=== PATIENT | female | born 1985 | race Caucasian/White ===

== ENCOUNTER 2017-02-05 10:16 | Observation (INO) ==
--- NOTE | 2017-02-05 12:15 | Emergency Department Note ---
Disposition Clinical Impression: Left upper arm pain, Paralysis of left upper extremity Disposition: Still a Patient Condition: Good Time of Disposition: 16:39 General Adult HPI - General Chief complaint: ED Extremity Problem,Nontraumatic Stated complaint: left arm weakness and "not working", vomiting Time Seen by Provider: 02/05/17 10:30 Source: patient Limitations: no limitations Nursing Notes Reviewed: Yes Vital Signs Reviewed: Yes - History of Present Illness HPI Narrative: Patient presents emergency room with complaint of paralysis the left arm and paresthesias in the right upper extremity. She denies any trauma or injuries. Patient is concerned because she woke with the symptoms. She has never had any like this before. Otherwise patient has no other acute pathology or complaints. Denies fevers chills nausea vomiting diarrhea. Denies chest pain shortness of breath headache or vision change. Onset (ago): hour(s) (8) Location: upper extremity Radiation: back Pain Severity: mild Pain Scale: 0 Quality: constant Improves with: nothing Worsens with: nothing Associated symptoms: Reports: weakness Treatments Prior to Arrival: none - Related Data Home Medications Medication Instructions Recorded Confirmed Acetaminophen/Diphenhydramine 1 tab PO HS PRN 02/05/17 02/05/17 [Acetaminophen Pm Caplet] Citalopram [CeleXA] 20 mg PO DAILY 02/05/17 02/05/17 CloNIDine HCl [Clonidine HCl] 0.2 - 0.4 mg PO HS PRN 02/05/17 02/05/17 Ibuprofen [Motrin] 400 - 800 mg PO Q6HR PRN 02/05/17 02/05/17 [place] Carbonate 300 mg PO DAILY 02/05/17 02/05/17 Allergies Allergy/AdvReac Type Severity Reaction Status Date / Time No Known Allergies Allergy Verified 06/12/15 19:23 All systems ED: reviewed and negative except as stated. Constitutional: Denies: fever, chills Cardiovascular: Denies: chest pain, palpitations Respiratory: Denies: dyspnea, wheezes Gastrointestinal: Denies: nausea, vomiting, diarrhea Genitourinary: Denies: dysuria, frequency Musculoskeletal: Denies: back pain, neck pain Neurological: Denies: headache Past Medical History - Past Medical History Attestation: Yes The following information was validated with the patient. Source: patient Medical history: Reports: hepatitis Surgical history: Reports: non-contributory Psychiatric history: Reports: bipolar, depression, PTSD [employer] MARGARINE history: Reports: non-contributory - Social History Smoking Status: Current every day smoker Smokeless Tobacco Status: No Alcohol use: Reports: none Drug use: Reports: IVDU Physical Exam - General Limitations: no limitations General appearance: alert, in no apparent distress - Neck Neck exam: Present: normal inspection, full ROM, trachea midline. Absent: tenderness, meningismus, lymphadenopathy - Chest Chest inspection: Present: normal inspection, symmetric chest wall rise. Absent : tenderness - Respiratory Respiratory exam: Present: normal lung sounds bilaterally - Cardiovascular Cardiovascular exam: Present: normal rhythm, tachycardia, normal heart sounds - Extremities Exam Extremities exam: Present: normal inspection, normal capillary refill, other ( Is what appears to be paresthesias and paralysis the left upper extremity. She describes the symptoms from the shoulder down. She has mild paresthesias of the right upper extremity over the thumb and lateral aspect of the forearm otherwise no other acute pathology). Absent: full ROM, tenderness - Back Exam Back exam: Present: normal inspection, full ROM. Absent: tenderness - Neurological Exam Neurological exam: Present: alert, oriented X3, CN II-XII intact, normal gait - Psychiatric Psychiatric exam: Present: normal affect, normal mood - Skin Skin exam: Present: warm, dry, intact, normal color Course Course Narrative: 6 patient seen and examined the time of arrival. See history of present illness. 31-year-old female presents today with left upper extremity paralysis with paresthesias as well as right upper extremity paresthesias. Symptom onset was prior to waking this morning. Patient denies any trauma or injury yesterday. She has never had any symptoms like this. Patient denies fevers chills nausea vomiting diarrhea. Denies chest pain shortness breath headache or vision change. Patient's only complaint is the numbness and lack of use of her left upper extremity right upper extremity. Patient of note is and was a IV drug abuser. There is concern at this point for possible spinal cord related issues including epidural abscess, vascular related ischemia to the spinal cord or canal stenosis. Physical exam is relatively benign and head is atraumatic pupils equal round reactive to light. There is no midline cervical thoracic or lumbar tenderness. Patient is motion of the neck without any difficulty. Trachea is midline. Lungs are clear heart is regular. Physical exam of the upper extremities show symmetric appearing cavities with no pulse deficits at this time. The right upper extremity has motor function that appears to be a pulse 4 out of 5. This affects the shoulder elbow and wrist. She has normal sensation but describes some tingliness over her thumb and index finger and the lateral aspect of her forearm. Left upper trap the patient describes decreased sensation to the point of almost no sensation from the shoulder down to the fingertips. She also describes lack of use. She is unable to move this extremity. Spurling's test is negative bilaterally in the cervical spine. Patient is concerning for some type of spinal cord related injury or infection at this time. Labs ordered addressing any infectious etiology including cultures CBC liver enzymes lipase tenderness abdominal pathology secondary to drug abuse history. Troponin also be ordered as well as EKG and chest x-ray. MRI of the cervical thoracic and lumbar spine as well as a CT of the head are also ordered during this treatment course. Disposition pending workup and treatment evaluation. Reviewing patient's chart shows that she did have an abscess in the left upper extremity several weeks ago. Evaluation the arm does not show any redness swelling or other signs of injury at this point. Both extremities appear to be stable. - Reevaluation(s) Reevaluation #1: Patient found to have a grossly positive drug screen here in the emergency room. Patient will not be provided with any pain medication or anxiolytics while here secondary to our diameter system. Patient having imaging performed at this time. Otherwise her labs are normal white count is normal no acute signs of infection or etiology at this point disposition patient treatment course. Symptoms appear to be more consistent with a neuropraxia consistent with a Monday night palsy. Patient seems to fall asleep or done something is created the pressure symptoms and radicular paresthesias. Unknown etiology at this time but symptoms do not appear to be secondary to trauma spinal stenosis at this point. Disposition pending MRI imaging. Time: 13:59 Reevaluation #2: Patient and I reviewed her medications. She says that she is on Klonopin at home. Attempted review and [place] [facility] prescription reporting system at this time I am unable to access is secondary to change in her sister minimally credentialing. Patient and I discussed that she will be given a one-time dose and that is all she will have here in the emergency room. 1 mg of Ativan with this time to have the patient tolerated her MRI study. Symptoms again appear to be secondary to neuropraxia but underlying etiology are concerning this point. Time: 15:12 Reevaluation #3: Patient was reviewed with the hospitalist Dr. Lala. We reviewed the presentation symptoms and inability to get definitive imaging studies at this time. Neurologic evaluation has not changed throughout the course of care. He medical intervention as well as discussions that I had multiple times the bedside with the patient and the family were reviewed. Hospital said no other recommendations at this time. Patient will be admitted for definitive evaluation of paralysis to left upper extremity paresthesias in the right upper extremity. Patient stable on a good medical condition and ambulatory to the emergency room without any acute deficits noted we will continue monitoring in emergency room until the admission process is completed Time: 16:38 Vital Signs Temperature 98.5 F 02/05/17 10:21 Pulse Rate 120 02/05/17 10:21 Respiratory Rate 18 02/05/17 10:21 Blood Pressure 110/76 02/05/17 10:21 O2 Sat by Pulse Oximetry 97 02/05/17 10:21 Temperature 98.5 F 02/05/17 10:21 Pulse Rate 110 02/05/17 13:28 Respiratory Rate 18 02/05/17 13:28 Blood Pressure 138/80 02/05/17 13:28 O2 Sat by Pulse Oximetry 98 02/05/17 13:28 Oxygen Delivery Oxygen Delivery Room Air Medical Decision Making - MDM Narrative Medical decision making narrative: Upper extremity paralysis paresthesias, left upper extremity - Medical Records Medical records reviewed: Yes I reviewed the patient's medical records. - Lab Data Lab results reviewed: Yes I reviewed the patient's lab results. Result diagrams: 02/05/17 12:34 02/05/17 12:34 Lab Results 02/05/17 02/05/17 02/05/17 Range/Units 10:40 10:40 10:40 WBC (4.3-11.1) K/mcL RBC (3.82-4.97) M/mcL Hgb (11.5-15.4) g/dL Hct (35.3-44.9) % MCV (83.0-100.0) fL MCH (28.0-33.3) pg MCHC (31.6-35.5) g/dL RDW (11.5-14.5) % Plt Count (140-400) K/mcL MPV (9.4-12.4) fL Immature Gran % (0-4) % Seg Neutrophils % % Lymphocytes % % Monocytes % % Eosinophils % % Basophils % % Neutrophils # (1.6-8.9) K/mcL Lymphocytes # (0.6-4.6) K/mcL Monocytes # (0.0-1.3) K/mcL Eosinophils # (0.0-0.6) K/mcL Basophils # (0.0-0.2) K/mcL ESR (0-15) mm/hr Sodium (136-145) mEq/L Potassium (3.5-4.5) mEq/L Chloride (98-109) mEq/L Carbon Dioxide (19-29) mEq/L BUN (7-20) mg/dL Creatinine (0.57-1.11) mg/dL Est GFR ( Amer) (> 60) Est GFR (Non-Af Amer) (> 60) BUN/Creatinine Ratio (6-26) Glucose (70-99) mg/dL Calculated Osmolality (280-300) Calcium (8.6-10.8) mg/dL Total Bilirubin (0.2-1.2) mg/dL Direct Bilirubin (0.0-0.5) mg/dL Indirect Bilirubin (0.0-1.2) mg/dL AST (5-34) Units/L ALT (0-55) Units/L Alkaline Phosphatase (38-126) Units/L Troponin I (0-0.03) ng/mL Serum Total Protein (6.0-8.3) g/dL Albumin (3.5-5.0) g/dL Globulin (2.4-3.5) g/dL Albumin/Globulin Ratio (1.1-2.2) Urine Color Yellow (Yellow) Urine Clarity Turbid A (Clear) Urine pH 5.5 (5.0-8.0) pH Units Ur Specific [place] 1.024 (1.010-1.025) Urine Protein 30 H (Neg-Trace) mg/dL Urine Glucose (UA) Normal (Normal) mg/dL Urine Ketones Negative (Negative) mg/dL Urine Blood Moderate H (Negative) Urine Nitrite Negative (Negative) Urine Bilirubin Negative (Negative) Urine Urobilinogen Normal (Normal) mg/dL Ur Leukocyte Esterase Negative (Negative) Urine Microscopic RBC 0-3 (0-3) per hpf Urine Microscopic WBC 5-15 H (0-3) per hpf Ur Squamous Epith Cells Many H (None-Few) per lpf Urine Bacteria Many H (None-Few) per hpf Hyaline Casts Moderate H (None-Few) per lpf Urine Test Negative (Negative) Salicylates (15-30) mg/dL Urine Opiates Screen Positive H (Fqqpoy=678) ng/mL Acetaminophen (10-30) mcg/mL Ur Barbiturates Screen Negative (Jrxqmh=561) ng/mL Ur Phencyclidine Scrn Negative (Cutoff=25) ng/mL Ur Amphetamines Screen Positive H (Jzwsqd=0939) ng/mL U Benzodiazepines Scrn Positive H (Buqrty=814) ng/mL Urine Cocaine Screen Positive H (Cutoff= 300) ng/mL U Marijuana (THC) Screen Negative (Cutoff = 50) ng/mL Ethyl Alcohol (0-10) mg/dL 02/05/17 02/05/17 02/05/17 Range/Units 12:34 12:34 12:34 WBC 9.4 (4.3-11.1) K/mcL RBC 4.59 (3.82-4.97) M/mcL Hgb 13.5 (11.5-15.4) g/dL Hct 40.2 (35.3-44.9) % MCV 87.6 (83.0-100.0) fL MCH 29.4 (28.0-33.3) pg MCHC 33.6 (31.6-35.5) g/dL RDW 14.2 (11.5-14.5) % Plt Count 190 (140-400) K/mcL MPV 10.0 (9.4-12.4) fL Immature Gran % 0.3 (0-4) % Seg Neutrophils % 74.5 % Lymphocytes % 19.9 % Monocytes % 4.9 % Eosinophils % 0.2 % Basophils % 0.2 % Neutrophils # 7.0 (1.6-8.9) K/mcL Lymphocytes # 1.9 (0.6-4.6) K/mcL Monocytes # 0.5 (0.0-1.3) K/mcL Eosinophils # 0.0 (0.0-0.6) K/mcL Basophils # 0.0 (0.0-0.2) K/mcL ESR 24 H (0-15) mm/hr Sodium 138 (136-145) mEq/L Potassium 3.9 (3.5-4.5) mEq/L Chloride 100 (98-109) mEq/L Carbon Dioxide 29 (19-29) mEq/L BUN 14 (7-20) mg/dL Creatinine 0.75 (0.57-1.11) mg/dL Est GFR ( Amer) > 60 (> 60) Est GFR (Non-Af Amer) > 60 (> 60) BUN/Creatinine Ratio 19 (6-26) Glucose 114 H (70-99) mg/dL Calculated Osmolality 287 (280-300) Calcium 10.0 (8.6-10.8) mg/dL Total Bilirubin 0.8 (0.2-1.2) mg/dL Direct Bilirubin 0.3 (0.0-0.5) mg/dL Indirect Bilirubin 0.5 (0.0-1.2) mg/dL AST 67 H (5-34) Units/L ALT 110 H (0-55) Units/L Alkaline Phosphatase 72 (38-126) Units/L Troponin I (0-0.03) ng/mL Serum Total Protein 8.2 (6.0-8.3) g/dL Albumin 4.2 (3.5-5.0) g/dL Globulin 4.0 H (2.4-3.5) g/dL Albumin/Globulin Ratio 1.1 (1.1-2.2) Urine Color (Yellow) Urine Clarity (Clear) Urine pH (5.0-8.0) pH Units Ur Specific [place] (1.010-1.025) Urine Protein (Neg-Trace) mg/dL Urine Glucose (UA) (Normal) mg/dL Urine Ketones (Negative) mg/dL Urine Blood (Negative) Urine Nitrite (Negative) Urine Bilirubin (Negative) Urine Urobilinogen (Normal) mg/dL Ur Leukocyte Esterase (Negative) Urine Microscopic RBC (0-3) per hpf Urine Microscopic WBC (0-3) per hpf Ur Squamous Epith Cells (None-Few) per lpf Urine Bacteria (None-Few) per hpf Hyaline Casts (None-Few) per lpf Urine Test (Negative) Salicylates < 5.0 L (15-30) mg/dL Urine Opiates Screen (Hqokqj=080) ng/mL Acetaminophen < 1.0 L (10-30) mcg/mL Ur Barbiturates Screen (Eiholv=784) ng/mL Ur Phencyclidine Scrn (Cutoff=25) ng/mL Ur Amphetamines Screen (Eseimn=7876) ng/mL U Benzodiazepines Scrn (Sigrlu=890) ng/mL Urine Cocaine Screen (Cutoff= 300) ng/mL U Marijuana (THC) Screen (Cutoff = 50) ng/mL Ethyl Alcohol < 10 (0-10) mg/dL 02/05/17 Range/Units 12:34 WBC (4.3-11.1) K/mcL RBC (3.82-4.97) M/mcL Hgb (11.5-15.4) g/dL Hct (35.3-44.9) % MCV (83.0-100.0) fL MCH (28.0-33.3) pg MCHC (31.6-35.5) g/dL RDW (11.5-14.5) % Plt Count (140-400) K/mcL MPV (9.4-12.4) fL Immature Gran % (0-4) % Seg Neutrophils % % Lymphocytes % % Monocytes % % Eosinophils % % Basophils % % Neutrophils # (1.6-8.9) K/mcL Lymphocytes # (0.6-4.6) K/mcL Monocytes # (0.0-1.3) K/mcL Eosinophils # (0.0-0.6) K/mcL Basophils # (0.0-0.2) K/mcL ESR (0-15) mm/hr Sodium (136-145) mEq/L Potassium (3.5-4.5) mEq/L Chloride (98-109) mEq/L Carbon Dioxide (19-29) mEq/L BUN (7-20) mg/dL Creatinine (0.57-1.11) mg/dL Est GFR ( Amer) (> 60) Est GFR (Non-Af Amer) (> 60) BUN/Creatinine Ratio (6-26) Glucose (70-99) mg/dL Calculated Osmolality (280-300) Calcium (8.6-10.8) mg/dL Total Bilirubin (0.2-1.2) mg/dL Direct Bilirubin (0.0-0.5) mg/dL Indirect Bilirubin (0.0-1.2) mg/dL AST (5-34) Units/L ALT (0-55) Units/L Alkaline Phosphatase (38-126) Units/L Troponin I 0.03 (0-0.03) ng/mL Serum Total Protein (6.0-8.3) g/dL Albumin (3.5-5.0) g/dL Globulin (2.4-3.5) g/dL Albumin/Globulin Ratio (1.1-2.2) Urine Color (Yellow) Urine Clarity (Clear) Urine pH (5.0-8.0) pH Units Ur Specific [place] (1.010-1.025) Urine Protein (Neg-Trace) mg/dL Urine Glucose (UA) (Normal) mg/dL Urine Ketones (Negative) mg/dL Urine Blood (Negative) Urine Nitrite (Negative) Urine Bilirubin (Negative) Urine Urobilinogen (Normal) mg/dL Ur Leukocyte Esterase (Negative) Urine Microscopic RBC (0-3) per hpf Urine Microscopic WBC (0-3) per hpf Ur Squamous Epith Cells (None-Few) per lpf Urine Bacteria (None-Few) per hpf Hyaline Casts (None-Few) per lpf Urine Test (Negative) Salicylates (15-30) mg/dL Urine Opiates Screen (Xrvqfo=741) ng/mL Acetaminophen (10-30) mcg/mL Ur Barbiturates Screen (Pjpxoy=109) ng/mL Ur Phencyclidine Scrn (Cutoff=25) ng/mL Ur Amphetamines Screen (Zvekgu=6690) ng/mL U Benzodiazepines Scrn (Tyxczm=573) ng/mL Urine Cocaine Screen (Cutoff= 300) ng/mL U Marijuana (THC) Screen (Cutoff = 50) ng/mL Ethyl Alcohol (0-10) mg/dL Attestation Statement - Attestation Attestation: Patient was seen with resident physician. I reviewed the history, physical, assessment and plan, and agree with the findings. I also personally evaluated this patient and had [id number] time with this patient. 31-year-old female with chief complaint of cannot move left arm. Patient states that she woke from sleep unable to move her left arm. She has some numbness and tingling and she can move her hand a little bit better arm is unable to be lifted on her own power. Is not necessarily painful it is more numb and immobile. No other focal neurologic deficits initially she said she has not used drugs for the last 30 days then she said she had not used IV drugs in the last week and later in her visit she admitted that she was using drugs up to yesterday. She denies other complaints. Physical exam initial vital signs were stable. ENT is unremarkable. Skin patient has multiple track martinez throughout her body. Neck and back were nontender. Heart and lungs were both normal. Abdomen is soft and nontender. Extremities patient has small amount of movement with weakness in the left hand but is unable to move the left arm. No focal neurologic deficits otherwise. Distal pulses are intact in both upper extremities. CT scan of the head did not reveal any acute abnormalities would also count was not elevated. We attempted to get MRI but patient said she needed sedatives, however her drug screen was positive for almost everything that is tested for, we were uncomfortable giving her increased medications, especially considering the fact we do not know how frequently she has been using and when. Instead we opted to admit the patient to the hospital for neuro checks and further evaluation and treatment as indicated. We attempted to MRI the patient twice and we did give her a small amount of benzodiazepines which apparently was unsuccessful in achieving adequate sedation. Patient requested to go to the parking lot multiple times but she had an IV in place and we were not going to allow her to do that. Eventually patient agreed to stay in the hospital for further evaluation and treatment.
[2017-02-05 12:22] LABS: Bilirubin,Urine Negative (Negative); Blood,Urine Moderate (Negative); Clarity,Urine Turbid (Clear); Color,Urine Yellow (Yellow); Glucose,Urine (UA) Normal (Normal); Ketones,Urine Negative (Negative); Leukocyte Esterase,Urine Negative (Negative); Nitrite,Urine Negative (Negative); PH,Urine 5.5 pH Units (5.0-8.0); Protein,Urine 30 mg/dL (Neg-Trace); Specific Gravity,Urine 1.024 (1.010-1.025); Urobilinogen,Urine Normal (Normal)
[2017-02-05] MEDS ORDERED: Aspirin 81 MG TAB.CHEW PO STA (12:22)
[2017-02-05 12:24] LABS: Bacteria,Urine Many per hpf (None-Few); Hyaline Casts,Urine Moderate per lpf (None-Few); RBC,Urine 0-3 per hpf (0-3); Squamous Epithelial Cell,Urine Many per lpf (None-Few)
[2017-02-05 12:27] LABS: Amphetamine Screen,Urine Positive ng/mL (Cutoff=1000); Barbiturate Screen,Urine Negative ng/mL (Cutoff=200); Benzodiazepines Screen,Urine Positive ng/mL (Cutoff=200); Cannabinoid Screen,Urine Negative ng/mL (Cutoff = 50); Cocaine Screen,Urine Positive ng/mL (Cutoff= 300); Opiate Screen,Urine Positive ng/mL (Cutoff=300); Phencyclidine Screen,Urine Negative ng/mL (Cutoff=25)
[2017-02-05 12:41] LABS: Basophils % 0.2 %; Eosinophils % 0.2 %; Hematocrit 40.2 % (35.3-44.9); Hemoglobin 13.5 g/dL (11.5-15.4); Immature Granulocytes % 0.3 % (0-4); Lymphocytes # 1.9 K/mcL (0.6-4.6); Lymphocytes % 19.9 %; Mean Corpuscular HGB Conc 33.6 g/dL (31.6-35.5); Mean Corpuscular Hemoglobin 29.4 pg (28.0-33.3); Mean Corpuscular Volume 87.6 fL (83.0-100.0); Monocytes # 0.5 K/mcL (0.0-1.3); Monocytes % 4.9 %; Platelet Count 190 K/mcL (140-400); Red Blood Count 4.59 M/mcL (3.82-4.97); Red Cell Distribution Width 14.2 % (11.5-14.5); Segmented Neutrophils % 74.5 %
[2017-02-05 12:55] LABS: Alanine Aminotransferase 110 Units/L (0-55); Albumin 4.2 g/dL (3.5-5.0); Albumin/Globulin Ratio 1.1 (1.1-2.2); Alkaline Phosphatase 72 Units/L (38-126); Aspartate Amino Transferase 67 Units/L (5-34); BUN/Creatinine Ratio 19 (6-26); Bilirubin,Direct 0.3 mg/dL (0.0-0.5); Bilirubin,Indirect 0.5 mg/dL (0.0-1.2); Bilirubin,Total 0.8 mg/dL (0.2-1.2); Blood Urea Nitrogen 14 mg/dL (7-20); Carbon Dioxide 29 mEq/L (19-29); Chloride 100 mEq/L (98-109); Glucose 114 mg/dL (70-99); Osmolality,Calculated 287 (280-300); Potassium 3.9 mEq/L (3.5-4.5); Sodium 138 mEq/L (136-145); Total Protein 8.2 g/dL (6.0-8.3); eGFR For African Americans > 60 (> 60); eGFR For Non-African Americans > 60 (> 60)
[2017-02-05 12:56] LABS: Acetaminophen < 1.0 mcg/mL (10-30)
[2017-02-05 12:57] LABS: Ethanol < 10 mg/dL (0-10); Salicylate < 5.0 mg/dL (15-30)
[2017-02-05] MEDS ORDERED: *HR* LORazepam 2 MG/ML VIAL IVP ONE (14:39)
[2017-02-05] MEDS ORDERED: Nicotine 21 MG PATCH.TD24 TD SCH (17:00)
[2017-02-05 17:28] VITALS: BP 115/82
--- NOTE | 2017-02-05 18:49 | Internal Med History&Physical ---
Date of Encounter: 02/05/17 Time of Encounter: 17:30 Internal Medicine - H&P: HPI Chief complaint: l arm numbness flaccid Admitted From: Emergency Dept Plans for Post Hospital Care: Home History of present illness: Ms. Pollard is a 31 year old female past medical history of IV drug abuse hep C bipolar PTSD. Past Med Surg Social Fam HX - Past Medical History Medical history: hepatitis Psychiatric history: bipolar, depression, PTSD - Past Surgical History Surgical History: non-contributory - Social History Smoking Status: Current every day smoker Packs per day: 1/3 Smokeless Tobacco Status: No Alcohol use: none Drug use: cocaine, IVDU, prescription drug abuse - Family History Father Living Status: Hx Family Cardiac Disorders: Yes Internal Medicine - H&P: Meds Acetaminophen/Diphenhydramine [Acetaminophen Pm Caplet] 1 tab PO HS PRN [History] Citalopram [CeleXA] 20 mg PO DAILY 02/05/17 [History] CloNIDine HCl [Clonidine HCl] 0.2 - 0.4 mg PO HS PRN 02/05/17 [History] Ibuprofen [Motrin] 400 - 800 mg PO Q6HR PRN 02/05/17 [History] [place] Carbonate 300 mg PO DAILY 02/05/17 [History] Allergies No Known Allergies Allergy (Verified 06/12/15 19:23) All Systems PM: A 10-system review of systems was performed and is negative for pertinent findings except as documented above in the HPI. - Constitutional Vitals: Temp Pulse Resp BP Pulse Ox 97.9 F 104 16 115/82 98 02/05/17 17:27 02/05/17 17:27 02/05/17 17:27 02/05/17 17:27 02/05/17 17:27 Internal Med - H&P Results - Labs CBC & Chem 7: 02/05/17 12:34 02/05/17 12:34
--- NOTE | 2017-02-05 19:27 | Event Note ---
Date of Encounter: 02/05/17 Time of Encounter: 18:55 This 31-year-old female with past history of hep C IV drug use PTSD and bipolar disorder. She presented to the ER today with complaints of left upper extremity paralysis with paresthesia as well as right upper extremity paresthesia. According to patient she has been sober for approximately 30 days and relapsed last night and took several IV drugs. The last time she was able to move all extremities without any difficulty was 1 AM. She awoke this morning and she was not able to to move her left arm,which was flaccid. She had normal sensation in her right arm however she had tingling and numbness. She denies any fevers chills nausea vomiting or diarrhea. She does admit that she fell on her right side onto a crate last evening however denies any head or neck injuries. There is no midline cervical thoracic or lumbar tenderness. Patient has full range of motion of head neck and right upper arm lower extremities. Trachea is midline lungs are clear heart is regular with S1-S2 no rubs clicks gallops or murmurs noted physical exam of upper extremities shows some scrapes to her right upper arm. Noted fresh track martinez to her right arm.There is full motor function of right arm radial pulses present bilaterally brisk capillary refill extremity is pink and warm she has normal sensation in her right arm. Left hand with sensation to pain to all fingers and sensation up to her elbow. She is unable to raise or flex her left arm. She is alert and follows simple commands however her speech is slurred, pupils are dilated and reactive to light, horizontal nystagmus was noted to eyes bilaterally. She is hemodynamically stable Abdomen soft nontender CT of head was negative for any intracranial abnormalities on lab work was unremarkable. Tox screen was positive for benzos and amphetamines cocaine and opiates patient was given 1 mg of Ativan prior to MRI study however patient was unable to complete study due to anxiety. Patient has requested anti-anxiety medications several times and has threatened to leave AMA. Explained to patient during assessment that because of her past drug abuse we would only prescribed to her, her home dose of Klonopin and 1 mg Ativan as needed every 6 hours for anxiety. Patient was agreeable to this. Also explained to the patient that neurology would see patient in the a.m and that since she is high risk for falls that she would have to stay in bed will be placed on fall precautions she verbalized understanding. Patient requesting to go to the cafeteria again reinforced that she is on fall precautions and would need to stay in her room and would require assistance from nursing staff to ambulate. After leaving the room nursing staff notified me that they had entered the room and found the patient's mother snorting something. I spoke with the patient and explained to her that I did not think it was safe for the patient to have her door shut with visitors, since she is high risk for drug abuse, possible overdose. Informed her she would have to leave the door open and she cannot have any visitors at this time. Patient became very belligerent and was crying saying that she could not stay in the room by herself offered the patient a sitter, she declined. Patient threatening to leave AMA. Again advised patient against leaving AMA informed her she is high risk for possible stroke permanently losing the use of her left arm and possible . Encouraged her to stay and complete her workup. Patient states she is too anxious and is unable to stay by herself again offered sitter as well as Ativan for anxiety. Patient declined and states that she would like to think about it. Informed by nursing staff patient has left AMA. Updated .
--- NOTE | 2017-02-06 17:11 | Electrocardiograph Report ---
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
== END 2017-02-05 18:45 | disposition left against medical advice (07) ==
LOC: 3BNU 10:16 → EMEROO 10:16 → 3BNU 17:01
PROVIDERS: ADMIT Internal Medicine Endocrinology, Diabetes & Metabolism; ATTEND Nurse Practitioner Family

== ENCOUNTER 2017-02-07 19:23 | Observation (INO) ==
[2017-02-07] MEDS ORDERED: Haloperidol Lactate 5 MG/ML VIAL IVP ONE ×2 (20:07→22:26)
[2017-02-07] MEDS ORDERED: *HR* LORazepam 2 MG/ML VIAL IVP ONE (20:21)
[2017-02-07 20:51] LABS: Basophils # 0.1 K/mcL (0.0-0.2); Basophils % 0.8 %; Eosinophils # 0.2 K/mcL (0.0-0.6); Eosinophils % 2.6 %; Hematocrit 40.8 % (35.3-44.9); Hemoglobin 14.2 g/dL (11.5-15.4); Immature Granulocytes % 0.2 % (0-4); Lymphocytes # 3.9 K/mcL (0.6-4.6); Lymphocytes % 46.1 %; Mean Corpuscular HGB Conc 34.8 g/dL (31.6-35.5); Mean Corpuscular Hemoglobin 29.4 pg (28.0-33.3); Mean Corpuscular Volume 84.5 fL (83.0-100.0); Mean Platelet Volume 10.1 fL (9.4-12.4); Monocytes # 0.7 K/mcL (0.0-1.3); Monocytes % 8.2 %; Neutrophils # 3.6 K/mcL (1.6-8.9); Platelet Count 230 K/mcL (140-400); Red Blood Count 4.83 M/mcL (3.82-4.97); Red Cell Distribution Width 13.5 % (11.5-14.5); Segmented Neutrophils % 42.1 %
[2017-02-07 21:01] LABS: BUN/Creatinine Ratio 31 (6-26); Blood Urea Nitrogen 25 mg/dL (7-20); Calcium 9.7 mg/dL (8.6-10.8); Carbon Dioxide 27 mEq/L (19-29); Chloride 105 mEq/L (98-109); Glucose 103 mg/dL (70-99); Osmolality,Calculated 297 (280-300); Potassium 3.5 mEq/L (3.5-4.5); Sodium 141 mEq/L (136-145); eGFR For African Americans > 60 (> 60); eGFR For Non-African Americans > 60 (> 60)
[2017-02-07 21:04] LABS: Acetaminophen < 1.0 mcg/mL (10-30); Ethanol < 10 mg/dL (0-10); Salicylate < 5.0 mg/dL (15-30)
[2017-02-07 21:17] LABS: INR 1.1; Prothrombin Time 11.4 Seconds (9.4-12.1)
--- NOTE | 2017-02-07 21:20 | Emergency Department Note ---
Disposition Clinical Impression: Paralysis, Arm paresthesia, left Disposition: Still a Patient Referrals: Alonso Jones, PAC [Primary Care Provider] - Forms: ED Satisfaction Letter Neuro HPI - General Chief Complaint: ED Neuro Symptoms/Deficit Stated Complaint: both arms numb// fainting spells Time Seen by Provider: 02/07/17 19:48 Source: patient Limitations: no limitations Nursing Notes Reviewed: Yes Vital Signs Reviewed: Yes - History of Present Illness HPI Narrative: Patient here for evaluation of abnormal neurologic function. Patient was seen 2 days ago at this emergency department and admitted but signed out AMA. Patient was seen at an outside ER yesterday but also was unable to get MRI or follow-up. Patient was seen with Dr. Saenz who evaluated this patient at her initial ER visit. Patient's initial left arm paralysis and paresthesias have worsened to involve the right hand as well as an obvious ataxia. Patient has a hard time sitting in bed. Patient does have a history of hepatitis C as well as PTSD, anxiety, depression. Patient becomes very agitated at the mention of MRI for further workup. Patient states that she needs benzos to be sedated. It is explained to the patient that we will do our best to sedate her but we need her cooperation in helping to figure out the root cause. During our conversation the patient does have some inattention and inability to concentrate as well. Patient states she has had some intermittent vision issues but is not able to further elaborate on these as they are not currently present at this time. - Related Data Home Medications: Home Medications Medication Instructions Recorded Confirmed Acetaminophen/Diphenhydramine 1 tab PO HS PRN 02/05/17 02/07/17 [Acetaminophen Pm Caplet] Citalopram [CeleXA] 20 mg PO DAILY 02/05/17 02/07/17 CloNIDine HCl [Clonidine HCl] 0.2 - 0.4 mg PO HS PRN 02/05/17 02/07/17 Ibuprofen [Motrin] 400 - 800 mg PO Q6HR PRN 02/05/17 02/07/17 [place] Carbonate 300 mg PO DAILY 02/05/17 02/07/17 Allergies/Adverse Reactions: Allergies Allergy/AdvReac Type Severity Reaction Status Date / Time No Known Allergies Allergy Verified 02/07/17 19:31 All systems ED: reviewed and negative except as stated. Constitutional: Denies: fever, chills, weakness Cardiovascular: Denies: chest pain, palpitations Respiratory: Denies: cough, dyspnea Gastrointestinal: Denies: abdominal pain, nausea, vomiting Genitourinary: Denies: urgency, dysuria Musculoskeletal: Reports: back pain, neck pain Integumentary: Denies: rash, abrasion Neurological: Reports: weakness, numbness, paresthesias, confusion, abnormal gait. 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 - Social History Smoking Status: Current every day smoker Smokeless Tobacco Status: No Alcohol use: Reports: none Drug use: Reports: cocaine, IVDU, prescription drug abuse Physical Exam - General Limitations: no limitations General appearance: alert, in no apparent distress - Head Head exam: atraumatic, normocephalic - Eye Eye exam: Present: normal appearance - ENT ENT exam: normal exam, normal oropharynx - Neck Neck exam: Present: normal inspection, full ROM - Chest Chest inspection: Present: normal inspection, symmetric chest wall rise - Respiratory Respiratory exam: Present: normal lung sounds bilaterally. Absent: respiratory distress, wheezes - Cardiovascular Cardiovascular exam: Present: regular rate, normal rhythm - Abdominal Exam Abdominal exam: Present: soft, Non-Tender - Extremities Exam Extremities exam: Present: normal inspection. Absent: pedal edema - Back Exam Back exam: Present: normal inspection - Neurological Exam Neurological exam: Present: alert, oriented X3, CN II-XII intact, motor sensory deficit. Absent: normal gait - Expanded Neurological Exam Patient oriented to: Present: person, place, time Speech: Present: fluid speech Cranial nerves: EOM function (II, III, IV, ): Normal, facial sensation (V): Normal, facial palsy (VII): Normal, gag reflex (IX): Normal, spinal accessory function (XI): Normal, tongue deviation (XII): Normal Cerebellar function: finger to nose: Abnormal Left, Abnormal Right, heel to tiwari : Abnormal Left, Abnormal Right Cerebellar function: truncal ataxia Motor strength - LUE: 0/5 Motor strength - RUE: 3/5 Motor strength - LLE: 5/5 Motor strength - RLE: 5/5 Sensory exam upper extremity: light touch: Abnormal Left Sensory exam lower extremity: light touch: Normal Coma Scale Eye Opening: Spontaneous Coma Scale Motor Response: Obeys Commands Coma Scale Verbal Response: Oriented Coma Scale Total: 15 - Psychiatric Psychiatric exam: Present: agitated, anxious - Skin Skin exam: Present: warm, dry, intact Course Course Narrative: Patient is very agitated and PTSD takes and when telling her she needs an MRI. At this point patient's neurologic findings are very concerning and she needs an MRI of the head CT and L-spine. Patient will be medicated with Haldol and Ativan to get pictures. Vital Signs Temperature 97.8 F 02/07/17 19:25 Pulse Rate 114 02/07/17 19:25 Respiratory Rate 16 02/07/17 19:25 Blood Pressure 113/63 02/07/17 19:25 O2 Sat by Pulse Oximetry 97 02/07/17 19:25 Temperature 97.8 F 02/07/17 19:25 Pulse Rate 114 02/07/17 19:25 Respiratory Rate 16 02/07/17 19:25 Blood Pressure 113/63 02/07/17 19:25 O2 Sat by Pulse Oximetry 97 02/07/17 19:25 Oxygen Delivery Oxygen Delivery Room Air Neuro Symptoms/Deficit - Lab Data Result diagrams: 02/07/17 20:39 02/07/17 20:39 Lab Results 02/07/17 02/07/17 02/07/17 Range/Units 20:39 20:39 20:39 WBC 8.5 (4.3-11.1) K/mcL RBC 4.83 (3.82-4.97) M/mcL Hgb 14.2 (11.5-15.4) g/dL Hct 40.8 (35.3-44.9) % MCV 84.5 (83.0-100.0) fL MCH 29.4 (28.0-33.3) pg MCHC 34.8 (31.6-35.5) g/dL RDW 13.5 (11.5-14.5) % Plt Count 230 (140-400) K/mcL MPV 10.1 (9.4-12.4) fL Immature Gran % 0.2 (0-4) % Seg Neutrophils % 42.1 % Lymphocytes % 46.1 % Monocytes % 8.2 % Eosinophils % 2.6 % Basophils % 0.8 % Neutrophils # 3.6 (1.6-8.9) K/mcL Lymphocytes # 3.9 (0.6-4.6) K/mcL Monocytes # 0.7 (0.0-1.3) K/mcL Eosinophils # 0.2 (0.0-0.6) K/mcL Basophils # 0.1 (0.0-0.2) K/mcL ESR (0-15) mm/hr PT 11.4 (9.4-12.1) Seconds INR 1.1 Sodium 141 (136-145) mEq/L Potassium 3.5 (3.5-4.5) mEq/L Chloride 105 (98-109) mEq/L Carbon Dioxide 27 (19-29) mEq/L BUN 25 H D (7-20) mg/dL Creatinine 0.80 (0.57-1.11) mg/dL Est GFR ( Amer) > 60 (> 60) Est GFR (Non-Af Amer) > 60 (> 60) BUN/Creatinine Ratio 31 H (6-26) Glucose 103 H (70-99) mg/dL Calculated Osmolality 297 (280-300) Calcium 9.7 (8.6-10.8) mg/dL Troponin I (0-0.03) ng/mL Salicylates (15-30) mg/dL Acetaminophen (10-30) mcg/mL Ethyl Alcohol (0-10) mg/dL 02/07/17 02/07/17 02/07/17 Range/Units 20:39 20:39 20:39 WBC (4.3-11.1) K/mcL RBC (3.82-4.97) M/mcL Hgb (11.5-15.4) g/dL Hct (35.3-44.9) % MCV (83.0-100.0) fL MCH (28.0-33.3) pg MCHC (31.6-35.5) g/dL RDW (11.5-14.5) % Plt Count (140-400) K/mcL MPV (9.4-12.4) fL Immature Gran % (0-4) % Seg Neutrophils % % Lymphocytes % % Monocytes % % Eosinophils % % Basophils % % Neutrophils # (1.6-8.9) K/mcL Lymphocytes # (0.6-4.6) K/mcL Monocytes # (0.0-1.3) K/mcL Eosinophils # (0.0-0.6) K/mcL Basophils # (0.0-0.2) K/mcL ESR 32 H (0-15) mm/hr PT (9.4-12.1) Seconds INR Sodium (136-145) mEq/L Potassium (3.5-4.5) mEq/L Chloride (98-109) mEq/L Carbon Dioxide (19-29) mEq/L BUN (7-20) mg/dL Creatinine (0.57-1.11) mg/dL Est GFR ( Amer) (> 60) Est GFR (Non-Af Amer) (> 60) BUN/Creatinine Ratio (6-26) Glucose (70-99) mg/dL Calculated Osmolality (280-300) Calcium (8.6-10.8) mg/dL Troponin I 0.00 (0-0.03) ng/mL Salicylates < 5.0 L (15-30) mg/dL Acetaminophen < 1.0 L (10-30) mcg/mL Ethyl Alcohol < 10 (0-10) mg/dL S.B.A.R. - S.B.A.R. Transition of Care: Patient signed out to the night team. Patient presents for the third straight day for evaluation of abnormal neurologic function. Patient has inability to move the left arm as well as abnormal function on that side. Patient's blaze obvious truncal ataxia as well as numbness and weakness to the right upper extremity. Patient's lower extremities strength is 5 out of 5 however she does have hyperreflexia as well as obvious ataxia likely secondary to truncal weakness. Patient denies any previous neurologic abnormalities. Patient does have hepatitis C has been treated for PTSD as well as anxiety and depression. MRIs have been ordered of her head, cervical, thoracic, lumbar spine. Laboratory results pending. MRI is pending. Patient will likely need neurologic consultation and admission to the hospital. S.B.A.R. Report Given to: Dr. Pereira. Attestation Statement - Attestation Attestation: Patient was seen with resident physician. I reviewed the history, physical, assessment and plan, and agree with the findings. I also personally evaluated this patient and had [id number] time with this patient. 31-year-old female presents to the emergency department for the second or third time in as many days with chief complaint of left arm weakness, right arm numbness, and no difficulty ambulating. Patient was seen by myself and resident physician on Monday with similar complaints attempted to obtain an MRI of the neck and back as well as the head but was unable to do so because the patient has anxiety related to getting an MRI. Patient's tox screen was positive for so many different substances we were cautious about giving her any additional benzodiazepines or other sedatives. Instead we opted to admit the patient for neuro checks and neuro evaluation and potential MRI while in the hospital. Unfortunately the patient signed out AGAINST MEDICAL ADVICE and left before these tests could be completed. She presents now today with worsening symptoms or continued weakness in the left arm with a little bit of motion in the left hand but no numbness in the right arm and also difficulty ambulating what appears to be almost of ataxia type presentation. Patient is again very very anxious about getting an MRI in about being admitted to the hospital, but she is very scared and she is concerned about her health stating that she wants to see if we can figure out what is going on. Physical exam vital signs stable ENT unremarkable. Skin multiple track martinez. Heart and lungs normal. Abdomen soft nontender. Extremities unremarkable for traumatic injury she does have multiple bruises. Neurologically patient is alert and oriented very anxious, she has very little movement of her left arm which hangs almost paralytic leg. Her right arm has good strength and she now is ataxic having a difficult time ambulating seemingly favoring her right leg. It is difficult to tell. At this point we need to get the MRI. Patient was given a dose of Haldol and Ativan in attempt to appropriately sedate her. She was taken to the MRI much more comfortable when she came in. Patient will be signed out to the nighttime team for final evaluation and disposition. It is unclear at this point with her definitive diagnosis is, but I suspect the patient has genuine pathology causing her weakness. Again final disposition will be by Dr. Ortiz and the cage shift manager team.
[2017-02-08] MEDS ORDERED: 0.9 % Sodium Chloride 1,000 ML ONE ×2 (00:07→04:13)
[2017-02-08] MEDS ORDERED: 0.9 % Sodium Chloride 1,000 ML IVC ONE ×2 (00:14→01:32)
--- NOTE | 2017-02-08 01:03 | Emergency Department Note ---
Disposition Clinical Impression: Paralysis, Arm paresthesia, left, Substance use disorder, History of bipolar disorder Disposition: Admitted As Inpatient Condition: Fair General Adult HPI - General Chief complaint: ED Neuro Symptoms/Deficit Stated complaint: both arms numb// fainting spells Time Seen by Provider: 02/07/17 19:48 Source: patient Limitations: no limitations - History of Present Illness HPI Narrative: Patient seen and examined. Please see prior providers documentation for full history and physical. This patient was signed out to [facility] Pain Scale: 0 - Related Data Home Medications Medication Instructions Recorded Confirmed Acetaminophen/Diphenhydramine 1 tab PO HS PRN 02/05/17 02/07/17 [Acetaminophen Pm Caplet] Citalopram [CeleXA] 20 mg PO DAILY 02/05/17 02/07/17 CloNIDine HCl [Clonidine HCl] 0.2 - 0.4 mg PO HS PRN 02/05/17 02/07/17 Ibuprofen [Motrin] 400 - 800 mg PO Q6HR PRN 02/05/17 02/07/17 [place] Carbonate 300 mg PO DAILY 02/05/17 02/07/17 Allergies Allergy/AdvReac Type Severity Reaction Status Date / Time No Known Allergies Allergy Verified 02/07/17 19:31 Constitutional: Denies: fever, chills, weakness Cardiovascular: Denies: chest pain, palpitations Respiratory: Denies: cough, dyspnea Gastrointestinal: Denies: abdominal pain, nausea, vomiting Genitourinary: Denies: urgency, dysuria Musculoskeletal: Reports: back pain, neck pain Integumentary: Denies: rash, abrasion Neurological: Reports: weakness, numbness, paresthesias, confusion, abnormal gait. 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 Patient's in no acute distress. Patient will be admitted to the hospital service for further evaluation. Patient's records are reviewed. - Reevaluation(s) Reevaluation #1: Patient seen and examined. Not able to reproduce the patient's neurologic exam as the patient is sedated after the Haldol and the Ativan. Discussed the history of physical with the patient's family at bedside Time: 01:34 Vital Signs Temperature 97.8 F 02/07/17 19:25 Pulse Rate 114 02/07/17 19:25 Respiratory Rate 16 02/07/17 19:25 Blood Pressure 113/63 02/07/17 19:25 O2 Sat by Pulse Oximetry 97 02/07/17 19:25 Temperature 97.8 F 02/07/17 19:25 Pulse Rate 68 02/08/17 02:50 Respiratory Rate 12 02/08/17 02:50 Blood Pressure 87/53 02/08/17 03:10 O2 Sat by Pulse Oximetry 99 02/08/17 02:50 Oxygen Delivery Oxygen Delivery Room Air Medical Decision Making - MDM Narrative Medical decision making narrative: 31-year-old female presents for evaluation for neuro symptoms. Patient was evaluated 2 days prior and sign out AMA and did not wish to have it MRI. Patient's symptoms progressed and worsened. The patient was signed out to me by the prior provider. Please see their documentation for complete history and physical. Could not reproduce the patient's physical exam as the patient is heavily sedated for the MRI. Patient was having some transient hypotension likely related to sedation which responded to IV fluids. Patient's MR shows no acute abnormalities. Patient's lab work reviewed today as well as in the past. Patient does have a history of polysubstance abuse. There is no objective findings that can explain the patient's symptoms at this point. The patient was given aspirin for possible TIA symptoms. Patient will need to be observed and a telemetry setting. Patient family at bedside provided the history. Confirm that the patient has not been having any recent illnesses. No fevers. No GI upset. No nausea vomiting diarrhea. No recent travel. States that the patient has not been taking her psychiatric medications. - Lab Data Lab results reviewed: Yes I reviewed the patient's lab results. Result diagrams: 02/07/17 20:39 02/07/17 20:39 Lab Results 02/07/17 02/07/17 02/07/17 Range/Units 20:39 20:39 20:39 WBC 8.5 (4.3-11.1) K/mcL RBC 4.83 (3.82-4.97) M/mcL Hgb 14.2 (11.5-15.4) g/dL Hct 40.8 (35.3-44.9) % MCV 84.5 (83.0-100.0) fL MCH 29.4 (28.0-33.3) pg MCHC 34.8 (31.6-35.5) g/dL RDW 13.5 (11.5-14.5) % Plt Count 230 (140-400) K/mcL MPV 10.1 (9.4-12.4) fL Immature Gran % 0.2 (0-4) % Seg Neutrophils % 42.1 % Lymphocytes % 46.1 % Monocytes % 8.2 % Eosinophils % 2.6 % Basophils % 0.8 % Neutrophils # 3.6 (1.6-8.9) K/mcL Lymphocytes # 3.9 (0.6-4.6) K/mcL Monocytes # 0.7 (0.0-1.3) K/mcL Eosinophils # 0.2 (0.0-0.6) K/mcL Basophils # 0.1 (0.0-0.2) K/mcL ESR (0-15) mm/hr PT 11.4 (9.4-12.1) Seconds INR 1.1 Sodium 141 (136-145) mEq/L Potassium 3.5 (3.5-4.5) mEq/L Chloride 105 (98-109) mEq/L Carbon Dioxide 27 (19-29) mEq/L BUN 25 H D (7-20) mg/dL Creatinine 0.80 (0.57-1.11) mg/dL Est GFR ( Amer) > 60 (> 60) Est GFR (Non-Af Amer) > 60 (> 60) BUN/Creatinine Ratio 31 H (6-26) Glucose 103 H (70-99) mg/dL Calculated Osmolality 297 (280-300) Calcium 9.7 (8.6-10.8) mg/dL Troponin I (0-0.03) ng/mL Urine Color (Yellow) Urine Clarity (Clear) Urine pH (5.0-8.0) pH Units Ur Specific Nenzel (1.010-1.025) Urine Protein (Neg-Trace) mg/dL Urine Glucose (UA) (Normal) mg/dL Urine Ketones (Negative) mg/dL Urine Blood (Negative) Urine Nitrite (Negative) Urine Bilirubin (Negative) Urine Urobilinogen (Normal) mg/dL Ur Leukocyte Esterase (Negative) Urine Microscopic RBC (0-3) per hpf Urine Microscopic WBC (0-3) per hpf Ur Squamous Epith Cells (None-Few) per lpf Urine Bacteria (None-Few) per hpf Hyaline Casts Urine Yeast Salicylates (15-30) mg/dL Urine Opiates Screen (Xvjvch=740) ng/mL Acetaminophen (10-30) mcg/mL Ur Barbiturates Screen (Sjnxab=431) ng/mL Ur Phencyclidine Scrn (Cutoff=25) ng/mL Ur Amphetamines Screen (Mqlbft=2632) ng/mL U Benzodiazepines Scrn (Nopdyy=911) ng/mL Urine Cocaine Screen (Cutoff= 300) ng/mL U Marijuana (THC) Screen (Cutoff = 50) ng/mL Ethyl Alcohol (0-10) mg/dL 02/07/17 02/07/17 02/07/17 Range/Units 20:39 20:39 20:39 WBC (4.3-11.1) K/mcL RBC (3.82-4.97) M/mcL Hgb (11.5-15.4) g/dL Hct (35.3-44.9) % MCV (83.0-100.0) fL MCH (28.0-33.3) pg MCHC (31.6-35.5) g/dL RDW (11.5-14.5) % Plt Count (140-400) K/mcL MPV (9.4-12.4) fL Immature Gran % (0-4) % Seg Neutrophils % % Lymphocytes % % Monocytes % % Eosinophils % % Basophils % % Neutrophils # (1.6-8.9) K/mcL Lymphocytes # (0.6-4.6) K/mcL Monocytes # (0.0-1.3) K/mcL Eosinophils # (0.0-0.6) K/mcL Basophils # (0.0-0.2) K/mcL ESR 32 H (0-15) mm/hr PT (9.4-12.1) Seconds INR Sodium (136-145) mEq/L Potassium (3.5-4.5) mEq/L Chloride (98-109) mEq/L Carbon Dioxide (19-29) mEq/L BUN (7-20) mg/dL Creatinine (0.57-1.11) mg/dL Est GFR ( Amer) (> 60) Est GFR (Non-Af Amer) (> 60) BUN/Creatinine Ratio (6-26) Glucose (70-99) mg/dL Calculated Osmolality (280-300) Calcium (8.6-10.8) mg/dL Troponin I 0.00 (0-0.03) ng/mL Urine Color (Yellow) Urine Clarity (Clear) Urine pH (5.0-8.0) pH Units Ur Specific Nenzel (1.010-1.025) Urine Protein (Neg-Trace) mg/dL Urine Glucose (UA) (Normal) mg/dL Urine Ketones (Negative) mg/dL Urine Blood (Negative) Urine Nitrite (Negative) Urine Bilirubin (Negative) Urine Urobilinogen (Normal) mg/dL Ur Leukocyte Esterase (Negative) Urine Microscopic RBC (0-3) per hpf Urine Microscopic WBC (0-3) per hpf Ur Squamous Epith Cells (None-Few) per lpf Urine Bacteria (None-Few) per hpf Hyaline Casts Urine Yeast Salicylates < 5.0 L (15-30) mg/dL Urine Opiates Screen (Sodbpy=969) ng/mL Acetaminophen < 1.0 L (10-30) mcg/mL Ur Barbiturates Screen (Baxdyq=870) ng/mL Ur Phencyclidine Scrn (Cutoff=25) ng/mL Ur Amphetamines Screen (Uruocv=2569) ng/mL U Benzodiazepines Scrn (Pgqrgd=442) ng/mL Urine Cocaine Screen (Cutoff= 300) ng/mL U Marijuana (THC) Screen (Cutoff = 50) ng/mL Ethyl Alcohol < 10 (0-10) mg/dL 02/08/17 02/08/17 Range/Units 01:17 01:17 WBC (4.3-11.1) K/mcL RBC (3.82-4.97) M/mcL Hgb (11.5-15.4) g/dL Hct (35.3-44.9) % MCV (83.0-100.0) fL MCH (28.0-33.3) pg MCHC (31.6-35.5) g/dL RDW (11.5-14.5) % Plt Count (140-400) K/mcL MPV (9.4-12.4) fL Immature Gran % (0-4) % Seg Neutrophils % % Lymphocytes % % Monocytes % % Eosinophils % % Basophils % % Neutrophils # (1.6-8.9) K/mcL Lymphocytes # (0.6-4.6) K/mcL Monocytes # (0.0-1.3) K/mcL Eosinophils # (0.0-0.6) K/mcL Basophils # (0.0-0.2) K/mcL ESR (0-15) mm/hr PT (9.4-12.1) Seconds INR Sodium (136-145) mEq/L Potassium (3.5-4.5) mEq/L Chloride (98-109) mEq/L Carbon Dioxide (19-29) mEq/L BUN (7-20) mg/dL Creatinine (0.57-1.11) mg/dL Est GFR ( Amer) (> 60) Est GFR (Non-Af Amer) (> 60) BUN/Creatinine Ratio (6-26) Glucose (70-99) mg/dL Calculated Osmolality (280-300) Calcium (8.6-10.8) mg/dL Troponin I (0-0.03) ng/mL Urine Color Dark Yellow (Yellow) Urine Clarity Cloudy A (Clear) Urine pH 5.5 (5.0-8.0) pH Units Ur Specific Nenzel > 1.030 H (1.010-1.025) Urine Protein Trace (Neg-Trace) mg/dL Urine Glucose (UA) Normal (Normal) mg/dL Urine Ketones Negative (Negative) mg/dL Urine Blood Small H (Negative) Urine Nitrite Negative (Negative) Urine Bilirubin Small H (Negative) Urine Urobilinogen Normal (Normal) mg/dL Ur Leukocyte Esterase Negative (Negative) Urine Microscopic RBC 0-3 (0-3) per hpf Urine Microscopic WBC 3-5 H (0-3) per hpf Ur Squamous Epith Cells Many H (None-Few) per lpf Urine Bacteria None Seen (None-Few) per hpf Hyaline Casts Test Not Performed Urine Yeast Test Not Performed Salicylates (15-30) mg/dL Urine Opiates Screen Positive H (Ftddlx=018) ng/mL Acetaminophen (10-30) mcg/mL Ur Barbiturates Screen Negative (Gudayb=049) ng/mL Ur Phencyclidine Scrn Negative (Cutoff=25) ng/mL Ur Amphetamines Screen Positive H (Spavlt=7318) ng/mL U Benzodiazepines Scrn Positive H (Sfbpax=198) ng/mL Urine Cocaine Screen Positive H (Cutoff= 300) ng/mL U Marijuana (THC) Screen Negative (Cutoff = 50) ng/mL Ethyl Alcohol (0-10) mg/dL - Radiology Data Radiology results reviewed: Yes I reviewed the patient's radiology results. Brain MRI 02/07/17 20:06 IMPRESSION: Normal MRI of the brain with and without contrast. D/ / Charles Mejia MD / hCarles Mejia MD Interpreting Provider: Charles Mejia MD Cervical Spine MRI 02/07/17 20:06 IMPRESSION: Normal MRI of the cervical spine with and without contrast. D/ / Charles Mejia MD / Charles Mejia MD Interpreting Provider: Charles Mejia MD Thoracic Spine MRI 02/07/17 20:06 IMPRESSION: Normal MRI of the thoracic spine with and without contrast. D/ / Charles Mejia MD / Charles Mejia MD Interpreting Provider: Charles Mejia MD Lumbar Spine MRI 02/07/17 20:21 IMPRESSION: 1. No acute abnormality of the lumbar spine. 2. Mild left L5 neural foraminal narrowing. 3. Mild L5-S1 degenerative disc disease with broad-based posterior disc protrusion. No associated spinal canal stenosis or lateral recess narrowing. D/ / Charles Mejia MD / Charles Mejia MD Interpreting Provider: Charles Mejia MD Shon - Shon Situation: Demographics, MOA Background: Presenting Complaint Assessment: Vital Signs, Course and respsone to treatment, Patient/Family Expectation Recommendation: Barrier(s) to disposition, Recommendation based on pending studies, treatments, or consults Shon Report Given to: Dr. Marc Menendez Repor Time: 01:38 Attestation Statement - Attestation Attestation: I, Gabe Ortiz, examined this patient and my medical decision-making was reviewed with the SCALE TESTER/PA/Advanced Practice Nurse/Resident Physician. I agree with the documented findings, disposition and treatment plan as described except to the extent set forth below. 31-year-old female received in sign out from Dr. Montero pending MRI results, reevaluation and disposition. Patient was heavily sedated to be able to obtain the MRI scans. Patient became hypotensive secondary to these medications which improved with IV fluids. MRI scans were read as normal. Patient is afebrile. She will require admission to the hospital for further evaluation of her weakness as well as likely evaluation by psychiatry. I spoke with the family in great detail who deny recent GI or respiratory infection.
[2017-02-08 01:22] LABS: Bilirubin,Urine Small (Negative); Blood,Urine Small (Negative); Clarity,Urine Cloudy (Clear); Color,Urine Dark Yellow (Yellow); Glucose,Urine (UA) Normal (Normal); Ketones,Urine Negative (Negative); Leukocyte Esterase,Urine Negative (Negative); Nitrite,Urine Negative (Negative); PH,Urine 5.5 pH Units (5.0-8.0); Protein,Urine Trace mg/dL (Neg-Trace); Specific Gravity,Urine > 1.030 (1.010-1.025); Urobilinogen,Urine Normal (Normal)
[2017-02-08 01:23] LABS: Bacteria,Urine None Seen per hpf (None-Few); RBC,Urine 0-3 per hpf (0-3); Squamous Epithelial Cell,Urine Many per lpf (None-Few)
[2017-02-08] MEDS ORDERED: Aspirin 81 MG TAB.CHEW PO ONE (01:31)
[2017-02-08 01:53] LABS: Amphetamine Screen,Urine Positive ng/mL (Cutoff=1000); Barbiturate Screen,Urine Negative ng/mL (Cutoff=200); Benzodiazepines Screen,Urine Positive ng/mL (Cutoff=200); Cannabinoid Screen,Urine Negative ng/mL (Cutoff = 50); Cocaine Screen,Urine Positive ng/mL (Cutoff= 300); Opiate Screen,Urine Positive ng/mL (Cutoff=300); Phencyclidine Screen,Urine Negative ng/mL (Cutoff=25)
[2017-02-08] MEDS ORDERED: 0.9 % Sodium Chloride 1,000 ML IV STA ×2 (03:00→04:27)
[2017-02-08] MEDS ORDERED: Naloxone 0.4 MG/ML INJ IVP PRN (04:28)
[2017-02-08] MEDS ORDERED: 0.9 % Sodium Chloride 1,000 ML IVC PRN (04:31)
--- NOTE | 2017-02-08 08:52 | Internal Med History&Physical ---
Date of Encounter: 02/08/17 Time of Encounter: 07:30 Assessment and Plan (1) Weakness of left upper extremity Current visit: Yes Status: Acute MRI of the brain and spine have been reviewed. There are no significant abnormalities besides mild degenerative changes and foraminal narrowing in L5- S1 region. Observation in the hospital for now. We will consult neurology for further evaluation and recommendations. (2) Substance use disorder Current visit: Yes Status: Acute Currently patient is very somnolent. We will consult vp digital marketing social media and crm. Monitor for withdrawal symptoms. (3) History of bipolar disorder Current visit: Yes Status: Acute Continue home medications for this condition. Consider psychiatric evaluation once medical issues have been addressed. (4) Hypotension Current visit: Yes Status: Acute Patient's blood pressure has been on the lower side likely due to dehydration and medications. Will hydrate intravenously and monitor blood pressure closely. Qualifiers: Hypotension type: other hypotension type Qualified Code(s): I95.89 - Other hypotension Internal Medicine - H&P: HPI Chief complaint: Left arm weakness Admitted From: Emergency Dept Plans for Post Hospital Care: Home History of present illness: Ms. Pollard is a 31 year old female patient with history of drug abuse who presented to the ER with complaints of left arm weakness. She has been dealing with this problem for several days now. She was just in hospital 2 days back and had left AGAINST MEDICAL ADVICE when she was observed for the same condition. She is unable to provide much history at this time as she is heavily sedated from medication she received in the ER. She does report feeling weak in the left arm for at least 4 days now. She does report some paresthesias. She states she is starting to feel some weakness on the right side also. No incontinence. No chest pain. No fever. No shortness of breath. No syncopal episodes or loss of consciousness. Past Med Surg Social Fam HX - Past Medical History Source: old records reviewed Medical history: hepatitis Psychiatric history: anxiety, bipolar, depression, PTSD - Past Surgical History Surgical History: non-contributory - Social History Smoking Status: Current every day smoker Smokeless Tobacco Status: No Alcohol use: none Drug use: cocaine, IVDU, prescription drug abuse - Family History Father Living Status: Hx Family Cardiac Disorders: Yes Internal Medicine - H&P: Meds Acetaminophen/Diphenhydramine [Acetaminophen Pm Caplet] 1 tab PO HS PRN [History] Citalopram [CeleXA] 20 mg PO DAILY 02/05/17 [History] CloNIDine HCl [Clonidine HCl] 0.2 - 0.4 mg PO HS PRN 02/05/17 [History] Ibuprofen [Motrin] 400 - 800 mg PO Q6HR PRN 02/05/17 [History] [place] Carbonate 300 mg PO DAILY 02/05/17 [History] Allergies No Known Allergies Allergy (Verified 02/07/17 19:31) All Systems PM: A 10-system review of systems was performed and is negative for pertinent findings except as documented above in the HPI. - Constitutional Constitutional: no chills, no fever(s), no night sweats - EENT Eyes: no change in vision, no discharge, no pain, no photophobia Ears: no ear discharge, no ear pain, no tinnitus Nose, mouth and throat: no dysphagia, no nasal discharge, no neck pain, no sore throat - Cardiovascular Cardiovascular ROS IM: no chest pain, no diaphoresis, no dyspnea, no lightheadedness, no palpitations, no syncope - Respiratory Respiratory: no cough, no dyspnea, no wheezing, no excessive phlegm production - Gastrointestinal Gastrointestinal: no abdominal pain, no diarrhea, no hematemesis, no hematochezia, no melena, no nausea, no vomiting - Genitourinary Genitourinary: no change in urinary stream, no dysuria, no flank pain, no hematuria - Musculoskeletal Musculoskeletal ROS IM: no numbness, no tingling - Integumentary Integumentary IM: no rash, no unusual bruising - Neurological Neurological ROS: focal weakness - Hematologic/Lymphatic Hematologic/Lymphatic: no easy bruising - Constitutional Vitals: Temp Pulse Resp BP Pulse Ox 97.4 F L 58 15 92/60 99 02/08/17 06:56 02/08/17 06:56 02/08/17 06:56 02/08/17 06:56 02/08/17 06:56 General appearance: Present: answers questions appropriately Exam: Patient is somnolent but awakes and answers some questions appropriately. - Eye Eye exam: Present: PERRL, conjuntiva pink, sclera anicteric - Neck Neck exam general surgery: Present: supple, trachea midline. Absent: lymphadenopathy - Respiratory Respiratory exam: Present: CTAB. Absent: accessory muscle use, rales, rhonchi, wheezes - Cardiovascular Cardiovascular exam: Present: RRR, +S1, +S2. Absent: diastolic murmur, gallop, rubs, systolic murmur - GI/Abdominal GI/Abdominal exam: Present: normal bowel sounds, soft, no peritoneal signs. Absent: distended, tenderness - Extremities Exam Extremities exam: Present: warm, radial pulses palpable and symetrical. Absent : calf tenderness, cyanotic, pedal edema - Neurological Exam Neurological exam: Present: CN II-XII intact, oriented X3. Absent: facial droop , speech deficit Additional comments: Weakness on the left side in both upper and lower extremity. Patient does not appear to be making any effort to cooperate with examination of left upper extremity. Right upper extremity and lower extremity have full range of motion without any weakness. - Psychiatric Psychiatric exam: Present: flat affect - Skin Skin exam: Present: dry, intact Internal Med - H&P Results - Labs CBC & Chem 7: 02/07/17 20:39 02/07/17 20:39 - Impressions Impressions Brain MRI 02/07/17 20:06 IMPRESSION: Normal MRI of the brain with and without contrast. D/ / Charles Mejia MD / Charles Mejia MD Interpreting Provider: Charles Mejia MD Cervical Spine MRI 02/07/17 20:06 IMPRESSION: Normal MRI of the cervical spine with and without contrast. D/ / Charles Mejia MD / Charles Mejia MD Interpreting Provider: Charles Mejia MD Thoracic Spine MRI 02/07/17 20:06 IMPRESSION: Normal MRI of the thoracic spine with and without contrast. D/ / Charles Mejia MD / Charles Mejia MD Interpreting Provider: Charles Mejia MD Lumbar Spine MRI 02/07/17 20:21 IMPRESSION: 1. No acute abnormality of the lumbar spine. 2. Mild left L5 neural foraminal narrowing. 3. Mild L5-S1 degenerative disc disease with broad-based posterior disc protrusion. No associated spinal canal stenosis or lateral recess narrowing. D/ / Charles Mejia MD / Charles Mejia MD Interpreting Provider: Charles Mejia MD - Attending Attestation This document has been at least partially created by [employer] recognition technology by Dr. Flores. Errors in grammar, wording or other phrases may exist. If errors are found after the documentation is signed, they will be addressed individually in the addendum section of this document when appropriate.
[2017-02-08] MEDS: 0.9 % Sodium Chloride w KCl 20 MEQ/1,000 ML MLS IVC SCH ×3 (09:25→22:19)
--- NOTE | 2017-02-08 16:16 | ECHO - Doppler Report ---
Echocardiogram Name: Larissa Pollard Date of Study: 02/08/2017 Date: 1985 Ht: 64.0 in Medical Record#: [id number] Age: 31 Wt: 122.0 lb Gender: Female BSA: 1.59 Order #: [id number] Location: [facility] Room #: [id number] Reading Physician: Ronal Lyon DO, FACKENDALL [employer] Core Transformer Assembler: Adrian Nielsen RDCS Ordering Physician: Howie Moss MD Primary Physician: Alonso Jones, ADRIAN Indications: Evaluate LV function Impressions: LVEF 60-65%. Normal LV chamber size, wall thickness and function. Normal left ventricular diastolic function. Normal right ventricular structure and function. No evidence of pulmonary hypertension. No significant valvular dysfunction. Left Ventricular Wall Motion: Rest Echo Findings All wall segments showed normal motion. Findings: Study Quality * Technically adequate exam. ECG Findings * Normal sinus rhythm. Left Ventricle * LVEF 60-65%. * Normal LV chamber size, wall thickness and function. * Normal left ventricular diastolic function. Right Ventricle * Normal right ventricular structure and function. Left Atrium * Normal left atrial size. Right Atrium * Normal right atrial size. Interatrial Septum * No evidence of PFO by color Doppler. Aortic Valve * Trileaflet aortic valve with normal function. * No aortic regurgitation. * No aortic stenosis. Mitral Valve * Normal mitral valve structure and function. * No mitral regurgitation. * No mitral stenosis. Tricuspid Valve * Normal tricuspid valve structure and function. * Trace tricuspid regurgitation. * No evidence of pulmonary hypertension. Pulmonic Valve * Normal pulmonic valve structure and function. * No pulmonic regurgitation. Aorta * Normally sized aortic root. Pericardium * The pericardium appears normal. IVC * Normal IVC dimensions and inspiratory collapse. Pulmonary Artery * Normal visualized portions of the main pulmonary artery. History Measurements: BP: 97/ 69 2D Normal Values IVSd: .60 cm 0.6 - 1.0 cm LVIDd: 5.00 cm 3.7 - 5.6 cm LVPWd: .70 cm 0.6 - 1.1 cm LVIDs: 3.60 cm 1.5 - 3.6 cm AO: 1.80 cm < 4.0 cm LA: 3.40 cm 2.0 - 4.0cm %FS: 28.00 cm >25 % LA volume: 27 Mitral Valve Peak E:.85 m/sec Peak A:.72 m/sec E/A Ratio:1.2 Peak E' Lat Cal:18.1 cm/s Peak E' Med Cal:12.1 cm/s E/E' Lat Ratio:4.7 E/E' Med Ratio:7 Tricuspid Valve TV Regurg Peak Grad: 14.00mmHg TV Regurg Peak Cal: 1.85m/sec Updated by Ronal Lyon DO, LILIANA, QUINTON ARGUETA on 02/08/2017 4:10:05 PM electronically signed on 02/08/2017 4:10:55 PM with status of Final Wall Motion Mcgarry: 1=Normal, 2=Hypokinesis, 3=Akinesis, 4=Dyskinesis, 5=Aneurysmal, 6=Hyperkinetic, X=Not Visualized (Blank)=Missing
--- NOTE | 2017-02-08 17:09 | Neurology - Consult Note ---
Date of Encounter: 02/08/17 Time of Encounter: 17:02 Assessment and Plan (1) Paralysis of left upper extremity Current Visit: No Status: Acute Based on the neurophysiologic nature of this complaint, one would have to suspect a left brachial plexus lesion. Because she has weakness, as well as sensory symptoms in multiple myotomes. However the compounding factors that she does have reflexes present in the left upper extremity. She does have somewhat preserved movement of the C7 and C8 myotomes. C5-C6 myotomes seem to be more affected. She will however, allow her left arm to drop onto her face. And she does have decreased tone of the left upper extremity. I would therefore like to obtain an MRI of the left brachial plexus. This does not present as Guillain-[place], or as any other type of cord syndrome. History of Present Illness HPI: Ms. Pollard is a 31 year old female who is being seen for neurologic consultation secondary to chief complaint of left upper extremity weakness. Larissa is a known drug abuser and presents to the hospital for the second time with complaints of pain and inability to move and use the left upper extremity. Apparently this has been going on for 4 days now. She is initially admitted to days ago and left AGAINST MEDICAL ADVICE because of the nursing staff felt it appropriate to limit outside visitations in order to prevent her from having access to elicit substances. At least this is what she tells me. As well as a result of this she went AMA. However she is back today for the same problem. She states that she is essentially unable to move the arm. She does have paresthesias in the left upper extremity. She has minimal pain however. She denies numbness or paresthesias of the face the right upper extremity or either lower extremities. She is able to move the right upper extremity freely and both lower extremities freely. Her urine tox screen was positive for opiates, amphetamines, benzodiazepines, and cocaine. Negative for marijuana and alcohol. MRI studies of the cervical, thoracic, and lumbar spine were essentially unrevealing. MRI scan of the brain was normal as well. Past Med Surg Social Fam HX - Past Medical History Medical history: hepatitis Psychiatric history: anxiety, bipolar, depression, PTSD - Past Surgical History Surgical History: non-contributory - Social History Smoking Status: Current every day smoker Smokeless Tobacco Status: No Alcohol use: none Drug use: cocaine, IVDU, prescription drug abuse - Family History Father Living Status: Hx Family Cardiac Disorders: Yes Medications and Allergies Acetaminophen/Diphenhydramine [Acetaminophen Pm Caplet] 1 tab PO HS PRN [History] Citalopram [CeleXA] 20 mg PO DAILY 02/05/17 [History] Ibuprofen [Motrin] 400 - 800 mg PO Q6HR PRN 02/05/17 [History] [place] Carbonate 300 mg PO DAILY 02/05/17 [History] cloNIDine HCl [Clonidine HCl] 0.2 - 0.4 mg PO HS PRN 02/05/17 [History] Allergies No Known Allergies Allergy (Verified 02/07/17 19:31) All Systems: A 10-system review of systems was performed and is negative for pertinent findings except as documented above in the HPI. Review of Systems: Consistent history of present illness otherwise negative. Physical Examination - Vital Signs Vital Signs: Initial Vital Signs Temp Pulse Resp BP Pulse Ox 97.8 F 114 16 113/63 97 02/07/17 19:25 02/07/17 19:25 02/07/17 19:25 02/07/17 19:25 02/07/17 19:25 - Constitutional General appearance: comfortable (Patient's level of concern seems to be disproportionate to the severity of her chief complaint. I.e. "Radha infererence") - Neurologic Detailed motor examination: other (Patient has normal strength bulk and tone of the right upper extremity and both lower extremities. She has flaccid tone of the left upper extremity. She has trace ability to extend the muscles involving the hand, and she is barely able to flex the muscles in the hand.) Detailed sensory examination: other (She is able to perceive intense noxious stim in the left upper extremity as well as paresthesias. She has normal sensation of the left side of the face the anterior chest as well as the entire right face right arm and right leg.) Reflex and gait examination: other (Patient does have a left brachioradialis reflexes 2+/4, left biceps reflexes 1/4 left triceps reflexes were 1/4. Right upper extremity reflexes are 2/4. Patellar reflexes are diminished as are Achilles reflexes. No long track signs are identified.) Mental Status Examination: awake (Patient is awake however does appear to be somewhat intoxicated. Also her level of concern seems to be very flippant when considering the severity of her complaint which is the inability to move her left arm.), follows commands appropriately, drowsy, makes eye contact, follows simple commands Cranial nerve examination: PERRL, EOMI, visual mejia intact, corneal reflexes brisk symmetrically, sensory to face intact, mastication intact, no facial asymmetry is present, no dysarthria, hearing is intact symmetrically, soft palate elevates bilaterally upon phonation, gag reflex intact, flexes SCM and trapezius muscles symmetrically with full power, tongue protrudes midline, no atrophy or facial fasiculations present Results - Laboratory Findings CBC and BMP: 02/07/17 20:39 02/07/17 20:39 Abnormal lab findings: Abnormal lab results ESR 32 mm/hr (0-15) H 02/07/17 20:39 BUN 25 mg/dL (7-20) H D 02/07/17 20:39 BUN/Creatinine Ratio 31 (6-26) H 02/07/17 20:39 Glucose 103 mg/dL (70-99) H 02/07/17 20:39 Urine Clarity Cloudy (Clear) A 02/08/17 01:17 Ur Specific [place] > 1.030 (1.010-1.025) H 02/08/17 01:17 Urine Blood Small (Negative) H 02/08/17 01:17 Urine Bilirubin Small (Negative) H 02/08/17 01:17 Urine Microscopic WBC 3-5 per hpf (0-3) H 02/08/17 01:17 Ur Squamous Epith Cells Many per lpf (None-Few) H 02/08/17 01:17 Salicylates < 5.0 mg/dL (15-30) L 02/07/17 20:39 Urine Opiates Screen Positive ng/mL (Nycfgt=682) H 02/08/17 01:17 Acetaminophen < 1.0 mcg/mL (10-30) L 02/07/17 20:39 Ur Amphetamines Screen Positive ng/mL (Tcxhta=1553) H 02/08/17 01: U Benzodiazepines Scrn Positive ng/mL (Gvznff=107) H 02/08/17 01:17 [place] < 0.1 mEq/L (0.6-1.2) L 02/08/17 10:42 Urine Cocaine Screen Positive ng/mL (Cutoff= 300) H 02/08/17 01:17 Consult Discharge Plan - Plan Referrals: Alonso Jones, PAC [Primary Care Provider] -
[2017-02-08] MEDS ORDERED: Haloperidol Lactate 5 MG/ML VIAL IVP PRN (18:29)
[2017-02-08] MEDS: Acetaminophen 325 MG TABLET PO PRN (20:05)
[2017-02-09] MEDS: 0.9 % Sodium Chloride w KCl 20 MEQ/1,000 ML MLS IVC SCH ×3 (00:33→08:14)
--- NOTE | 2017-02-09 08:03 | Neurology Progress Note ---
<Wai Orellana - Last Filed: 02/09/17 08:15> Date of Encounter: 02/09/17 Time of Encounter: 07:50 Assessment and Plan (1) Paralysis of left upper extremity Current Visit: No Status: Acute No changes since yesterday. The patient continue to show little concern for the severity of her symptoms. She also continues to appear lethargic and somewhat intoxicated. Continued suspicion of a brachial plexus lesion. (symptoms of decreased tone, weakness, and sensory deficits in several myotomes) Awaiting MRI ordered yesterday. Will follow with results. Subjective Principal diagnosis: left upper extremity paralysis Interval history: The patient needed to be awakened upon entering the room. She did not move her left arm upon initial awakening. There has been no interval change since yesterday. The patient remains with only very minimal motor function of the C7 and C8 myotomes in her left upper extremity. She is somewhat somnolent this morning, but again asks for medications before her MRI. She continues to have minimal concern about the severity of her symptoms. No new complaints. Objective - Constitutional Vitals: Temp Pulse Resp BP Pulse Ox 97.6 F 81 16 100/63 98 02/09/17 07:31 02/09/17 07:31 02/09/17 07:31 02/09/17 07:31 02/09/17 07:31 General appearance: Present: A&O X 3, answers questions appropriately Exam: Rebecca bee - Neurological Exam Motor examination - right side: 4/5: casing running machine tender, 5/5: deltoids, biceps, triceps, wrist flexion, wrist extension, hip flexors, tibialis Anterior, quadriceps, toe extension (EHL), plantarflexion Motor examination - left side: 1/5: deltoids, biceps, triceps, casing running machine tender, 2/5: wrist flexion, wrist extension, 5/5: hip flexors, quadriceps, tibialis Anterior, toe extension (EHL), plantarflexion Sensation intact: Present: other (Continued perception of noxious stimuli of the left upper extremity with occasional shooting pains. Sensation intact on the left side fo the face and anterior chest wall) Reflexes: Biceps: 1+ (left. Right is +2/4), Triceps: 1+ (left. Right is +2/4), Brachioradialis: 2+ (bilaterally) Mental Status Examination: Present: awake (Continues to appear somewhat intoxicated. Shows little concern about not being able to move her left arm says "it's just the strangest thing."), follows commands appropriately, drowsy, makes eye contact, follows simple commands Cranial nerve examination: Present: PERRL, EOMI, visual mejia intact, corneal reflexes brisk symmetrically, sensory to face intact, mastication intact, no facial asymmetry is present, no dysarthria, hearing is intact symmetrically, soft palate elevates bilaterally upon phonation, flexes SCM and trapezius muscles symmetrically with full power, tongue protrudes midline, no atrophy or facial fasiculations present Results - Laboratory Findings CBC and BMP: 02/07/17 20:39 02/07/17 20:39 Abnormal lab findings: Abnormal lab results ESR 32 mm/hr (0-15) H 02/07/17 20:39 BUN 25 mg/dL (7-20) H D 02/07/17 20:39 BUN/Creatinine Ratio 31 (6-26) H 02/07/17 20:39 Glucose 103 mg/dL (70-99) H 02/07/17 20:39 Urine Clarity Cloudy (Clear) A 02/08/17 01:17 Ur Specific [place] > 1.030 (1.010-1.025) H 02/08/17 01:17 Urine Blood Small (Negative) H 02/08/17 01:17 Urine Bilirubin Small (Negative) H 02/08/17 01:17 Urine Microscopic WBC 3-5 per hpf (0-3) H 02/08/17 01:17 Ur Squamous Epith Cells Many per lpf (None-Few) H 02/08/17 01:17 Salicylates < 5.0 mg/dL (15-30) L 02/07/17 20:39 Urine Opiates Screen Positive ng/mL (Xuipxo=505) H 02/08/17 01:17 Acetaminophen < 1.0 mcg/mL (10-30) L 02/07/17 20:39 Ur Amphetamines Screen Positive ng/mL (Ctjxhb=1785) H 02/08/17 01:17 U Benzodiazepines Scrn Positive ng/mL (Hpgevl=691) H 02/08/17 01:17 [place] < 0.1 mEq/L (0.6-1.2) L 02/08/17 10:42 Urine Cocaine Screen Positive ng/mL (Cutoff= 300) H 02/08/17 01:17 Consult Discharge Plan - Plan Referrals: Alonso Jones, PAC [Primary Care Provider] - <Chago Dooley - Last Filed: 02/09/17 17:29> Date of Encounter: 02/09/17 Time of Encounter: 17:22 Assessment and Plan (1) Paralysis of left upper extremity Current Visit: No Status: Acute The MRI scan of the left brachial plexus today was unrevealing. However I continue to suspect that there is some pathologic process involving the left brachial plexus. She has a notable decrease in tone of the left upper extremity , and today she has complaints of pain in the left upper extremity. I must presume that we are dealing with a brachial plexitis based on an inflammatory or autoimmune component. There are reports in the literature of individuals experiencing brachial plexus inflammation associated with parenteral injection or IV use of illicit drugs. We will obtain a vascular study to assess for a cerebral aneurysm of the left subclavian artery. If this test is negative I feel it is okay for her to be discharged home to follow up with me in my office as an outpatient to complete an EMG study of the left upper extremity. Subjective Interval history: I agree with Dr. Hanna assessment as stated above. She does however mention that she has pain in the left upper extremity now. Otherwise she has no new complaints. We did ask about whether or not she ever injected illicit drugs into her supraclavicular area and she states "once about 5 years ago". This arouses suspicion for the possibility of a pseudoaneurysm compressing the brachial plexus. Objective - Constitutional Vitals: Temp Pulse Resp BP Pulse Ox 97.8 F 66 16 107/79 98 02/09/17 15:55 02/09/17 15:55 02/09/17 15:55 02/09/17 15:55 02/09/17 15:55 Results - Laboratory Findings CBC and BMP: 02/07/17 20:39 02/07/17 20:39 Abnormal lab findings: Abnormal lab results ESR 32 mm/hr (0-15) H 02/07/17 20:39 BUN 25 mg/dL (7-20) H D 02/07/17 20:39 BUN/Creatinine Ratio 31 (6-26) H 02/07/17 20:39 Glucose 103 mg/dL (70-99) H 02/07/17 20:39 Urine Clarity Cloudy (Clear) A 02/08/17 01:17 Ur Specific [place] > 1.030 (1.010-1.025) H 02/08/17 01:17 Urine Blood Small (Negative) H 02/08/17 01:17 Urine Bilirubin Small (Negative) H 02/08/17 01:17 Urine Microscopic WBC 3-5 per hpf (0-3) H 02/08/17 01:17 Ur Squamous Epith Cells Many per lpf (None-Few) H 02/08/17 01:17 Salicylates < 5.0 mg/dL (15-30) L 02/07/17 20:39 Urine Opiates Screen Positive ng/mL (Nqhqiv=580) H 02/08/17 01:17 Acetaminophen < 1.0 mcg/mL (10-30) L 02/07/17 20:39 Ur Amphetamines Screen Positive ng/mL (Hgjjcv=9377) H 02/08/17 01:17 U Benzodiazepines Scrn Positive ng/mL (Apswyv=408) H 02/08/17 01:17 [place] < 0.1 mEq/L (0.6-1.2) L 02/08/17 10:42 Urine Cocaine Screen Positive ng/mL (Cutoff= 300) H 02/08/17 01:17
[2017-02-09] MEDS: Acetaminophen 325 MG TABLET PO PRN (08:24)
--- NOTE | 2017-02-09 15:17 | Internal Med Progress Note ---
Date of Encounter: 02/09/17 Time of Encounter: 08:35 - Assessment and plan (1) Paralysis of left upper extremity Current Visit: No Status: Acute Assessment and plan: Pt does not use L arm during exam. She has no passive ROM. 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 She can move fingers very slightly. She did have to lift her L arm with her right. She denies known injury and states that she just awakened that way on Monday a.m. She denies pain. +1 L radial pulse, capillary refilll brisk to josh hands. Pt is being followed by neurology, appreciate their assistance and input. Pt had MRI of chest today, specifically investigating L solar plexus. Negative findings. Will wait for neurology to assess results today. (2) Substance use disorder Current Visit: Yes Status: Chronic Assessment and plan: Pt remains rather sedated this a.m. during evaluation. Pt did get Haldol prior to MRI, however, I examined her prior to medication administration. Pt was alert and awake, answered questions appropriately, however, she was slow to respond and her speech was clear,but slow. Pt has recent puncture wounds to veins in dorsal R hand. Urine drug screen was positive for everything except for marijuana and barbiturates. Continue to monitor pt. (3) Hypotension Current Visit: Yes Status: Resolved Assessment and plan: Pt was hypotensive during the night while she was sleeping, normotensive today while awake. Continue to monitor. Qualifiers: Hypotension type: other hypotension type Qualified Code(s): I95.89 - Other hypotension - Time Spent With Patient less than 15 minutes - Subjective Interval history: Patient is sitting up in her bed, breakfast tray in front of her on table. She is drowsy with slow but clear speech. Her movements are slow. She denies any pain and denies needs. She does not really seem concerned with plan of care or discharge plans. - Constitutional Vitals: Temp Pulse Resp BP Pulse Ox 97.5 F L 63 16 107/71 99 02/09/17 11:45 02/09/17 11:45 02/09/17 11:45 02/09/17 11:45 02/09/17 11:45 General appearance: Present: A&O X 3, pleasant, answers questions appropriately - Head Head exam: Present: normal inspection - Eye Eye exam: Present: normal appearance, conjuntiva pink. Absent: nystagmus - ENT ENT exam: Present: mucous membranes moist, normal exam - Neck Neck exam general surgery: Present: normal inspection. Absent: lymphadenopathy , tenderness - Respiratory Respiratory exam: Present: CTAB. Absent: chest wall tenderness, rales, respiratory distress, stridor, wheezes - Cardiovascular Cardiovascular exam: Present: RRR, +S1, +S2. Absent: bradycardia, diastolic murmur, systolic murmur, tachycardia - GI/Abdominal GI/Abdominal exam: Present: normal bowel sounds, soft. Absent: distended, hepatomegaly, tenderness - Extremities Exam Extremities exam: Present: normal capillary refill, warm, radial pulses palpable and symetrical. Absent: pedal edema, tenderness - Neurological Exam Neurological exam: Present: alert, altered, oriented X3, no focal deficits, strengths equal and symetr throughout. Absent: facial droop, speech deficit - Psychiatric Psychiatric exam: Present: flat affect Internal Medicine: Result - Labs CBC & Chem 7: 02/07/17 20:39 02/07/17 20:39 - ABG Interpretation ABG results: PT/INR, D-dimer PT 11.4 Seconds (9.4-12.1) 02/07/17 20:39 - Impressions Impressions Chest MRI 02/09/17 10:07 IMPRESSION: Normal MRI of the brachial plexus D/ / Fuad Mitchell MD / Fuad Mitchell MD Interpreting Provider: Fuad Mitchell MD Consult Discharge Plan - Plan Referrals: Alonso Jones, PAC [Primary Care Provider] -
[2017-02-09] MEDS ORDERED: MethylPREDNISolone 40 MG/ML VIAL IVP ONE (18:22)
[2017-02-09] MEDS ORDERED: Famotidine 20 MG/2 ML VIAL IVP ONE (18:23)
[2017-02-09 18:29] VITALS: BP 107/72
--- NOTE | 2017-02-12 17:47 | Event Note ---
Date of Encounter: 02/12/17 Time of Encounter: 18:30 This is a late entry from 02/09/2017. Time is approximate, as well. I received a call from charge nurse who states that patient said her tongue was swelling. I had left, was in my car, when I came back upstairs the nurse said that patient had been locked in the bathroom for approximately 20 minutes and would not come out. When I entered the patient's room there is no appreciable tongue swelling or angioedema. Her speech was clear her lung sounds were clear and she was speaking easily, her tongue was not protruding from her mouth. I asked her what was going on and she said that her tongue had been swelling but it was okay now. I left the room and I ordered medications for the patient. I left again. Nursing staff had called security to come check the patient's belongings to see if there is drug paraphernalia or drugs. Patient's boyfriend was in the room and was drowsy and snoring in the chair. Multiple security staff arrived on the floor and began to question patient. They said the patient was not allowed to have visitors, despite the fact that I said I would not sign in order that would bar visitors from the floor. I then heard from nurse the patient was upset that her things were being searched and that her boyfriend was not allowed to be a visitor, and she decided to sign out AMA.
== END 2017-02-09 18:32 | disposition left against medical advice (07) ==
LOC: EMEROO 19:23 → 3BNU 19:23
PROVIDERS: ADMIT Pediatrics; ATTEND Registered Nurse

== ENCOUNTER 2017-04-10 23:39 | Inpatient (IN) ==
[2017-04-10] MEDS ORDERED: 0.9 % Sodium Chloride 1,000 ML IVC ONE (23:55)
[2017-04-11] MEDS ORDERED: 0.9 % Sodium Chloride 1,000 ML IVC ONE (00:17)
[2017-04-11] MEDS ORDERED: Ondansetron 4 MG/2 ML VIAL IVP ONE (00:27)
[2017-04-11] MEDS ORDERED: Ketorolac 30 MG/ML VIAL IVP ONE (00:27)
[2017-04-11 00:39] LABS: Hematocrit 33.8 % (35.3-44.9); Hemoglobin 11.4 g/dL (11.5-15.4); Immature Platelets 4.4 % (1.1-6.1); Mean Corpuscular HGB Conc 33.7 g/dL (31.6-35.5); Mean Corpuscular Hemoglobin 28.9 pg (28.0-33.3); Mean Corpuscular Volume 85.8 fL (83.0-100.0); Mean Platelet Volume 10.7 fL (9.4-12.4); Platelet Count 230 K/mcL (140-400); Red Blood Count 3.94 M/mcL (3.82-4.97); Red Cell Distribution Width 12.5 % (11.5-14.5)
[2017-04-11 00:47] LABS: INR 1.4; Prothrombin Time 15.5 Seconds (9.4-12.1)
[2017-04-11 00:58] LABS: Eosinophils # 0.2 K/mcL (0.0-0.6); Lymphocytes # 1.5 K/mcL (0.6-4.6); Neutrophils # 9.5 K/mcL (1.6-8.9); Platelet Estimate Normal (Normal); Reactive Lymphocytes Present (Not Present)
[2017-04-11 01:16] LABS: BUN/Creatinine Ratio 14 (6-26); Blood Urea Nitrogen 9 mg/dL (7-20); Carbon Dioxide 23 mEq/L (19-29); Chloride 100 mEq/L (98-109); Potassium 3.4 mEq/L (3.5-4.5); Sodium 133 mEq/L (136-145); eGFR For African Americans > 60 (> 60)
[2017-04-11 01:17] LABS: Alanine Aminotransferase 8 Units/L (0-55); Albumin 2.3 g/dL (3.5-5.0); Albumin/Globulin Ratio 0.5 (1.1-2.2); Alkaline Phosphatase 94 Units/L (38-126); Aspartate Amino Transferase 19 Units/L (5-34); Bilirubin,Direct 0.1 mg/dL (0.0-0.5); Bilirubin,Indirect 0.2 mg/dL (0.0-1.2); Bilirubin,Total 0.3 mg/dL (0.2-1.2); Globulin 4.6 g/dL (2.4-3.5); Glucose 139 mg/dL (70-99); Magnesium 1.5 mg/dL (1.6-2.6); Osmolality,Calculated 277 (280-300); Phosphorous 1.6 mg/dL (2.3-4.7); Total Protein 6.9 g/dL (6.0-8.3); eGFR For Non-African Americans > 60 (> 60)
[2017-04-11 01:21] LABS: Bilirubin,Urine Small (Negative); Blood,Urine Large (Negative); Clarity,Urine Cloudy (Clear); Color,Urine Yellow (Yellow); Glucose,Urine (UA) Normal (Normal); Ketones,Urine Negative (Negative); Leukocyte Esterase,Urine Small (Negative); Nitrite,Urine Positive (Negative); Protein,Urine 100 mg/dL (Neg-Trace); Specific Gravity,Urine 1.023 (1.010-1.025)
[2017-04-11 01:23] LABS: Bacteria,Urine Moderate per hpf (None-Few); Squamous Epithelial Cell,Urine Many per lpf (None-Few); WBC,Urine 30-50 per hpf (0-3)
[2017-04-11 01:35] LABS: Yeast,Urine Few per hpf (None Seen)
[2017-04-11] MEDS ORDERED: Vancomycin 750 MG in D5% in Water 250 ML IVPB ONE ×2 (01:36→03:30)
--- NOTE | 2017-04-11 01:58 | Emergency Department Note ---
Disposition Clinical Impression: Lactic acid acidosis, Septic embolism, IV drug abuse, Pyelonephritis Sepsis Qualifiers: Sepsis type: sepsis due to unspecified organism Qualified Code(s): A41.9 - Sepsis, unspecified organism Disposition: Admitted As Inpatient Condition: Critical General Adult HPI - General Chief complaint: ED Shortness of Breath/Dyspnea Stated complaint: "infection" Time Seen by Provider: 04/11/17 00:13 Source: patient Mode of arrival: ambulatory Limitations: no limitations Nursing Notes Reviewed: Yes Vital Signs Reviewed: Yes - History of Present Illness HPI Narrative: Pt is a 31 yo wf, hx IVDA, who presents to the ED by PV, c/o "not feeling well" , with anxiety and hyperventilation on arrival. Called to see pt in triage secondary to abnormal VS and no bed availability in ED. Pt awake and alert, tearful and anxious. Pt reports attempting to "drain the abscess on my arm", located R volar FA, and following drug administration, "fell asleep" and "out for a long time". Pt denies any hx falls or trauma. Pt reports upon waking she was "feeling terrible". 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 Pt denies any CP/press, but c/o "chest is tight" with attempts at deep breathing. Pt arrives febrile, tachy, hypotensive. Sepsis orders initiated while pt in triage. IVF boluses given, and pt on cont monitoring/pulse ox. No resp distres. Onset (ago): day(s) (1) Pain Scale: 0 - Related Data Home Medications Medication Instructions Recorded Confirmed Citalopram [CeleXA] 20 mg PO DAILY 02/05/17 04/11/17 [place] Carbonate 300 mg PO DAILY 02/05/17 04/11/17 cloNIDine HCl [Clonidine HCl] 0.2 - 0.4 mg PO HS PRN 02/05/17 04/11/17 Allergies Allergy/AdvReac Type Severity Reaction Status Date / Time No Known Allergies Allergy Verified 02/21/17 12:59 All systems ED: reviewed and negative except as stated. Constitutional: Reports: chills, weakness. Denies: fever Eyes: Denies: vision change ENT ED: Reports: congestion. Denies: ear pain, throat pain, dysphagia Cardiovascular: Denies: chest pain, palpitations, dyspnea on exertion, orthopnea , edema, syncope, paroxysmal nocturnal dyspnea Respiratory: Reports: cough, dyspnea. Denies: wheezes, hemoptysis, sputum production Gastrointestinal: Reports: nausea, vomiting. Denies: abdominal pain, diarrhea, hematemesis, hematochezia Genitourinary: Denies: urgency, dysuria, frequency Musculoskeletal: Reports: myalgia. 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 Absent: scleral icterus, conjunctival injection - ENT ENT exam: normal oropharynx, mucous membranes dry, TM's normal bilaterally - Neck Neck exam: Present: normal inspection. Absent: lymphadenopathy, thyromegaly - Chest Chest inspection: Present: normal inspection, symmetric chest wall rise. Absent : tenderness - Respiratory Respiratory exam: Present: normal lung sounds bilaterally. Absent: respiratory distress, wheezes, stridor, accessory muscle use - Cardiovascular Cardiovascular exam: Present: normal rhythm, tachycardia, normal heart sounds - Abdominal Exam Abdominal exam: Present: soft, Non-Tender, normal bowel sounds. Absent: distention, guarding, rebound, rigidity - Extremities Exam Extremities exam: Present: normal inspection, full ROM. Absent: tenderness, calf tenderness - Expanded Upper Extremity Exam Forearm/Wrist exam: Present: other (Right volar forearm with areas of cutaneous abscess without overlying erythema.) Neurosensory exam: Normal: radial nerve, ulnar nerve, median nerve, axillary nerve Vascular exam: Normal: capillary refill, radial pulse - Back Exam Back exam: Present: normal inspection, full ROM. Absent: CVA tenderness (R), CVA tenderness (L) - Neurological Exam Neurological exam: Present: alert, oriented X3, CN II-XII intact, normal gait, reflexes normal. Absent: motor sensory deficit - Psychiatric Psychiatric exam: Present: anxious - Skin Skin exam: Present: warm, dry, intact, normal color. Absent: rash, diaphoresis Course Course Narrative: Pt with IV est in triage, and started on IVF boluses, labs drawn, EKG obtained while in triage. Pt moved to ED bed when one available, and on reassessment, pt feeling "much better", with improved VS. Pt started on empiric antibx IV for sepsis. Labs show UTI, and abnormal CXR. Pt sent for CT chest with contrast. No PE, no pneumonia, but presence of septic emboli reported. Repeat lactate significantly improved after IVF. Pt on maintenance IVF. Pt with grad improvement clinically while in ED. Admitted for sepsis. Vital Signs Temperature 102.7 F H 04/10/17 23:44 Pulse Rate 130 04/10/17 23:44 Respiratory Rate 24 04/10/17 23:44 Blood Pressure 91/61 04/10/17 23:44 O2 Sat by Pulse Oximetry 98 04/10/17 23:44 Temperature 101.5 F H 04/11/17 16:42 Pulse Rate 110 04/11/17 16:42 Respiratory Rate 18 04/11/17 16:42 Blood Pressure 106/52 04/11/17 16:42 O2 Sat by Pulse Oximetry 98 04/11/17 16:42 Oxygen Delivery Oxygen Delivery Room Air Medical Decision Making - Medical Records Medical records reviewed: Yes I reviewed the patient's medical records. - Lab Data Lab results reviewed: Yes I reviewed the patient's lab results. Result diagrams: 04/11/17 05:27 04/11/17 05:27 Lab Results 04/11/17 04/11/17 04/11/17 Range/Units 00:31 00:31 00:31 WBC 12.2 H (4.3-11.1) K/mcL RBC 3.94 (3.82-4.97) M/mcL Hgb 11.4 L (11.5-15.4) g/dL Hct 33.8 L (35.3-44.9) % MCV 85.8 (83.0-100.0) fL MCH 28.9 (28.0-33.3) pg MCHC 33.7 (31.6-35.5) g/dL RDW 12.5 (11.5-14.5) % Plt Count 230 (140-400) K/mcL MPV 10.7 (9.4-12.4) fL Seg Neutrophils % 68.0 % Band Neutrophils % 10.0 H (0-4) % Lymphocytes % 12.0 % Monocytes % 8.0 % Eosinophils % 2.0 % Neutrophils # 9.5 H (1.6-8.9) K/mcL Lymphocytes # 1.5 (0.6-4.6) K/mcL Monocytes # 1.0 (0.0-1.3) K/mcL Eosinophils # 0.2 (0.0-0.6) K/mcL Reactive Lymphocytes Present A (Not Present) Platelet Estimate Normal (Normal) Immature Plt Fraction 4.4 (1.1-6.1) % PT 15.5 H (9.4-12.1) Seconds INR 1.4 APTT 38.0 H (26.0-36.0) Seconds Sodium 133 L (136-145) mEq/L Potassium 3.4 L (3.5-4.5) mEq/L Chloride 100 (98-109) mEq/L Carbon Dioxide 23 (19-29) mEq/L BUN 9 (7-20) mg/dL Creatinine 0.64 (0.57-1.11) mg/dL Est GFR ( Amer) > 60 (> 60) Est GFR (Non-Af Amer) > 60 (> 60) BUN/Creatinine Ratio 14 (6-26) Glucose 139 H (70-99) mg/dL Calculated Osmolality 277 L (280-300) Lactic Acid (0.5-2.2) mmol/L Calcium 9.0 (8.6-10.8) mg/dL Phosphorus 1.6 L (2.3-4.7) mg/dL Magnesium 1.5 L (1.6-2.6) mg/dL Total Bilirubin 0.3 (0.2-1.2) mg/dL Direct Bilirubin 0.1 (0.0-0.5) mg/dL Indirect Bilirubin 0.2 (0.0-1.2) mg/dL AST 19 (5-34) Units/L ALT 8 (0-55) Units/L Alkaline Phosphatase 94 (38-126) Units/L Troponin I (0-0.03) ng/mL Serum Total Protein 6.9 (6.0-8.3) g/dL Albumin 2.3 L (3.5-5.0) g/dL Globulin 4.6 H (2.4-3.5) g/dL Albumin/Globulin Ratio 0.5 L (1.1-2.2) Urine Color (Yellow) Urine Clarity (Clear) Urine pH (5.0-8.0) pH Units Ur Specific Bern (1.010-1.025) Urine Protein (Neg-Trace) mg/dL Urine Glucose (UA) (Normal) mg/dL Urine Ketones (Negative) mg/dL Urine Blood (Negative) Urine Nitrite (Negative) Urine Bilirubin (Negative) Urine Urobilinogen (Normal) mg/dL Ur Leukocyte Esterase (Negative) Urine Microscopic RBC (0-3) per hpf Urine Microscopic WBC (0-3) per hpf Ur Squamous Epith Cells (None-Few) per lpf Urine Bacteria (None-Few) per hpf Hyaline Casts Urine Yeast (None Seen) per hpf Ur Culture Indicated? (NO) Urine Test (Negative) A. baumannii (PCR) (Not Detect) Clemencia albicans (PCR) (Not Detect) C. glabrata (PCR) (Not Detect) C. krusei (PCR) (Not Detect) C. parapsilosis (PCR) (Not Detect) C. tropicalis (PCR) (Not Detect) Enterobacteriac sp PCR (Not Detect) E. cloacae complex PCR (Not Detect) Enterococcus sp PCR (Not Detect) E. coli (PCR) (Not Detect) H. influenzae (PCR) (Not Detect) Klebsiella oxytoca PCR (Not Detect) Klebsiella pneumoniae (Not Detect) List. monocytogenes PCR (Not Detect) N. meningitidis (PCR) (Not Detect) Proteus species (PCR) (Not Detect) Serratia marcescens PCR (Not Detect) Staphylococcus sp PCR (Not Detect) Staph aureus (PCR) (Not Detect) mecA-Methicil Res Gene (Not Detect) Streptococcus sp PCR (Not Detect) Group A Strep DNA (Not Detect) Group B Strep (PCR) (Not Detect) Strep pneumoniae (PCR) (Not Detect) P. aeruginosa (PCR) (Not Detect) Hollis/B-Vanco Res Genes (Not Detect) KPC (blaKPC) Detect PCR (Not Detect) 04/11/17 04/11/17 04/11/17 Range/Units 00:31 00:31 00:31 WBC (4.3-11.1) K/mcL RBC (3.82-4.97) M/mcL Hgb (11.5-15.4) g/dL Hct (35.3-44.9) % MCV (83.0-100.0) fL MCH (28.0-33.3) pg MCHC (31.6-35.5) g/dL RDW (11.5-14.5) % Plt Count (140-400) K/mcL MPV (9.4-12.4) fL Seg Neutrophils % % Band Neutrophils % (0-4) % Lymphocytes % % Monocytes % % Eosinophils % % Neutrophils # (1.6-8.9) K/mcL Lymphocytes # (0.6-4.6) K/mcL Monocytes # (0.0-1.3) K/mcL Eosinophils # (0.0-0.6) K/mcL Reactive Lymphocytes (Not Present) Platelet Estimate (Normal) Immature Plt Fraction (1.1-6.1) % PT (9.4-12.1) Seconds INR APTT (26.0-36.0) Seconds Sodium (136-145) mEq/L Potassium (3.5-4.5) mEq/L Chloride (98-109) mEq/L Carbon Dioxide (19-29) mEq/L BUN (7-20) mg/dL Creatinine (0.57-1.11) mg/dL Est GFR ( Amer) (> 60) Est GFR (Non-Af Amer) (> 60) BUN/Creatinine Ratio (6-26) Glucose (70-99) mg/dL Calculated Osmolality (280-300) Lactic Acid 3.1 H (0.5-2.2) mmol/L Calcium (8.6-10.8) mg/dL Phosphorus (2.3-4.7) mg/dL Magnesium (1.6-2.6) mg/dL Total Bilirubin (0.2-1.2) mg/dL Direct Bilirubin (0.0-0.5) mg/dL Indirect Bilirubin (0.0-1.2) mg/dL AST (5-34) Units/L ALT (0-55) Units/L Alkaline Phosphatase (38-126) Units/L Troponin I 0.01 (0-0.03) ng/mL Serum Total Protein (6.0-8.3) g/dL Albumin (3.5-5.0) g/dL Globulin (2.4-3.5) g/dL Albumin/Globulin Ratio (1.1-2.2) Urine Color (Yellow) Urine Clarity (Clear) Urine pH (5.0-8.0) pH Units Ur Specific Bern (1.010-1.025) Urine Protein (Neg-Trace) mg/dL Urine Glucose (UA) (Normal) mg/dL Urine Ketones (Negative) mg/dL Urine Blood (Negative) Urine Nitrite (Negative) Urine Bilirubin (Negative) Urine Urobilinogen (Normal) mg/dL Ur Leukocyte Esterase (Negative) Urine Microscopic RBC (0-3) per hpf Urine Microscopic WBC (0-3) per hpf Ur Squamous Epith Cells (None-Few) per lpf Urine Bacteria (None-Few) per hpf Hyaline Casts Urine Yeast (None Seen) per hpf Ur Culture Indicated? (NO) Urine Test (Negative) A. baumannii (PCR) Not Detected (Not Detect) Clemencia albicans (PCR) Not Detected (Not Detect) C. glabrata (PCR) Not Detected (Not Detect) C. krusei (PCR) Not Detected (Not Detect) C. parapsilosis (PCR) Not Detected (Not Detect) C. tropicalis (PCR) Not Detected (Not Detect) Enterobacteriac sp PCR Not Detected (Not Detect) E. cloacae complex PCR Not Detected (Not Detect) Enterococcus sp PCR Not Detected (Not Detect) E. coli (PCR) Not Detected (Not Detect) H. influenzae (PCR) Not Detected (Not Detect) Klebsiella oxytoca PCR Not Detected (Not Detect) Klebsiella pneumoniae Not Detected (Not Detect) List. monocytogenes PCR Not Detected (Not Detect) N. meningitidis (PCR) Not Detected (Not Detect) Proteus species (PCR) Not Detected (Not Detect) Serratia marcescens PCR Not Detected (Not Detect) Staphylococcus sp PCR DETECTED A (Not Detect) Staph aureus (PCR) DETECTED A (Not Detect) mecA-Methicil Res Gene DETECTED A (Not Detect) Streptococcus sp PCR Not Detected (Not Detect) Group A Strep DNA Not Detected (Not Detect) Group B Strep (PCR) Not Detected (Not Detect) Strep pneumoniae (PCR) Not Detected (Not Detect) P. aeruginosa (PCR) Not Detected (Not Detect) Hollis/B-Vanco Res Genes N/A (Not Detect) KPC (blaKPC) Detect PCR N/A (Not Detect) 04/11/17 04/11/17 04/11/17 Range/Units 01:00 01:00 02:12 WBC (4.3-11.1) K/mcL RBC (3.82-4.97) M/mcL Hgb (11.5-15.4) g/dL Hct (35.3-44.9) % MCV (83.0-100.0) fL MCH (28.0-33.3) pg MCHC (31.6-35.5) g/dL RDW (11.5-14.5) % Plt Count (140-400) K/mcL MPV (9.4-12.4) fL Seg Neutrophils % % Band Neutrophils % (0-4) % Lymphocytes % % Monocytes % % Eosinophils % % Neutrophils # (1.6-8.9) K/mcL Lymphocytes # (0.6-4.6) K/mcL Monocytes # (0.0-1.3) K/mcL Eosinophils # (0.0-0.6) K/mcL Reactive Lymphocytes (Not Present) Platelet Estimate (Normal) Immature Plt Fraction (1.1-6.1) % PT (9.4-12.1) Seconds INR APTT (26.0-36.0) Seconds Sodium (136-145) mEq/L Potassium (3.5-4.5) mEq/L Chloride (98-109) mEq/L Carbon Dioxide (19-29) mEq/L BUN (7-20) mg/dL Creatinine (0.57-1.11) mg/dL Est GFR ( Amer) (> 60) Est GFR (Non-Af Amer) (> 60) BUN/Creatinine Ratio (6-26) Glucose (70-99) mg/dL Calculated Osmolality (280-300) Lactic Acid 1.4 (0.5-2.2) mmol/L Calcium (8.6-10.8) mg/dL Phosphorus (2.3-4.7) mg/dL Magnesium (1.6-2.6) mg/dL Total Bilirubin (0.2-1.2) mg/dL Direct Bilirubin (0.0-0.5) mg/dL Indirect Bilirubin (0.0-1.2) mg/dL AST (5-34) Units/L ALT (0-55) Units/L Alkaline Phosphatase (38-126) Units/L Troponin I (0-0.03) ng/mL Serum Total Protein (6.0-8.3) g/dL Albumin (3.5-5.0) g/dL Globulin (2.4-3.5) g/dL Albumin/Globulin Ratio (1.1-2.2) Urine Color Yellow (Yellow) Urine Clarity Cloudy A (Clear) Urine pH 6.0 (5.0-8.0) pH Units Ur Specific Bern 1.023 (1.010-1.025) Urine Protein 100 H (Neg-Trace) mg/dL Urine Glucose (UA) Normal (Normal) mg/dL Urine Ketones Negative (Negative) mg/dL Urine Blood Large H (Negative) Urine Nitrite Positive A (Negative) Urine Bilirubin Small H (Negative) Urine Urobilinogen 2.0 H (Normal) mg/dL Ur Leukocyte Esterase Small H (Negative) Urine Microscopic RBC 3-5 H (0-3) per hpf Urine Microscopic WBC 30-50 H (0-3) per hpf Ur Squamous Epith Cells Many H (None-Few) per lpf Urine Bacteria Moderate H (None-Few) per hpf Hyaline Casts Test Not Performed Urine Yeast Few H (None Seen) per hpf Ur Culture Indicated? YES A (NO) Urine Test Negative (Negative) A. baumannii (PCR) (Not Detect) Clemencia albicans (PCR) (Not Detect) C. glabrata (PCR) (Not Detect) C. krusei (PCR) (Not Detect) C. parapsilosis (PCR) (Not Detect) C. tropicalis (PCR) (Not Detect) Enterobacteriac sp PCR (Not Detect) E. cloacae complex PCR (Not Detect) Enterococcus sp PCR (Not Detect) E. coli (PCR) (Not Detect) H. influenzae (PCR) (Not Detect) Klebsiella oxytoca PCR (Not Detect) Klebsiella pneumoniae (Not Detect) List. monocytogenes PCR (Not Detect) N. meningitidis (PCR) (Not Detect) Proteus species (PCR) (Not Detect) Serratia marcescens PCR (Not Detect) Staphylococcus sp PCR (Not Detect) Staph aureus (PCR) (Not Detect) mecA-Methicil Res Gene (Not Detect) Streptococcus sp PCR (Not Detect) Group A Strep DNA (Not Detect) Group B Strep (PCR) (Not Detect) Strep pneumoniae (PCR) (Not Detect) P. aeruginosa (PCR) (Not Detect) Hollis/B-Vanco Res Genes (Not Detect) KPC (blaKPC) Detect PCR (Not Detect) - Radiology Data Radiology results reviewed: Yes I reviewed the patient's radiology results. Chest CTA 04/11/17 01:37 IMPRESSION: Numerous cavitary pulmonary nodules would be consistent with septic emboli. No visible pulmonary embolus is noted. D/ / Allan Coronel MD / Allan Coronel MD Interpreting Provider: Allan Coronel MD Chest X-Ray 04/11/17 23:57 IMPRESSION: Nodular appearing opacity seen within the left lung, which could represent pneumonia, possible septic emboli, or metastatic disease in the appropriate clinical setting. This could be further evaluated with a CT scan of the chest. D/ / Matt Kimble MD / Matt Kimble MD Interpreting Provider: Matt Kimble MD - EKG Data EKG #1 EKG results narrative: Patient's EKG shows a sinus tachycardia at 116 bpm with diffuse T-wave flattening. This was compared to an old EKG from the 2016 with no significant change. Critical Care Time Critical Care Time: Yes Total Critical Care Time: 60 Attestation: The high probability of a clinically significant, sudden or life threatening deterioration of the [resp/heme] system(s) required my full and direct attention , intervention and personal management. The aggregate critical care time was [60 ] minutes. This time is in addition to time spent performing reported procedures but includes the following: [X] Data Review and interpretation [X] Patient assessment and monitoring of vital signs [X] Documentation [X] Medication orders and management
[2017-04-11] MEDS ORDERED: Cefepime HCl 2,000 MG in D5% in Water (Mini-Bag+) 100 ML IVPB SCH (02:00)
[2017-04-11] MEDS ORDERED: Naloxone 0.4 MG/ML INJ IVP PRN (03:37)
[2017-04-11] MEDS ORDERED: Ondansetron 4 MG/2 ML VIAL IVP PRN (03:37)
[2017-04-11] MEDS ORDERED: hydrOXYzine pamoate 25 MG CAPSULE PO ONE (03:41)
--- NOTE | 2017-04-11 03:45 | Internal Med History&Physical ---
<Chago Lemus - Last Filed: 04/11/17 03:43> Date of Encounter: 04/11/17 Time of Encounter: 03:43 Assessment and Plan (1) Severe sepsis Current visit: Yes Status: Acute Patient presents with fever, tachycardia with endocarditis as a presumed source. Lactate on presentation was 3.1. Patient received 2 L of fluid bolus which is greater than 30 mL/kg. Repeat lactate was 1.4. Blood cultures drawn, antibiotics have been initiated. (2) Endocarditis Current visit: Yes Status: Acute Possible endocarditis per [place] criteria with 3 minor criteria met including predisposing factor with IV drug use, major septic emboli, fever. Patient has been initiated on IV antibiotics with vancomycin, cefepime, Levaquin. TTE has been ordered, patient will likely require IRENA for evaluation of the bowels particularly tricuspid valve in the setting of IV drug use and pulmonary septic emboli. Patient will likely require long-term IV antibiotics, services has been consulted. Qualifiers: Endocarditis type: infective Infective endocarditis organism: unspecified organism Chronicity: acute Qualified Code(s): I33.0 - Acute and subacute infective endocarditis (3) IV drug abuse Current visit: Yes Status: Acute Patient reports last use was on April 01. I am little concerned that she is actively going through withdrawals given as the patient is very anxious and fidgety. We will treat with hydroxyzine. (4) DVT prophylaxis Current visit: Yes Status: Acute EPCDs Internal Medicine - H&P: HPI Chief complaint: Abcess Admitted From: Home Plans for Post Hospital Care: Transfer [facility] Facility History of present illness: Ms. Pollard is a 31 year old female with history of IV drug abuse presents with arm abscess. Patient states that approximately 2 weeks ago she developed an abscess at the site of recent her one injection. She states that she [place] and could not get to medical attention so these areas continued to worsen to the point where approximately 3 days ago the patient attempted to drain them herself. She states that after she did that she slept for 2 days and woke up approximately day ago feeling like the infection was all over. She complains of ear pain, headache, shortness of breath, cough, pain in the chest when taking a deep breath, abdominal pain, nausea, vomiting, dysuria, hematuria. She reports her last IV drug use was on April 01 which she used heroin. She states she used methamphetamines approximately a month ago. Past Med Surg Social Fam HX - Past Medical History Medical history: hepatitis Psychiatric history: anxiety, bipolar, depression, PTSD - Past Surgical History Surgical History: non-contributory - Social History Smoking Status: Current every day smoker Smokeless Tobacco Status: No Alcohol use: none Drug use: cocaine, IV Drug Use, prescription drug abuse - Family History Father Living Status: Hx Family Cardiac Disorders: Yes Internal Medicine - H&P: Meds Acetaminophen/Diphenhydramine [Acetaminophen Pm Cap[place]] 1 tab PO HS PRN [History] Citalopram [CeleXA] 20 mg PO DAILY 02/05/17 [History] Ibuprofen [Motrin] 400 - 800 mg PO Q6HR PRN 02/05/17 [History] [place] Carbonate 300 mg PO DAILY 02/05/17 [History] cloNIDine HCl [Clonidine HCl] 0.2 - 0.4 mg PO HS PRN 02/05/17 [History] Naproxen [Naprosyn] 500 mg PO BID #30 tablet 02/21/17 [Rx] predniSONE [PredniSONE] 40 mg PO DAILY #10 tablet 02/21/17 [Rx] Allergies No Known Allergies Allergy (Verified 02/21/17 12:59) All Systems PM: A 10-system review of systems was performed and is negative for pertinent findings except as documented above in the HPI. - Constitutional Constitutional: chills, fever(s) - EENT Eyes: no blurry vision, no change in vision Ears: ear pain Nose, mouth and throat: sinus pain, sinus pressure, sore throat - Cardiovascular Cardiovascular ROS IM: chest pain, dyspnea, dyspnea on exertion, no edema, no syncope - Respiratory Respiratory: cough, dyspnea, dyspnea on exertion, chest congestion, no excessive phlegm production, no change in phlegm color - Gastrointestinal Gastrointestinal: abdominal pain, nausea, vomiting, no diarrhea - Genitourinary Genitourinary: dysuria, hematuria, urinary frequency - Musculoskeletal Musculoskeletal ROS IM: arthralgias, myalgias, no numbness, no tingling - Integumentary Integumentary IM: new lesions, non-healing lesions, skin ulcer, sores - Neurological Neurological ROS: no dizziness, no numbness, no tingling - Psychiatric Psychiatric: no anxiety, no depression - Hematologic/Lymphatic Hematologic/Lymphatic: no easy bleeding, no easy bruising - Constitutional Vitals: Temp Pulse Resp BP Pulse Ox 102.7 F H 118 18 102/72 96 04/10/17 23:44 04/11/17 02:39 04/11/17 02:39 04/11/17 02:39 04/11/17 02:39 General appearance: Present: disheveled, A&O X 3 - Head Head exam: Present: atraumatic, normal inspection, normocephalic - Eye Eye exam: Present: EOMI, PERRL - ENT ENT exam: Present: mucous membranes dry - Neck Neck exam general surgery: Present: full ROM - Respiratory Respiratory exam: Present: CTAB. Absent: rales, rhonchi, wheezes - Cardiovascular Cardiovascular exam: Present: tachycardia (Regular). Absent: diastolic murmur, gallop, rubs, systolic murmur - GI/Abdominal GI/Abdominal exam: Present: normal bowel sounds, soft, tenderness (diffuse). Absent: distended - Extremities Exam Extremities exam: Absent: pedal edema Additional comments: There is erythema and swelling to an approximately 10 cm by centimeter area on the posterior aspect of the patient's right forearm. There is mild overlying erythema with areas of ulceration. - Neurological Exam Neurological exam: Present: alert, CN II-XII intact, oriented X3, no focal deficits - Psychiatric Psychiatric exam: Present: anxious - Skin Additional comments: Track martinez present. Internal Med - H&P Results - Labs CBC & Chem 7: 04/11/17 00:31 04/11/17 00:31 - Impressions ITS Impressions Chest X-Ray 04/11/17 23:57 IMPRESSION: Nodular appearing opacity seen within the left lung, which could represent pneumonia, possible septic emboli, or metastatic disease in the appropriate clinical setting. This could be further evaluated with a CT scan of the chest. D/ / Matt Kimble MD / Matt Kimble MD Interpreting Provider: Matt Kimble MD <Mika Hartman - Last Filed: 04/11/17 04:30> Date of Encounter: 04/11/17 Internal Medicine - H&P: HPI History of present illness: Ms. Pollard is a 31 year old female All Systems PM: A 10-system review of systems was performed and is negative for pertinent findings except as documented above in the HPI. - Constitutional Vitals: Temp Pulse Resp BP Pulse Ox 102.7 F H 118 18 106/74 96 04/10/17 23:44 04/11/17 02:39 04/11/17 04:06 04/11/17 04:06 04/11/17 02:39 Internal Med - H&P Results - Labs CBC & Chem 7: 04/11/17 00:31 04/11/17 00:31 - Impressions ITS Impressions Chest X-Ray 04/11/17 23:57 IMPRESSION: Nodular appearing opacity seen within the left lung, which could represent pneumonia, possible septic emboli, or metastatic disease in the appropriate clinical setting. This could be further evaluated with a CT scan of the chest. D/ / Matt Kimble MD / Matt Kimble MD Interpreting Provider: Matt Kimble MD - Attending Attestation I examined this patient and my medical decision-making was reviewed with the Resident Physician. I agree with the documented findings, disposition and treatment plan as described
[2017-04-11] MEDS ORDERED: Vancomycin 750 MG in D5% in Water 250 ML IVPB SCH (04:00)
[2017-04-11] MEDS: 0.9 % Sodium Chloride 1,000 ML IVC SCH ×2 (04:49→17:03)
[2017-04-11 07:32] LABS: Mean Corpuscular HGB Conc 32.7 g/dL (31.6-35.5); Mean Corpuscular Hemoglobin 28.8 pg (28.0-33.3); Mean Corpuscular Volume 88.2 fL (83.0-100.0); Mean Platelet Volume 11.5 fL (9.4-12.4); Platelet Count 185 K/mcL (140-400); Red Cell Distribution Width 12.8 % (11.5-14.5)
[2017-04-11 07:50] LABS: BUN/Creatinine Ratio 15 (6-26); Blood Urea Nitrogen 8 mg/dL (7-20); Carbon Dioxide 25 mEq/L (19-29); Chloride 103 mEq/L (98-109); Glucose 112 mg/dL (70-99); Magnesium 1.3 mg/dL (1.6-2.6); Osmolality,Calculated 279 (280-300); Potassium 3.5 mEq/L (3.5-4.5); Sodium 135 mEq/L (136-145); eGFR For African Americans > 60 (> 60); eGFR For Non-African Americans > 60 (> 60)
[2017-04-11 08:10] LABS: Hemoglobin 9.8 g/dL (11.5-15.4)
[2017-04-11 08:24] LABS: Lymphocytes # 1.6 K/mcL (0.6-4.6); Monocytes # 0.7 K/mcL (0.0-1.3); Platelet Estimate Normal (Normal)
[2017-04-11] MEDS ORDERED: Levofloxacin 750 MG/150 ML 750 MG/150 ML BAG IVPB SCH (09:00)
[2017-04-11] MEDS: Ketorolac 30 MG/ML VIAL IVP PRN ×3 (09:05→23:04)
--- NOTE | 2017-04-11 09:47 | Event Note ---
Date of Encounter: 04/11/17 Time of Encounter: 09:41 Patient admitted early this morning due to new onset shortness of breath. She has a history of intravenous drug abuse and a recent onset of right arm abscess. Patient reports that she usually uses less than half gram of heroin a day and has been doing so over the past 6 months. Before that, she was not using any heroin for 5 years. She states that she recently lost custody of her children which are stated her current heroin use. She reports using her own needles and states that she tries to obtain clean needles but is not usually able to access them and hence reuses her needles. She also reports using methamphetamine intravenously 2-3 times a week. She reports fever and chills. She reports blood in the urine, burning urination and pain during urination. She also reports abdominal cramps and diarrhea. She states that she has chest pain with deep breathing and reports cough productive of sputum. She denies any blood in his sputum. She reports shortness of breath but denies any wheezing. She reports lightheadedness with prolonged standing. On exam, patient is in [id number] distress. Clear breath sounds bilaterally. Tachycardia present. No appreciable murmurs auscultated. Labs reviewed. Assessment/plan: 1. Severe Sepsis on presentation due to pneumonia caused by septic emboli and suspected infective endocarditis-patient will be continued on vancomycin for coverage of Staphylococcus aureus including MRSA. Discontinue cefepime and add Levaquin. Monitor her progress. Follow-up echocardiogram. If the transthoracic echocardiogram does not reveal any vegetations, we will request cardiac consult for possible transesophageal echocardiogram. Severe sepsis has resolved with normalization of lactic acid level. Patient continues to have tachycardia and elevated white count. Patient is high risk due to sepsis due to suspected infective endocarditis and need for intravenous antibody therapy. If patient has infective endocarditis, but required PICC line placement and intravenous antibody therapy for at least 6 weeks. 2. Diffuse bilateral pneumonia due to septic emboli-continue vancomycin. Breathing treatments. 3. Chronic hepatitis C 4. Opioid addiction-current COWS score is 5 indicating mild withdrawal. Patient states that her last use was on 04/01/2017. We will continue to monitor COWS score. If patient does moderate to severe withdrawal, will consider single dose of methadone. Patient counseled regarding need for cessation. She is willing to quit. Clonidine when necessary withdrawal symptoms. 5. Tobacco abuse-counseled regarding cessation. ELVIA CamposBS
[2017-04-11 12:26] LABS: Acinetobacter baumannii by PCR Not Detected (Not Detect); Candida albicans by PCR Not Detected (Not Detect); Candida glabrata by PCR Not Detected (Not Detect); Candida krusei by PCR Not Detected (Not Detect); Candida parapsilosis by PCR Not Detected (Not Detect); Candida tropicalis by PCR Not Detected (Not Detect); Enterococcus by PCR Not Detected (Not Detect); Escherichia coli by PCR Not Detected (Not Detect); Klebsiella oxytoca by PCR Not Detected (Not Detect); Klebsiella pneumoniae by PCR Not Detected (Not Detect); Pseudomonas aeruginosa by PCR Not Detected (Not Detect); Serratia marcescens by PCR Not Detected (Not Detect); Streptococcus agalactiae(B)PCR Not Detected (Not Detect); Streptococcus by PCR Not Detected (Not Detect); Streptococcus pneumoniae PCR Not Detected (Not Detect); Streptococcus pyogenes (A) PCR Not Detected (Not Detect); mecA Methicillin-Resist Gene ***DETECTED*** (Not Detect)
[2017-04-11 12:27] LABS: Staphylococcus aureus by PCR ***DETECTED*** (Not Detect)
--- NOTE | 2017-04-11 16:37 | Electrocardiograph Report ---
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 : 1985 Requested By: Madyson Luis Order Number: [id number] Reading MD: Gabe Brandon Measurements Intervals [place] Rate: 116 P: 35 GA: 127 QRS: 43 QRSD: 82 T: 43 QT: 293 QTc: 362 Interpretive Statements SINUS TACHYCARDIA NONSPECIFIC T-WAVE ABNORMALITY ABNORMAL RHYTHM ECG Electronically Signed On 04-11-2017 16:36:11 EDT by Gabe Brandon
[2017-04-11] MEDS: Vancomycin 1,000 MG in D5% in Water 250 ML IVPB SCH (17:00)
[2017-04-11] MEDS: Acetaminophen 325 MG TABLET PO PRN (17:13)
[2017-04-11] MEDS: Nicotine 21 MG PATCH.TD24 TD SCH (23:04)
[2017-04-12] MEDS: Acetaminophen 325 MG TABLET PO PRN (06:40)
[2017-04-12 08:24] LABS: Basophils % 0.3 %; Eosinophils # 0.1 K/mcL (0.0-0.6); Eosinophils % 1.8 %; Immature Granulocytes % 0.6 % (0-4); Lymphocytes # 1.4 K/mcL (0.6-4.6); Lymphocytes % 18.8 %; Mean Corpuscular HGB Conc 34.5 g/dL (31.6-35.5); Mean Corpuscular Hemoglobin 29.5 pg (28.0-33.3); Mean Corpuscular Volume 85.5 fL (83.0-100.0); Mean Platelet Volume 10.4 fL (9.4-12.4); Monocytes # 0.5 K/mcL (0.0-1.3); Monocytes % 6.9 %; Neutrophils # 5.2 K/mcL (1.6-8.9); Platelet Count 220 K/mcL (140-400); Red Blood Count 3.39 M/mcL (3.82-4.97); Red Cell Distribution Width 13.3 % (11.5-14.5); Segmented Neutrophils % 71.6 %
[2017-04-12 08:42] LABS: Blood Urea Nitrogen 8 mg/dL (7-20); Carbon Dioxide 26 mEq/L (19-29); Chloride 104 mEq/L (98-109); Potassium 3.3 mEq/L (3.5-4.5); Sodium 136 mEq/L (136-145)
[2017-04-12 08:43] LABS: BUN/Creatinine Ratio 16 (6-26); Calcium 8.3 mg/dL (8.6-10.8); Glucose 98 mg/dL (70-99); Osmolality,Calculated 280 (280-300); eGFR For African Americans > 60 (> 60); eGFR For Non-African Americans > 60 (> 60)
[2017-04-12] MEDS: Vancomycin 1,000 MG in D5% in Water 250 ML IVPB SCH ×3 (09:39→23:23)
[2017-04-12] MEDS: Ketorolac 30 MG/ML VIAL IVP PRN ×3 (09:40→22:34)
[2017-04-12] MEDS: Nicotine 21 MG PATCH.TD24 TD SCH (09:40)
[2017-04-12] MEDS ORDERED: cloNIDine HCl 0.1 MG TABLET PO PRN (09:43)
[2017-04-12] MEDS ORDERED: Lidocaine 1% 20 ML MDV INFILT STA (10:22)
--- NOTE | 2017-04-12 10:38 | Infectious Disease Consult ---
Date of Encounter: 04/12/17 Time of Encounter: 10:32 Assessment and Plan (1) Severe sepsis Status: Acute Assessment and plan: Patient met sepsis criteria with fever, tachycardia,tachypnia, Additionally patient had leukocytosis with 8% bands on admission. Source is likely secondary to IVDA/right forearm abscess. Now with complicated MRSA bacteremia and septic emboli to the lungs. 2/2 blood cultures from 04/11/17 repeat blood cultres drawn on 04/12/17 are pending. She currently meets 3 Calhoun criteria for IE ( Fever, IVDA, Emboli) No evidence of immunologic or embolic phenomena on exam. I did not appreciate any borden spots on fundoscopy however was a technically challenging exam. Likely MRSA pneumonia from septic emboli. Abscess of the right forearm. TTE was negative for vegetations. Denies LUTS and UA appeared contaminated so doubt that this is the cause. Recommendations: Good quality study TTE per cardiology. Would recommend IRENA if patient has persistent bacteremia. Agree with Vancomycin. Goal trough 15-20. Agree with surgical consultation for drainage of right forearm abscess for source control. With patients complaints of headache, decreased hearing, visual "spots" may consider further imaging if persistent. We will follow up with repeat blood cultures from 04/12/17. Would recommend repeat cultures on 04/14/17 if they are positive. would recommend repeat imaging of the chest in 6 weeks to ensure resolution of septic emboli. Duration of antibiotics will determines by clinical course. Continue to monitor for drug toxicity and renal function. Thank you for the consultation and involving us in this patients care. (2) MRSA bacteremia Status: Acute Assessment and plan: Complicated bacteremia as she has septic emboli to the lungs. She will need 6 weeks of IV antibiotics. Recommendations: Continue vancomycin. goal trough of 15-20 continue to monitor for drug toxicities. recommend repeating blood cultures on 04/14/17 if blood cultures from 04/11/17 are positive. Will need new IV access after cultures are negative. (3) MRSA pneumonia Status: Acute Assessment and plan: appears to have septic emboli. Likely from IVDA. currently on room air. Management as stated above. would recommend repeat imaging in 6 weeks to ensure resolution. Qualifiers: Laterality: bilateral Lung location: unspecified part of lung Qualified Code(s): J15.212 - Pneumonia due to Methicillin resistant Staphylococcus aureus (4) Abscess of right forearm Status: Acute Assessment and plan: surgery has been consulted for I &D (5) IV drug abuse Status: Acute Assessment and plan: Recommend screening for HIV and Hepatitis panel given her IVDA. (6) Hepatitis C Status: Chronic Assessment and plan: per patients report she was diagnosed with Hepatitis C in the past but has not had treatment. should have outpatient follow up and vaccination for Hepatitis B Qualifiers: Viral hepatitis chronicity: chronic Hepatic coma status: without hepatic coma Qualified Code(s): B18.2 - Chronic viral hepatitis C (7) Polyarthralgia Status: Acute Assessment and plan: Likely from opioid withdraw. No clinical signs of septic arthritis on exam. (8) History of noncompliance with medical treatment Status: Acute Assessment and plan: patient left AMA last hospitalization. (9) Leukocytosis Status: Acute Assessment and plan: trending down. Qualifiers: Leukocytosis type: bandemia Qualified Code(s): D72.825 - Bandemia (10) Bandemia Status: Acute (11) Rib pain on left side Status: Acute Assessment and plan: Likely form septic emboli Patient on Toradol (12) Rib pain on right side Status: Acute Assessment and plan: as stated above. (13) Fever Status: Acute Assessment and plan: on acetomenophin. TMAX 103.0 continue to monitor. Qualifiers: Fever type: unspecified Qualified Code(s): R50.9 - Fever, unspecified (14) Otalgia of right ear Status: Acute Assessment and plan: I think this is likely secondary to TMJ. Normal otoscopic exam. I do not think this is related to an infections process and there are ramses signs of infection on my exam. (15) Headache Status: Acute Assessment and plan: possible a result of fever/, acute illness, or withdrawal. 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 Qualifiers: Headache type: unspecified Headache chronicity pattern: unspecified pattern Intractability: not intractable Qualified Code(s): R51 - Headache Infectious Disease HPI - Data of Consult Patient: new to practice Consult date: 04/12/17 Requesting Physician: Zach Ferguson MD Primary Care Provider: Alonso Jones - Consult Narrative Reason for consult: MRSA bacteremia. Possible IE. Septic emboli of the lungs. History of present illness: Ms. Pollard is a 31 year old female who was admitted to [facility] on 04/11/17 for severe sepsis, Pneumonia and suspected septic emboli of the lungs. Ms. Pollard is a 31-year-old female with a past medical history significant for polysubstance abuse, IV drug use, hepatitis C that has not been treated, and bipolar disease. Of note she has had a recent hospitalization in January 2017 for left arm paralysis. She would undergo workup with MRI of the brain,chest, cervical, thoracic, and lumbar spine. All of these results were normal other than some mild foraminal narrowing at L5 than some mild degenerative changes at L5-S1. She was seen in consultation by neurology and it was thought that her weakness at that time was secondary to a brachial nerve injury. Patient would leave A from that hospitalization. Since admission the patient has met sepsis criteria. She has been febrile with MAXIMUM TEMPERATURE of 103. She is also had tachycardia and tachypnea. She had leukocytosis with bandemia. She had an initial lactic acid of 3.1 which is trended down to 1.4. 2 out of 2 blood cultures drawn on 04/11/2017 have grown gram-positive cocci. PCR is positive for staph aureus species with methicillin resistance gene. UA was positive for protein, blood, white blood cells, nitrites, leukoesterase, but likely was contaminate given her numerous squamous cells. Urine cultures from 04/11/2017 of gram-negative rods. She has some mild hypotension on arrival however this corrected with IV fluids. She will have a CTA of the chest which would reveal numerous cavitary lesions that appear to be septic emboli. She did also have an ultrasound of the right upper extremity which revealed a possible abscess.Iv vancomycin was started on . Today Ms. Pollard states that she has been feeling ill for approximately 2 weeks. She did use IV drugs on 04/01/2017. She states that she injected heroin and methamphetamine. She denies using any crushed prescription pills. She later noticed swelling and redness in right arm. She would try to drain the abscess 2 days ago by herself. She states that she used a razor blade on 1 and squeeze the other. She states she did have some drainage at that time. She does admit to fever, chills, malaise, rigors over the past week. She denies any rashes or lesions of the skin. She does admit to swelling and what she thinks is an abscess in the right forearm. She states that the forearm has become more swollen and pronounced since admission to hospital. She denies any recent surgical procedures. She does complain of seeing spots in her vision. She admits to a constant headache. She does admit to pain in her right shoulder and her right knee. She also complains of pain in her left foot that also has some swelling. She states that she fell and sprained her ankle. She has had some nausea and vomiting. She denies diarrhea and has not had any bowel movement since admission. She denies any dysuria. Does admit to some hematuria that began approximately 3 or 4 days ago. Admits to increased frequency but no change in color. She admits to a nonproductive cough and dyspnea. Denies wheeze or hemoptysis. She also complains of right otalgia and decreased hearing in that ear. She has no further complaints or concerns at this time. CC: Zach Ferguson MD Past Med Surg Social Fam HX - Past Medical History Medical history: hepatitis Psychiatric history: anxiety, bipolar, depression, PTSD - Past Surgical History Surgical History: other (Tonsillectomy.) - Social History Smoking Status: Current every day smoker Packs per day: 0.5 Smokeless Tobacco Status: No Alcohol use: none Drug use: cocaine, methamphetamine, IV Drug Use, prescription drug abuse, other (heroine) Occupational status: unemployed Current living situation: With Family Activity Level: Independent ambulation Recent Out of Country Travel Within the Last 8 Weeks: No Exposure or Possible Exposure to Illness During Travel: No - Family History Father Living Status: Age at : 57 Cause of : c-diff Hx Family Cardiac Disorders: Yes Infectious Disease-CN:Meds Citalopram [CeleXA] 20 mg PO DAILY 02/05/17 [History] [place] Carbonate 300 mg PO DAILY 02/05/17 [History] cloNIDine HCl [Clonidine HCl] 0.2 - 0.4 mg PO HS PRN 02/05/17 [History] Allergies No Known Allergies Allergy (Verified 02/21/17 12:59) Review of systems: Constitutional: As per history of present illness. Additionally she denies any weight change. HEENT: As per history of present illness. Additionally she complains of right ear pain and decreased hearing. Denies sore throat. Denies dental pain. Denies recent dental procedures. Heart: Denies any chest pain, discomfort, palpitations, sick become presyncope. Lungs: She denies hemoptysis admits to cough that is nonproductive and dyspnea. Denies wheeze. GI: She denies any diarrhea. Admits to some nausea and vomiting that was nonbloody 2 days ago. : As per history of present illness. Musculoskeletal: As per history of present illness. Integument: As per history of present illness. Heme: Denies any easy bleeding or bruising. Endocrine: Denies any polyuria polydipsia. Psych: Admits to history of bipolar disorder. Travel: Denies any recent travel. Animal contacts: Denies any pets at home or recent contacts with animals. Sexual history: She states that she has been with her significant other for the past 9 months. She states that they are monogamous. She does not always use protection. Exam - Constitutional Vitals: Temp Pulse Resp BP Pulse Ox 100 F H 114 18 102/71 96 04/12/17 07:47 04/12/17 06:40 04/12/17 06:40 04/12/17 06:40 04/12/17 06:40 Exam: Gen.: This is a well-developed well-nourished 31-year-old female who is currently alert and orientated to person place time and situation. She is lying in bed appears to be comfortable and in no acute distress at this time. HEENT: Head is normocephalic and atraumatic. Her pupils are equally round and reactive light and accommodation. Extraocular motions are intact without pain during this exam. Her dentition is intact but she does have some poor dentition. There is no petechiae on the palate. Her he tongue and trachea are both midline. The neck is supple without mass or thyromegaly. There is no cervical submandibular or supraclavicular lymphadenopathy palpable on exam. Normal external appearence of the ear. No tenderness with palpation of the external ear or mastoid process. THe right EAC was normal. Normal land martinez of the right TM. Fundoscopic exam: Red reflex positive bilaterally. Margins of optic disc sharp. Did not appreciate any borden spots. Exam limited by patients movements. Heart: Mildly tachycardic with a regular rhythm. There is no appreciable murmurs on auscultation. No heave or thrill with palpation of the precordium. Normal S1 and S2. No JVD. Normal capillary refill. Radial pulses are 2 out of 4 and synchronous. Chest: She has a normal rise and express the chest wall bilaterally. She does have some pain with palpation of the right acromioclavicular joint. However there is no erythema redness or edema of this joint. Lungs: Some mild coarse breath sounds in the left lower lung field. Very mild expiratory wheezes bilaterally. She has a normal effort of breathing and is able to converse fully in sentences. Abdomen: The abdomen is soft, nontender, bowel sounds are positive, no bruits, no organomegaly. Musculoskeletal: Grossly normal for age no gross deformity noted. She does have some tenderness with palpation of the right shoulder there is no obvious deformity of the shoulder. Appears symmetrical with the left shoulder. She does have pain with flexion and abduction of the shoulder. Additionally she has some pain with palpation of the right knee. I could not appreciate any effusions, erythema, or warmth this joint. Also has some pain in the left foot. The forefoot has some mild erythema and mild ecchymosis with some mild edema in this foot. Otherwise no gross deformities were noted. Sh has tenderness of the ribs bilaterally. Extremities: There is no clubbing, cyanosis. Mild pedal edema on the left foot. Integument: There is no rashes or lesions. I could not appreciate any embolic or immunologic phenomena in the upper or lower extremities. No splinter hemorrhages under the fingernails even with transillumination. No splinter hemorrhages of the palate. Neuro: The neuro exam was somewhat limited as the patient stated she was having pain all over and did not want to move very much. Additionally she refused to ambulate. She has cranial nerves II through XII that are intact. Normal sensation. Does have decreased security checker strength on the right with apparent decrease movement of the right index finger. Patient states that this has been ongoing for 3 months and that she has been progressively getting better and that these are not acute findings. Spine: she has mild point tenderness over T1. No nuchal rigitity. Negative Kernigs and brudzinski. Mild tenderness with flexion of the neck. Some increased headache with jolt accenuation. Psych: Normal affect, cooperates fully with both the history and physical. Infectious Disease CN: Results - Labs CBC & Chem 7: 04/12/17 08:15 04/12/17 08:15 Consult Discharge Plan - Plan Referrals: Alonso Jones, PAC [Primary Care Provider] - (left a message they will call back with appointment) - Attending Attestation I examined this patient and my medical decision-making was reviewed with the MANAGER MEDICARE MARKETING/PA/Advanced Practice Nurse/Resident Physician. I agree with the documented findings, disposition and treatment plan as described except to the extent set forth below. Patient is a 31-year-old woman with history of IV drug use and hepatitis C that was diagnosed 5 years ago who came in with sepsis like picture. Patient was found to have MRSA bacteremia with multifocal pneumonia from septic emboli. Workup so far was positive for MRSA pneumonia. Patient had a TTE done which did not reveal any endocarditis. A IRENA apparently was ordered but cardiology mentioned that they had good windows on the valves and no IRENA is necessary. Patient also had an abscess in the right forearm. Patient was started on vancomycin. We were asked to evaluate the patient and make further recommendation. On physical exam patient has a lot of chronic issues but none seem to be acute and new other than the abscess in the forearm. She has chronic pain issues and chronic back pain. Physical exam was negative for endocarditis stigmata. I did not appreciate any conjunctival hemorrhage no Janeway lesions or Osler nodes no murmur on the heart and there are some tenderness on the thoracic spine which appears to be chronic and is not you and it's persistent pain not reproducible on palpation. There is no joint effusion noted. At this point patient has complicated MRSA bacteremia due to IV drug use likely source is skin abscess with septic emboli. Patient requires vancomycin with goal Vanco trough 15-20, duration of treatment at least 4 weeks maybe 6 weeks total. We'll need to monitor labs and for drug toxicity. Monitor kidney function closely. Patient is also IV drug use or so no she is hepatitis C positive, we'll check HIV status and we'll check hepatitis B profile to see if she is immune, previous infection or if she needs immunization.
--- NOTE | 2017-04-12 10:54 | General Surgery Consult Note ---
Date of Encounter: 04/12/17 Time of Encounter: 10:00 Assessment and Plan (1) Abscess of right arm Current Visit: Yes Status: Acute Right forearm with aprox 6 cm diameter raised, fluctuant, area. No errythema noted. -Hx of IV drug use. Pt states, "this is from where I shoot up." -ABX regimen per primary medicine -I&D completed at bedside-see procedure note -Gram stain and cultures obtained Wound care: - May change/reinforce out dressing as needed. Leave packing intact with dressing changes. - Will repack tomorrow. (2) IV drug abuse Current Visit: Yes Status: Acute Management per medicine Will continue to monitor Past Med Surg Social Fam HX - Past Medical History Source: patient, old records reviewed Medical history: hepatitis, other (IV drug use) Psychiatric history: anxiety, bipolar, depression, PTSD - Past Surgical History Surgical History: non-contributory - Social History Smoking Status: Current every day smoker Packs per day: 0.5 Smokeless Tobacco Status: No Alcohol use: none Drug use: cocaine, IV Drug Use, prescription drug abuse Occupational status: unemployed Current living situation: Home - Independent Activity Level: Independent ambulation - Family History Father Living Status: Age at : 57 Cause of : c-diff Hx Family Cardiac Disorders: Yes Medications and Allergies Citalopram [CeleXA] 20 mg PO DAILY 02/05/17 [History] [place] Carbonate 300 mg PO DAILY 02/05/17 [History] cloNIDine HCl [Clonidine HCl] 0.2 - 0.4 mg PO HS PRN 02/05/17 [History] Allergies No Known Allergies Allergy (Verified 02/21/17 12:59) Review of Systems All systems PM: A 10-system review of systems was performed and is negative for pertinent findings except as documented above in the HPI. - Constitutional as per HPI - Cardiovascular dyspnea on exertion - Respiratory dyspnea on exertion - Gastrointestinal as per HPI - Musculoskeletal as per HPI left: ankle pain (reports falling), ankle swelling, right: hand swelling ( FOREARM; states "this is where I shoot up") - Integumentary as per HPI - Neurological as per HPI - Psychiatric as per HPI General Surgery Exam Initial Vital Signs Temp Pulse Resp BP Pulse Ox 102.7 F H 130 24 91/61 98 04/10/17 23:44 04/10/17 23:44 04/10/17 23:44 04/10/17 23:44 04/10/17 23:44 - General physical appearance no distress - Neck trachea midline - Respiratory other (Expiratory wheezes) - Cardiovascular Cardiovascular exam: Present: RRR - Expanded Cardiovascular Exam Peripheral pulses: 2+: Radial (L), Radial (R), Dorsalis Pedis (L) PM, Dorsalis Pedis (R) PM - Abdomen Abdomen general surgery: Present: bowel sounds present, soft, non tender - Integumentary Integumentary general surgery: Present: other (Right forearm with aprox 2-3 cm raised, fluctuant, intact area. noteably without errythema; LLE dorsal foot/ ankle errythemic, warm, and free from ecchymosis) - Neurologic Present: CN 2-12 grossly intact - Musculoskeletal Present: normal gait, normal posture - Psychiatric Psychiatric general surgery: Present: A&Ox3, appropriate Exam Initial Vital Signs Temp Pulse Resp BP Pulse Ox 102.7 F H 130 24 91/61 98 04/10/17 23:44 04/10/17 23:44 04/10/17 23:44 04/10/17 23:44 04/10/17 23:44 Results - Labs 04/12/17 08:15 04/12/17 08:15 Abnormal lab results RBC 3.39 M/mcL (3.82-4.97) L 04/12/17 08:15 Hgb 10.0 g/dL (11.5-15.4) L 04/12/17 08:15 Hct 29.0 % (35.3-44.9) L 04/12/17 08:15 Band Neutrophils % 8.0 % (0-4) H 04/11/17 05:27 Reactive Lymphocytes Present (Not Present) A 04/11/17 00:31 PT 15.5 Seconds (9.4-12.1) H 04/11/17 00:31 APTT 38.0 Seconds (26.0-36.0) H 04/11/17 00:31 Potassium 3.3 mEq/L (3.5-4.5) L 04/12/17 08:15 Creatinine 0.49 mg/dL (0.57-1.11) L 04/12/17 08:15 Calcium 8.3 mg/dL (8.6-10.8) L 04/12/17 08:15 Phosphorus 1.6 mg/dL (2.3-4.7) L 04/11/17 00:31 Magnesium 1.3 mg/dL (1.6-2.6) L 04/11/17 05:27 Albumin 2.3 g/dL (3.5-5.0) L 04/11/17 00:31 Globulin 4.6 g/dL (2.4-3.5) H 04/11/17 00:31 Albumin/Globulin Ratio 0.5 (1.1-2.2) L 04/11/17 00:31 Urine Clarity Cloudy (Clear) A 04/11/17 01:00 Urine Protein 100 mg/dL (Neg-Trace) H 04/11/17 01:00 Urine Blood Large (Negative) H 04/11/17 01:00 Urine Nitrite Positive (Negative) A 04/11/17 01:00 Urine Bilirubin Small (Negative) H 04/11/17 01:00 Urine Urobilinogen 2.0 mg/dL (Normal) H 04/11/17 01:00 Ur Leukocyte Esterase Small (Negative) H 04/11/17 01:00 Urine Microscopic RBC 3-5 per hpf (0-3) H 04/11/17 01:00 Urine Microscopic WBC 30-50 per hpf (0-3) H 04/11/17 01:00 Ur Squamous Epith Cells Many per lpf (None-Few) H 04/11/17 01:00 Urine Bacteria Moderate per hpf (None-Few) H 04/11/17 01:00 Urine Yeast Few per hpf (None Seen) H 04/11/17 01:00 Ur Culture Indicated? YES (NO) A 04/11/17 01:00 Staphylococcus sp PCR DETECTED (Not Detect) A 04/11/17 00:31 Staph aureus (PCR) DETECTED (Not Detect) A 04/11/17 00:31 mecA-Methicil Res Gene DETECTED (Not Detect) A 04/11/17 00:31 Diabetes panel 04/12/17 Range/Units 08:15 Sodium 136 (136-145) mEq/L Potassium 3.3 L (3.5-4.5) mEq/L Chloride 104 (98-109) mEq/L Carbon Dioxide 26 (19-29) mEq/L BUN 8 (7-20) mg/dL Creatinine 0.49 L (0.57-1.11) mg/dL Glucose 98 (70-99) mg/dL Calcium 8.3 L (8.6-10.8) mg/dL Calcium panel 04/12/17 Range/Units 08:15 Calcium 8.3 L (8.6-10.8) mg/dL Pituitary panel 04/12/17 Range/Units 08:15 Sodium 136 (136-145) mEq/L Potassium 3.3 L (3.5-4.5) mEq/L Chloride 104 (98-109) mEq/L Carbon Dioxide 26 (19-29) mEq/L BUN 8 (7-20) mg/dL Creatinine 0.49 L (0.57-1.11) mg/dL Glucose 98 (70-99) mg/dL Calcium 8.3 L (8.6-10.8) mg/dL Adrenal panel 04/12/17 Range/Units 08:15 Sodium 136 (136-145) mEq/L Potassium 3.3 L (3.5-4.5) mEq/L Chloride 104 (98-109) mEq/L Carbon Dioxide 26 (19-29) mEq/L BUN 8 (7-20) mg/dL Creatinine 0.49 L (0.57-1.11) mg/dL Glucose 98 (70-99) mg/dL Calcium 8.3 L (8.6-10.8) mg/dL All other labs normal. - Imaging Additional studies: Chest CTA 04/11/17 01:37 IMPRESSION: Numerous cavitary pulmonary nodules would be consistent with septic emboli. No visible pulmonary embolus is noted. D/ / Allan Coronel MD / Allan Coronel MD Interpreting Provider: Allan Coronel MD Extremity Ultrasound 04/11/17 13:30 IMPRESSION: Subcutaneous edema with overlying skin thickening in keeping with the history of cellulitis. There is a more focal 1.3 x 0.5 cm ill-defined area which may represent a focal abscess/phlegmon. D/ / 04/11/2017 14:15:19 Le Brown MD / niki Interpreting Provider: Le Brown MD Chest X-Ray 04/11/17 23:57 IMPRESSION: Nodular appearing opacity seen within the left lung, which could represent pneumonia, possible septic emboli, or metastatic disease in the appropriate clinical setting. This could be further evaluated with a CT scan of the chest. D/ / Matt Kimble MD / Matt Kimble MD Interpreting Provider: Matt Kimble MD Procedures: General Surgery - Abscess I/D Consent obtained: written consent Site: forearm Side (if applicable): right Anesthetic used: lidocaine 1% (10 ml) Technique: incised with #11 blade Irrigation: Yes (20 ml saline) Packing used: .25 inch iodoform Packing size: 1/4" Complications: none Additional comments: After informed consent was obtained and timeout completed, the patient's right forearm was prepped and draped. The area was localized with 10 ML's of 1% lidocaine. After achieving appropriate localization, a cruciate incision was made over the most fluctuant area using a size 11 blade. There was immediate return of purulent drainage. The cavity was further opened and decompressed using hemostats. Gram stain, aerobic, and anaerobic cultures were obtained. The cavity was flushed using 20 MLs of saline and then packed with 1/4 inch iodoform gauze and covered with a dry dressing. Consult Discharge Plan - Plan Referrals: Alonso Jones, PAC [Primary Care Provider] - (left a message they will call back with appointment)
[2017-04-12] MEDS: Magnesium Oxide 400 MG TABLET PO SCH ×3 (12:49→19:50)
--- NOTE | 2017-04-12 14:21 | Internal Med Progress Note ---
Date of Encounter: 04/12/17 Time of Encounter: 14:00 - Assessment and plan (1) Endocarditis Current Visit: Yes Status: Acute Assessment and plan: Severe sepsis on presentation caused by MRSA septicemia. Patient continues to have tachycardia and fever of 103 degrees Fahrenheit. Continue intravenous fluids. Case discussed with Dr. Lyon from cardiology over the phone. He has reviewed the chart and states that the patient has met Magoffin criteria for infective endocarditis with 1 major criteria and 3 minor criteria. Hence, the patient would not require transesophageal echocardiogram as it would not change her management. He also states that transthoracic echocardiogram has very good windows providing good visualization and does not reveal any vegetations. Endocarditis is due to MRSA. Patient is currently on vancomycin. Infectious disease on board. Will await further cultures and studies. Patient has a powerglide in place. She will need 4 weeks of IV antibiotics. Repeat blood cultures performed today. We will follow-up blood cultures for clearance of bacteremia. Patient is high risk due to need for intravenous antibiotic therapy and risk of worsening sepsis and septic shock Qualifiers: Endocarditis type: infective Infective endocarditis organism: bacterial Chronicity: acute Qualified Code(s): I33.0 - Acute and subacute infective endocarditis (2) Pneumonia Current Visit: Yes Status: Acute Assessment and plan: MRSA septic emboli from right-sided infective endocarditis related to intravenous drug abuse causing right forearm abscess. Patient is currently on vancomycin. Follow blood cultures and a adjust antibiotics according to her. Breathing treatments. Qualifiers: Pneumonia type: due to methicillin-resistant Staphylococcus aureus (MRSA) Laterality: bilateral Lung location: unspecified part of lung Qualified Code (s): J15.212 - Pneumonia due to Methicillin resistant Staphylococcus aureus (3) Abscess of right forearm Current Visit: Yes Status: Acute Assessment and plan: Case discussed with surgery. Patient underwent incision and drainage by surgery today. Appreciate input and recommendations from surgery. Due to MRSA. On vancomycin. (4) Opioid dependence Current Visit: Yes Status: Chronic Assessment and plan: No withdrawal symptoms anymore. Patient is currently in remission. Last use was about 2 weeks ago. Patient counseled regarding the need for cessation. She is willing to quit. Clonidine when necessary withdrawal symptoms. Qualifiers: Substance use status: in remission Qualified Code(s): F11.21 - Opioid dependence, in remission (5) Hepatitis C Current Visit: No Status: Chronic Assessment and plan: Outpatient follow-up for treatment of the same after discharge. Qualifiers: Viral hepatitis chronicity: chronic Hepatic coma status: without hepatic coma Qualified Code(s): B18.2 - Chronic viral hepatitis C - Subjective Interval history: Overnight, patient lost IV access. She also had fevers overnight about 103 degrees Fahrenheit. She had repeat blood cultures performed today morning at 4 AM. She has been evaluated by surgery and underwent incision and drainage of her right arm abscess. Patient denies any pain. She denies any diarrhea, abdominal cramps, wheezing, runny nose or tearing in her eyes. She continues to report shortness of breath. She reports feeling lightheaded with activity. Denies any nausea, vomiting. Denies any abdominal pain or diarrhea. Requesting for some breakthrough pain medication. - Constitutional Vitals: Temp Pulse Resp BP Pulse Ox 99 F 102 16 107/65 96 04/12/17 11:57 04/12/17 11:57 04/12/17 11:57 04/12/17 11:57 04/12/17 11:57 General appearance: Present: disheveled, A&O X 3 Exam: Gen.: Lying in bed. No acute distress. Chest: Clear to auscultation bilaterally. No adventitious sounds present. CVS: First and second heart sounds present. No murmurs, rubs or gallops. Tachycardia present. Abdomen: Soft, nontender, nondistended. Bowel sounds present. No hepatosplenomegaly. Skin: No decubitus ulcers appreciated. Dressing over the right forearm. Internal Medicine: Result - Labs CBC & Chem 7: 04/12/17 08:15 04/12/17 08:15 Labs: Short CBC 04/12/17 Range/Units 08:15 WBC 7.3 (4.3-11.1) K/mcL Hgb 10.0 L (11.5-15.4) g/dL Hct 29.0 L (35.3-44.9) % Plt Count 220 (140-400) K/mcL Neutrophils # 5.2 (1.6-8.9) K/mcL BMP 04/12/17 08:15 Sodium 136 Potassium 3.3 L Chloride 104 Carbon Dioxide 26 BUN 8 Creatinine 0.49 L Glucose 98 Calcium 8.3 L - ABG Interpretation ABG results: PT/INR, D-dimer PT 15.5 Seconds (9.4-12.1) H 04/11/17 00:31 - Impressions Impressions Extremity Ultrasound 04/11/17 13:30 IMPRESSION: Subcutaneous edema with overlying skin thickening in keeping with the history of cellulitis. There is a more focal 1.3 x 0.5 cm ill-defined area which may represent a focal abscess/phlegmon. D/ / 04/11/2017 14:15:19 Le Brown MD / niki Interpreting Provider: Le Brown MD Consult Discharge Plan - Plan Referrals: Alonso Jones, PAC [Primary Care Provider] - (left a message they will call back with appointment)
[2017-04-12] MEDS: 0.9 % Sodium Chloride 1,000 ML IVC SCH (19:50)
[2017-04-13 01:19] LABS: mecA Methicillin-Resist Gene ***DETECTED*** (Not Detect)
[2017-04-13 01:20] LABS: Acinetobacter baumannii by PCR Not Detected (Not Detect); Candida albicans by PCR Not Detected (Not Detect); Candida glabrata by PCR Not Detected (Not Detect); Candida krusei by PCR Not Detected (Not Detect); Candida parapsilosis by PCR Not Detected (Not Detect); Candida tropicalis by PCR Not Detected (Not Detect); Enterococcus by PCR Not Detected (Not Detect); Escherichia coli by PCR Not Detected (Not Detect); Klebsiella oxytoca by PCR Not Detected (Not Detect); Klebsiella pneumoniae by PCR Not Detected (Not Detect); Pseudomonas aeruginosa by PCR Not Detected (Not Detect); Serratia marcescens by PCR Not Detected (Not Detect); Staphylococcus aureus by PCR ***DETECTED*** (Not Detect); Streptococcus agalactiae(B)PCR Not Detected (Not Detect); Streptococcus by PCR Not Detected (Not Detect); Streptococcus pneumoniae PCR Not Detected (Not Detect); Streptococcus pyogenes (A) PCR Not Detected (Not Detect)
[2017-04-13] MEDS ORDERED: Piperacillin/Tazobactam 3.375 GM in D5% in Water (Mini-Bag+) 100 ML IVPB SCH (06:00)
[2017-04-13] MEDS: Acetaminophen 325 MG TABLET PO PRN ×2 (07:04→21:35)
[2017-04-13] MEDS: Ketorolac 30 MG/ML VIAL IVP PRN ×3 (07:04→20:11)
[2017-04-13] MEDS: Vancomycin 1,000 MG in D5% in Water 250 ML IVPB SCH ×2 (07:07→15:59)
--- NOTE | 2017-04-13 08:00 | Infectious Disease Progress No ---
Date of Encounter: 04/13/17 Time of Encounter: 06:15 - Assessment and Plan (1) Severe sepsis Current Visit: Yes Status: Acute Patient continues to meet SIRS criteria. she has Tachycardia and tachypnea. WBC are trendng up but no leukocytosis. Tmax since yesterday is 103.3 Source is likely secondary to IVDA/abscess of right forearm. Additionally she has what appears to be septic emboli to the lungs. Blood cultures from 04/11/17 are 2/2 positive for GPC with PCR suggestive of MRSA. Blood cultures from 04/12/17 have grown GPC in clusters. PCR suggestive of MRSA. She would have I&D of the forearm on 04/12/17. Gram stain from I&D reveals many WBCs and moderate GPCs. UA from 04/11/17 has grown wadsworth sensitive ecoli. However many squamous cells in sample and she has had no LUTS. TTE from 04/11/17 shows normal range EF of 65 %, mild TR and no evidence of vegitations. Good visualization of valves per cardiology. She dose meet one major criteria ( persistent bacteremia with typical organism) and 2 minor MANRIQUEZ criteria ( fever and emboli). She was given one dose of Zosyn overnight by the hospitalist team. This was discontinued this AM. Vancomycin trough was 3.4 however she had had an interruption in her antibiotics due to poor IV access. Pharmacy has adjusted Vancomycin dosing to 1000mg IV TID from BID frequency. Recommendations: Continue vancomycin with goal trough should be 15-20 Recommend repeat blood cultures for 04/14/17. She dose have complicated bacteremia and will need a minimum of 4-6 weeks of IV antibiotics. She will need peripherally inserted IV access placed after negative blood cultures. please continue to monitor for drug toxicities. (2) MRSA bacteremia Current Visit: Yes Status: Acute Complicated due to septic emboli. Recommend repeating blood cultures on 04/14/17 continue vancomycin. goal trough 15-20 IRENA if blood cultures are persistently positive. (3) MRSA pneumonia Current Visit: Yes Status: Acute as stated above. Qualifiers: Laterality: bilateral Lung location: unspecified part of lung Qualified Code(s): J15.212 - Pneumonia due to Methicillin resistant Staphylococcus aureus (4) Abscess of right forearm Current Visit: Yes Status: Acute s/p I &D 04/12/17 gram stain reveals moderate GPCs. follow up with cultures. (5) Polyarthralgia Current Visit: Yes Status: Acute likely secondary to opioid withdrawal. no clinical evidence of septic arthritis at this time (6) Headache Current Visit: Yes Status: Acute may be secondary to fever and withdrawal. Consider imaging of the brain if continued or worsening. Qualifiers: Headache type: unspecified Headache chronicity pattern: unspecified pattern Intractability: not intractable Qualified Code(s): R51 - Headache (7) IV drug abuse Current Visit: Yes Status: Acute recommend screening for HIV and hepatitis panel. (8) History of noncompliance with medical treatment Current Visit: Yes Status: Acute (9) Leukocytosis Current Visit: Yes Status: Resolved resolvced rending up slightly. However still within normal range. continue to monitor. Qualifiers: Leukocytosis type: bandemia Qualified Code(s): D72.825 - Bandemia (10) Bandemia Current Visit: Yes Status: Resolved (11) Rib pain on left side Current Visit: Yes Status: Acute likley from septic emboli. on toradol. (12) Rib pain on right side Current Visit: Yes Status: Acute as stated above. (13) Hepatitis C Current Visit: No Status: Chronic chronic. repeat hepatitis panel to rule out concomitant Hep B infection. She should have outpatient Hep B vaccination if not infected and if she dose not have immunity. Qualifiers: Viral hepatitis chronicity: chronic Hepatic coma status: without hepatic coma Qualified Code(s): B18.2 - Chronic viral hepatitis C (14) Fever Current Visit: Yes Status: Acute Tmax 103.3 on APAP Qualifiers: Fever type: unspecified Qualified Code(s): R50.9 - Fever, unspecified (15) Otalgia of right ear Current Visit: Yes Status: Acute No signs of infection on exam. Likely referred pain from TMJ. - Subjective Interval history: No major events overnight. This am patient complaints of fever, malaise, rigors , chills, and sweating. she also complains of continued headache. she states it is moderate, all over and the same as yesterday. She denies any visual disturbances. She complain of pleuritic pain when she tries to take a deep breath. She denies any diarrhea and states she has not had a bowel movement since admission. She has no further complaints or concerns at this time. Infect Dis PN-Objective Data - Labs CBC & Chem 7: 04/13/17 08:05 04/13/17 08:04 Labs: Laboratory Results - last 24 hr 04/12/17 04/12/17 04/12/17 04:38 08:15 08:15 WBC 7.3 RBC 3.39 L Hgb 10.0 L Hct 29.0 L MCV 85.5 MCH 29.5 MCHC 34.5 RDW 13.3 Plt Count 220 MPV 10.4 Immature Gran % 0.6 Seg Neutrophils % 71.6 Lymphocytes % 18.8 Monocytes % 6.9 Eosinophils % 1.8 Basophils % 0.3 Neutrophils # 5.2 Lymphocytes # 1.4 Monocytes # 0.5 Eosinophils # 0.1 Basophils # 0.0 Sodium 136 Potassium 3.3 L Chloride 104 Carbon Dioxide 26 BUN 8 Creatinine 0.49 L Est GFR ( Amer) > 60 Est GFR (Non-Af Amer) > 60 BUN/Creatinine Ratio 16 Glucose 98 Calculated Osmolality 280 Calcium 8.3 L Vancomycin Trough Rheumatoid Factor A. baumannii (PCR) Not Detected Clemencia albicans (PCR) Not Detected C. glabrata (PCR) Not Detected C. krusei (PCR) Not Detected C. parapsilosis (PCR) Not Detected C. tropicalis (PCR) Not Detected Enterobacteriac sp PCR Not Detected E. cloacae complex PCR Not Detected Enterococcus sp PCR Not Detected E. coli (PCR) Not Detected H. influenzae (PCR) Not Detected Klebsiella oxytoca PCR Not Detected Klebsiella pneumoniae Not Detected List. monocytogenes PCR Not Detected N. meningitidis (PCR) Not Detected Proteus species (PCR) Not Detected Serratia marcescens PCR Not Detected Staphylococcus sp PCR DETECTED A Staph aureus (PCR) DETECTED A mecA-Methicil Res Gene DETECTED A Streptococcus sp PCR Not Detected Group A Strep DNA Not Detected Group B Strep (PCR) Not Detected Strep pneumoniae (PCR) Not Detected P. aeruginosa (PCR) Not Detected Hollis/B-Vanco Res Genes N/A KPC (blaKPC) Detect PCR N/A Specimen Rejected 04/12/17 04/12/17 04/12/17 11:30 21:42 22:50 WBC RBC Hgb Hct MCV MCH MCHC RDW Plt Count MPV Immature Gran % Seg Neutrophils % Lymphocytes % Monocytes % Eosinophils % Basophils % Neutrophils # Lymphocytes # Monocytes # Eosinophils # Basophils # Sodium Potassium Chloride Carbon Dioxide BUN Creatinine Est GFR ( Amer) Est GFR (Non-Af Amer) BUN/Creatinine Ratio Glucose Calculated Osmolality Calcium Vancomycin Trough 3.4 L Rheumatoid Factor < 15 A. baumannii (PCR) Clemencia albicans (PCR) C. glabrata (PCR) C. krusei (PCR) C. parapsilosis (PCR) C. tropicalis (PCR) Enterobacteriac sp PCR E. cloacae complex PCR Enterococcus sp PCR E. coli (PCR) H. influenzae (PCR) Klebsiella oxytoca PCR Klebsiella pneumoniae List. monocytogenes PCR N. meningitidis (PCR) Proteus species (PCR) Serratia marcescens PCR Staphylococcus sp PCR Staph aureus (PCR) mecA-Methicil Res Gene Streptococcus sp PCR Group A Strep DNA Group B Strep (PCR) Strep pneumoniae (PCR) P. aeruginosa (PCR) Hollis/B-Vanco Res Genes KPC (blaKPC) Detect PCR Specimen Rejected Hemolyzed 04/13/17 06:43 WBC RBC Hgb Hct MCV MCH MCHC RDW Plt Count MPV Immature Gran % Seg Neutrophils % Lymphocytes % Monocytes % Eosinophils % Basophils % Neutrophils # Lymphocytes # Monocytes # Eosinophils # Basophils # Sodium Potassium Chloride Carbon Dioxide BUN Creatinine Est GFR ( Amer) Est GFR (Non-Af Amer) BUN/Creatinine Ratio Glucose Calculated Osmolality Calcium Vancomycin Trough Rheumatoid Factor A. baumannii (PCR) Clemencia albicans (PCR) C. glabrata (PCR) C. krusei (PCR) C. parapsilosis (PCR) C. tropicalis (PCR) Enterobacteriac sp PCR E. cloacae complex PCR Enterococcus sp PCR E. coli (PCR) H. influenzae (PCR) Klebsiella oxytoca PCR Klebsiella pneumoniae List. monocytogenes PCR N. meningitidis (PCR) Proteus species (PCR) Serratia marcescens PCR Staphylococcus sp PCR Staph aureus (PCR) mecA-Methicil Res Gene Streptococcus sp PCR Group A Strep DNA Group B Strep (PCR) Strep pneumoniae (PCR) P. aeruginosa (PCR) Hollis/B-Vanco Res Genes KPC (blaKPC) Detect PCR Specimen Rejected Hemolyzed Cultures: Cultures 04/12/17 04:38 Blood Culture - Preliminary Peripheral Venipuncture Gram Positive Cocci - Clusters 04/12/17 14:12 Gram Stain - Final Right Arm Serology 04/12/17 Range/Units 04:38 A. baumannii (PCR) Not Detected (Not Detect) Clemencia albicans (PCR) Not Detected (Not Detect) C. glabrata (PCR) Not Detected (Not Detect) C. krusei (PCR) Not Detected (Not Detect) C. parapsilosis (PCR) Not Detected (Not Detect) C. tropicalis (PCR) Not Detected (Not Detect) Enterobacteriac sp PCR Not Detected (Not Detect) E. cloacae complex PCR Not Detected (Not Detect) Enterococcus sp PCR Not Detected (Not Detect) E. coli (PCR) Not Detected (Not Detect) H. influenzae (PCR) Not Detected (Not Detect) Klebsiella oxytoca PCR Not Detected (Not Detect) Klebsiella pneumoniae Not Detected (Not Detect) List. monocytogenes PCR Not Detected (Not Detect) N. meningitidis (PCR) Not Detected (Not Detect) Proteus species (PCR) Not Detected (Not Detect) Serratia marcescens PCR Not Detected (Not Detect) Staphylococcus sp PCR DETECTED A (Not Detect) Staph aureus (PCR) DETECTED A (Not Detect) mecA-Methicil Res Gene DETECTED A (Not Detect) Streptococcus sp PCR Not Detected (Not Detect) Group A Strep DNA Not Detected (Not Detect) Group B Strep (PCR) Not Detected (Not Detect) Strep pneumoniae (PCR) Not Detected (Not Detect) P. aeruginosa (PCR) Not Detected (Not Detect) Hollis/B-Vanco Res Genes N/A (Not Detect) KPC (blaKPC) Detect PCR N/A (Not Detect) - Impressions Impressions Extremity Ultrasound 04/11/17 13:30 IMPRESSION: Subcutaneous edema with overlying skin thickening in keeping with the history of cellulitis. There is a more focal 1.3 x 0.5 cm ill-defined area which may represent a focal abscess/phlegmon. D/ / 04/11/2017 14:15:19 Le Brown MD / niki Interpreting Provider: Le Brown MD Exam - Constitutional Vitals: Temp Pulse Resp BP Pulse Ox 103.3 F H 127 18 126/82 93 04/13/17 07:05 04/13/17 07:05 04/13/17 07:05 04/13/17 07:05 04/13/17 07:05 Exam: Gen.: This is a well-developed well-nourished 31-year-old female. She is currently lying in bed is diaphoretic tachycardic on monitor appears to be uncomfortable in pain. Mild distress at this time. HEENT: Head is normocephalic and atraumatic. Pupils equally round reactive to light and accommodation. Moist mucous membranes. Poor dentition. Neck is supple without mass or thyromegaly. Heart: Tachycardic with regular rhythm. No murmurs rubs or gallops. No JVD. Normal capillary refill. Lungs: Currently she is to Neck and having shallow breaths. Appears to have pain on inspiration. Does have some mild rhonchi and coarse breath sounds in the right mid and lower lung fills there was some mild expiratory wheezes in the left upper lung field. Abdomen: Abdomen is soft, nondistended, nontender to palpation. Extremities: There is no clubbing or cyanosis. Mild edema in mild ecchymosis of the left ankle. Integument: No rashes or lesions were noted. Consult Discharge Plan - Plan Referrals: Alonso Jones, PAC [Primary Care Provider] - (left a message they will call back with appointment) - Attending Attestation I examined this patient and my medical decision-making was reviewed with the IRON WORKER/PA/Advanced Practice Nurse/Resident Physician. I agree with the documented findings, disposition and treatment plan as described except to the extent set forth below.
[2017-04-13 08:44] LABS: Basophils % 0.2 %; Eosinophils # 0.2 K/mcL (0.0-0.6); Eosinophils % 1.8 %; Hematocrit 28.5 % (35.3-44.9); Hemoglobin 9.3 g/dL (11.5-15.4); Immature Granulocytes % 1.1 % (0-4); Immature Platelets 2.5 % (1.1-6.1); Lymphocytes # 1.6 K/mcL (0.6-4.6); Lymphocytes % 16.7 %; Mean Corpuscular HGB Conc 32.6 g/dL (31.6-35.5); Mean Corpuscular Hemoglobin 28.7 pg (28.0-33.3); Monocytes # 0.4 K/mcL (0.0-1.3); Monocytes % 4.7 %; Neutrophils # 7.1 K/mcL (1.6-8.9); Platelet Count 337 K/mcL (140-400); Red Blood Count 3.24 M/mcL (3.82-4.97); Red Cell Distribution Width 13.5 % (11.5-14.5); Segmented Neutrophils % 75.5 %
[2017-04-13 09:19] LABS: Alanine Aminotransferase 6 Units/L (0-55); Albumin/Globulin Ratio 0.4 (1.1-2.2); Alkaline Phosphatase 83 Units/L (38-126); Aspartate Amino Transferase 10 Units/L (5-34); BUN/Creatinine Ratio 10 (6-26); Bilirubin,Total 0.4 mg/dL (0.2-1.2); Blood Urea Nitrogen 6 mg/dL (7-20); Calcium 8.5 mg/dL (8.6-10.8); Carbon Dioxide 25 mEq/L (19-29); Chloride 100 mEq/L (98-109); Globulin 4.4 g/dL (2.4-3.5); Glucose 155 mg/dL (70-99); Magnesium 1.4 mg/dL (1.6-2.6); Osmolality,Calculated 279 (280-300); Phosphorous 2.4 mg/dL (2.3-4.7); Potassium 4.1 mEq/L (3.5-4.5); Sodium 134 mEq/L (136-145); Total Protein 6.1 g/dL (6.0-8.3); eGFR For African Americans > 60 (> 60); eGFR For Non-African Americans > 60 (> 60)
[2017-04-13 09:20] LABS: Albumin 1.7 g/dL (3.5-5.0)
[2017-04-13] MEDS: Magnesium Oxide 400 MG TABLET PO SCH ×3 (09:52→20:14)
[2017-04-13] MEDS: Nicotine 21 MG PATCH.TD24 TD SCH (09:52)
--- NOTE | 2017-04-13 14:12 | General Surgery Progress Note ---
Date of Encounter: 04/13/17 Time of Encounter: 13:45 - Assessment and Plan (1) Abscess of right arm Current Visit: Yes Status: Acute Removed packing. Wound bed with small amount of prulunt drainage noted. Induration improved. Continue wound care as below. Wound care: - Removed dressing and packing. Wash with soap and water daily and then pack loosely with 0.25 inch plain gauze. Cover with dry dressing. Refinforce or change outer dressing PRN. Follow up in office with Sravani Chan, 04/07/2017 at 0915 Surgery will sign off at this time. Please call if need arise. (2) IV drug abuse Current Visit: Yes Status: Chronic Management per medicine Encouraged pt to refrain from IV drug use Subjective Patient reports: no new complaints, still having pain, pain is less, tolerating liquids well, voiding w/o difficulty, fever Objective Vital Signs - Last 8 Hours Temp Pulse Resp BP Pulse Ox 04/13/17 11:24 98.2 F 104 16 107/64 97 04/13/17 07:05 103.3 F H 127 18 126/82 93 Intake and Output 04/12/17 04/13/17 04/13/17 23:59 07:59 15:59 Intake Total 360 / 360 Balance 360 / 360 Intake: Oral 360 / 360 Other: Meal Lunch Percent of Meal Consumed 75% - General physical appearance no distress, other (Drowsy. Difficulty remaining awake during conversation) - Eyes normal ocular movement - Neck Neck exam: trachea midline - Respiratory normal respiratory effort, other (Decreased bibasilar) - Cardiovascular Cardiovascular exam: Present: tachycardia - Integumentary other (bleeding controlled. Small amount of purulent material. Repacked with 1/ 4 iodoform guaze and dry dressing applied) - Neurologic other (Drowsy; difficulty remaining awake during conversation) - Psychiatric other (See neuro and general) - Labs 04/13/17 08:05 04/13/17 08:04 Diabetes panel 04/13/17 Range/Units 08:04 Sodium 134 L (136-145) mEq/L Potassium 4.1 (3.5-4.5) mEq/L Chloride 100 (98-109) mEq/L Carbon Dioxide 25 (19-29) mEq/L BUN 6 L (7-20) mg/dL Creatinine 0.62 (0.57-1.11) mg/dL Glucose 155 H (70-99) mg/dL Calcium 8.5 L (8.6-10.8) mg/dL AST 10 (5-34) Units/L ALT 6 (0-55) Units/L Alkaline Phosphatase 83 (38-126) Units/L Albumin 1.7 L D (3.5-5.0) g/dL Calcium panel 04/13/17 Range/Units 08:04 Calcium 8.5 L (8.6-10.8) mg/dL Phosphorus 2.4 (2.3-4.7) mg/dL Albumin 1.7 L D (3.5-5.0) g/dL Pituitary panel 04/13/17 Range/Units 08:04 Sodium 134 L (136-145) mEq/L Potassium 4.1 (3.5-4.5) mEq/L Chloride 100 (98-109) mEq/L Carbon Dioxide 25 (19-29) mEq/L BUN 6 L (7-20) mg/dL Creatinine 0.62 (0.57-1.11) mg/dL Glucose 155 H (70-99) mg/dL Calcium 8.5 L (8.6-10.8) mg/dL Adrenal panel 04/13/17 Range/Units 08:04 Sodium 134 L (136-145) mEq/L Potassium 4.1 (3.5-4.5) mEq/L Chloride 100 (98-109) mEq/L Carbon Dioxide 25 (19-29) mEq/L BUN 6 L (7-20) mg/dL Creatinine 0.62 (0.57-1.11) mg/dL Glucose 155 H (70-99) mg/dL Calcium 8.5 L (8.6-10.8) mg/dL Total Bilirubin 0.4 (0.2-1.2) mg/dL AST 10 (5-34) Units/L ALT 6 (0-55) Units/L Alkaline Phosphatase 83 (38-126) Units/L Albumin 1.7 L D (3.5-5.0) g/dL Consult Discharge Plan - Plan Additional Instructions: Wound care: - Removed dressing and packing. Wash with soap and water daily and then pack loosely with 0.25 inch plain gauze. Cover with dry dressing. Refinforce or change outer dressing PRN. Follow up in office with Sravani Chan, 04/07/2017 at 0915 Referrals: Alonso Jones, PAC [Primary Care Provider] - (left a message they will call back with appointment) Sravani Chan, [employer] [Advanced Practice Nurse] - (04/17/2017 at 9:45 am)
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
[2017-04-13] MEDS ORDERED: Vancomycin 1,000 MG VIAL ONE (22:57)
[2017-04-13] MEDS: traMADol 50 MG TABLET PO PRN (23:10)
[2017-04-14 01:27] LABS: BUN/Creatinine Ratio 12 (6-26); Blood Urea Nitrogen 7 mg/dL (7-20); Calcium 8.9 mg/dL (8.6-10.8); Carbon Dioxide 23 mEq/L (19-29); Chloride 103 mEq/L (98-109); Glucose 94 mg/dL (70-99); Osmolality,Calculated 282 (280-300); Sodium 137 mEq/L (136-145); eGFR For African Americans > 60 (> 60); eGFR For Non-African Americans > 60 (> 60)
[2017-04-14 01:30] LABS: Potassium 4.5 mEq/L (3.5-4.5)
[2017-04-14] MEDS: Vancomycin 1,000 MG in D5% in Water 250 ML IVPB SCH (01:32)
[2017-04-14] MEDS: Ketorolac 30 MG/ML VIAL IVP PRN (02:04)
[2017-04-14 03:53] LABS: Basophils % 0.3 %; Eosinophils # 0.3 K/mcL (0.0-0.6); Eosinophils % 2.7 %; Hematocrit 27.4 % (35.3-44.9); Hemoglobin 9.1 g/dL (11.5-15.4); Immature Granulocytes % 2.2 % (0-4); Immature Platelets 1.6 % (1.1-6.1); Lymphocytes # 2.2 K/mcL (0.6-4.6); Lymphocytes % 20.1 %; Mean Corpuscular HGB Conc 33.2 g/dL (31.6-35.5); Mean Corpuscular Hemoglobin 29.2 pg (28.0-33.3); Mean Corpuscular Volume 87.8 fL (83.0-100.0); Mean Platelet Volume 9.3 fL (9.4-12.4); Monocytes # 0.8 K/mcL (0.0-1.3); Monocytes % 7.6 %; Neutrophils # 7.4 K/mcL (1.6-8.9); Platelet Count 406 K/mcL (140-400); Red Blood Count 3.12 M/mcL (3.82-4.97); Red Cell Distribution Width 13.6 % (11.5-14.5); Segmented Neutrophils % 67.1 %
[2017-04-14 04:33] LABS: Acinetobacter baumannii by PCR Not Detected (Not Detect); Candida albicans by PCR Not Detected (Not Detect); Enterococcus by PCR Not Detected (Not Detect); Escherichia coli by PCR Not Detected (Not Detect); Klebsiella oxytoca by PCR Not Detected (Not Detect); Klebsiella pneumoniae by PCR Not Detected (Not Detect); Pseudomonas aeruginosa by PCR Not Detected (Not Detect); Serratia marcescens by PCR Not Detected (Not Detect); Staphylococcus aureus by PCR ***DETECTED*** (Not Detect); Streptococcus agalactiae(B)PCR Not Detected (Not Detect); Streptococcus by PCR Not Detected (Not Detect); Streptococcus pneumoniae PCR Not Detected (Not Detect); Streptococcus pyogenes (A) PCR Not Detected (Not Detect); blaKPC Carbapenem-Resist Gene Not Detected (Not Detect); mecA Methicillin-Resist Gene ***DETECTED*** (Not Detect); vanA/B Vancomycin-Resist Genes Not Detected (Not Detect)
[2017-04-14 04:34] LABS: Candida glabrata by PCR Not Detected (Not Detect); Candida krusei by PCR Not Detected (Not Detect); Candida parapsilosis by PCR Not Detected (Not Detect); Candida tropicalis by PCR Not Detected (Not Detect)
[2017-04-14] MEDS: traMADol 50 MG TABLET PO PRN ×3 (06:43→21:29)
[2017-04-14] MEDS: Nicotine 21 MG PATCH.TD24 TD SCH (08:19)
[2017-04-14] MEDS: Vancomycin 1,250 MG in D5% in Water 250 ML IVPB SCH ×2 (08:20→17:34)
[2017-04-14] MEDS ORDERED: GuaiFENesin Liq 200 MG/10 ML UDC PO PRN (08:39)
[2017-04-14] MEDS: Ibuprofen 400 MG TABLET PO PRN ×2 (11:20→18:52)
[2017-04-14] MEDS: Acetaminophen 325 MG TABLET PO PRN (11:58)
[2017-04-14 14:05] LABS: HIV-1&2 Antibody & p24 Ag Nonreactive (Nonreactive); Hepatitis A Antibody IgM Nonreactive (Nonreactive); Hepatitis B Core IgM Nonreactive (Nonreactive); Hepatitis B Surface Antigen Nonreactive (Nonreactive)
[2017-04-14 14:14] LABS: Hepatitis C Virus Antibody Reactive (Nonreactive)
--- NOTE | 2017-04-14 15:39 | Internal Med Progress Note ---
Date of Encounter: 04/14/17 Time of Encounter: 13:15 - Assessment and plan (1) Endocarditis Current Visit: Yes Status: Acute Assessment and plan: Severe sepsis on presentation caused by MRSA septicemia and right-sided infective endocarditis. Case discussed with infectious disease. Patient to require at least 4 weeks of intravenous vancomycin with likely duration being 6 weeks depending on her clinical course. Patient continues to spike fevers despite being on vancomycin. She also has positive blood cultures from blood drawn yesterday. If she continues to spike fevers and a positive blood cultures, she will likely be switched to daptomycin per infectious disease. Patient is high risk due for continued fevers and positive blood cultures and you to need for intravenous antibiotic therapy and risk of worsening sepsis and septic shock Qualifiers: Endocarditis type: infective Infective endocarditis organism: bacterial Chronicity: acute Qualified Code(s): I33.0 - Acute and subacute infective endocarditis (2) Pneumonia Current Visit: Yes Status: Acute Assessment and plan: MRSA septic emboli from right-sided infective endocarditis related to intravenous drug abuse causing right forearm abscess. Continue intravenous vancomycin. As mentioned earlier, if patient continues to spike fevers and's cultures, will likely be changed to daptomycin. Breathing treatments when necessary Robitussin [id number] to help bring up secretions. Qualifiers: Pneumonia type: due to methicillin-resistant Staphylococcus aureus (MRSA) Laterality: bilateral Lung location: unspecified part of lung Qualified Code (s): J15.212 - Pneumonia due to Methicillin resistant Staphylococcus aureus (3) Abscess of right forearm Current Visit: Yes Status: Acute Assessment and plan: Surgery has signed off. Dressing changes daily. Outpatient follow-up with surgery. (4) Opioid dependence Current Visit: Yes Status: Chronic Assessment and plan: No clinical evidence of withdrawal. Clonidine as needed for withdrawal. Qualifiers: Substance use status: in remission Qualified Code(s): F11.21 - Opioid dependence, in remission (5) Hepatitis C Current Visit: No Status: Chronic Assessment and plan: Outpatient follow-up for treatment of the same after discharge. Qualifiers: Viral hepatitis chronicity: chronic Hepatic coma status: without hepatic coma Qualified Code(s): B18.2 - Chronic viral hepatitis C - Subjective Interval history: Patient states that she has chest and back pain when she coughs or takes deep breaths. She states that her breathing is better. However, she continues to report cough productive of sputum production. She is requesting some medication to help her bring up more sputum. She denies any nausea or vomiting. - Constitutional Vitals: Temp Pulse Resp BP Pulse Ox 99.3 F 90 16 118/85 94 04/14/17 07:07 04/14/17 07:07 04/14/17 07:07 04/14/17 07:07 04/14/17 07:07 General appearance: Present: disheveled, A&O X 3 Exam: Gen.: Lying in bed. Mild distress. Chest: Clear to auscultation bilaterally. No adventitious sounds present. CVS: First and second heart sounds present. No murmurs, rubs or gallops. Mild tachycardia present. Abdomen: Soft, nontender, nondistended. Bowel sounds present. No hepatosplenomegaly. Internal Medicine: Result - Labs CBC & Chem 7: 04/14/17 03:40 04/14/17 00:16 Labs: Short CBC 04/14/17 Range/Units 03:40 WBC 11.0 (4.3-11.1) K/mcL Hgb 9.1 L (11.5-15.4) g/dL Hct 27.4 L (35.3-44.9) % Plt Count 406 H (140-400) K/mcL Neutrophils # 7.4 (1.6-8.9) K/mcL BMP 04/14/17 00:16 Sodium 137 Potassium 4.5 Chloride 103 Carbon Dioxide 23 BUN 7 Creatinine 0.57 Glucose 94 Calcium 8.9 - ABG Interpretation ABG results: PT/INR, D-dimer PT 15.5 Seconds (9.4-12.1) H 04/11/17 00:31 - VTE Documentation of Mechanical Device: Intermittent pneumatic compression device Consult Discharge Plan - Plan Additional Instructions: Wound care: - Removed dressing and packing. Wash with soap and water daily and then pack loosely with 0.25 inch plain gauze. Cover with dry dressing. Refinforce or change outer dressing PRN. Follow up in office with Sravani Chan, 04/07/2017 at 0915 Referrals: Sravani Chan, SAP BPC DEVELOPER [Advanced Practice Nurse] - (04/17/2017 at 9:45 am) Alonso Jones, PAC [Primary Care Provider] - (left a message they will call back with appointment)
--- NOTE | 2017-04-14 16:02 | Infectious Disease Progress No ---
Date of Encounter: 04/14/17 Time of Encounter: 15:59 - Assessment and Plan (1) Severe sepsis Current Visit: Yes Status: Acute The patient had four SIRS criteria plus lactic acidosis on admission. She continues to have fevers and tachycardia. Her leukocytosis and lactic acidosis have resolved. Likely secondary to MRSA bacteremia, RUE abscess, and septic emboli. Blood culture drawn 04/11/17 x 2 sets, 04/12/17 x 1 set, and 04/13/17 x 2 sets are all positive. Repeat blood cultures drawn this morning x 2 sets are pending. (2) MRSA bacteremia Current Visit: Yes Status: Acute Causative organism: MRSA. Complicated due to septic emboli. Source possibly IVDU or RUE abscess. Blood culture drawn 04/11/17 x 2 sets, 04/12/17 x 1 set, and 04/13/17 x 2 sets are all positive. Repeat blood cultures drawn this morning x 2 sets are pending. TTE negative for valvular vegetations. She will need a IRENA prior to discharge. The patient has two minor and one major Modified [place]'s Criteria. Await repeat blood culture results. Continue Vancomycin IV. Pharmacy to dose. Goal trough approximately 15. VT low at 11.8 yesterday. Likely contributing to the patient's persistent bacteremia. Additionally, the Vanc DESHAUN is 2, which could also be contributing to the persistent bacteremia. Continue Vancomycin for now, but if bacteremia persists after Vanc level is therapeutic, may consider switching antibiotics. Duration of treatment depends on the clinical picture, but she will require at least 4 weeks of IV antibiotics due to the complicated nature of her bacteremia. Monitor renal function and for drug toxicity and dose-adjust antibiotics. web services architect consulted and following to assist with discharge planning. Avoid placing central venous access until blood cultures are negative x 48 hours. (3) Septic embolism Current Visit: Yes Status: Acute CT of the chest shows numerous cavitary pulmonary nodules consistent with septic emboli. Continue antibiotics as above. (4) Abscess of right arm Current Visit: Yes Status: Acute Causative organism MRSA. Status post bedside I & D by the surgery team. Wound culture positive for MRSA. Likely secondary to IVDU vs. seeding from bacteremia. Wound care and activity restrictions per the surgery team. (5) Polyarthralgia Current Visit: Yes Status: Acute Likely secondary to opioid withdrawal. No clinical evidence of septic arthritis at this time. (6) IV drug abuse Current Visit: Yes Status: Acute Hep C positive. HIV non-reactive. - Subjective Interval history: Patient seen and examined. No acute events overnight. Patient complains of diffuse chest pain that radiates to her back. She states that her pain medication regimen has been changed and now she is having worse pain. She reports fevers and chills and shivers overnight. She denies any shortness of breath, but does report a moist cough. She denies any nausea, vomiting, diarrhea , or abdominal pain. She states her appetite is okay, but she can eat right now because she's having so much pain. She does report constipation and states she hasn't had a bowel movement since admission. She denies pain at the site of her abscess in her right upper extremity. She denies any oral thrush or new skin lesions. Infect Dis PN-Objective Data - Labs CBC & Chem 7: 04/14/17 03:40 04/14/17 00:16 Labs: Laboratory Results - last 24 hr 04/13/17 04/13/17 04/14/17 08:04 11:25 00:16 WBC RBC Hgb Hct MCV MCH MCHC RDW Plt Count MPV Immature Gran % Seg Neutrophils % Lymphocytes % Monocytes % Eosinophils % Basophils % Neutrophils # Lymphocytes # Monocytes # Eosinophils # Basophils # Immature Plt Fraction Sodium Potassium Chloride Carbon Dioxide BUN Creatinine Est GFR ( Amer) Est GFR (Non-Af Amer) BUN/Creatinine Ratio Glucose Calculated Osmolality Calcium Vancomycin Trough 11.6 A. baumannii (PCR) Not Detected Clemencia albicans (PCR) Not Detected C. glabrata (PCR) Not Detected C. krusei (PCR) Not Detected C. parapsilosis (PCR) Not Detected C. tropicalis (PCR) Not Detected Enterobacteriac sp PCR Not Detected E. cloacae complex PCR Not Detected Enterococcus sp PCR Not Detected E. coli (PCR) Not Detected H. influenzae (PCR) Not Detected Hepatitis A IgM Ab Nonreactive Hep Bs Antigen Nonreactive Hep B Core IgM Ab Nonreactive Hepatitis C Ab Screen Reactive H HIV Ag/Ab Combo Qual Nonreactive Klebsiella oxytoca PCR Not Detected Klebsiella pneumoniae Not Detected List. monocytogenes PCR Not Detected N. meningitidis (PCR) Not Detected Proteus species (PCR) Not Detected Serratia marcescens PCR Not Detected Staphylococcus sp PCR DETECTED A Staph aureus (PCR) DETECTED A mecA-Methicil Res Gene DETECTED A Streptococcus sp PCR Not Detected Group A Strep DNA Not Detected Group B Strep (PCR) Not Detected Strep pneumoniae (PCR) Not Detected P. aeruginosa (PCR) Not Detected Hollis/B-Vanco Res Genes Not Detected KPC (blaKPC) Detect PCR Not Detected Specimen Rejected 04/14/17 04/14/17 04/14/17 00:16 00:16 03:40 WBC 11.0 RBC 3.12 L Hgb 9.1 L Hct 27.4 L MCV 87.8 MCH 29.2 MCHC 33.2 RDW 13.6 Plt Count 406 H MPV 9.3 L Immature Gran % 2.2 Seg Neutrophils % 67.1 Lymphocytes % 20.1 Monocytes % 7.6 Eosinophils % 2.7 Basophils % 0.3 Neutrophils # 7.4 Lymphocytes # 2.2 Monocytes # 0.8 Eosinophils # 0.3 Basophils # 0.0 Immature Plt Fraction 1.6 Sodium 137 Potassium 4.5 Chloride 103 Carbon Dioxide 23 BUN 7 Creatinine 0.57 Est GFR ( Amer) > 60 Est GFR (Non-Af Amer) > 60 BUN/Creatinine Ratio 12 Glucose 94 Calculated Osmolality 282 Calcium 8.9 Vancomycin Trough A. baumannii (PCR) Clemencia albicans (PCR) C. glabrata (PCR) C. krusei (PCR) C. parapsilosis (PCR) C. tropicalis (PCR) Enterobacteriac sp PCR E. cloacae complex PCR Enterococcus sp PCR E. coli (PCR) H. influenzae (PCR) Hepatitis A IgM Ab Hep Bs Antigen Hep B Core IgM Ab Hepatitis C Ab Screen HIV Ag/Ab Combo Qual Klebsiella oxytoca PCR Klebsiella pneumoniae List. monocytogenes PCR N. meningitidis (PCR) Proteus species (PCR) Serratia marcescens PCR Staphylococcus sp PCR Staph aureus (PCR) mecA-Methicil Res Gene Streptococcus sp PCR Group A Strep DNA Group B Strep (PCR) Strep pneumoniae (PCR) P. aeruginosa (PCR) Hollis/B-Vanco Res Genes KPC (blaKPC) Detect PCR Specimen Rejected Clotted Cultures: Cultures 04/13/17 08:04 Blood Culture - Preliminary Peripheral Venipuncture Gram Positive Cocci - Clusters 04/12/17 14:12 Wound Culture - Final Right Arm Methicillin Resistant S.aureus 04/12/17 04:38 Blood Culture - Final Peripheral Venipuncture Methicillin Resistant S.aureus 04/13/17 08:04 Blood Culture - Preliminary Peripheral Venipuncture Gram Positive Cocci 04/12/17 14:12 Gram Stain - Final Right Arm Serology 04/13/17 04/13/17 04/12/17 Range/Units 11:25 08:04 04:38 A. baumannii (PCR) Not Detected Not Detected (Not Detect) Clemencia albicans (PCR) Not Detected Not Detected (Not Detect) C. glabrata (PCR) Not Detected Not Detected (Not Detect) C. krusei (PCR) Not Detected Not Detected (Not Detect) C. parapsilosis (PCR) Not Detected Not Detected (Not Detect) C. tropicalis (PCR) Not Detected Not Detected (Not Detect) Enterobacteriac sp PCR Not Detected Not Detected (Not Detect) E. cloacae complex PCR Not Detected Not Detected (Not Detect) Enterococcus sp PCR Not Detected Not Detected (Not Detect) E. coli (PCR) Not Detected Not Detected (Not Detect) H. influenzae (PCR) Not Detected Not Detected (Not Detect) Hepatitis A IgM Ab Nonreactive (Nonreactive) Hep Bs Antigen Nonreactive (Nonreactive) Hep B Core IgM Ab Nonreactive (Nonreactive) Hepatitis C Ab Screen Reactive H (Nonreactive) HIV Ag/Ab Combo Qual Nonreactive (Nonreactive) Klebsiella oxytoca PCR Not Detected Not Detected (Not Detect) Klebsiella pneumoniae Not Detected Not Detected (Not Detect) List. monocytogenes PCR Not Detected Not Detected (Not Detect) N. meningitidis (PCR) Not Detected Not Detected (Not Detect) Proteus species (PCR) Not Detected Not Detected (Not Detect) Serratia marcescens PCR Not Detected Not Detected (Not Detect) Staphylococcus sp PCR DETECTED A DETECTED A (Not Detect) Staph aureus (PCR) DETECTED A DETECTED A (Not Detect) mecA-Methicil Res Gene DETECTED A DETECTED A (Not Detect) Streptococcus sp PCR Not Detected Not Detected (Not Detect) Group A Strep DNA Not Detected Not Detected (Not Detect) Group B Strep (PCR) Not Detected Not Detected (Not Detect) Strep pneumoniae (PCR) Not Detected Not Detected (Not Detect) P. aeruginosa (PCR) Not Detected Not Detected (Not Detect) Hollis/B-Vanco Res Genes Not Detected N/A (Not Detect) KPC (blaKPC) Detect PCR Not Detected N/A (Not Detect) Exam - Constitutional Vitals: Temp Pulse Resp BP Pulse Ox 98.1 F 96 16 99/67 97 04/14/17 15:46 04/14/17 15:46 04/14/17 15:46 04/14/17 15:46 04/14/17 15:46 General appearance: average body habitus, cooperative, no acute distress - Head Head exam: Present: atraumatic, normal inspection, normocephalic - Eye Eye exam: Present: EOMI, normal appearance, PERRL Pupils: Present: normal accommodation Additional comments: No subconjunctival hemorrhage noted. - ENT ENT exam: Present: mucous membranes moist - Neck Neck exam: Present: normal inspection - Respiratory Respiratory exam: Present: CTAB. Absent: rales, respiratory distress, rhonchi, wheezes - Cardiovascular Cardiovascular exam: Present: RRR, +S1, +S2 - GI/Abdominal GI/Abdominal exam: Present: normal bowel sounds, soft. Absent: distended, tenderness - Extremities Exam Extremities exam: Absent: joint swelling, pedal edema, tenderness Additional comments: Right upper extremity abscess dressing with small amount of shadow drainage noted. No surrounding erythema or warmth noted. - Back Exam Back exam: Present: normal inspection. Absent: paraspinal tenderness, vertebral tenderness - Neurological Exam Neurological exam: Present: alert, oriented X3, no focal deficits - Psychiatric Psychiatric exam: Present: normal affect, normal mood - Skin Skin exam: Present: dry, intact, normal color, warm - VTE Documentation of Mechanical Device: Intermittent pneumatic compression device Consult Discharge Plan - Plan Additional Instructions: Wound care: - Removed dressing and packing. Wash with soap and water daily and then pack loosely with 0.25 inch plain gauze. Cover with dry dressing. Refinforce or change outer dressing PRN. Follow up in office with Sravani Chan, 04/07/2017 at 0915 Referrals: Sravani Chan, HOME DESIGNER [Advanced Practice Nurse] - (04/17/2017 at 9:45 am) Alonso Jones, PAC [Primary Care Provider] - (left a message they will call back with appointment)
[2017-04-14] MEDS: GuaiFENesin Liq 200 MG/10 ML UDC PO SCH (17:34)
[2017-04-15] MEDS: Vancomycin 1,250 MG in D5% in Water 250 ML IVPB SCH ×2 (00:28→09:58)
[2017-04-15] MEDS: GuaiFENesin Liq 200 MG/10 ML UDC PO SCH ×5 (00:28→23:28)
[2017-04-15] MEDS: traMADol 50 MG TABLET PO PRN ×3 (03:40→19:27)
[2017-04-15] MEDS: Acetaminophen 325 MG TABLET PO PRN ×2 (03:58→22:36)
[2017-04-15] MEDS: Nicotine 21 MG PATCH.TD24 TD SCH (07:42)
[2017-04-15] MEDS: Ibuprofen 400 MG TABLET PO PRN ×3 (07:43→23:28)
[2017-04-15 11:10] LABS: Basophils % 0.4 %; Eosinophils # 0.3 K/mcL (0.0-0.6); Eosinophils % 2.4 %; Hematocrit 31.6 % (35.3-44.9); Hemoglobin 10.3 g/dL (11.5-15.4); Immature Granulocytes % 3.1 % (0-4); Lymphocytes # 1.9 K/mcL (0.6-4.6); Lymphocytes % 17.8 %; Mean Corpuscular HGB Conc 32.6 g/dL (31.6-35.5); Mean Corpuscular Hemoglobin 28.6 pg (28.0-33.3); Mean Corpuscular Volume 87.8 fL (83.0-100.0); Mean Platelet Volume 9.4 fL (9.4-12.4); Monocytes # 0.5 K/mcL (0.0-1.3); Monocytes % 4.7 %; Neutrophils # 7.7 K/mcL (1.6-8.9); Platelet Count 472 K/mcL (140-400); Red Cell Distribution Width 13.2 % (11.5-14.5); Segmented Neutrophils % 71.6 %
--- NOTE | 2017-04-15 12:03 | Internal Med Progress Note ---
Date of Encounter: 04/15/17 Time of Encounter: 11:00 - Assessment and plan (1) Endocarditis Current Visit: Yes Status: Acute Assessment and plan: Severe sepsis on presentation caused by MRSA septicemia and right-sided infective endocarditis. Patient continues to spike fevers despite being on vancomycin. She also has positive blood cultures from blood drawn 2 days ago. Blood cultures from 04/14/2017 are still pending. As the patient continues to spike fevers and has positive blood cultures despite being on vancomycin, will change her to daptomycin according to infectious disease recommendations. Repeat blood cultures today. Patient is high risk due for continued fevers and positive blood cultures and the need for intravenous antibiotic therapy and risk of worsening sepsis and septic shock Qualifiers: Endocarditis type: infective Infective endocarditis organism: bacterial Chronicity: acute Qualified Code(s): I33.0 - Acute and subacute infective endocarditis (2) Pneumonia Current Visit: Yes Status: Acute Assessment and plan: MRSA septic emboli from right-sided infective endocarditis related to intravenous drug abuse causing right forearm abscess. Changed to daptomycin intravenously. As mentioned earlier, if patient continues to spike fevers and's cultures, will likely be changed to daptomycin. Breathing treatments when necessary Robitussin [id number] to help bring up secretions. Qualifiers: Pneumonia type: due to methicillin-resistant Staphylococcus aureus (MRSA) Laterality: bilateral Lung location: unspecified part of lung Qualified Code (s): J15.212 - Pneumonia due to Methicillin resistant Staphylococcus aureus (3) Abscess of right forearm Current Visit: Yes Status: Acute Assessment and plan: Status post drainage by surgery. Dressing changes daily. Outpatient follow-up with surgery. (4) Opioid dependence Current Visit: Yes Status: Chronic Assessment and plan: No clinical evidence of withdrawal. Clonidine as needed for withdrawal. Qualifiers: Substance use status: in remission Qualified Code(s): F11.21 - Opioid dependence, in remission (5) Hepatitis C Current Visit: No Status: Chronic Assessment and plan: Outpatient follow-up for treatment of the same after discharge. Qualifiers: Viral hepatitis chronicity: chronic Hepatic coma status: without hepatic coma Qualified Code(s): B18.2 - Chronic viral hepatitis C - Subjective Interval history: Patient reports continuing to have fevers over the night. She complains of 4/ 10 pain in the right shoulder without any radiation. He does worsen with movement and relieved with rest. She denies any swelling or redness over her right shoulder. - Constitutional Vitals: Temp Pulse Resp BP Pulse Ox 99.7 F H 104 16 99/69 97 04/15/17 07:00 04/15/17 07:00 04/15/17 07:00 04/15/17 07:00 04/15/17 08:00 General appearance: Present: disheveled, A&O X 3 Exam: Gen.: Lying in bed. No acute distress. Chest: Clear to auscultation bilaterally. No adventitious sounds present. CVS: First and second heart sounds present. No murmurs, rubs or gallops. Tachycardia present. Abdomen: Soft, nontender, nondistended. Bowel sounds present. No hepatosplenomegaly. Skin: No decubitus ulcers appreciated. Musculoskeletal: Tenderness to palpation over the right shoulder over the joint line. Reproducible tenderness with flexion, extension, abduction and adduction of the shoulder. No swelling or erythema noted over the right shoulder. Internal Medicine: Result - Labs CBC & Chem 7: 04/15/17 09:46 04/14/17 00:16 Labs: Short CBC 04/15/17 Range/Units 09:46 WBC 10.8 (4.3-11.1) K/mcL Hgb 10.3 L (11.5-15.4) g/dL Hct 31.6 L (35.3-44.9) % Plt Count 472 H (140-400) K/mcL Neutrophils # 7.7 (1.6-8.9) K/mcL - ABG Interpretation ABG results: PT/INR, D-dimer PT 15.5 Seconds (9.4-12.1) H 04/11/17 00:31 - VTE Documentation of Mechanical Device: Intermittent pneumatic compression device Consult Discharge Plan - Plan Additional Instructions: Wound care: - Removed dressing and packing. Wash with soap and water daily and then pack loosely with 0.25 inch plain gauze. Cover with dry dressing. Refinforce or change outer dressing PRN. Follow up in office with Sravani Chan, 04/07/2017 at 0915 Referrals: Sravani Chan, REIMBURSEMENT REP [Advanced Practice Nurse] - (04/17/2017 at 9:45 am) Alonso Jones, PAC [Primary Care Provider] - (left a message they will call back with appointment)
[2017-04-15] MEDS: DAPTOmycin 350 MG in 0.9 % Sodium Chloride 100 ML IVPB SCH (14:24)
[2017-04-15 23:54] LABS: Acinetobacter baumannii by PCR Not Detected (Not Detect); Candida albicans by PCR Not Detected (Not Detect); Candida glabrata by PCR Not Detected (Not Detect); Candida krusei by PCR Not Detected (Not Detect); Candida parapsilosis by PCR Not Detected (Not Detect); Candida tropicalis by PCR Not Detected (Not Detect); Enterococcus by PCR Not Detected (Not Detect); Escherichia coli by PCR Not Detected (Not Detect); Klebsiella oxytoca by PCR Not Detected (Not Detect); Klebsiella pneumoniae by PCR Not Detected (Not Detect); Pseudomonas aeruginosa by PCR Not Detected (Not Detect); Serratia marcescens by PCR Not Detected (Not Detect); Staphylococcus aureus by PCR ***DETECTED*** (Not Detect); Streptococcus agalactiae(B)PCR Not Detected (Not Detect); Streptococcus by PCR Not Detected (Not Detect); Streptococcus pneumoniae PCR Not Detected (Not Detect); Streptococcus pyogenes (A) PCR Not Detected (Not Detect); mecA Methicillin-Resist Gene ***DETECTED*** (Not Detect)
[2017-04-16] MEDS: traMADol 50 MG TABLET PO PRN ×4 (01:55→23:05)
[2017-04-16] MEDS: Ibuprofen 400 MG TABLET PO PRN ×3 (06:12→23:05)
[2017-04-16] MEDS: GuaiFENesin Liq 200 MG/10 ML UDC PO SCH ×4 (06:12→23:05)
[2017-04-16 06:29] LABS: Basophils # 0.1 K/mcL (0.0-0.2); Basophils % 0.5 %; Eosinophils # 0.4 K/mcL (0.0-0.6); Eosinophils % 3.7 %; Hematocrit 32.1 % (35.3-44.9); Hemoglobin 10.7 g/dL (11.5-15.4); Immature Granulocytes % 4.8 % (0-4); Lymphocytes # 2.4 K/mcL (0.6-4.6); Lymphocytes % 23.6 %; Mean Corpuscular HGB Conc 33.3 g/dL (31.6-35.5); Mean Corpuscular Hemoglobin 29.6 pg (28.0-33.3); Mean Corpuscular Volume 88.7 fL (83.0-100.0); Mean Platelet Volume 9.1 fL (9.4-12.4); Monocytes # 0.6 K/mcL (0.0-1.3); Monocytes % 5.6 %; Neutrophils # 6.2 K/mcL (1.6-8.9); Platelet Count 516 K/mcL (140-400); Red Blood Count 3.62 M/mcL (3.82-4.97); Red Cell Distribution Width 13.3 % (11.5-14.5); Segmented Neutrophils % 61.8 %
[2017-04-16 06:41] LABS: BUN/Creatinine Ratio 19 (6-26); Blood Urea Nitrogen 11 mg/dL (7-20); Calcium 9.3 mg/dL (8.6-10.8); Carbon Dioxide 29 mEq/L (19-29); Chloride 102 mEq/L (98-109); Glucose 87 mg/dL (70-99); Osmolality,Calculated 283 (280-300); Potassium 4.3 mEq/L (3.5-4.5); Sodium 137 mEq/L (136-145); eGFR For African Americans > 60 (> 60); eGFR For Non-African Americans > 60 (> 60)
[2017-04-16] MEDS: Nicotine 21 MG PATCH.TD24 TD SCH (08:12)
--- NOTE | 2017-04-16 10:14 | Internal Med Progress Note ---
Date of Encounter: 04/16/17 Time of Encounter: 08:00 - Assessment and plan (1) Endocarditis Current Visit: Yes Status: Acute Assessment and plan: Severe sepsis on presentation caused by MRSA septicemia and right-sided infective endocarditis. Patient did not have any fevers overnight after her antibiotics were switched to daptomycin yesterday. We will continue daptomycin. Blood cultures have been obtained today morning. Anticipate blood cultures from today to be negative as the patient has been started on daptomycin and did not have any fevers overnight. Continue to monitor blood cultures for clearance of bacteremia. Patient is high risk due to need for monitoring for clearance of bacteremia and for discharge to nursing facility on intravenous antiemetics for her endocarditis. Qualifiers: Endocarditis type: infective Infective endocarditis organism: bacterial Chronicity: acute Qualified Code(s): I33.0 - Acute and subacute infective endocarditis (2) Pneumonia Current Visit: Yes Status: Acute Assessment and plan: As mentioned earlier, antibiotics have been changed to daptomycin. Continue daptomycin. Breathing treatments and guaifenesin. Qualifiers: Pneumonia type: due to methicillin-resistant Staphylococcus aureus (MRSA) Laterality: bilateral Lung location: unspecified part of lung Qualified Code (s): J15.212 - Pneumonia due to Methicillin resistant Staphylococcus aureus (3) Abscess of right forearm Current Visit: Yes Status: Acute Assessment and plan: Status post drainage by surgery. Dressing changes daily. Outpatient follow-up with surgery. (4) Opioid dependence Current Visit: Yes Status: Chronic Assessment and plan: No clinical evidence of withdrawal. Qualifiers: Substance use status: in remission Qualified Code(s): F11.21 - Opioid dependence, in remission (5) Hepatitis C Current Visit: No Status: Chronic Assessment and plan: Outpatient follow-up for treatment of the same after discharge. Qualifiers: Viral hepatitis chronicity: chronic Hepatic coma status: without hepatic coma Qualified Code(s): B18.2 - Chronic viral hepatitis C - Subjective Interval history: Patient seen and evaluated today. She reports that she has not had any fever overnight and is feeling much better. She denies any nausea or vomiting. She states that her right shoulder pain is better with the Lidoderm patch. She reports that her cough is better. Denies any shortness of breath or wheezing. - Constitutional Vitals: Temp Pulse Resp BP Pulse Ox 97.6 F 98 16 101/68 96 04/16/17 07:00 04/16/17 07:00 04/16/17 07:00 04/16/17 07:00 04/16/17 08:20 General appearance: Present: disheveled, A&O X 3 Exam: Gen.: Lying in bed. No acute distress. Chest: Clear to auscultation bilaterally. No adventitious sounds present. CVS: First and second heart sounds present. No murmurs, rubs or gallops. Abdomen: Soft, nontender, nondistended. Bowel sounds present. Skin: No decubitus ulcers appreciated. Internal Medicine: Result - Labs CBC & Chem 7: 04/16/17 05:33 04/16/17 05:33 Labs: Short CBC 04/15/17 04/16/17 Range/Units 09:46 05:33 WBC 10.8 10.0 (4.3-11.1) K/mcL Hgb 10.3 L 10.7 L (11.5-15.4) g/dL Hct 31.6 L 32.1 L (35.3-44.9) % Plt Count 472 H 516 H (140-400) K/mcL Neutrophils # 7.7 6.2 (1.6-8.9) K/mcL BMP 04/16/17 05:33 Sodium 137 Potassium 4.3 Chloride 102 Carbon Dioxide 29 BUN 11 Creatinine 0.59 Glucose 87 Calcium 9.3 - ABG Interpretation ABG results: PT/INR, D-dimer PT 15.5 Seconds (9.4-12.1) H 04/11/17 00:31 - VTE Documentation of Mechanical Device: Intermittent pneumatic compression device Consult Discharge Plan - Plan Additional Instructions: Wound care: - Removed dressing and packing. Wash with soap and water daily and then pack loosely with 0.25 inch plain gauze. Cover with dry dressing. Refinforce or change outer dressing PRN. Follow up in office with Sravani Chan, 04/07/2017 at 0915 Referrals: Sravani Chan, INSTRUCTIONAL INTERVENTIONIST [Advanced Practice Nurse] - (04/17/2017 at 9:45 am) Alonso Jones, PAC [Primary Care Provider] - (left a message they will call back with appointment)
[2017-04-16] MEDS: DAPTOmycin 350 MG in 0.9 % Sodium Chloride 100 ML IVPB SCH (15:36)
[2017-04-16] MEDS: Acetaminophen 325 MG TABLET PO PRN (21:25)
[2017-04-17] MEDS: GuaiFENesin Liq 200 MG/10 ML UDC PO SCH ×3 (06:06→19:46)
[2017-04-17] MEDS: Ibuprofen 400 MG TABLET PO PRN (06:06)
[2017-04-17 08:25] LABS: Acinetobacter baumannii by PCR Not Detected (Not Detect); Candida albicans by PCR Not Detected (Not Detect); Candida glabrata by PCR Not Detected (Not Detect); Candida krusei by PCR Not Detected (Not Detect); Candida parapsilosis by PCR Not Detected (Not Detect); Candida tropicalis by PCR Not Detected (Not Detect); Enterococcus by PCR Not Detected (Not Detect); Escherichia coli by PCR Not Detected (Not Detect); Klebsiella oxytoca by PCR Not Detected (Not Detect); Klebsiella pneumoniae by PCR Not Detected (Not Detect); Pseudomonas aeruginosa by PCR Not Detected (Not Detect); Serratia marcescens by PCR Not Detected (Not Detect); Staphylococcus aureus by PCR ***DETECTED*** (Not Detect); Streptococcus agalactiae(B)PCR Not Detected (Not Detect); Streptococcus by PCR Not Detected (Not Detect); Streptococcus pneumoniae PCR Not Detected (Not Detect); Streptococcus pyogenes (A) PCR Not Detected (Not Detect); mecA Methicillin-Resist Gene ***DETECTED*** (Not Detect)
[2017-04-17] MEDS ORDERED: Aminoglycoside Consult 1 EACH MC ONE (08:35)
[2017-04-17] MEDS: traMADol 50 MG TABLET PO PRN ×3 (08:47→23:27)
[2017-04-17] MEDS: Nicotine 21 MG PATCH.TD24 TD SCH (08:56)
--- NOTE | 2017-04-17 13:12 | Internal Med Progress Note ---
Date of Encounter: 04/17/17 Time of Encounter: 13:10 - Assessment and plan (1) Endocarditis Current Visit: Yes Status: Acute Assessment and plan: Severe sepsis on presentation caused by MRSA septicemia and right-sided infective endocarditis. Patient continues to remain afebrile. Currently on daptomycin intravenously at 6 mg/kg. However, patient's cultures from yesterday were positive for gram-positive cocci. Case discussed with infectious disease. Awaiting further recommendations as to antibiotic choice and possible transesophageal echocardiogram as patient continues to have positive blood cultures. Continue to monitor blood cultures for clearance of bacteremia. Patient is high risk due to need for monitoring for clearance of bacteremia and for discharge to nursing facility on intravenous antiemetics for her endocarditis. Qualifiers: Endocarditis type: infective Infective endocarditis organism: bacterial Chronicity: acute Qualified Code(s): I33.0 - Acute and subacute infective endocarditis (2) Pneumonia Current Visit: Yes Status: Acute Assessment and plan: As mentioned earlier, antibiotics have been changed to daptomycin. Continue daptomycin. Breathing treatments and guaifenesin. Qualifiers: Pneumonia type: due to methicillin-resistant Staphylococcus aureus (MRSA) Laterality: bilateral Lung location: unspecified part of lung Qualified Code (s): J15.212 - Pneumonia due to Methicillin resistant Staphylococcus aureus (3) Abscess of right forearm Current Visit: Yes Status: Acute Assessment and plan: Status post drainage by surgery. Dressing changes daily. Outpatient follow-up with surgery. (4) Opioid dependence Current Visit: Yes Status: Chronic Assessment and plan: No clinical evidence of withdrawal. In remission Qualifiers: Substance use status: in remission Qualified Code(s): F11.21 - Opioid dependence, in remission (5) Hepatitis C Current Visit: No Status: Chronic Assessment and plan: Outpatient follow-up for treatment of the same after discharge. Qualifiers: Viral hepatitis chronicity: chronic Hepatic coma status: without hepatic coma Qualified Code(s): B18.2 - Chronic viral hepatitis C - Subjective Interval history: Patient reports that she feels much better. She just complains of generalized chest pain. She denies any nausea or vomiting. She denies any chills or fevers overnight. No lightheadedness, palpitations or shortness of breath. - Constitutional Vitals: Temp Pulse Resp BP Pulse Ox 97.7 F 85 15 110/68 98 04/17/17 07:00 04/17/17 07:00 04/17/17 07:00 04/17/17 07:00 04/17/17 07:00 General appearance: Present: disheveled, A&O X 3 Exam: Gen.: Lying in bed. No acute distress. Chest: Clear to auscultation bilaterally. No adventitious sounds present. CVS: First and second heart sounds present. No murmurs, rubs or gallops. Mild tachycardia present. Abdomen: Soft, nontender, nondistended. Bowel sounds present. Internal Medicine: Result - Labs CBC & Chem 7: 04/16/17 05:33 04/16/17 05:33 - ABG Interpretation ABG results: PT/INR, D-dimer PT 15.5 Seconds (9.4-12.1) H 04/11/17 00:31 - VTE Documentation of Mechanical Device: Intermittent pneumatic compression device Consult Discharge Plan - Plan Additional Instructions: Wound care: - Removed dressing and packing. Wash with soap and water daily and then pack loosely with 0.25 inch plain gauze. Cover with dry dressing. Refinforce or change outer dressing PRN. Follow up in office with Sravani Chan, 04/07/2017 at 0915 Referrals: Sravani Chan, REALTIME COURT REPORTER [Advanced Practice Nurse] - (04/17/2017 at 9:45 am) Alonso oJnes, PAC [Primary Care Provider] - (left a message they will call back with appointment)
--- NOTE | 2017-04-17 14:01 | Infectious Disease Progress No ---
Date of Encounter: 04/17/17 Time of Encounter: 09:40 - Assessment and Plan (1) Severe sepsis Current Visit: Yes Status: Acute Patient no longer meets SIRS criteria. Leukocytosis has resolved. Source is likely secondary to IVDA/abscess of right forearm. Additionally she has what appears to be septic emboli to the lungs. Blood cultures from the th,12th,13th, 14 have grown MRSA. Blood cultures from 04/15/17 show ngtd. Blood cultures from 04/16/17 have grown GPC. She would have I&D of the forearm on 04/12/17. Culture from I&D reveals MRSA UA from 04/11/17 has grown wadsworth sensitive ecoli. However many squamous cells in sample and she has had no LUTS. TTE from 04/11/17 shows normal range EF of 65 %, mild TR and no evidence of vegitations. Good visualization of valves per cardiology. Vancomycin was discontinued and daptomycin was started by primary team on . Recommendations: start Vancomycin 1500 mg IV Q8H. Goal trough 15-20. Discontinue daptomycin when Vacnomcyin is at goal. Recommend repeat blood cultures for 04/19/17. Recommend monitoring CK while on daptomycin. She dose have complicated bacteremia (pulmonary emboli) and will need a minimum of 4-6 weeks of IV antibiotics. Start date will be from first negative cultures. She will need peripherally inserted IV access placed after negative blood cultures X 48hours please continue to monitor for drug toxicities. Please monitor renal function closely. (2) MRSA bacteremia Current Visit: Yes Status: Acute Causative organism: MRSA. Complicated due to septic emboli. Source possibly IVDU or RUE abscess. TTE negative for valvular vegetations. She will need a IRENA prior to discharge. The patient has two minor and one major Modified [place]'s Criteria. repeat blood cultures on 04/19/17. DC daptomycin when Vancomycin has reached goal trough. Duration of treatment depends on the clinical picture, but she will require at least 4 weeks of IV antibiotics due to the complicated nature of her bacteremia. Monitor renal function and for drug toxicity and dose-adjust antibiotics. cloud services architect consulted and following to assist with discharge planning. Avoid placing central venous access until blood cultures are negative x 48 hours. (3) MRSA pneumonia Current Visit: Yes Status: Acute as stated above. Qualifiers: Laterality: bilateral Lung location: unspecified part of lung Qualified Code(s): J15.212 - Pneumonia due to Methicillin resistant Staphylococcus aureus (4) Abscess of right forearm Current Visit: Yes Status: Acute s/p I &D 04/12/17 Cultures have grown MRSA. (5) Polyarthralgia Current Visit: Yes Status: Acute Likely secondary to opioid withdrawal. improving clinically. No clinical evidence of septic arthritis at this time. (6) Headache Current Visit: Yes Status: Resolved resolved. Qualifiers: Headache type: unspecified Headache chronicity pattern: unspecified pattern Intractability: not intractable Qualified Code(s): R51 - Headache (7) IV drug abuse Current Visit: Yes Status: Acute Hep C positive. HIV non-reactive. (8) Leukocytosis Current Visit: Yes Status: Resolved resolved Qualifiers: Leukocytosis type: bandemia Qualified Code(s): D72.825 - Bandemia (9) Rib pain on left side Current Visit: Yes Status: Acute resolved (10) Rib pain on right side Current Visit: Yes Status: Resolved resolved (11) Hepatitis C Current Visit: No Status: Chronic chronic. She should have outpatient Hep B vaccination Qualifiers: Viral hepatitis chronicity: chronic Hepatic coma status: without hepatic coma Qualified Code(s): B18.2 - Chronic viral hepatitis C - Subjective Interval history: No major events overnight. Today the patient states that she is feeling much better. she states that her fever has resolved, her rib pain is well controlled and also her headache has resolved as well. she denies any rashes, muscle aches , diarrhea or abdominal pain. She has no further complaints or concerns at this time. Infect Dis PN-Objective Data - Labs CBC & Chem 7: 04/18/17 07:41 04/18/17 07:41 Labs: Laboratory Results - last 24 hr 04/16/17 05:33 A. baumannii (PCR) Not Detected Clemencia albicans (PCR) Not Detected C. glabrata (PCR) Not Detected C. krusei (PCR) Not Detected C. parapsilosis (PCR) Not Detected C. tropicalis (PCR) Not Detected Enterobacteriac sp PCR Not Detected E. cloacae complex PCR Not Detected Enterococcus sp PCR Not Detected E. coli (PCR) Not Detected H. influenzae (PCR) Not Detected Klebsiella oxytoca PCR Not Detected Klebsiella pneumoniae Not Detected List. monocytogenes PCR Not Detected N. meningitidis (PCR) Not Detected Proteus species (PCR) Not Detected Serratia marcescens PCR Not Detected Staphylococcus sp PCR DETECTED A Staph aureus (PCR) DETECTED A mecA-Methicil Res Gene DETECTED A Streptococcus sp PCR Not Detected Group A Strep DNA Not Detected Group B Strep (PCR) Not Detected Strep pneumoniae (PCR) Not Detected P. aeruginosa (PCR) Not Detected Hollis/B-Vanco Res Genes N/A KPC (blaKPC) Detect PCR N/A Cultures: Cultures 04/16/17 05:33 Blood Culture - Preliminary Peripheral Venipuncture Gram Positive Cocci 04/15/17 09:46 Blood Culture - Preliminary Peripheral Venipuncture No growth. 04/15/17 09:46 Blood Culture - Preliminary Peripheral Venipuncture No growth. 04/12/17 14:12 Anaerobic Culture - Final Right Arm No anaerobes were recovered. 04/14/17 08:28 Blood Culture - Final Peripheral Venipuncture Methicillin Resistant S.aureus 04/14/17 08:11 Blood Culture - Final Peripheral Venipuncture Methicillin Resistant S.aureus 04/13/17 08:04 Blood Culture - Final Peripheral Venipuncture Methicillin Resistant S.aureus 04/13/17 08:04 Blood Culture - Final Peripheral Venipuncture Methicillin Resistant S.aureus 04/12/17 14:12 Wound Culture - Final Right Arm Methicillin Resistant S.aureus 04/12/17 04:38 Blood Culture - Final Peripheral Venipuncture Methicillin Resistant S.aureus 04/12/17 14:12 Gram Stain - Final Right Arm Serology 04/16/17 04/14/17 04/13/17 Range/Units 05:33 08:28 11:25 A. baumannii (PCR) Not Detected Not Detected (Not Detect) Clemencia albicans (PCR) Not Detected Not Detected (Not Detect) C. glabrata (PCR) Not Detected Not Detected (Not Detect) C. krusei (PCR) Not Detected Not Detected (Not Detect) C. parapsilosis (PCR) Not Detected Not Detected (Not Detect) C. tropicalis (PCR) Not Detected Not Detected (Not Detect) Enterobacteriac sp PCR Not Detected Not Detected (Not Detect) E. cloacae complex PCR Not Detected Not Detected (Not Detect) Enterococcus sp PCR Not Detected Not Detected (Not Detect) E. coli (PCR) Not Detected Not Detected (Not Detect) H. influenzae (PCR) Not Detected Not Detected (Not Detect) Hepatitis A IgM Ab Nonreactive (Nonreactive) Hep Bs Antigen Nonreactive (Nonreactive) Hep B Core IgM Ab Nonreactive (Nonreactive) Hepatitis C Ab Screen Reactive H (Nonreactive) HIV Ag/Ab Combo Qual Nonreactive (Nonreactive) Klebsiella oxytoca PCR Not Detected Not Detected (Not Detect) Klebsiella pneumoniae Not Detected Not Detected (Not Detect) List. monocytogenes PCR Not Detected Not Detected (Not Detect) N. meningitidis (PCR) Not Detected Not Detected (Not Detect) Proteus species (PCR) Not Detected Not Detected (Not Detect) Serratia marcescens PCR Not Detected Not Detected (Not Detect) Staphylococcus sp PCR DETECTED A DETECTED A (Not Detect) Staph aureus (PCR) DETECTED A DETECTED A (Not Detect) mecA-Methicil Res Gene DETECTED A DETECTED A (Not Detect) Streptococcus sp PCR Not Detected Not Detected (Not Detect) Group A Strep DNA Not Detected Not Detected (Not Detect) Group B Strep (PCR) Not Detected Not Detected (Not Detect) Strep pneumoniae (PCR) Not Detected Not Detected (Not Detect) P. aeruginosa (PCR) Not Detected Not Detected (Not Detect) Hollis/B-Vanco Res Genes N/A N/A (Not Detect) KPC (blaKPC) Detect PCR N/A N/A (Not Detect) 04/13/17 04/12/17 Range/Units 08:04 04:38 A. baumannii (PCR) Not Detected Not Detected (Not Detect) Clemencia albicans (PCR) Not Detected Not Detected (Not Detect) C. glabrata (PCR) Not Detected Not Detected (Not Detect) C. krusei (PCR) Not Detected Not Detected (Not Detect) C. parapsilosis (PCR) Not Detected Not Detected (Not Detect) C. tropicalis (PCR) Not Detected Not Detected (Not Detect) Enterobacteriac sp PCR Not Detected Not Detected (Not Detect) E. cloacae complex PCR Not Detected Not Detected (Not Detect) Enterococcus sp PCR Not Detected Not Detected (Not Detect) E. coli (PCR) Not Detected Not Detected (Not Detect) H. influenzae (PCR) Not Detected Not Detected (Not Detect) Hepatitis A IgM Ab (Nonreactive) Hep Bs Antigen (Nonreactive) Hep B Core IgM Ab (Nonreactive) Hepatitis C Ab Screen (Nonreactive) HIV Ag/Ab Combo Qual (Nonreactive) Klebsiella oxytoca PCR Not Detected Not Detected (Not Detect) Klebsiella pneumoniae Not Detected Not Detected (Not Detect) List. monocytogenes PCR Not Detected Not Detected (Not Detect) N. meningitidis (PCR) Not Detected Not Detected (Not Detect) Proteus species (PCR) Not Detected Not Detected (Not Detect) Serratia marcescens PCR Not Detected Not Detected (Not Detect) Staphylococcus sp PCR DETECTED A DETECTED A (Not Detect) Staph aureus (PCR) DETECTED A DETECTED A (Not Detect) mecA-Methicil Res Gene DETECTED A DETECTED A (Not Detect) Streptococcus sp PCR Not Detected Not Detected (Not Detect) Group A Strep DNA Not Detected Not Detected (Not Detect) Group B Strep (PCR) Not Detected Not Detected (Not Detect) Strep pneumoniae (PCR) Not Detected Not Detected (Not Detect) P. aeruginosa (PCR) Not Detected Not Detected (Not Detect) Hollis/B-Vanco Res Genes Not Detected N/A (Not Detect) KPC (blaKPC) Detect PCR Not Detected N/A (Not Detect) Exam - Constitutional Vitals: Temp Pulse Resp BP Pulse Ox 97.7 F 85 15 110/68 98 04/17/17 07:00 04/17/17 07:00 04/17/17 07:00 04/17/17 07:00 04/17/17 07:00 General appearance: no acute distress Exam: alert and orientated to person, place, time and situation. - Head Head exam: Present: atraumatic, normal inspection - Eye Eye exam: Present: conjuntiva pink, sclera anicteric - ENT ENT exam: Present: mucous membranes moist Additional comments: poor dentition. - Neck Neck exam: Present: normal inspection. Absent: lymphadenopathy, thyromegaly - Respiratory Respiratory exam: Present: CTAB Additional comments: normal effort of breathing. Able to take deep breaths. - Cardiovascular Cardiovascular exam: Present: RRR, +S1, +S2. Absent: diastolic murmur, rubs, systolic murmur - GI/Abdominal GI/Abdominal exam: Present: normal bowel sounds, soft. Absent: tenderness - Extremities Exam Extremities exam: Present: normal capillary refill, normal inspection. Absent: calf tenderness, tenderness - Skin Skin exam: Present: normal color, warm. Absent: rash Additional comments: no evidence of septic emboli or immunologic phenomena on the skin. - VTE Documentation of Mechanical Device: Intermittent pneumatic compression device Consult Discharge Plan - Plan Additional Instructions: Wound care: - Removed dressing and packing. Wash with soap and water daily and then pack loosely with 0.25 inch plain gauze. Cover with dry dressing. Refinforce or change outer dressing PRN. Follow up in office with Sravani Chan, 04/07/2017 at 0915 Referrals: Sravani Chan, GUIDANCE SERVICES COORDINATOR [Advanced Practice Nurse] - (04/17/2017 at 9:45 am) Alonso Jones, PAC [Primary Care Provider] - (left a message they will call back with appointment) - Attending Attestation I examined this patient and my medical decision-making was reviewed with the Resident Physician. I agree with the documented findings, disposition and treatment plan as described except to the extent set forth below.
[2017-04-17] MEDS: DAPTOmycin 350 MG in 0.9 % Sodium Chloride 100 ML IVPB SCH (15:24)
[2017-04-17] MEDS: Vancomycin 1,500 MG in D5% in Water 250 ML IVPB SCH (16:18)
[2017-04-17] MEDS: Acetaminophen 325 MG TABLET PO PRN (19:46)
[2017-04-18] MEDS: GuaiFENesin Liq 200 MG/10 ML UDC PO SCH ×4 (00:05→17:38)
[2017-04-18] MEDS: Vancomycin 1,500 MG in D5% in Water 250 ML IVPB SCH (01:10)
[2017-04-18] MEDS: Ibuprofen 400 MG TABLET PO PRN (04:29)
[2017-04-18] MEDS: traMADol 50 MG TABLET PO PRN ×2 (05:59→14:53)
[2017-04-18 06:13] LABS: Basophils # 0.1 K/mcL (0.0-0.2); Basophils % 0.6 %; Eosinophils # 0.2 K/mcL (0.0-0.6); Eosinophils % 1.4 %; Hematocrit 34.2 % (35.3-44.9); Hemoglobin 10.8 g/dL (11.5-15.4); Immature Granulocytes % 2.4 % (0-4); Lymphocytes # 2.8 K/mcL (0.6-4.6); Lymphocytes % 17.7 %; Mean Corpuscular HGB Conc 31.6 g/dL (31.6-35.5); Mean Corpuscular Hemoglobin 28.2 pg (28.0-33.3); Mean Corpuscular Volume 89.3 fL (83.0-100.0); Mean Platelet Volume 8.5 fL (9.4-12.4); Monocytes # 0.6 K/mcL (0.0-1.3); Monocytes % 3.5 %; Neutrophils # 11.6 K/mcL (1.6-8.9); Platelet Count 641 K/mcL (140-400); Red Blood Count 3.83 M/mcL (3.82-4.97); Red Cell Distribution Width 13.3 % (11.5-14.5); Segmented Neutrophils % 74.4 %
[2017-04-18 08:23] LABS: Basophils # 0.1 K/mcL (0.0-0.2); Basophils % 0.5 %; Eosinophils # 0.3 K/mcL (0.0-0.6); Eosinophils % 1.6 %; Hematocrit 34.8 % (35.3-44.9); Hemoglobin 11.1 g/dL (11.5-15.4); Lymphocytes # 2.5 K/mcL (0.6-4.6); Lymphocytes % 16.4 %; Mean Corpuscular HGB Conc 31.9 g/dL (31.6-35.5); Mean Corpuscular Hemoglobin 28.5 pg (28.0-33.3); Mean Corpuscular Volume 89.2 fL (83.0-100.0); Mean Platelet Volume 9.1 fL (9.4-12.4); Monocytes # 0.5 K/mcL (0.0-1.3); Monocytes % 3.4 %; Neutrophils # 11.6 K/mcL (1.6-8.9); Platelet Count 588 K/mcL (140-400); Red Cell Distribution Width 13.2 % (11.5-14.5); Segmented Neutrophils % 75.1 %
[2017-04-18 08:31] LABS: BUN/Creatinine Ratio 13 (6-26); Blood Urea Nitrogen 8 mg/dL (7-20); Calcium 9.4 mg/dL (8.6-10.8); Carbon Dioxide 28 mEq/L (19-29); Chloride 102 mEq/L (98-109); Glucose 103 mg/dL (70-99); Osmolality,Calculated 283 (280-300); Potassium 4.4 mEq/L (3.5-4.5); Sodium 137 mEq/L (136-145); eGFR For African Americans > 60 (> 60); eGFR For Non-African Americans > 60 (> 60)
[2017-04-18 08:47] LABS: Creatine Kinase 9 Units/L (29-168); Magnesium 2.2 mg/dL (1.6-2.6); Phosphorous 3.4 mg/dL (2.3-4.7)
[2017-04-18] MEDS ORDERED: Vancomycin 1,250 MG in D5% in Water 250 ML IVPB SCH ×2 (09:00→20:00)
--- NOTE | 2017-04-18 09:51 | Infectious Disease Progress No ---
Date of Encounter: 04/18/17 Time of Encounter: 09:49 - Assessment and Plan (1) Severe sepsis Current Visit: Yes Status: Acute Patient Now has 2 SIRS criteria of Tachycardia and Leukocytosis of 15.5 with Neutrophils of 11.2 Source is likely secondary to IVDA/abscess of right forearm. Additionally she has what appears to be septic emboli to the lungs. Blood cultures from the th,,13th, 14 have grown MRSA. Blood cultures from 04/15/17 show ngtd. Blood cultures from 04/16/17 have grown GPC. Blood cultures from 04/17/17 are pending. She would have I&D of the forearm on 04/12/17. Culture from I&D reveals MRSA UA from 04/11/17 has grown [place] sensitive ecoli. However many squamous cells in sample and she has had no LUTS. TTE from 04/11/17 shows normal range EF of 65 %, mild TR and no evidence of vegitations. Good visualization of valves per cardiology. Vancomycin was discontinued and daptomycin was started by primary team on . Random Vancomycin level this AM was 24.6. I discussed with pharmacy and there will be a tough drawn this afternoon. Ck was 9 Recommendations: Continue Vancomycin 1500 mg IV Q8H. Goal trough 15-20. Discontinue daptomycin in AM if Vancomcyin is at goal. Recommend repeat blood cultures for 04/19/17. Recommend monitoring CK while on daptomycin. She dose have complicated bacteremia (pulmonary emboli) and will need a minimum of 4-6 weeks of IV antibiotics. Start date will be from first negative cultures. She will need peripherally inserted IV access placed after negative blood cultures X 48hours please continue to monitor for drug toxicities. Please monitor renal function closely. Please continue to monitor CK while on daptomycin. (2) MRSA bacteremia Current Visit: Yes Status: Acute Causative organism: MRSA. Complicated due to septic emboli. Source possibly IVDU or RUE abscess. TTE negative for valvular vegetations. She will need a IRENA prior to discharge. repeat blood cultures on 04/19/17. DC daptomycin when Vancomycin has reached goal trough. Duration of treatment depends on the clinical picture, but she will require at least 4 weeks of IV antibiotics due to the complicated nature of her bacteremia. Monitor renal function and for drug toxicity and dose-adjust antibiotics. mountain services manager consulted and following to assist with discharge planning. Avoid placing central venous access until blood cultures are negative x 48 hours. (3) MRSA pneumonia Current Visit: Yes Status: Acute MRSA Pneumonia/ emboli treatment as stated above. Qualifiers: Laterality: bilateral Lung location: unspecified part of lung Qualified Code(s): J15.212 - Pneumonia due to Methicillin resistant Staphylococcus aureus (4) Right shoulder pain Current Visit: Yes Status: Acute Etiology unclear at this time. Patient denies injury. Concern for possible septic arthritis given her persistent bacteremia. Additionally she had an abscess of the right forearm as well. May need joint aspiration. I have consulted Orthopedic surgery. I discussed the case with Jeanna NAM. I have also ordered a CT of the shoulder with contrast as was recommended. I also discussed this with Hospitalist Dr. Rausch. Patient will have CT today and possible aspiration. Qualifiers: Chronicity: acute Qualified Code(s): M25.511 - Pain in right shoulder (5) Abscess of right forearm Current Visit: Yes Status: Acute s/p I &D 04/12/17 Cultures have grown MRSA. (6) Headache Current Visit: Yes Status: Resolved resolved. Qualifiers: Headache type: unspecified Headache chronicity pattern: unspecified pattern Intractability: not intractable Qualified Code(s): R51 - Headache (7) Rib pain on left side Current Visit: Yes Status: Acute well controlled at this time. (8) Rib pain on right side Current Visit: Yes Status: Resolved Well controlled at this time. (9) IV drug abuse Current Visit: Yes Status: Acute Hep C positive. HIV non-reactive. (10) Leukocytosis Current Visit: Yes Status: Resolved trending up. possibly from antibiotic change manager the weekend? Continue to monitor Qualifiers: Leukocytosis type: bandemia Qualified Code(s): D72.825 - Bandemia (11) Hepatitis C Current Visit: No Status: Chronic chronic. She should have outpatient Hep B vaccination Qualifiers: Viral hepatitis chronicity: chronic Hepatic coma status: without hepatic coma Qualified Code(s): B18.2 - Chronic viral hepatitis C - Subjective Interval history: No major events overnight. Patient states that she " had a bad night" She states she had a panic attack and was breathing heavy and now her ribs are hurting again. She also complains of ongoing shoulder pain. She states that it is too painful to raise above her head. She denies fever, chills malaise. She denies any adverse reactions to her antibiotics. Specifically she denies rash and diarrhea. She has no further complaints or concerns at this time. Infect Dis PN-Objective Data - Labs CBC & Chem 7: 04/18/17 07:41 04/18/17 07:41 Labs: Laboratory Results - last 24 hr 04/18/17 04/18/17 04/18/17 05:27 07:41 07:41 WBC 15.6 H D RBC 3.83 Hgb 10.8 L Hct 34.2 L MCV 89.3 MCH 28.2 MCHC 31.6 RDW 13.3 Plt Count 641 H MPV 8.5 L Immature Gran % 2.4 Seg Neutrophils % 74.4 Lymphocytes % 17.7 Monocytes % 3.5 Eosinophils % 1.4 Basophils % 0.6 Neutrophils # 11.6 H Lymphocytes # 2.8 Monocytes # 0.6 Eosinophils # 0.2 Basophils # 0.1 Sodium 137 Potassium 4.4 Chloride 102 Carbon Dioxide 28 BUN 8 Creatinine 0.64 Est GFR ( Amer) > 60 Est GFR (Non-Af Amer) > 60 BUN/Creatinine Ratio 13 Glucose 103 H Calculated Osmolality 283 Calcium 9.4 Phosphorus 3.4 Magnesium 2.2 Creatine Kinase 9 L Vancomycin Trough 24.6 H* 04/18/17 07:41 WBC 15.5 H RBC 3.90 Hgb 11.1 L Hct 34.8 L MCV 89.2 MCH 28.5 MCHC 31.9 RDW 13.2 Plt Count 588 H MPV 9.1 L Immature Gran % 3.0 Seg Neutrophils % 75.1 Lymphocytes % 16.4 Monocytes % 3.4 Eosinophils % 1.6 Basophils % 0.5 Neutrophils # 11.6 H Lymphocytes # 2.5 Monocytes # 0.5 Eosinophils # 0.3 Basophils # 0.1 Sodium Potassium Chloride Carbon Dioxide BUN Creatinine Est GFR ( Amer) Est GFR (Non-Af Amer) BUN/Creatinine Ratio Glucose Calculated Osmolality Calcium Phosphorus Magnesium Creatine Kinase Vancomycin Trough Cultures: Cultures 04/16/17 05:33 Blood Culture - Preliminary Peripheral Venipuncture Gram Positive Cocci 04/15/17 09:46 Blood Culture - Preliminary Peripheral Venipuncture No growth. 04/15/17 09:46 Blood Culture - Preliminary Peripheral Venipuncture No growth. 04/12/17 14:12 Anaerobic Culture - Final Right Arm No anaerobes were recovered. 04/14/17 08:28 Blood Culture - Final Peripheral Venipuncture Methicillin Resistant S.aureus 04/14/17 08:11 Blood Culture - Final Peripheral Venipuncture Methicillin Resistant S.aureus 04/13/17 08:04 Blood Culture - Final Peripheral Venipuncture Methicillin Resistant S.aureus 04/13/17 08:04 Blood Culture - Final Peripheral Venipuncture Methicillin Resistant S.aureus 04/12/17 14:12 Wound Culture - Final Right Arm Methicillin Resistant S.aureus 04/12/17 04:38 Blood Culture - Final Peripheral Venipuncture Methicillin Resistant S.aureus 04/12/17 14:12 Gram Stain - Final Right Arm Serology 04/16/17 04/14/17 04/13/17 Range/Units 05:33 08:28 11:25 A. baumannii (PCR) Not Detected Not Detected (Not Detect) Clemencia albicans (PCR) Not Detected Not Detected (Not Detect) C. glabrata (PCR) Not Detected Not Detected (Not Detect) C. krusei (PCR) Not Detected Not Detected (Not Detect) C. parapsilosis (PCR) Not Detected Not Detected (Not Detect) C. tropicalis (PCR) Not Detected Not Detected (Not Detect) Enterobacteriac sp PCR Not Detected Not Detected (Not Detect) E. cloacae complex PCR Not Detected Not Detected (Not Detect) Enterococcus sp PCR Not Detected Not Detected (Not Detect) E. coli (PCR) Not Detected Not Detected (Not Detect) H. influenzae (PCR) Not Detected Not Detected (Not Detect) Hepatitis A IgM Ab Nonreactive (Nonreactive) Hep Bs Antigen Nonreactive (Nonreactive) Hep B Core IgM Ab Nonreactive (Nonreactive) Hepatitis C Ab Screen Reactive H (Nonreactive) HIV Ag/Ab Combo Qual Nonreactive (Nonreactive) Klebsiella oxytoca PCR Not Detected Not Detected (Not Detect) Klebsiella pneumoniae Not Detected Not Detected (Not Detect) List. monocytogenes PCR Not Detected Not Detected (Not Detect) N. meningitidis (PCR) Not Detected Not Detected (Not Detect) Proteus species (PCR) Not Detected Not Detected (Not Detect) Serratia marcescens PCR Not Detected Not Detected (Not Detect) Staphylococcus sp PCR DETECTED A DETECTED A (Not Detect) Staph aureus (PCR) DETECTED A DETECTED A (Not Detect) mecA-Methicil Res Gene DETECTED A DETECTED A (Not Detect) Streptococcus sp PCR Not Detected Not Detected (Not Detect) Group A Strep DNA Not Detected Not Detected (Not Detect) Group B Strep (PCR) Not Detected Not Detected (Not Detect) Strep pneumoniae (PCR) Not Detected Not Detected (Not Detect) P. aeruginosa (PCR) Not Detected Not Detected (Not Detect) Hollis/B-Vanco Res Genes N/A N/A (Not Detect) KPC (blaKPC) Detect PCR N/A N/A (Not Detect) 04/13/17 04/12/17 Range/Units 08:04 04:38 A. baumannii (PCR) Not Detected Not Detected (Not Detect) Clemencia albicans (PCR) Not Detected Not Detected (Not Detect) C. glabrata (PCR) Not Detected Not Detected (Not Detect) C. krusei (PCR) Not Detected Not Detected (Not Detect) C. parapsilosis (PCR) Not Detected Not Detected (Not Detect) C. tropicalis (PCR) Not Detected Not Detected (Not Detect) Enterobacteriac sp PCR Not Detected Not Detected (Not Detect) E. cloacae complex PCR Not Detected Not Detected (Not Detect) Enterococcus sp PCR Not Detected Not Detected (Not Detect) E. coli (PCR) Not Detected Not Detected (Not Detect) H. influenzae (PCR) Not Detected Not Detected (Not Detect) Hepatitis A IgM Ab (Nonreactive) Hep Bs Antigen (Nonreactive) Hep B Core IgM Ab (Nonreactive) Hepatitis C Ab Screen (Nonreactive) HIV Ag/Ab Combo Qual (Nonreactive) Klebsiella oxytoca PCR Not Detected Not Detected (Not Detect) Klebsiella pneumoniae Not Detected Not Detected (Not Detect) List. monocytogenes PCR Not Detected Not Detected (Not Detect) N. meningitidis (PCR) Not Detected Not Detected (Not Detect) Proteus species (PCR) Not Detected Not Detected (Not Detect) Serratia marcescens PCR Not Detected Not Detected (Not Detect) Staphylococcus sp PCR DETECTED A DETECTED A (Not Detect) Staph aureus (PCR) DETECTED A DETECTED A (Not Detect) mecA-Methicil Res Gene DETECTED A DETECTED A (Not Detect) Streptococcus sp PCR Not Detected Not Detected (Not Detect) Group A Strep DNA Not Detected Not Detected (Not Detect) Group B Strep (PCR) Not Detected Not Detected (Not Detect) Strep pneumoniae (PCR) Not Detected Not Detected (Not Detect) P. aeruginosa (PCR) Not Detected Not Detected (Not Detect) Hollis/B-Vanco Res Genes Not Detected N/A (Not Detect) KPC (blaKPC) Detect PCR Not Detected N/A (Not Detect) Exam - Constitutional Vitals: Temp Pulse Resp BP Pulse Ox 98.3 F 102 15 106/65 98 04/18/17 06:57 04/18/17 06:57 04/18/17 06:57 04/18/17 06:57 04/18/17 06:57 General appearance: no acute distress, thin - Head Head exam: Present: atraumatic, normal inspection, normocephalic - ENT ENT exam: Present: mucous membranes moist - Neck Neck exam: Present: normal inspection. Absent: tenderness, thyromegaly - Respiratory Respiratory exam: Present: CTAB Additional comments: normal effort of breathing. - Cardiovascular Cardiovascular exam: Present: +S1, +S2, tachycardia (mild 90-100 while in the room). Absent: diastolic murmur, gallop, rubs, systolic murmur - GI/Abdominal GI/Abdominal exam: Present: normal bowel sounds, soft. Absent: tenderness - Extremities Exam Additional comments: mild pedal edema of the right foot. Improving from previous exam. No clubbing or cyanosis. - Expanded Upper Extremity Exam Shoulder exam: Present: tenderness (near AC joint. ), tenderness over AC joint. Absent: abrasion, crepitus, deformity, dislocation, ecchymosis, erythema, full ROM (She has difficulty with abduction and extension of the shoulder), swelling - Skin Skin exam: Absent: rash Additional comments: No abnormalities of the skin noted. Specifically there is no splinter hemmorrhage, osler nodes or janeway lesions at this time. - VTE Documentation of Mechanical Device: Intermittent pneumatic compression device Consult Discharge Plan - Plan Additional Instructions: Wound care: - Removed dressing and packing. Wash with soap and water daily and then pack loosely with 0.25 inch plain gauze. Cover with dry dressing. Refinforce or change outer dressing PRN. Follow up in office with Sravani Chan, 04/07/2017 at 0915 Referrals: Sravani Chan, POLE FRAMER [Advanced Practice Nurse] - (04/17/2017 at 9:45 am) Alonso Jones, PAC [Primary Care Provider] - (left a message they will call back with appointment) - Attending Attestation I examined this patient and my medical decision-making was reviewed with the Resident Physician. I agree with the documented findings, disposition and treatment plan as described except to the extent set forth below.
[2017-04-18] MEDS: Nicotine 21 MG PATCH.TD24 TD SCH (10:32)
--- NOTE | 2017-04-18 12:07 | Internal Med Progress Note ---
Date of Encounter: 04/18/17 Time of Encounter: 12:05 - Assessment and plan (1) Endocarditis Current Visit: Yes Status: Acute Assessment and plan: Severe sepsis on presentation caused by MRSA septicemia and right-sided infective endocarditis. Patient continues to remain afebrile. Currently on daptomycin intravenously at 6 mg/kg. However, patient's repeat cultures are positive for gram-positive cocci. Will continue Vancomycin and Daptomycin at this time D/C daptomycin when vancomycin trough within therapeutic range, currently level was a random vancomycin level Continue to monitor blood cultures for clearance of bacteremia. Infectious disease consultation appreciated Patient is high risk due to need for monitoring for clearance of bacteremia and for discharge to nursing facility on intravenous antiemetics for her endocarditis. Qualifiers: Endocarditis type: infective Infective endocarditis organism: bacterial Chronicity: acute Qualified Code(s): I33.0 - Acute and subacute infective endocarditis (2) Abscess of right forearm Current Visit: Yes Status: Acute Assessment and plan: Status post drainage by surgery. Dressing changes daily. Outpatient follow-up with surgery. (3) Hepatitis C Current Visit: No Status: Chronic Assessment and plan: Outpatient follow-up for treatment of the same after discharge. Qualifiers: Viral hepatitis chronicity: chronic Hepatic coma status: without hepatic coma Qualified Code(s): B18.2 - Chronic viral hepatitis C (4) Opioid dependence Current Visit: Yes Status: Chronic Assessment and plan: No clinical evidence of withdrawal. In remission Qualifiers: Substance use status: in remission Qualified Code(s): F11.21 - Opioid dependence, in remission (5) Pneumonia Current Visit: Yes Status: Acute Assessment and plan: As mentioned earlier, antibiotics have been changed to daptomycin and vancomycin Continue daptomycin and vancomycin Breathing treatments and guaifenesin. Qualifiers: Pneumonia type: due to methicillin-resistant Staphylococcus aureus (MRSA) Laterality: bilateral Lung location: unspecified part of lung Qualified Code (s): J15.212 - Pneumonia due to Methicillin resistant Staphylococcus aureus (6) DVT prophylaxis Current Visit: Yes Status: Acute Assessment and plan: heparin SQ - Subjective Interval history: Pt seen and examined at bedside. Reports of diffuse body pain. No other discomfort at this time.Pt continues to exhibit drug seeking behavior - Constitutional Vitals: Temp Pulse Resp BP Pulse Ox 98.3 F 102 15 106/65 98 04/18/17 06:57 04/18/17 06:57 04/18/17 06:57 04/18/17 06:57 04/18/17 06:57 General appearance: Present: disheveled, A&O X 3, no acute distress - Head Head exam: Present: atraumatic, normocephalic - Eye Eye exam: Present: normal appearance, conjuntiva pink, sclera anicteric - Respiratory Respiratory exam: Present: CTAB. Absent: accessory muscle use, rales, rhonchi, wheezes - Cardiovascular Cardiovascular exam: Present: RRR, +S1, +S2. Absent: diastolic murmur, gallop, rubs, systolic murmur - GI/Abdominal GI/Abdominal exam: Present: normal bowel sounds, soft, no peritoneal signs. Absent: distended, tenderness - Extremities Exam Extremities exam: Present: warm, radial pulses palpable and symetrical. Absent : calf tenderness, cyanotic, pedal edema - Neurological Exam Neurological exam: Present: alert, oriented X3 - Psychiatric Psychiatric exam: Present: normal affect, normal mood Internal Medicine: Result - Labs CBC & Chem 7: 04/18/17 07:41 04/18/17 07:41 Labs: Short CBC 04/18/17 04/18/17 Range/Units 05:27 07:41 WBC 15.6 H D 15.5 H (4.3-11.1) K/mcL Hgb 10.8 L 11.1 L (11.5-15.4) g/dL Hct 34.2 L 34.8 L (35.3-44.9) % Plt Count 641 H 588 H (140-400) K/mcL Neutrophils # 11.6 H 11.6 H (1.6-8.9) K/mcL BMP 04/18/17 07:41 Sodium 137 Potassium 4.4 Chloride 102 Carbon Dioxide 28 BUN 8 Creatinine 0.64 Glucose 103 H Calcium 9.4 - ABG Interpretation ABG results: PT/INR, D-dimer PT 15.5 Seconds (9.4-12.1) H 04/11/17 00:31 - VTE Documentation of Mechanical Device: Intermittent pneumatic compression device Consult Discharge Plan - Plan Additional Instructions: Wound care: - Removed dressing and packing. Wash with soap and water daily and then pack loosely with 0.25 inch plain gauze. Cover with dry dressing. Refinforce or change outer dressing PRN. Follow up in office with Sravani Chan, 04/07/2017 at 0915 Referrals: Sravani Chan, MOLD STAMPER [Advanced Practice Nurse] - (04/17/2017 at 9:45 am) Alonso Jones, PAC [Primary Care Provider] - (left a message they will call back with appointment)
[2017-04-18] MEDS ORDERED: *HR* Heparin 5,000 UNIT/ML VIAL SQ SCH (14:00)
[2017-04-18] MEDS: DAPTOmycin 350 MG in 0.9 % Sodium Chloride 100 ML IVPB SCH (17:13)
--- NOTE | 2017-04-18 17:48 | Orthopedic Consult Note ---
Date of Encounter: 04/18/17 Time of Encounter: 17:46 Assessment and Plan (1) Right shoulder pain Current Visit: Yes Status: Acute Patient has new onset Right Shoulder pain x 5 days. No known injury or trauma. No previous injury to Right shoulder. She has MRSA Bacteremia, secondary to Right forearm abscess, where I&D performed 04/12/17. She has been treated with IV antibiotics since hospital admission, with continued leukocytosis. Orthopedics consulted to rule out Right Septic Shoulder arthritis. CT Scan reviewed and discussed with : CT/CT shoulder RT w con IMPRESSION: 1. No well-defined drainable fluid collection. 2. No acute osseous abnormality. No definite joint effusion. 3. Small volume of fluid in the subacromial/subdeltoid bursa. 4. Redemonstration of multiple cavitary nodules in the right lung again compatible with septic emboli. At this time I discussed aspiration with the patient versus MRI for further soft issue assessment. Because of the lack of erythema, joint effusion or painful PROM, we will proceed with Right Shoulder MRI, followed by possible shoulder aspiration tomorrow if needed. Discussed case with as well, he is in agreement. Qualifiers: Chronicity: acute Qualified Code(s): M25.511 - Pain in right shoulder (2) Abscess of right arm Current Visit: Yes Status: Acute (3) IV drug abuse Current Visit: Yes Status: Chronic (4) Endocarditis Current Visit: Yes Status: Acute Qualifiers: Endocarditis type: infective Infective endocarditis organism: bacterial Chronicity: acute Qualified Code(s): I33.0 - Acute and subacute infective endocarditis (5) Severe sepsis Current Visit: Yes Status: Acute (6) MRSA bacteremia Current Visit: Yes Status: Acute (7) MRSA pneumonia Current Visit: Yes Status: Acute Qualifiers: Laterality: bilateral Lung location: unspecified part of lung Qualified Code(s): J15.212 - Pneumonia due to Methicillin resistant Staphylococcus aureus (8) Hepatitis C Current Visit: No Status: Chronic Qualifiers: Viral hepatitis chronicity: chronic Hepatic coma status: without hepatic coma Qualified Code(s): B18.2 - Chronic viral hepatitis C (9) History of bipolar disorder Current Visit: No Status: Acute History of Present Illness Chief complaint: Sepsis, Right Shoulder Pain HPI: Ms. Pollard is a 31 year old female, admitted to [facility] for sepsis and Right forearm abscess, +MRSA due to IVDA. Past Med Surg Social Fam HX - Past Medical History Medical history: hepatitis Psychiatric history: anxiety, bipolar, depression, PTSD - Past Surgical History Surgical History: other (Tonsillectomy.) - Social History Smoking Status: Current every day smoker Packs per day: 0.5 Smokeless Tobacco Status: No Alcohol use: none Drug use: cocaine, methamphetamine, IV Drug Use, prescription drug abuse, other (heroine) - Family History Father Living Status: Age at : 57 Cause of : c-diff Hx Family Cardiac Disorders: Yes Medications and Allergies Citalopram [CeleXA] 20 mg PO DAILY 02/05/17 [History] [place] Carbonate 300 mg PO DAILY 02/05/17 [History] cloNIDine HCl [Clonidine HCl] 0.2 - 0.4 mg PO HS PRN 02/05/17 [History] Allergies No Known Allergies Allergy (Verified 02/21/17 12:59) All Systems Reviewed: A 10-system review of systems was performed and is negative for pertinent findings except as documented above in the HPI. Physical Exam - Constitutional Vitals: Temp Pulse Resp BP Pulse Ox 98.0 F 88 15 111/75 98 04/18/17 16:40 04/18/17 16:40 04/18/17 16:40 04/18/17 16:40 04/18/17 16:40 Results - Labs Result Diagrams: 04/18/17 07:41 04/18/17 07:41 Labs: Abnormal lab results WBC 15.5 K/mcL (4.3-11.1) H 04/18/17 07:41 Hgb 11.1 g/dL (11.5-15.4) L 04/18/17 07:41 Hct 34.8 % (35.3-44.9) L 04/18/17 07:41 Plt Count 588 K/mcL (140-400) H 04/18/17 07:41 MPV 9.1 fL (9.4-12.4) L 04/18/17 07:41 Band Neutrophils % 8.0 % (0-4) H 04/11/17 05:27 Neutrophils # 11.6 K/mcL (1.6-8.9) H 04/18/17 07:41 Reactive Lymphocytes Present (Not Present) A 04/11/17 00:31 PT 15.5 Seconds (9.4-12.1) H 04/11/17 00:31 APTT 38.0 Seconds (26.0-36.0) H 04/11/17 00:31 Glucose 103 mg/dL (70-99) H 04/18/17 07:41 Creatine Kinase 9 Units/L (29-168) L 04/18/17 07:41 Albumin 1.7 g/dL (3.5-5.0) L D 04/13/17 08:04 Globulin 4.4 g/dL (2.4-3.5) H 04/13/17 08:04 Albumin/Globulin Ratio 0.4 (1.1-2.2) L 04/13/17 08:04 Urine Clarity Cloudy (Clear) A 04/11/17 01:00 Urine Protein 100 mg/dL (Neg-Trace) H 04/11/17 01:00 Urine Blood Large (Negative) H 04/11/17 01:00 Urine Nitrite Positive (Negative) A 04/11/17 01:00 Urine Bilirubin Small (Negative) H 04/11/17 01:00 Urine Urobilinogen 2.0 mg/dL (Normal) H 04/11/17 01:00 Ur Leukocyte Esterase Small (Negative) H 04/11/17 01:00 Urine Microscopic RBC 3-5 per hpf (0-3) H 04/11/17 01:00 Urine Microscopic WBC 30-50 per hpf (0-3) H 04/11/17 01:00 Ur Squamous Epith Cells Many per lpf (None-Few) H 04/11/17 01:00 Urine Bacteria Moderate per hpf (None-Few) H 04/11/17 01:00 Urine Yeast Few per hpf (None Seen) H 04/11/17 01:00 Ur Culture Indicated? YES (NO) A 04/11/17 01:00 Vancomycin Trough 24.6 mcg/mL (10-20) H* 04/18/17 07:41 Hepatitis C Ab Screen Reactive (Nonreactive) H 04/13/17 11:25 Staphylococcus sp PCR DETECTED (Not Detect) A 04/16/17 05:33 Staph aureus (PCR) DETECTED (Not Detect) A 04/16/17 05:33 mecA-Methicil Res Gene DETECTED (Not Detect) A 04/16/17 05:33 H & H 04/18/17 04/18/17 Range/Units 05:27 07:41 Hgb 10.8 L 11.1 L (11.5-15.4) g/dL Hct 34.2 L 34.8 L (35.3-44.9) % All other labs normal. Consult Discharge Plan - Plan Additional Instructions: Wound care: - Removed dressing and packing. Wash with soap and water daily and then pack loosely with 0.25 inch plain gauze. Cover with dry dressing. Refinforce or change outer dressing PRN. Follow up in office with Sravani Chan, 04/07/2017 at 0915 Referrals: Sravani Chan, OFFLINE EDITOR [Advanced Practice Nurse] - (04/17/2017 at 9:45 am) Alonso Jones, PAC [Primary Care Provider] - (left a message they will call back with appointment)
[2017-04-18] MEDS ORDERED: diazePAM 10 MG/2 ML SYRINGE IVP ONE (18:22)
[2017-04-18 19:42] VITALS: BP 109/75
--- NOTE | 2017-05-01 14:50 | Discharge Summary ---
Date of Encounter: 04/18/17 Time of Encounter: 12:05 - Discharge Diagnosis (1) Endocarditis Priority: Primary Status: Acute Qualifiers: Endocarditis type: infective Infective endocarditis organism: bacterial Chronicity: acute Qualified Code(s): I33.0 - Acute and subacute infective endocarditis (2) Abscess of right forearm Priority: Primary Status: Acute (3) Hepatitis C Priority: Secondary Status: Chronic Qualifiers: Viral hepatitis chronicity: chronic Hepatic coma status: without hepatic coma Qualified Code(s): B18.2 - Chronic viral hepatitis C (4) Opioid dependence Priority: Secondary Status: Chronic Qualifiers: Substance use status: in remission Qualified Code(s): F11.21 - Opioid dependence, in remission (5) Pneumonia Priority: Secondary Status: Acute Qualifiers: Pneumonia type: due to methicillin-resistant Staphylococcus aureus (MRSA) Laterality: bilateral Lung location: unspecified part of lung Qualified Code (s): J15.212 - Pneumonia due to Methicillin resistant Staphylococcus aureus (6) DVT prophylaxis Priority: Secondary Status: Acute - Discharge Medications Home Medications: Citalopram [CeleXA] 20 mg PO DAILY 02/05/17 [History] Moyers Carbonate 300 mg PO DAILY 02/05/17 [History] cloNIDine HCl [Clonidine HCl] 0.2 - 0.4 mg PO HS PRN 02/05/17 [History] Allergies/Adverse Reactions: Allergies No Known Allergies Allergy (Verified 02/21/17 12:59) Date of admission: 04/11/17 04:46 Primary care physician: Alonso Jones Consults: 04/11/17 15:52 Consult to Infectious Diseases [CONS] Routine Consulting Provider: Infectious Disease [place] Reason for Consult: Possible IE; Septic pulmonary emboli; TTE negative Call Completed: Yes Consult to Surgery [CONS] Routine Consulting Provider: Jen Armenta Reason for Consult: Abscess right forearm Call Completed: Yes 04/18/17 14:13 Consult to Orthopedic Surgery [CONS] Routine Consulting Provider: Jeremiah Blum Reason for Consult: possible septic joint. PAtient with persistent MRSA bacteremia and shoulder pain with decreased ROM. Discussed with Jeanna Hernandez. Call Completed: Yes - Patient Status Disposition: Left Against Medical Advice Condition: Critical - Discharge Instructions Follow Up With: Sravani Chan EDGER MACHINE OPERATOR [Advanced Practice Nurse] - (04/17/2017 at 9:45 am) [place], PAC [Primary Care Provider] - (left a message they will call back with appointment) Additional Instructions: Wound care: - Removed dressing and packing. Wash with soap and water daily and then pack loosely with 0.25 inch plain gauze. Cover with dry dressing. Refinforce or change outer dressing PRN. Follow up in office with Sravani Chan, 04/07/2017 at 0915 Hospital course: Ms. Pollard is a 32 year old female - Time Spent with Patient Total time spent providing and/or coordinating discharge services: - Constitutional Vitals: Temp Pulse Resp BP Pulse Ox 98.5 F 98 16 109/75 98 04/18/17 19:38 04/18/17 19:38 04/18/17 19:38 04/18/17 19:38 04/18/17 19:38 General appearance: Present: disheveled, A&O X 3, no acute distress - VTE Documentation of Mechanical Device: Intermittent pneumatic compression device
== END 2017-04-18 22:20 | disposition left against medical advice (07) | DRG 720 ==
LOC: 2NENU 23:39 → EMEROO 23:39 → 2NENU 04-11 04:08 → SUATTDRO 04-11 04:46
PROVIDERS: ADMIT Hospitalist; ATTEND Internal Medicine Sleep Medicine

== ENCOUNTER 2018-03-31 23:38 | Inpatient (IN) ==
[2018-03-31] MEDS ORDERED: 0.9 % Sodium Chloride 1,000 ML IVC ONE (23:40)
[2018-03-31] MEDS ORDERED: 0.9 % Sodium Chloride 1,000 ML IVC SCH (23:45)
[2018-03-31] MEDS ORDERED: *HR* Rocuronium Bromide 50 MG/5 ML VIAL IVP ONE (23:49)
[2018-03-31] MEDS ORDERED: *HR* Etomidate 20 MG/10 ML AMPUL IVP ONE (23:50)
[2018-03-31] MEDS ORDERED: *HR* LORazepam 2 MG/ML VIAL IVP ONE (23:59)
[2018-04-01] MEDS ORDERED: *HR* Rocuronium Bromide 50 MG/5 ML VIAL IVP ONE (00:32)
--- NOTE | 2018-04-01 00:43 | Emergency Department Note ---
Disposition Clinical Impression: Intoxication Altered mental status Qualifiers: Altered mental status type: unspecified Qualified Code(s): R41.82 - Altered mental status, unspecified Disposition: Admitted As Inpatient Condition: Serious Time of Disposition: 06:36 General Adult HPI - General Chief complaint: ED Overdose Stated complaint: unresponsive Time Seen by Provider: 03/31/18 23:40 Source: EMS Mode of arrival: EMS Limitations: altered mental status Nursing Notes Reviewed: Yes Vital Signs Reviewed: Yes - History of Present Illness HPI Narrative: Patient is a 32-year-old female coming in by EMS she was found unresponsive and did not as pizza medication. IV was established per EMS. She is given 1 L. Upon arrival by EMS the patient does appear altered with possible ingestion. She is combative. Pain Scale: 0 - Related Data Allergies Allergy/AdvReac Type Severity Reaction Status Date / Time No Known Allergies Allergy Verified 04/01/18 00:21 Limitations: ROS unobtainable due to patients medical condition Past Medical History - Past Medical History Attestation: Yes The following information was validated with the patient. Medical history: Reports: no medical history Psychiatric history: Reports: other - Social History Smoking Status: Unknown if ever smoked Smokeless Tobacco Status: No Alcohol use: Reports: unknown Drug use: Reports: IV Drug Use, other Physical Exam - General General appearance: lethargic Course Course Narrative: Patient is currently undergoing workup for altered mental status consistent with a head CT, EKG, chest x-ray as well as lab work to evaluate for any etiology. I suspect that this most likely in part due to intoxication drugs which may include bath salts versus amphetamines. - Reevaluation(s) Reevaluation #1: Patient was intubated due to her being combative and agitated causing disruption to her care and herself. Time: 00:41 Vital Signs Temperature 97.5 F L 03/31/18 23:41 Pulse Rate 104 03/31/18 23:41 Respiratory Rate 30 03/31/18 23:41 Blood Pressure 114/86 03/31/18 23:41 O2 Sat by Pulse Oximetry 100 03/31/18 23:41 Temperature 97.3 F L 04/01/18 04:00 Pulse Rate 81 04/01/18 06:00 Respiratory Rate 12 04/01/18 06:00 Blood Pressure 112/77 04/01/18 06:00 O2 Sat by Pulse Oximetry 100 04/01/18 06:00 Oxygen Delivery Oxygen Delivery Ventilator Procedures - Intubation Time out performed: Yes sedative: Etomidate Mg Given: 20 paralytic: Rocuronium Mg Given: 100 Laryngoscope: Nimisha ET Tube Size: 7.5 ET Tube Uncuffed: Yes Tube Secured Depth (cm): 23 Tube Secured Location: lips Tube Placement Confirmation: visualized tube passing through cords, equal breath sounds bilaterally, no breath sounds over epigastrium Patient Tolerated Procedure: well Intubation Complications: none Medical Decision Making - Medical Records Medical records reviewed: Yes I reviewed the patient's medical records. - Lab Data Lab results reviewed: Yes I reviewed the patient's lab results. Result diagrams: 04/01/18 04:00 04/01/18 03:06 Lab Results 04/01/18 04/01/18 04/01/18 Range/Units 00:40 00:40 00:51 WBC 8.2 (4.3-11.1) K/mcL RBC 4.35 (3.82-4.97) M/mcL Hgb 13.2 (11.5-15.4) g/dL Hct 38.1 (35.3-44.9) % MCV 87.6 (83.0-100.0) fL MCH 30.3 (28.0-33.3) pg MCHC 34.6 (31.6-35.5) g/dL RDW 12.6 (11.5-14.5) % Plt Count 261 (140-400) K/mcL MPV 10.3 (9.4-12.4) fL Immature Gran % 0.2 (0-4) % Seg Neutrophils % 49.7 % Lymphocytes % 40.0 % Monocytes % 6.4 % Eosinophils % 3.0 % Basophils % 0.7 % Neutrophils # 4.1 (1.6-8.9) K/mcL Lymphocytes # 3.3 (0.6-4.6) K/mcL Monocytes # 0.5 (0.0-1.3) K/mcL Eosinophils # 0.3 (0.0-0.6) K/mcL Basophils # 0.1 (0.0-0.2) K/mcL Sodium 140 (136-145) mEq/L Potassium 3.5 (3.5-5.1) mEq/L Chloride 108 H (98-107) mEq/L Carbon Dioxide 24 (23-29) mEq/L BUN 16 (6-20) mg/dL Creatinine 0.68 (0.60-1.20) mg/dL Est GFR ( Amer) > 60 (> 60) Est GFR (Non-Af Amer) > 60 (> 60) BUN/Creatinine Ratio 24 (6-26) Glucose 109 H (70-105) mg/dL Calculated Osmolality 292 (280-300) Calcium 9.1 (8.6-10.3) mg/dL Total Bilirubin 0.7 (0.3-1.0) mg/dL Direct Bilirubin 0.2 (0.0-0.2) mg/dL Indirect Bilirubin 0.5 (0.0-1.2) mg/dL AST 37 (13-39) Units/L ALT 19 (7-52) Units/L Alkaline Phosphatase 65 (34-104) Units/L Creatine Kinase 972 H (30-223) Units/L Serum Total Protein 6.6 (6.4-8.9) g/dL Albumin 3.9 (3.5-5.7) g/dL Globulin 2.7 (2.4-3.5) g/dL Albumin/Globulin Ratio 1.4 (1.1-2.2) Urine Color (Yellow) Urine Clarity (Clear) Urine pH (5.0-8.0) pH Units Ur Specific [place] (1.010-1.025) Urine Protein (Neg-Trace) mg/dL Urine Glucose (UA) (Normal) mg/dL Urine Ketones (Negative) mg/dL Urine Blood (Negative) Urine Nitrite (Negative) Urine Bilirubin (Negative) Urine Urobilinogen (Normal) mg/dL Ur Leukocyte Esterase (Negative) Urine Microscopic RBC (0-3) per hpf Urine Microscopic WBC (0-3) per hpf Ur Squamous Epith Cells (None-Few) per lpf Urine Bacteria (None-Few) per hpf Hyaline Casts (None-Few) per lpf Urine Yeast (None Seen) per hpf Urine Test Negative (Negative) Salicylates < 2.5 L (15.0-30.0) mg/dL Urine Opiates Screen (Izosor=836) ng/mL Acetaminophen < 10 L (10-20) mcg/mL Ur Barbiturates Screen (Xkuzjh=373) ng/mL Ur Phencyclidine Scrn (Cutoff=25) ng/mL Ur Amphetamines Screen (Jqwdwp=5887) ng/mL U Benzodiazepines Scrn (Ubpzpf=042) ng/mL Urine Cocaine Screen (Cutoff= 300) ng/mL U Marijuana (THC) Screen (Cutoff = 50) ng/mL Ur Drug Screen Interp Ethyl Alcohol < 10 (Less than 10) mg/dL 04/01/18 04/01/18 Range/Units 00:51 00:51 WBC (4.3-11.1) K/mcL RBC (3.82-4.97) M/mcL Hgb (11.5-15.4) g/dL Hct (35.3-44.9) % MCV (83.0-100.0) fL MCH (28.0-33.3) pg MCHC (31.6-35.5) g/dL RDW (11.5-14.5) % Plt Count (140-400) K/mcL MPV (9.4-12.4) fL Immature Gran % (0-4) % Seg Neutrophils % % Lymphocytes % % Monocytes % % Eosinophils % % Basophils % % Neutrophils # (1.6-8.9) K/mcL Lymphocytes # (0.6-4.6) K/mcL Monocytes # (0.0-1.3) K/mcL Eosinophils # (0.0-0.6) K/mcL Basophils # (0.0-0.2) K/mcL Sodium (136-145) mEq/L Potassium (3.5-5.1) mEq/L Chloride (98-107) mEq/L Carbon Dioxide (23-29) mEq/L BUN (6-20) mg/dL Creatinine (0.60-1.20) mg/dL Est GFR ( Amer) (> 60) Est GFR (Non-Af Amer) (> 60) BUN/Creatinine Ratio (6-26) Glucose (70-105) mg/dL Calculated Osmolality (280-300) Calcium (8.6-10.3) mg/dL Total Bilirubin (0.3-1.0) mg/dL Direct Bilirubin (0.0-0.2) mg/dL Indirect Bilirubin (0.0-1.2) mg/dL AST (13-39) Units/L ALT (7-52) Units/L Alkaline Phosphatase (34-104) Units/L Creatine Kinase (30-223) Units/L Serum Total Protein (6.4-8.9) g/dL Albumin (3.5-5.7) g/dL Globulin (2.4-3.5) g/dL Albumin/Globulin Ratio (1.1-2.2) Urine Color Yellow (Yellow) Urine Clarity Cloudy A (Clear) Urine pH 6.5 (5.0-8.0) pH Units Ur Specific [place] 1.023 (1.010-1.025) Urine Protein 30 H (Neg-Trace) mg/dL Urine Glucose (UA) Normal (Normal) mg/dL Urine Ketones Negative (Negative) mg/dL Urine Blood Large H (Negative) Urine Nitrite Positive A (Negative) Urine Bilirubin Negative (Negative) Urine Urobilinogen 2.0 H (Normal) mg/dL Ur Leukocyte Esterase Moderate H (Negative) Urine Microscopic RBC 0-3 (0-3) per hpf Urine Microscopic WBC 15-30 H (0-3) per hpf Ur Squamous Epith Cells Many H (None-Few) per lpf Urine Bacteria Many H (None-Few) per hpf Hyaline Casts Moderate H (None-Few) per lpf Urine Yeast Few H (None Seen) per hpf Urine Test (Negative) Salicylates (15.0-30.0) mg/dL Urine Opiates Screen Positive H (Jogzfp=567) ng/mL Acetaminophen (10-20) mcg/mL Ur Barbiturates Screen Negative (Irurgp=306) ng/mL Ur Phencyclidine Scrn Negative (Cutoff=25) ng/mL Ur Amphetamines Screen Positive H (Hebxai=6525) ng/mL U Benzodiazepines Scrn Positive H (Jejjap=204) ng/mL Urine Cocaine Screen Positive H (Cutoff= 300) ng/mL U Marijuana (THC) Screen Negative (Cutoff = 50) ng/mL Ur Drug Screen Interp See Below Ethyl Alcohol (Less than 10) mg/dL - Radiology Data Radiology results reviewed: Yes I reviewed the patient's radiology results. Head CT 03/31/18 23:42 IMPRESSION: No acute intracranial abnormality. D/ / Tera Gottlieb / Tera Gottlieb Interpreting Provider: Tera Gottlieb - EKG Data EKG #1 EKG attestation: Yes I reviewed and interpreted this EKG. EKG results narrative: EKG done at 23:45 shows sinus rhythm at a rate of 99 bpm. Normal axis. Normal EKG. QRS was 192, QT was 350 and QTc was 406 and these are within normal limits. Attestation Statement - Attestation Attestation: I examined this patient and my medical decision-making was reviewed with the Resident Physician. I agree with the documented findings, disposition and treatment plan as described except to the extent set forth below. Findings consistent with polysubstance abuse. Patient presented agitated with excited delirium. Patient was emergently intubated for safety and airway protection. The patient had CT scan of the head at showed no acute findings. Ultimately the patient is positive for multiple illegal substances on urine toxicological screen. Creatinine kinase was mildly elevated, IV fluids will be initiated, ceftriaxone for nitrite-positive urine, admission to ICU for ventilatory management. I spent greater than 35 minutes of critical care time resuscitating this acutely ill patient suffering from respiratory failure from polysubstance abuse. This was excluding billable procedures.
[2018-04-01] MEDS ORDERED: Propofol 500 MG/50 ML INFUS..BTL ONE (00:47)
[2018-04-01] MEDS: Propofol 500 MG/50 ML INFUS..BTL IVC SCH ×4 (00:52→08:31)
[2018-04-01 00:54] LABS: Basophils # 0.1 K/mcL (0.0-0.2); Basophils % 0.7 %; Eosinophils # 0.3 K/mcL (0.0-0.6); Hematocrit 38.1 % (35.3-44.9); Hemoglobin 13.2 g/dL (11.5-15.4); Immature Granulocytes % 0.2 % (0-4); Lymphocytes # 3.3 K/mcL (0.6-4.6); Mean Corpuscular HGB Conc 34.6 g/dL (31.6-35.5); Mean Corpuscular Hemoglobin 30.3 pg (28.0-33.3); Mean Corpuscular Volume 87.6 fL (83.0-100.0); Mean Platelet Volume 10.3 fL (9.4-12.4); Monocytes # 0.5 K/mcL (0.0-1.3); Monocytes % 6.4 %; Neutrophils # 4.1 K/mcL (1.6-8.9); Platelet Count 261 K/mcL (140-400); Red Blood Count 4.35 M/mcL (3.82-4.97); Red Cell Distribution Width 12.6 % (11.5-14.5); Segmented Neutrophils % 49.7 %
[2018-04-01 01:02] LABS: Bilirubin,Urine Negative (Negative); Blood,Urine Large (Negative); Clarity,Urine Cloudy (Clear); Color,Urine Yellow (Yellow); Glucose,Urine (UA) Normal (Normal); Ketones,Urine Negative (Negative); Leukocyte Esterase,Urine Moderate (Negative); Nitrite,Urine Positive (Negative); PH,Urine 6.5 pH Units (5.0-8.0); Protein,Urine 30 mg/dL (Neg-Trace); Specific Gravity,Urine 1.023 (1.010-1.025)
[2018-04-01 01:05] LABS: Bacteria,Urine Many per hpf (None-Few); Hyaline Casts,Urine Moderate per lpf (None-Few); RBC,Urine 0-3 per hpf (0-3); Squamous Epithelial Cell,Urine Many per lpf (None-Few); WBC,Urine 15-30 per hpf (0-3)
[2018-04-01 01:10] LABS: Acetaminophen < 10 mcg/mL (10-20); Alanine Aminotransferase 19 Units/L (7-52); Albumin 3.9 g/dL (3.5-5.7); Albumin/Globulin Ratio 1.4 (1.1-2.2); Alkaline Phosphatase 65 Units/L (34-104); Aspartate Amino Transferase 37 Units/L (13-39); BUN/Creatinine Ratio 24 (6-26); Bilirubin,Direct 0.2 mg/dL (0.0-0.2); Bilirubin,Indirect 0.5 mg/dL (0.0-1.2); Bilirubin,Total 0.7 mg/dL (0.3-1.0); Blood Urea Nitrogen 16 mg/dL (6-20); Calcium 9.1 mg/dL (8.6-10.3); Carbon Dioxide 24 mEq/L (23-29); Chloride 108 mEq/L (98-107); Ethanol < 10 mg/dL (Less than 10); Globulin 2.7 g/dL (2.4-3.5); Glucose 109 mg/dL (70-105); Osmolality,Calculated 292 (280-300); Potassium 3.5 mEq/L (3.5-5.1); Salicylate < 2.5 mg/dL (15.0-30.0); Sodium 140 mEq/L (136-145); Total Protein 6.6 g/dL (6.4-8.9); eGFR For African Americans > 60 (> 60); eGFR For Non-African Americans > 60 (> 60)
[2018-04-01 01:18] LABS: Yeast,Urine Few per hpf (None Seen)
[2018-04-01 01:22] LABS: Amphetamine Screen,Urine Positive ng/mL (Cutoff=1000); Barbiturate Screen,Urine Negative ng/mL (Cutoff=200); Benzodiazepines Screen,Urine Positive ng/mL (Cutoff=200); Cannabinoid Screen,Urine Negative ng/mL (Cutoff = 50); Cocaine Screen,Urine Positive ng/mL (Cutoff= 300); Opiate Screen,Urine Positive ng/mL (Cutoff=300); Phencyclidine Screen,Urine Negative ng/mL (Cutoff=25)
[2018-04-01 01:25] LABS: Creatine Kinase 972 Units/L (30-223)
--- NOTE | 2018-04-01 02:35 | Internal Med History&Physical ---
Date of Encounter: 04/01/18 Time of Encounter: 02:33 Internal Medicine - H&P: HPI Chief complaint: unresponsive History of present illness: Ms. Pollard is a 32 year-old female with no reported PMH who presented to the emergency department via EMS after being found unresponsive outside of [facility] late last night. The ED documentation is currently incomplete, but she was reported to be extremely agitated with both EMS and police. Her agitation continued in the ED and, at some point, required intubation. ED work up included CXR that showed her endotrachial tube in the correct position and no acute cardiopulmonary process. CT head was negative for acute intracranial abnormalities. Initial CBC showed no leukocytosis or anemia; initial metabolic panel was overall negative. Creatinine kinase was elevated at 972; her urinalysis was notable nitrites, leukocyte esterase, urine WBC's, and urine bacteria. Urine drug screen was positive for cocaine, amphetamines, benzodiazepines, and opiates. Poison control was contacted and recommended supportive care. Patient was admitted for further evaluation and care. Past Med Surg Social Fam HX - Past Medical History Medical history: no medical history Additional medical history: unknown Psychiatric history: other - Past Surgical History Additional surgical history: unknown - Social History Smoking Status: Unknown if ever smoked Smokeless Tobacco Status: No Alcohol use: unknown Drug use: IV Drug Use, other Internal Medicine - H&P: Meds 3 Allergy/AdvReac Type Severity Reaction Status Date / Time No Known Allergies Allergy Verified 04/01/18 00:21 ROS unobtainable: due to endotracheal tube All Systems PM: A 10-system review of systems was performed and is negative for pertinent findings except as documented above in the HPI. - Constitutional Vitals: Temp Pulse Resp BP Pulse Ox 97.5 F L 109 11 155/109 100 03/31/18 23:41 04/01/18 02:01 04/01/18 02:01 04/01/18 02:01 04/01/18 02:01 General appearance: Present: A&O X 0 (sedated) - Head Head exam: Present: atraumatic, normal inspection, normocephalic - Eye Eye exam: Present: normal appearance, PERRL Pupils: Present: PERRL - ENT ENT exam: Present: mucous membranes moist Additional comments: Dried blood on outside of right naris; OG tube - Neck Neck exam general surgery: Present: supple, trachea midline - Respiratory Respiratory exam: Present: CTAB. Absent: wheezes Additional comments: Mechanical ventilation - Cardiovascular Cardiovascular exam: Present: RRR, +S1, +S2 - GI/Abdominal GI/Abdominal exam: Present: normal bowel sounds, soft. Absent: distended, rigid , tenderness - Extremities Exam Extremities exam: Present: normal inspection, warm. Absent: cyanotic, mottling , pedal edema - Neurological Exam Additional comments: Unable to assess, pt is on sedation - Skin Skin exam: Present: intact, normal color, warm. Absent: cyanosis Internal Med - H&P Results - Labs CBC & Chem 7: 04/01/18 04:00 04/01/18 00:40 Labs: Short CBC 04/01/18 Range/Units 00:40 WBC 8.2 (4.3-11.1) K/mcL Hgb 13.2 (11.5-15.4) g/dL Hct 38.1 (35.3-44.9) % Plt Count 261 (140-400) K/mcL Neutrophils # 4.1 (1.6-8.9) K/mcL BMP 04/01/18 00:40 Sodium 140 Potassium 3.5 Chloride 108 H Carbon Dioxide 24 BUN 16 Creatinine 0.68 Glucose 109 H Calcium 9.1 Liver Function 04/01/18 Range/Units 00:40 Total Bilirubin 0.7 (0.3-1.0) mg/dL Direct Bilirubin 0.2 (0.0-0.2) mg/dL AST 37 (13-39) Units/L ALT 19 (7-52) Units/L Alkaline Phosphatase 65 (34-104) Units/L Albumin 3.9 (3.5-5.7) g/dL Urine 04/01/18 Range/Units 00:51 Urine Color Yellow (Yellow) Urine Clarity Cloudy A (Clear) Urine pH 6.5 (5.0-8.0) pH Units Ur Specific [place] 1.023 (1.010-1.025) Urine Protein 30 H (Neg-Trace) mg/dL Urine Glucose (UA) Normal (Normal) mg/dL - Impressions ITS Impressions Head CT 03/31/18 23:42 IMPRESSION: No acute intracranial abnormality. D/ / Tera Gottlieb / Tera Gottlieb Interpreting Provider: Tera Gottlieb Chest X-Ray 04/01/18 00:30 IMPRESSION: Appropriate endotracheal tube positioning. No pneumothorax or any other acute cardiopulmonary abnormality. D/ / Tera Gottlieb / Tera Gottlieb Interpreting Provider: Tera Gottlieb - Assessment and plan (1) Unresponsive episode Current Visit: Yes Status: Acute Assessment and plan: Most likely d/t recent polysubstance abuse Urine drug screened positive for amphetamines, benzodiazepines, cocaine, and opiates Poison control contacted and recommend supportive care Required intubation in the ED after receiving medications Plan Consult to pulmonology/critical care for ventilator management Supportive care with isotonic IV fluids (2) UTI (urinary tract infection) Current Visit: Yes Status: Acute Assessment and plan: Afebrile since admission Urine positive for nitrites, leukocyte esterase, urine WBC's, and bacteria Plan Urine culture ordered Start empiric ceftriaxone, de-escalate once culture and sensitivities known Monitor for signs of systemic infection Qualifiers: Urinary tract infection type: site unspecified Qualified Code(s): N39.0 - Urinary tract infection, site not specified (3) Elevated creatine kinase level Current Visit: Yes Status: Acute Assessment and plan: CK 972 --> 958 Not currently high enough to lead to TRICIA Plan Trend CK Monitor renal function closely Avoid nephrotoxins and use renal dose when available (4) DVT prophylaxis Current Visit: Yes Status: Acute Assessment and plan: Heparin 5,000 units subcutaneously Q12H - Time Spent With Patient Total time spent is greater than 50% in coordination of care (as documented) at patient's floor/unit and/or counseling patient:
[2018-04-01] MEDS ORDERED: Lacri-Lube 3.5 GM TUBE BOTH EYES PRN (02:55)
[2018-04-01] MEDS ORDERED: Dextrose Gel 15 GM/37.5 ML TUBE PO PRN ×2 (03:01)
[2018-04-01] MEDS ORDERED: *HR* Dextrose 50 % in Water (Syg) 50 ML SYRINGE IVP PRN (03:01)
[2018-04-01 03:46] LABS: Basophils % 0.5 %; Eosinophils # 0.1 K/mcL (0.0-0.6); Eosinophils % 1.6 %; Hematocrit 39.3 % (35.3-44.9); Hemoglobin 13.5 g/dL (11.5-15.4); Immature Granulocytes % 0.1 % (0-4); Immature Platelets 3.5 % (1.1-6.1); Lymphocytes % 26.9 %; Mean Corpuscular HGB Conc 34.4 g/dL (31.6-35.5); Mean Corpuscular Hemoglobin 30.1 pg (28.0-33.3); Mean Corpuscular Volume 87.7 fL (83.0-100.0); Mean Platelet Volume 10.5 fL (9.4-12.4); Monocytes # 0.3 K/mcL (0.0-1.3); Neutrophils # 4.9 K/mcL (1.6-8.9); Platelet Count 253 K/mcL (140-400); Red Blood Count 4.48 M/mcL (3.82-4.97); Red Cell Distribution Width 12.6 % (11.5-14.5); Segmented Neutrophils % 66.9 %
[2018-04-01 04:24] LABS: BUN/Creatinine Ratio 24 (6-26); Blood Urea Nitrogen 15 mg/dL (6-20); Calcium 9.2 mg/dL (8.6-10.3); Carbon Dioxide 24 mEq/L (23-29); Chloride 107 mEq/L (98-107); Creatine Kinase 958 Units/L (30-223); Glucose 149 mg/dL (70-105); Osmolality,Calculated 292 (280-300); Potassium 2.8 mEq/L (3.5-5.1); Sodium 139 mEq/L (136-145); eGFR For African Americans > 60 (> 60); eGFR For Non-African Americans > 60 (> 60)
[2018-04-01] MEDS: Lacri-Lube 3.5 GM TUBE BOTH EYES SCH ×5 (04:27→20:32)
[2018-04-01] MEDS: Dexmedetomidine HCl 400 MCG/100 ML MLS IVC SCH (04:28)
[2018-04-01] MEDS ORDERED: Potassium Phosphate 44 MEQ in 0.9 % Sodium Chloride 250 ML IVPB PRN (04:39)
[2018-04-01 05:25] LABS: ABG Base Excess 2 mEq/L (-2 to 3); ABG HCO3 28 mEq/L (21-27); ABG Oxygen Saturation 99 % (95-98); ABG PCO2 47 mmHg (35-45); ABG PH 7.38 pH Units (7.32-7.45); ABG PO2 155 mmHg (85-104); ABG TCO2 29 mEq/L (20-26); Blood Gas Modality PRVC; Blood Gas PEEP 5 cm H2O; Blood Gas Respiration Rate 12; Blood Gas VT 450 cc
[2018-04-01 05:35] LABS: Magnesium 2.1 mg/dL (1.6-2.6); Phosphorous 2.8 mg/dL (2.7-4.5)
[2018-04-01] MEDS: *HR* Heparin 5,000 UNIT/ML VIAL SQ SCH ×2 (06:05→17:58)
[2018-04-01] MEDS: Insulin LISPRO 300 UNITS/3 ML VIAL SQ SCH ×3 (06:19→18:13)
[2018-04-01 06:23] LABS: VBG Ionized Calcium 1.13 mmol/L (1.15-1.35)
[2018-04-01] MEDS ORDERED: *HR* Rocuronium Bromide 100 MG/10 ML VIAL IVC ONE (07:43)
[2018-04-01] MEDS ORDERED: *HR* Etomidate 40 MG/20 ML VIAL IVP ONE (07:43)
[2018-04-01] MEDS: Chlorhexidine Rinse 15 ML MOUTHWASH MM SCH ×2 (08:32→20:33)
[2018-04-01] MEDS ORDERED: cefTRIAXone 1,000 MG in Water for inj. (sterile) 20 ML 10 ML IVP SCH (09:00)
--- NOTE | 2018-04-01 09:32 | Pulmonology Consult Note ---
Date of Encounter: 04/01/18 Time of Encounter: 09:00 Assessment and Plan (1) Encephalopathy acute Current Visit: Yes Status: Acute Secondary to Polysubstance abuse will liberate from sedation and reassess after that (2) Acute respiratory failure Current Visit: Yes Status: Acute Patient hypoxic respiratory initially due to hypoventilation now resolved she is on minimal O2 requirements , CXR is clear she can be extubated once she is awake . No signs of pulmonary or blood stream infection . Qualifiers: Respiratory failure complication: hypoxia Qualified Code(s): J96.01 - Acute respiratory failure with hypoxia (3) Polysubstance abuse Current Visit: Yes Status: Acute Patient has chronic polysubstance she needs to be enrolled in drug rehab. (4) UTI (urinary tract infection) Current Visit: Yes Status: Acute Looks like uncomplicated UTI . To continue Ceftriaxone , urine culture in process . Qualifiers: Urinary tract infection type: site unspecified Hematuria presence: without hematuria Qualified Code(s): N39.0 - Urinary tract infection, site not specified (5) Elevated creatine kinase level Current Visit: Yes Status: Acute Most likely due to poly substance abuse and being found down will give LR infusion to prevent pigment induced tubular injury . (6) DVT prophylaxis Current Visit: Yes Status: Acute To continue Heparin . History of Present Illness Consult date: 04/01/18 Requesting physician: Halie Jiménez Reason for consult: other (Encepahlopathy with altered mental status ) Chief complaint: Altered Mental status History of present illness: 32 year old with past medical history significant polysubstance abuse found down near a food place was brought by the ER was so confused and agitated had to be intubated for altered mental status , Work up the urine tox showed BZD, Amphetamines , UA shows UTI no other review system reviewed because of the mental status . Past Med Surg Social Fam HX - Past Medical History Medical history: no medical history Additional medical history: unknown Psychiatric history: other - Past Surgical History Additional surgical history: unknown - Social History Smoking Status: Unknown if ever smoked Smokeless Tobacco Status: No Alcohol use: unknown Drug use: IV Drug Use, other Medications and Allergies Unable To Obtain [Unable to Obtain] 04/01/18 [History] 3 Allergy/AdvReac Type Severity Reaction Status Date / Time No Known Allergies Allergy Verified 04/01/18 00:21 ROS unobtainable: due to mental status All Systems: ROS unobtainable due to mental status . Physical Examination Vital Signs: Vital Signs, Last 4 Hours Temp Pulse Resp BP Pulse Ox 04/01/18 09:11 12 101/72 100 04/01/18 08:00 72 12 101/69 100 04/01/18 07:51 12 101/67 100 04/01/18 07:39 97.3 F L 04/01/18 07:00 75 12 108/77 100 04/01/18 06:00 81 12 112/77 100 Auscultation: bilateral: clear unable to assess due to mental status Ventilator Settings Ventilator Settings: Ventilator Settings, Last 8 Hours Ventilator Tidal Volume 450 Setting Ventilator Tidal Volume 450 Setting Ventilator Tidal Volume 450 Setting Ventilator Tidal Volume 450 Setting Ventilator Tidal Volume 450 Setting Ventilator Tidal Volume 450 Setting Ventilator Tidal Volume 450 Setting Ventilator Tidal Volume 450 Setting Ventilator Tidal Volume 450 Setting Ventilator Tidal Volume 450 Setting Ventilator Tidal Volume 450 Setting Ventilator Respiratory Rate 12 Setting Ventilator Respiratory Rate 12 Setting Ventilator Respiratory Rate 12 Setting Ventilator Respiratory Rate 12 Setting Ventilator Respiratory Rate 12 Setting Ventilator Respiratory Rate 12 Setting Ventilator Respiratory Rate 12 Setting Ventilator Respiratory Rate 12 Setting Ventilator Respiratory Rate 12 Setting Ventilator Respiratory Rate 12 Setting Ventilator Respiratory Rate 12 Setting Actual Respiratory Rate 12 Actual Respiratory Rate 12 Actual Respiratory Rate 12 Actual Respiratory Rate 12 Actual Respiratory Rate 14 Actual Respiratory Rate 12 Actual Respiratory Rate 12 Actual Respiratory Rate 12 Actual Respiratory Rate 12 Actual Respiratory Rate 12 Positive End Expiratory 5 Pressure Positive End Expiratory 5 Pressure Positive End Expiratory 5 Pressure Positive End Expiratory 5 Pressure Positive End Expiratory 5 Pressure Positive End Expiratory 5 Pressure Positive End Expiratory 5 Pressure Positive End Expiratory 5 Pressure Positive End Expiratory 5 Pressure Positive End Expiratory 5 Pressure Positive End Expiratory 5 Pressure Peak Inspiratory Airway 14 Pressure Peak Inspiratory Airway 14 Pressure Peak Inspiratory Airway 14 Pressure Peak Inspiratory Airway 14 Pressure Peak Inspiratory Airway 14 Pressure Peak Inspiratory Airway 14 Pressure Peak Inspiratory Airway 15 Pressure Peak Inspiratory Airway 15 Pressure Peak Inspiratory Airway 15 Pressure Results - Laboratory Findings CBC and BMP: 04/01/18 04:00 04/01/18 03:06 ABG ABG pH 7.38 pH Units (7.32-7.45) 04/01/18 05:22 ABG pCO2 47 mmHg (35-45) H 04/01/18 05:22 ABG pO2 155 mmHg (85-104) H 04/01/18 05:22 ABG O2 Saturation 99 % (95-98) H 04/01/18 05:22 Abnormal lab findings: Abnormal lab results ABG pCO2 47 mmHg (35-45) H 04/01/18 05:22 ABG pO2 155 mmHg (85-104) H 04/01/18 05:22 ABG HCO3 28 mEq/L (21-27) H 04/01/18 05:22 ABG Total CO2 29 mEq/L (20-26) H 04/01/18 05:22 ABG O2 Saturation 99 % (95-98) H 04/01/18 05:22 Potassium 2.8 mEq/L (3.5-5.1) L 04/01/18 03:06 Glucose 149 mg/dL (70-105) H 04/01/18 03:06 Venous Ioniz Calcium 1.13 mmol/L (1.15-1.35) L 04/01/18 06:21 Creatine Kinase 958 Units/L (30-223) H 04/01/18 03:06 Urine Clarity Cloudy (Clear) A 04/01/18 00:51 Urine Protein 30 mg/dL (Neg-Trace) H 04/01/18 00:51 Urine Blood Large (Negative) H 04/01/18 00:51 Urine Nitrite Positive (Negative) A 04/01/18 00:51 Urine Urobilinogen 2.0 mg/dL (Normal) H 04/01/18 00:51 Ur Leukocyte Esterase Moderate (Negative) H 04/01/18 00:51 Urine Microscopic WBC 15-30 per hpf (0-3) H 04/01/18 00:51 Ur Squamous Epith Cells Many per lpf (None-Few) H 04/01/18 00:51 Urine Bacteria Many per hpf (None-Few) H 04/01/18 00:51 Hyaline Casts Moderate per lpf (None-Few) H 04/01/18 00:51 Urine Yeast Few per hpf (None Seen) H 04/01/18 00:51 Salicylates < 2.5 mg/dL (15.0-30.0) L 04/01/18 00:40 Urine Opiates Screen Positive ng/mL (Moazio=455) H 04/01/18 00:51 Acetaminophen < 10 mcg/mL (10-20) L 04/01/18 00:40 Ur Amphetamines Screen Positive ng/mL (Ofcfkt=3321) H 04/01/18 00:51 U Benzodiazepines Scrn Positive ng/mL (Eiqeji=191) H 04/01/18 00:51 Urine Cocaine Screen Positive ng/mL (Cutoff= 300) H 04/01/18 00:51 - Microbiology Findings Microbiology Findings: Microbiology, Last 48 Hours 04/01/18 03:06 Blood Culture - Preliminary Peripheral Venipuncture Culture is incubating and being continuously monitored for growth. Final report to follow. 04/01/18 03:31 Blood Culture - Preliminary Peripheral Venipuncture Culture is incubating and being continuously monitored for growth. Final report to follow. - Clinical Findings Intake & Output: Intake & Output 03/31/18 04/01/18 04/01/18 23:59 07:59 15:59 Intake Total 213.7 / 1213.7 150 / 150 Output Total 225 / 225 Balance -11.3 / 988.7 150 / 150 Consult Discharge Plan - Plan Referrals: NONE,PCP [Primary Care Provider] -
[2018-04-01] MEDS: Ringers Solution, Lactated 1,000 ML IVC SCH ×3 (09:54→17:59)
[2018-04-01] MEDS: D5% in Water 1,000 ML IVC PRN (18:12)
[2018-04-01 20:30] LABS: Phosphorous 3.2 mg/dL (2.7-4.5); Potassium 3.9 mEq/L (3.5-5.1)
[2018-04-02] MEDS: Insulin LISPRO 300 UNITS/3 ML VIAL SQ SCH ×2 (00:01→05:33)
[2018-04-02] MEDS: Lacri-Lube 3.5 GM TUBE BOTH EYES SCH ×3 (00:02→08:12)
[2018-04-02] MEDS: Dexmedetomidine HCl 400 MCG/100 ML MLS IVC SCH (00:02)
[2018-04-02] MEDS: D5% in Water 1,000 ML IVC PRN (04:14)
[2018-04-02] MEDS ORDERED: *HR* LORazepam 2 MG/ML VIAL IVP ONE ×2 (05:24→20:06)
[2018-04-02] MEDS: Ringers Solution, Lactated 1,000 ML IVC SCH ×3 (05:32→05:38)
[2018-04-02] MEDS: *HR* Heparin 5,000 UNIT/ML VIAL SQ SCH (05:32)
[2018-04-02 05:38] LABS: Basophils % 0.4 %; Eosinophils # 0.2 K/mcL (0.0-0.6); Eosinophils % 2.3 %; Hematocrit 34.6 % (35.3-44.9); Hemoglobin 12.1 g/dL (11.5-15.4); Immature Granulocytes % 0.1 % (0-4); Lymphocytes # 2.6 K/mcL (0.6-4.6); Lymphocytes % 36.7 %; Mean Corpuscular Hemoglobin 30.6 pg (28.0-33.3); Mean Corpuscular Volume 87.4 fL (83.0-100.0); Mean Platelet Volume 10.7 fL (9.4-12.4); Monocytes # 0.4 K/mcL (0.0-1.3); Monocytes % 5.9 %; Neutrophils # 3.8 K/mcL (1.6-8.9); Platelet Count 250 K/mcL (140-400); Red Blood Count 3.96 M/mcL (3.82-4.97); Red Cell Distribution Width 12.6 % (11.5-14.5); Segmented Neutrophils % 54.6 %
[2018-04-02 05:59] LABS: BUN/Creatinine Ratio 9 (6-26); Blood Urea Nitrogen 4 mg/dL (6-20); Calcium 8.5 mg/dL (8.6-10.3); Carbon Dioxide 24 mEq/L (23-29); Chloride 108 mEq/L (98-107); Glucose 97 mg/dL (70-105); Osmolality,Calculated 283 (280-300); Potassium 3.5 mEq/L (3.5-5.1); Sodium 138 mEq/L (136-145); eGFR For African Americans > 60 (> 60); eGFR For Non-African Americans > 60 (> 60)
--- NOTE | 2018-04-02 07:45 | Pulmonology Progress Note ---
Date of Encounter: 04/02/18 Time of Encounter: 07:43 Assessment and Plan (1) Overdose, drug Current Visit: Yes Status: Acute Continue to monitor for signs of withdrawal. She is at risk for benzodiazepine withdrawal which could induce seizures and so we will maintain a low dose benzodiazepine as prophylaxis against this. Also add clonidine as needed for opiate withdrawal Qualifiers: Injury intent: accidental or unintentional Qualified Code(s): T50.901D - Poisoning by unspecified drugs, medicaments and biological substances, accidental (unintentional), subsequent encounter (2) Hypoglycemia Current Visit: Yes Status: Acute This is fairly mild and should resolve with advancement of diet today now that it safe to do so. 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 Suspect that this is likely not an accurate UTI remove Melgoza catheter today and would stop antibiotics pending culture report Qualifiers: Urinary tract infection type: site unspecified Hematuria presence: without hematuria Qualified Code(s): N39.0 - Urinary tract infection, site not specified (5) Elevated creatine kinase level Current Visit: Yes Status: Acute Mild rhabdo which is trended down (6) Altered mental status Current Visit: Yes Status: Acute She is now much more oriented and able to follow commands [facility]able [facility] Qualifiers: Altered mental status type: unspecified Qualified Code(s): R41.82 - Altered mental status, unspecified Subjective Principal diagnosis: Overdose Interval history: No acute events overnight. Patient has done well after extubation complaining of some mild agitation related to withdrawal of illicit drugs. When I examined her she was resting comfortably. She has had mild hypoglycemia which is responded to dextrose infusion Objective PUL Vital signs: Last Vital Signs Temp 98.2 F 04/02/18 07:41 Pulse 84 04/02/18 06:00 Resp 16 04/02/18 06:00 BP 119/80 04/02/18 06:00 Pulse Ox 98 04/02/18 06:00 General appearance: no acute distress, lethargic (Easily arousable) Eyes: nonicteric ENT: oropharynx moist Neck: supple Effort: normal Auscultation: bilateral: clear Cardiovascular: regular rate and rhythm Gastrointestinal: normoactive bowel sounds, soft Integumentary: other (No new rash or ecchymotic changes) Musculoskeletal: no deformities normal mental status, pupils equal and round, motor strength normal and symmetric mood appropriate Results - Laboratory Findings CBC and BMP: 04/02/18 05:06 04/02/18 05:06 ABG ABG pH 7.38 pH Units (7.32-7.45) 04/01/18 05:22 ABG pCO2 47 mmHg (35-45) H 04/01/18 05:22 ABG pO2 155 mmHg (85-104) H 04/01/18 05:22 ABG O2 Saturation 99 % (95-98) H 04/01/18 05:22 Abnormal lab findings: Abnormal lab results Hct 34.6 % (35.3-44.9) L 04/02/18 05:06 ABG pCO2 47 mmHg (35-45) H 04/01/18 05:22 ABG pO2 155 mmHg (85-104) H 04/01/18 05:22 ABG HCO3 28 mEq/L (21-27) H 04/01/18 05:22 ABG Total CO2 29 mEq/L (20-26) H 04/01/18 05:22 ABG O2 Saturation 99 % (95-98) H 04/01/18 05:22 Chloride 108 mEq/L (98-107) H 04/02/18 05:06 BUN 4 mg/dL (6-20) L 04/02/18 05:06 Creatinine 0.47 mg/dL (0.60-1.20) L 04/02/18 05:06 Calcium 8.5 mg/dL (8.6-10.3) L 04/02/18 05:06 Venous Ioniz Calcium 1.13 mmol/L (1.15-1.35) L 04/01/18 06:21 Creatine Kinase 334 Units/L (30-223) H 04/01/18 20:01 Urine Clarity Cloudy (Clear) A 04/01/18 00:51 Urine Protein 30 mg/dL (Neg-Trace) H 04/01/18 00:51 Urine Blood Large (Negative) H 04/01/18 00:51 Urine Nitrite Positive (Negative) A 04/01/18 00:51 Urine Urobilinogen 2.0 mg/dL (Normal) H 04/01/18 00:51 Ur Leukocyte Esterase Moderate (Negative) H 04/01/18 00:51 Urine Microscopic WBC 15-30 per hpf (0-3) H 04/01/18 00:51 Ur Squamous Epith Cells Many per lpf (None-Few) H 04/01/18 00:51 Urine Bacteria Many per hpf (None-Few) H 04/01/18 00:51 Hyaline Casts Moderate per lpf (None-Few) H 04/01/18 00:51 Urine Yeast Few per hpf (None Seen) H 04/01/18 00:51 Salicylates < 2.5 mg/dL (15.0-30.0) L 04/01/18 00:40 Urine Opiates Screen Positive ng/mL (Tlxmrk=448) H 04/01/18 00:51 Acetaminophen < 10 mcg/mL (10-20) L 04/01/18 00:40 Ur Amphetamines Screen Positive ng/mL (Zwnfik=6937) H 04/01/18 00:51 U Benzodiazepines Scrn Positive ng/mL (Qigpiy=554) H 04/01/18 00:51 Urine Cocaine Screen Positive ng/mL (Cutoff= 300) H 04/01/18 00:51 - Microbiology Findings Microbiology Findings: Microbiology, Last 48 Hours 04/01/18 03:06 Blood Culture - Preliminary Peripheral Venipuncture Culture is incubating and being continuously monitored for growth. Final report to follow. 04/01/18 03:31 Blood Culture - Preliminary Peripheral Venipuncture Culture is incubating and being continuously monitored for growth. Final report to follow. - Clinical Findings Intake & Output: Intake & Output 04/01/18 04/01/18 04/02/18 15:59 23:59 07:59 Intake Total 2491.3 / 2491.3 1999 Output Total 250 / 250 650 / 650 3400 / 3400 Balance 2241.3 / 2241.3 1350 / 1350 -1400 / -1400 Weight 58 kg Consult Discharge Plan - Plan Referrals: NONE,PCP [Primary Care Provider] -
[2018-04-02] MEDS ORDERED: D5% in 0.45% NACL 1,000 ML IVC SCH ×2 (08:00→08:14)
[2018-04-02] MEDS ORDERED: *HR* Rocuronium Bromide 100 MG/10 ML VIAL IVC ONE (08:05)
[2018-04-02] MEDS ORDERED: *HR* Etomidate 40 MG/20 ML VIAL IVP ONE (08:05)
[2018-04-02] MEDS ORDERED: cefTRIAXone 1,000 MG in Water for inj. (sterile) 20 ML 10 ML IVP SCH (09:00)
[2018-04-02] MEDS ORDERED: Insulin LISPRO 300 UNITS/3 ML VIAL SQ SCH (12:00)
[2018-04-02] MEDS ORDERED: *HR* LORazepam 2 MG/ML VIAL IVP PRN ×2 (14:51→18:43)
[2018-04-02] MEDS ORDERED: *HR* Heparin 5,000 UNIT/ML VIAL SQ SCH (18:00)
--- NOTE | 2018-04-02 18:17 | Electrocardiograph Report ---
[place] [id number] Test Date: 2018-03-31 Pat Name: Larissa Pollard Department: 103 Room: 2A13 Gender: F Bobbin Sorter: : 1985 Requested By: Leonidas Sinha Order Number: [id number] Reading MD: Kanu Buitrago Measurements Intervals [place] Rate: 99 P: 49 MN: 129 QRS: 52 QRSD: 92 T: 54 QT: 350 QTc: 406 Interpretive Statements SINUS RHYTHM Electronically Signed On 04-02-2018 18:15:23 EDT by Kanu Buitrago
[2018-04-02] MEDS ORDERED: hydrOXYzine pamoate 25 MG CAPSULE PO PRN (18:43)
[2018-04-02] MEDS ORDERED: Nicotine 21 MG PATCH.TD24 TD SCH (18:45)
[2018-04-02] MEDS ORDERED: cloNIDine HCl 0.1 MG TABLET PO PRN (18:45)
[2018-04-02 19:34] VITALS: BP 103/69
--- NOTE | 2018-04-02 20:12 | Event Note ---
Date of Encounter: 04/02/18 Time of Encounter: 20:10 Patient was considering AMA. I spoke with her and she indicted that her current withdrawal medications were not lasting. I added a 1x extra dose of ativan at this time.
--- NOTE | 2018-04-02 21:21 | Event Note ---
Date of Encounter: 04/02/18 Time of Encounter: 21:15 Called to the patient's room, she again has decided to leave AMA. She is completely alert and oriented x3, denies any suicidal ideation. I explained all the risks including possible infections, reusing drugs, even . The patient agreed that she would seek expert consult or return to the ED if she feels that she is declining/worsening. She also stated she would follow up with her PCP. HARSHIL paperwork signed. I spoke with patient's attending regarding this matter.
== END 2018-04-02 21:06 | disposition left against medical advice (07) | DRG 917 ==
LOC: EMEROO 23:38 → ICNU 04-01 02:11 → MERGE 04-01 02:11 → ICNU 04-01 02:46 → 2ANU 04-02 10:15
PROVIDERS: ADMIT Family Medicine; ATTEND Family Medicine

== ENCOUNTER 2018-06-17 09:57 | Inpatient (IN) ==
[2018-06-17 10:40] LABS: Eosinophils % 1.2 %; Hemoglobin 12.4 g/dL (11.5-15.4); Immature Granulocytes % 0.3 % (0-4); Lymphocytes % 27.2 %; Mean Corpuscular HGB Conc 33.5 g/dL (31.6-35.5); Mean Corpuscular Hemoglobin 28.6 pg (28.0-33.3); Mean Corpuscular Volume 85.3 fL (83.0-100.0); Mean Platelet Volume 9.9 fL (9.4-12.4); Monocytes % 4.4 %; Platelet Count 272 K/mcL (140-400); Red Blood Count 4.34 M/mcL (3.82-4.97); Red Cell Distribution Width 13.4 % (11.5-14.5); Segmented Neutrophils % 66.5 %
[2018-06-17 10:41] LABS: Basophils % 0.4 %; Eosinophils # 0.1 K/mcL (0.0-0.6); Lymphocytes # 2.8 K/mcL (0.6-4.6); Monocytes # 0.5 K/mcL (0.0-1.3); Neutrophils # 6.8 K/mcL (1.6-8.9)
--- NOTE | 2018-06-17 10:46 | Emergency Department Note ---
Disposition Clinical Impression: Flexor tenosynovitis of finger Endocarditis Qualifiers: Endocarditis type: unspecified Chronicity: unspecified Qualified Code(s): I38 - Endocarditis, valve unspecified Drug overdose Qualifiers: Encounter type: initial encounter Injury intent: undetermined intent Qualified Code(s): T50.904A - Poisoning by unspecified drugs, medicaments and biological substances, undetermined, initial encounter Altered mental status Qualifiers: Altered mental status type: unspecified Qualified Code(s): R41.82 - Altered mental status, unspecified Disposition: Admitted As Inpatient Condition: Fair General Adult HPI - General Chief complaint: ED Overdose Stated complaint: OD Time Seen by Provider: 06/17/18 09:59 Source: patient, EMS Limitations: no limitations Nursing Notes Reviewed: Yes Vital Signs Reviewed: Yes - History of Present Illness HPI Narrative: Patient with past history of endocarditis presents via EMS for multiple complaints. Patient was found on the curb sleeping. She admitted to [facility]. She states that this totals approximately 9 mg of Xanax. She also did heroin which she describes as a small amount, what was left over from multiple cotton balls, in order to stay away from withdrawal. The patient is arousable to verbal stimulation. Patient answers to her name, where she is at without difficulty. Patient does doze off to sleep if left unstimulated. Pulse ox remains at 98%. The patient also complains of fevers for the last 2 days. She has got associated swelling to the third digit on the right hand. There appears to be some abscess formation to the distal aspect of the fingertip however the entire finger itself is swollen, held in flexion, tender to palpation along the flexor tendon sheath and has both active and passive range of motion to any movement of the finger. An emergent consult has been placed orthopedics. The patient has a small lesion to the nail that is concerning for splinter hemorrhage. She has a history of endocarditis and recently underwent treatment for facial cellulitis 2 weeks ago. Given the fact that she has multiple infection sites do have a high concern for endocarditis at this time. Blood cultures as well as infectious workup has been initiated. Patient will have orthopedic consult as well as likely admission to the hospital. Workup is pending. Pain Scale: 0 - Related Data Home Medications Medication Instructions Recorded Confirmed No Known Home Drugs 04/21/18 06/17/18 Allergies Allergy/AdvReac Type Severity Reaction Status Date / Time No Known Allergies Allergy Verified 06/17/18 12:29 Review of Systems: CONSTITUTIONAL: Subjective fever, chills, weakness and fatigue HEENT: Eyes: No visual changes. Ears, Nose, Throat: No hearing loss, difficulty talking or unable to swallow. SKIN: hand erythema and swelling CARDIOVASCULAR: No chest pain, chest pressure or chest discomfort. No palpitations or edema. RESPIRATORY: No shortness of breath, cough or sputum. GASTROINTESTINAL: No anorexia, nausea, vomiting or diarrhea. No abdominal pain or blood. GENITOURINARY: No burning on urination or hematuria. NEUROLOGICAL: No headache, dizziness, syncope, paralysis, ataxia, numbness or tingling in the extremities. No change in bowel or bladder control. 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 Head: Normocephalic Atraumatic Eyes: PERRL, EOMI ENT: Airway patent, no stridor Neck: supple, no meningismus Chest: Lungs clear to auscultation bilateral Cardiac: Regular rate and rhythm, no murmurs, rubs or gallops Abdomen: soft, nontender, nondistended; no guarding, rebound, or tenderness to percussion Musculoskeletal: Calves symmetric, nontender, no palpable cord Skin: Fusiform swelling to the right third digit. Tenderness along the flexor sheath, pain with passive range of motion. Splint or hemorrhage noticed to second digit of the left hand. Neuro: Alert and Oriented to person, place, and time; No focal deficit, CN 2-12 symmetric and intact - General Limitations: no limitations General appearance: other Course - Reevaluation(s) Reevaluation #1: Patient remains arousable to verbal stimulation. - Consultations Consultation #1: Discussed with Dr. Blum, orthopedic surgery, patient to receive CT scan as well as IV antibiotics. Patient will be consulted consulted on in the hospital. No need for emergent evaluation at this time. Patient was agreeable to have a picture taken of her finger and sent to orthopedic surgeon. Pictures were sent to Dr. Blum to allow for better communication between providers. Consultation #2: Discussed with hospitalist. Patient except for admission. We did discuss concern for possible endocarditis given multiple cellulitis episodes in various places as well as previous history of endocarditis and current IV drug use. Vital Signs Temperature 98.2 F 06/17/18 10:00 Pulse Rate 102 06/17/18 10:00 Respiratory Rate 14 06/17/18 10:00 Blood Pressure 133/88 06/17/18 10:00 O2 Sat by Pulse Oximetry 100 06/17/18 10:00 Temperature 98.2 F 06/17/18 10:00 Pulse Rate 86 06/17/18 14:47 Respiratory Rate 16 06/17/18 14:47 Blood Pressure 118/93 06/17/18 14:47 O2 Sat by Pulse Oximetry 100 06/17/18 14:47 Oxygen Delivery Oxygen Delivery Room Air Medical Decision Making - Medical Records Medical records reviewed: Yes I reviewed the patient's medical records. - Lab Data Lab results reviewed: Yes I reviewed the patient's lab results. Result diagrams: 06/17/18 10:26 06/17/18 10:26 Lab Results 06/17/18 06/17/18 06/17/18 Range/Units 10:26 10:26 10:26 WBC 10.3 (4.3-11.1) K/mcL RBC 4.34 (3.82-4.97) M/mcL Hgb 12.4 (11.5-15.4) g/dL Hct 37.0 (35.3-44.9) % MCV 85.3 (83.0-100.0) fL MCH 28.6 (28.0-33.3) pg MCHC 33.5 (31.6-35.5) g/dL RDW 13.4 (11.5-14.5) % Plt Count 272 (140-400) K/mcL MPV 9.9 (9.4-12.4) fL Immature Gran % 0.3 (0-4) % Seg Neutrophils % 66.5 % Lymphocytes % 27.2 % Monocytes % 4.4 % Eosinophils % 1.2 % Basophils % 0.4 % Neutrophils # 6.8 (1.6-8.9) K/mcL Lymphocytes # 2.8 (0.6-4.6) K/mcL Monocytes # 0.5 (0.0-1.3) K/mcL Eosinophils # 0.1 (0.0-0.6) K/mcL Basophils # 0.0 (0.0-0.2) K/mcL ESR (0-15) mm/hr Sodium 135 L (136-145) mEq/L Potassium 3.5 (3.5-5.1) mEq/L Chloride 104 (98-107) mEq/L Carbon Dioxide 24 (23-29) mEq/L BUN 10 (6-20) mg/dL Creatinine 0.50 L (0.60-1.20) mg/dL Est GFR ( Amer) > 60 (> 60) Est GFR (Non-Af Amer) > 60 (> 60) BUN/Creatinine Ratio 20 (6-26) Glucose 104 (70-105) mg/dL Calculated Osmolality 279 L (280-300) Lactic Acid 0.4 L (0.5-2.2) mmol/L Calcium 9.2 (8.6-10.3) mg/dL Total Bilirubin 0.4 (0.3-1.0) mg/dL AST 12 L (13-39) Units/L ALT 9 (7-52) Units/L Alkaline Phosphatase 84 (34-104) Units/L Troponin I < 0.03 (< 0.04) ng/mL C-Reactive Protein 36 H (Less than 10) mg/L Serum Total Protein 7.2 (6.4-8.9) g/dL Albumin 3.8 (3.5-5.7) g/dL Globulin 3.4 (2.4-3.5) g/dL Albumin/Globulin Ratio 1.1 (1.1-2.2) Serum , Qual (Negative) 06/17/18 06/17/18 Range/Units 10:26 10:26 WBC (4.3-11.1) K/mcL RBC (3.82-4.97) M/mcL Hgb (11.5-15.4) g/dL Hct (35.3-44.9) % MCV (83.0-100.0) fL MCH (28.0-33.3) pg MCHC (31.6-35.5) g/dL RDW (11.5-14.5) % Plt Count (140-400) K/mcL MPV (9.4-12.4) fL Immature Gran % (0-4) % Seg Neutrophils % % Lymphocytes % % Monocytes % % Eosinophils % % Basophils % % Neutrophils # (1.6-8.9) K/mcL Lymphocytes # (0.6-4.6) K/mcL Monocytes # (0.0-1.3) K/mcL Eosinophils # (0.0-0.6) K/mcL Basophils # (0.0-0.2) K/mcL ESR 59 H (0-15) mm/hr Sodium (136-145) mEq/L Potassium (3.5-5.1) mEq/L Chloride (98-107) mEq/L Carbon Dioxide (23-29) mEq/L BUN (6-20) mg/dL Creatinine (0.60-1.20) mg/dL Est GFR ( Amer) (> 60) Est GFR (Non-Af Amer) (> 60) BUN/Creatinine Ratio (6-26) Glucose (70-105) mg/dL Calculated Osmolality (280-300) Lactic Acid (0.5-2.2) mmol/L Calcium (8.6-10.3) mg/dL Total Bilirubin (0.3-1.0) mg/dL AST (13-39) Units/L ALT (7-52) Units/L Alkaline Phosphatase (34-104) Units/L Troponin I (< 0.04) ng/mL C-Reactive Protein (Less than 10) mg/L Serum Total Protein (6.4-8.9) g/dL Albumin (3.5-5.7) g/dL Globulin (2.4-3.5) g/dL Albumin/Globulin Ratio (1.1-2.2) Serum , Qual Negative (Negative) - Radiology Data Radiology results reviewed: Yes I reviewed the patient's radiology results. - EKG Data EKG #1 EKG attestation: Yes I reviewed and interpreted this EKG. EKG results narrative: EKG shows sinus rhythm with heard of 91. MO interval 124. QTC 453. Patient has no significant ST elevations or depressions. Has worsening of Q waves in inferior leads.
[2018-06-17 11:05] LABS: Alanine Aminotransferase 9 Units/L (7-52); Albumin 3.8 g/dL (3.5-5.7); Albumin/Globulin Ratio 1.1 (1.1-2.2); Alkaline Phosphatase 84 Units/L (34-104); Aspartate Amino Transferase 12 Units/L (13-39); BUN/Creatinine Ratio 20 (6-26); Bilirubin,Total 0.4 mg/dL (0.3-1.0); Blood Urea Nitrogen 10 mg/dL (6-20); C-Reactive Protein 36 mg/L (Less than 10); Calcium 9.2 mg/dL (8.6-10.3); Carbon Dioxide 24 mEq/L (23-29); Chloride 104 mEq/L (98-107); Globulin 3.4 g/dL (2.4-3.5); Glucose 104 mg/dL (70-105); Osmolality,Calculated 279 (280-300); Potassium 3.5 mEq/L (3.5-5.1); Sodium 135 mEq/L (136-145); Total Protein 7.2 g/dL (6.4-8.9); Troponin I < 0.03 ng/mL (< 0.04); eGFR For Non-African Americans > 60 (> 60)
[2018-06-17] MEDS ORDERED: Piperacillin/Tazobactam 3.375 GM in 0.9 % Sodium Chloride Mini Bag 100 ML IVPB ONE (11:20)
[2018-06-17] MEDS ORDERED: Isovue-370 500 ML INFUS..BTL IV ONE (11:20)
[2018-06-17] MEDS ORDERED: Ondansetron 4 MG/2 ML VIAL IVP ONE (14:58)
[2018-06-17] MEDS ORDERED: Naloxone 0.4 MG/ML INJ IVP PRN (15:01)
--- NOTE | 2018-06-17 15:20 | Internal Med History&Physical ---
<IlanEd Delaney - Last Filed: 06/17/18 16:10> Date of Encounter: 06/17/18 Time of Encounter: 14:15 Internal Medicine - H&P: HPI Chief complaint: OD Admitted From: Emergency Dept Plans for Post Hospital Care: Home History of present illness: Ms. Pollard is a 33 year old female w/PMH of hepatitis C, edocarditis r/t IV drug abuse, and extensive drug abuse hx including cocaine, meth, heroin, prescription drug abuse (Xanax), and marijuana presents from the ED w/CC of AMS d/t OD. Pt. is hard to rouse and falls immediately back to sleep following sternal rubs. Pt. states that she used heroin yesterday as well as 9 mg of Xanax (pt. is unclear on dosing. States she took 9 mg which would equal 4.5 Zani bars. Stated earlier that she took 1.5 Zani bars which would equal 3 mg of Xanax). Pt. reports she used meth the day before yesterday. Pt. states she has hx of endocarditis and was seen at [facility] last week for cellulitis of the face. Reports fever/chills for past two days. Pain and swelling in third digit of right hand. Splinter hemorrhage on nail of right hand as well which is concerning d/t pts. hx of endocarditis. Pt. reports CP for the past two days that was centralized in chest w/o radiation. Pt. somnolent on most of exam unless vigorously sternal rubbed. Past Med Surg Social Fam HX - Past Medical History Source: patient, old records reviewed Medical history: hepatitis Additional medical history: hepatitis C. endocarditis Psychiatric history: other, anxiety, bipolar, depression, PTSD - Past Surgical History Surgical History: other Additional surgical history: D&C. R shoulder - Social History Smoking Status: Current every day smoker Packs per day: 1 PPD Smokeless Tobacco Status: No Alcohol use: none Drug use: cocaine, opiates (Heroin), marijuana, methamphetamine, IV Drug Use, prescription drug abuse, other Current living situation: Home Activity Level: Independent ambulation Recent Out of Country Travel Within the Last 8 Weeks: No Exposure or Possible Exposure to Illness During Travel: No - Family History Father Race: Family Member Ethnicity: Non- Living Status: Age at : 47 Cause of : Unknown Hx Family Cardiac Disorders: Yes (Bypass surgery) Mother Race: Family Member Ethnicity: Non- Living Status: Still Living Hx Family Psychosocial Disorders: Yes (Drug addiction to meth (Ice)) Brother Race: Family Member Ethnicity: Non- Living Status: Still Living Hx Family Medical Disorders: No Internal Medicine - H&P: Meds No Known Home Drugs 04/21/18 [History] 3 Allergy/AdvReac Type Severity Reaction Status Date / Time No Known Allergies Allergy Verified 06/17/18 12:29 ROS unobtainable: due to mental status All Systems PM: A 10-system review of systems was performed and is negative for pertinent findings except as documented above in the HPI. Review of systems: See systems that pt. was able to review - Constitutional Constitutional: as per HPI, chills, fever(s), no night sweats - Cardiovascular Cardiovascular ROS IM: as per HPI, chest pain, no diaphoresis, no dyspnea, no lightheadedness, no palpitations, no syncope - Integumentary Integumentary IM: as per HPI, erythema (Right hand, third digit), sores (Right hand, third digit) - Constitutional Vitals: Temp Pulse Resp BP Pulse Ox 98.2 F 86 16 118/93 100 06/17/18 10:00 06/17/18 14:47 06/17/18 14:47 06/17/18 14:47 06/17/18 14:47 General appearance: Present: A&O X 1, disheveled Exam: Pt. sleeping in bed and remains awake after vigorous sternal rubbing momentarily. States she used heroin yesterday along with Xanax (dosing of Xanax unclear: pt. states she took 9 mg which would be 4.5 Zani bars, and then states she took 1.5 Zani bars). States she used meth the day before. D/t pts. AMS and inability to provide accurate information, it is unclear as to the etiology of the purpose of the OD and whether or not self-harm/suicide was a factor. Pt. also reports CP for two days. Track martinez present on right arm. Swelling and erythema of third digit of right hand. Pt. denies injecting into this digit. VS : HR 100, RR 16, BP 126/95, SpO2 99% on RA. Somnolent. - Head Additional comments: Pt. has laceration above right eye and sore on right cheek. - Eye Eye exam: Present: PERRL, conjuntiva pink, sclera anicteric Pupils: Present: PERRL - ENT ENT exam: Present: normal exam - Neck Neck exam general surgery: Present: normal inspection - Respiratory Respiratory exam: Present: CTAB. Absent: accessory muscle use, rales, rhonchi, wheezes - Cardiovascular Cardiovascular exam: Present: +S1, +S2, tachycardia. Absent: diastolic murmur, gallop, rubs, systolic murmur - GI/Abdominal GI/Abdominal exam: Present: normal bowel sounds, soft, no peritoneal signs. Absent: distended, tenderness - Rectal Rectal exam: Present: deferred - Additional comments: exam deferred. - Extremities Exam Extremities exam: Present: warm, radial pulses palpable and symmetrical. Absent : calf tenderness, cyanotic, pedal edema - Neurological Exam Neurological exam: Present: altered - Skin Skin exam: Present: erythema (Erythema and edema present on left arm around what appears to be injection martinez, laceration above right eye, and sore on right cheek.) Internal Med - H&P Results - Labs CBC & Chem 7: 06/17/18 10:26 06/17/18 10:26 - Diagnostic Studies Chest x-ray Additional comments: Impressions Chest X-Ray 06/17/18 10:11 IMPRESSION: No evidence of acute cardiopulmonary disease. D/ / Edmond Britt MD / Edmond Britt MD Interpreting Provider: Edmond Britt MD CT scan - head Additional comments: Impressions Hand CT 06/17/18 11:20 IMPRESSION: 1. Soft tissue swelling of the 3rd digit with focal region of hypoattenuation distally measuring 0.6 x 1.4 x 1.6 cm. Findings highly suspicious for abscess versus phlegmon given history. 2. Small amount of fluid along the flexor and extensor tendon sheath of the 3rd digit compatible with tenosynovitis. 3. No CT evidence for osteomyelitis. D/ / Toño Parra MD / Toño Parra MD Interpreting Provider: Toño Parra MD - Assessment and plan (1) Overdose, drug Current Visit: Yes Status: Acute Assessment and plan: Acute OD w/undetermined intent for self-harm. Pt. has extensive drug abuse hx including cocaine, meth, heroin, prescription drug abuse (Xanax), and marijuana presents from the ED w/CC of AMS d/t OD. Pt. is hard to rouse and falls immediately back to sleep following sternal rubs. Pt. states that she used heroin yesterday as well as 9 mg of Xanax (pt. is unclear on dosing. States she took 9 mg which would equal 4.5 Zani bars. Stated earlier that she took 1.5 Zani bars which would equal 3 mg of Xanax). Pt. reports she used meth the day before yesterday. Pt. states she has hx of endocarditis and was seen at [facility] last week for cellulitis of the face. Reports fever/chills for past two days. Pain and swelling in third digit of right hand. Splinter hemorrhage on nail of right hand as well which is concerning d/t pts. hx of endocarditis. Stat urine tox screen ordered. Aspiration precautions. NPO. [facility]. SW consult for drug rehabilitation. Consider Psychiatry consult if suicidal ideations are present when pt. is more A&O. IVPB vancomycin and Zosyn d/t hx of endocarditis and current abscess of third digit of right hand. Continuous cardiac monitoring. Supplemental O2 w/titration and SpO2 monitoring. Sitter. VS Q4HR. Pt. discussed w/Dr. Rey who agrees w/plan of care. Pt. is high risk for further morbidity and complications d/t current OD of unknown drugs and quantity , report of CP, hx of endocarditis and MRSA, and risk factors. Observation. Qualifiers: Encounter type: initial encounter Injury intent: undetermined intent Qualified Code(s): T50.904A - Poisoning by unspecified drugs, medicaments and biological substances, undetermined, initial encounter (2) Flexor tenosynovitis of finger Current Visit: Yes Status: Acute Assessment and plan: Acute flexor tenosynovitis of third digit of right hand. CT of the right hand today shows soft tissue swelling of the third digit with focal region of hypoattenuation distally measuring 0.61.41.6 cm. Findings highly suspicious for abscess versus phlegmon given history. Small amount of fluid along the flexor and extensor tendon sheath of the third digit compatible with tenosynovitis. No CT evidence of osteomyelitis. IVPB vancomycin and Zosyn started in ED and will continue. Monitor pt. and f/u labs for signs of increasing infection. Blood cultures x 2 ordered. Ortho consult placed in ED and I appreciate the consult and recommendations. Consider ID consult based on culture results d/t hx of endocarditis. (3) Chest pain Current Visit: Yes Status: Acute Assessment and plan: Acute CP for the past two days. Effects of OD versus endocarditis. Pt. states centralized w/o radiation. Hx of endocarditis. Denies CP on exam. Echocardiogram on 04/21/18 shows LVEF of 60%, normal left ventricular diastolic function, normal right ventricular structure and function, mild tricuspid regurgitation, and no pulmonary hypertension. Initial troponin <0.03. Will trend. Continuous cardiac telemetry. Qualifiers: Chest pain type: other chest pain Qualified Code(s): R07.89 - Other chest pain; R07.8 - Other chest pain (4) Altered mental status Current Visit: Yes Status: Acute Assessment and plan: Acute AMS d/t drug OD. Somnolent. ED nurse reports that pt. received 2 mg IVP Narcan en route to ED w/o results. Pt. responds only momentarily to vigorous sternal rubbing. Pt. states that she used heroin yesterday as well as 9 mg of Xanax (pt. is unclear on dosing. States she took 9 mg which would equal 4.5 Zani bars. Stated earlier that she took 1.5 Zani bars which would equal 3 mg of Xanax). Pt. reports she used meth the day before yesterday. NPO. Aspiration precautions. [facility]. Qualifiers: Altered mental status type: somnolence Qualified Code(s): R40.0 - Somnolence (5) Hepatitis C Current Visit: Yes Status: Chronic Assessment and plan: Hx of chronic hepatitis C, likely d/t IV drug abuse hx. AST 12 and ALT 9 on admission. Qualifiers: Viral hepatitis chronicity: chronic Hepatic coma status: without hepatic coma Qualified Code(s): B18.2 - Chronic viral hepatitis C (6) Tobacco abuse Current Visit: Yes Status: Chronic Assessment and plan: Hx of chronic tobacco abuse. Pt. reports smoking 1 PPD. 21 mg nicotine patch ordered. (7) IV drug abuse Current Visit: Yes Status: Chronic Assessment and plan: Hx of chronic IV drug abuse. Track martinez present on left arm on exam. Pt. states she uses heroin, meth, and cocaine predominantly. Reports that her mother is addicted to Ice (meth). SW consult for rehabilitation placement. (8) DVT prophylaxis Current Visit: Yes Status: Acute Assessment and plan: Bilateral SCDs on LEs for DVT prophylaxis. - Time Spent With Patient Total time spent is greater than 50% in coordination of care (as documented) at patient's floor/unit and/or counseling patient: Greater than 35 minutes <Babak Rey - Last Filed: 06/18/18 15:12> Date of Encounter: 06/18/18 Internal Medicine - H&P: HPI History of present illness: Ms. Pollard is a 33 year old female All Systems PM: A 10-system review of systems was performed and is negative for pertinent findings except as documented above in the HPI. - Constitutional Vitals: Temp Pulse Resp BP Pulse Ox 98.2 F 99 16 105/71 100 06/18/18 11:12 06/18/18 11:12 06/18/18 11:12 06/18/18 11:12 06/18/18 11:12 Internal Med - H&P Results - Labs CBC & Chem 7: 06/18/18 04:00 06/18/18 04:00 Labs: Short CBC 06/18/18 Range/Units 04:00 WBC 8.9 (4.3-11.1) K/mcL Hgb 12.0 (11.5-15.4) g/dL Hct 36.7 (35.3-44.9) % Plt Count 291 (140-400) K/mcL Neutrophils # 6.4 (1.6-8.9) K/mcL BMP 06/18/18 04:00 Sodium 135 L Potassium 3.5 Chloride 105 Carbon Dioxide 23 BUN 9 Creatinine 0.55 L Glucose 84 Calcium 8.7 Cardiac Enzymes 06/17/18 06/17/18 Range/Units 16:13 22:18 Troponin I < 0.03 < 0.03 (< 0.04) ng/mL Liver Function 06/18/18 Range/Units 04:00 Total Bilirubin 0.7 (0.3-1.0) mg/dL AST 14 (13-39) Units/L ALT 8 (7-52) Units/L Alkaline Phosphatase 80 (34-104) Units/L Albumin 3.5 (3.5-5.7) g/dL Urine 06/17/18 Range/Units 17:15 Urine Color Yellow (Yellow) Urine Clarity Cloudy A (Clear) Urine pH 7.0 (5.0-8.0) pH Units Ur Specific [place] 1.015 (1.010-1.025) Urine Protein 30 H (Neg-Trace) mg/dL Urine Glucose (UA) Normal (Normal) mg/dL - Impressions ITS Impressions Chest CTA 06/18/18 11:04 IMPRESSION: No evidence of pulmonary embolism or acute pulmonary abnormality. D/ / 06/18/2018 12:52:05 Howie Lopez MD / [facility] Interpreting Provider: Howie Lopez MD - Assessment and plan (1) DVT prophylaxis Current Visit: Yes Status: Acute (2) IV drug abuse Current Visit: Yes Status: Chronic (3) Altered mental status Current Visit: Yes Status: Acute Qualifiers: Altered mental status type: somnolence Qualified Code(s): R40.0 - Somnolence (4) Overdose, drug Current Visit: Yes Status: Acute Qualifiers: Encounter type: initial encounter Injury intent: undetermined intent Qualified Code(s): T50.904A - Poisoning by unspecified drugs, medicaments and biological substances, undetermined, initial encounter (5) Flexor tenosynovitis of finger Current Visit: Yes Status: Acute (6) Chest pain Current Visit: Yes Status: Acute Qualifiers: Chest pain type: other chest pain Qualified Code(s): R07.89 - Other chest pain; R07.8 - Other chest pain (7) Hepatitis C Current Visit: Yes Status: Chronic Qualifiers: Viral hepatitis chronicity: chronic Hepatic coma status: without hepatic coma Qualified Code(s): B18.2 - Chronic viral hepatitis C (8) Tobacco abuse Current Visit: Yes Status: Chronic - Time Spent With Patient Total time spent is greater than 50% in coordination of care (as documented) at patient's floor/unit and/or counseling patient: - Attending Attestation Seen and assessed. Continue management for drug overdose. Agree with plan per TENON MACHINE OPERATOR
[2018-06-17 15:21] LABS: Acetaminophen < 10 mcg/mL (10-20); Ethanol < 10 mg/dL (Less than 10); Salicylate < 2.5 mg/dL (15.0-30.0)
[2018-06-17 17:34] LABS: Bilirubin,Urine Negative (Negative); Blood,Urine Large (Negative); Clarity,Urine Cloudy (Clear); Color,Urine Yellow (Yellow); Glucose,Urine (UA) Normal (Normal); Ketones,Urine Negative (Negative); Leukocyte Esterase,Urine Negative (Negative); Nitrite,Urine Positive (Negative); Protein,Urine 30 mg/dL (Neg-Trace); Specific Gravity,Urine 1.015 (1.010-1.025)
[2018-06-17 17:39] LABS: Amorphous Sediment,Urine Few (Few); Bacteria,Urine Few per hpf (None-Few); RBC,Urine 15-30 per hpf (0-3); WBC,Urine 0-3 per hpf (0-3)
[2018-06-17 17:47] LABS: Amphetamine Screen,Urine Positive ng/mL (Cutoff=1000); Barbiturate Screen,Urine Negative ng/mL (Cutoff=200); Benzodiazepines Screen,Urine Positive ng/mL (Cutoff=200); Cannabinoid Screen,Urine Negative ng/mL (Cutoff = 50); Cocaine Screen,Urine Positive ng/mL (Cutoff= 300); Opiate Screen,Urine Positive ng/mL (Cutoff=300); Phencyclidine Screen,Urine Negative ng/mL (Cutoff=25)
[2018-06-17] MEDS: Nicotine 21 MG PATCH.TD24 TD SCH (18:11)
[2018-06-17] MEDS: 0.9 % Sodium Chloride 1,000 ML IVC SCH (18:11)
[2018-06-17] MEDS: Acetaminophen 325 MG TABLET PO PRN (20:49)
[2018-06-17] MEDS: Piperacillin/Tazobactam 3.375 GM in 0.9 % Sodium Chloride Mini Bag 100 ML IVPB SCH (23:56)
[2018-06-18] MEDS: Ketorolac 15 MG/ML VIAL IVP PRN ×3 (02:45→17:38)
[2018-06-18] MEDS: *HR* LORazepam 1 MG TABLET PO SCH ×3 (02:45→11:12)
[2018-06-18 05:15] LABS: Basophils # 0.1 K/mcL (0.0-0.2); Basophils % 0.6 %; Eosinophils # 0.2 K/mcL (0.0-0.6); Eosinophils % 2.3 %; Hematocrit 36.7 % (35.3-44.9); Immature Granulocytes % 0.2 % (0-4); Lymphocytes # 1.9 K/mcL (0.6-4.6); Lymphocytes % 21.6 %; Mean Corpuscular HGB Conc 32.7 g/dL (31.6-35.5); Mean Corpuscular Volume 85.5 fL (83.0-100.0); Monocytes # 0.3 K/mcL (0.0-1.3); Monocytes % 3.6 %; Neutrophils # 6.4 K/mcL (1.6-8.9); Platelet Count 291 K/mcL (140-400); Red Blood Count 4.29 M/mcL (3.82-4.97); Red Cell Distribution Width 13.8 % (11.5-14.5); Segmented Neutrophils % 71.7 %
[2018-06-18 05:35] LABS: Alanine Aminotransferase 8 Units/L (7-52); Albumin 3.5 g/dL (3.5-5.7); Albumin/Globulin Ratio 1.1 (1.1-2.2); Alkaline Phosphatase 80 Units/L (34-104); Aspartate Amino Transferase 14 Units/L (13-39); BUN/Creatinine Ratio 16 (6-26); Bilirubin,Total 0.7 mg/dL (0.3-1.0); Blood Urea Nitrogen 9 mg/dL (6-20); Calcium 8.7 mg/dL (8.6-10.3); Carbon Dioxide 23 mEq/L (23-29); Chloride 105 mEq/L (98-107); Chol/HDL Ratio 3.1 (0-4.9); Cholesterol 118 mg/dL (< 200); Globulin 3.3 g/dL (2.4-3.5); Glucose 84 mg/dL (70-105); HDL Cholesterol 38 mg/dL (40-59); LDL Cholesterol,Calculated 60 mg/dL (0-99); Magnesium 1.9 mg/dL (1.6-2.6); Osmolality,Calculated 278 (280-300); Phosphorous 3.2 mg/dL (2.7-4.5); Potassium 3.5 mEq/L (3.5-5.1); Sodium 135 mEq/L (136-145); Total Protein 6.8 g/dL (6.4-8.9); Triglycerides 101 mg/dL (< 150); eGFR For Non-African Americans > 60 (> 60)
[2018-06-18] MEDS: Piperacillin/Tazobactam 3.375 GM in 0.9 % Sodium Chloride Mini Bag 100 ML IVPB SCH ×2 (10:34→16:35)
[2018-06-18] MEDS: Nicotine 21 MG PATCH.TD24 TD SCH (10:36)
--- NOTE | 2018-06-18 10:42 | Internal Med Progress Note ---
Hospitalist Progress Note - Encounter Date of Encounter: 06/18/18 Time of Encounter: 08:00 - Subjective Interval History: Pt is still sleepy but can be waken up with verbal stimulation. Denies fever, nausea, mild nonproductive cough. State she is incidentally overdose, denies SI. - Exam Vitals: Temp Pulse Resp BP Pulse Ox 98.2 F 85 18 111/77 100 06/18/18 04:00 06/18/18 07:56 06/18/18 04:00 06/18/18 07:56 06/18/18 07:56 Exam: Pt is sleepy, but can be waken up. Oriented x 3 HEENT: NC/AT, PERRL Neck: Supple, no JVD, no LAD Lungs: CTA b/l Heart: S1S2, RRR Abd: Soft, NT Ext: Rt third figure swelling, tender. No pedal edema Neuro: No focal deficit. - Assessment and Plan (1) DVT prophylaxis Current Visit: Yes Status: Acute Assessment and Plan: Bilateral SCDs on LEs for DVT prophylaxis. (2) IV drug abuse Current Visit: Yes Status: Chronic Assessment and Plan: Hx of chronic IV drug abuse. Track martinez present on left arm on exam. Pt. states she uses heroin, meth, and cocaine predominantly. Reports that her mother is addicted to Ice (meth). SW consult for rehabilitation placement. (3) Altered mental status Current Visit: Yes Status: Acute Assessment and Plan: Acute AMS d/t drug OD. Improved mental status. Unremarkable renal/liver function. EKG no QT prolongation. - Cont closely monitoring in tele. (4) Overdose, drug Current Visit: Yes Status: Acute Assessment and Plan: Acute OD w/undetermined intent for self-harm. Pt. has extensive drug abuse hx including cocaine, meth, heroin, prescription drug abuse (Xanax), and marijuana presents from the ED w/CC of AMS d/t OD. Pt. is hard to rouse and falls immediately back to sleep following sternal rubs. Pt. states that she used heroin yesterday as well as 9 mg of Xanax (pt. is unclear on dosing. States she took 9 mg which would equal 4.5 Zani bars. Stated earlier that she took 1.5 Zani bars which would equal 3 mg of Xanax). Pt. reports she used meth the day before yesterday. Pt. states she has hx of endocarditis and was seen at [facility] last week for cellulitis of the face. Reports fever/chills for past two days. Pain and swelling in third digit of right hand. Splinter hemorrhage on nail of right hand as well which is concerning d/t pts. hx of endocarditis. Stat urine tox screen ordered. Aspiration precautions. NPO. [facility]. SW consult for drug rehabilitation. Consider Psychiatry consult if suicidal ideations are present when pt. is more A&O. IVPB vancomycin and Zosyn d/t hx of endocarditis and current abscess of third digit of right hand. Continuous cardiac monitoring. Supplemental O2 w/titration and SpO2 monitoring. Sitter. VS Q4HR. Pt. discussed w/Dr. Rey who agrees w/plan of care. Pt. is high risk for further morbidity and complications d/t current OD of unknown drugs and quantity , report of CP, hx of endocarditis and MRSA, and risk factors. Observation. - Pt denies SI to me today, cont closely monitoring. (5) Flexor tenosynovitis of finger Current Visit: Yes Status: Acute Assessment and Plan: Cont Abx at this point. Orth consult. (6) Chest pain Current Visit: Yes Status: Acute Assessment and Plan: Still c/o chest pain in mid chest. Similar symptoms one month ago and had CTA which is negative for PE, and TTE which is unremarkable . No fever. - Three troponin negative. - Will repeat Echo and CTA to r/o endocarditis, septic embli, or PE. (7) Hepatitis C Current Visit: Yes Status: Chronic Assessment and Plan: Hx of chronic hepatitis C, likely d/t IV drug abuse hx. AST 12 and ALT 9 on admission. (8) Tobacco abuse Current Visit: Yes Status: Chronic Assessment and Plan: Hx of chronic tobacco abuse. Pt. reports smoking 1 PPD. 21 mg nicotine patch ordered. - Time Spent with Patient Total time spent is greater than 50% in coordination of care (as documented) at patient's floor/unit and/or counseling patient: 40 min Greater than 35 minutes Plan of Care Discussed with: patient Internal Medicine: Result - Labs CBC & Chem 7: 06/18/18 04:00 06/18/18 04:00 Labs: Short CBC 06/18/18 Range/Units 04:00 WBC 8.9 (4.3-11.1) K/mcL Hgb 12.0 (11.5-15.4) g/dL Hct 36.7 (35.3-44.9) % Plt Count 291 (140-400) K/mcL Neutrophils # 6.4 (1.6-8.9) K/mcL BMP 06/18/18 04:00 Sodium 135 L Potassium 3.5 Chloride 105 Carbon Dioxide 23 BUN 9 Creatinine 0.55 L Glucose 84 Calcium 8.7 Cardiac Enzymes 06/17/18 06/17/18 Range/Units 16:13 22:18 Troponin I < 0.03 < 0.03 (< 0.04) ng/mL Liver Function 06/18/18 Range/Units 04:00 Total Bilirubin 0.7 (0.3-1.0) mg/dL AST 14 (13-39) Units/L ALT 8 (7-52) Units/L Alkaline Phosphatase 80 (34-104) Units/L Albumin 3.5 (3.5-5.7) g/dL Urine 06/17/18 Range/Units 17:15 Urine Color Yellow (Yellow) Urine Clarity Cloudy A (Clear) Urine pH 7.0 (5.0-8.0) pH Units Ur Specific [place] 1.015 (1.010-1.025) Urine Protein 30 H (Neg-Trace) mg/dL Urine Glucose (UA) Normal (Normal) mg/dL Consult Discharge Plan - Plan Referrals: NONE,PCP [Primary Care Provider] - (3) Altered mental status Qualifiers: Altered mental status type: somnolence Qualified Code(s): R40.0 - Somnolence (4) Overdose, drug Qualifiers: Encounter type: initial encounter Injury intent: undetermined intent Qualified Code(s): T50.904A - Poisoning by unspecified drugs, medicaments and biological substances, undetermined, initial encounter (6) Chest pain Qualifiers: Chest pain type: other chest pain Qualified Code(s): R07.89 - Other chest pain; R07.8 - Other chest pain (7) Hepatitis C Qualifiers: Viral hepatitis chronicity: chronic Hepatic coma status: without hepatic coma Qualified Code(s): B18.2 - Chronic viral hepatitis C
[2018-06-18] MEDS ORDERED: Isovue-370 500 ML INFUS..BTL IV ONE (11:04)
--- NOTE | 2018-06-18 15:34 | Psychiatry Progress Note ---
Date of Encounter: 06/18/18 Time of Encounter: 15:00 Subjective Interval history: Psychiatric consultation note: 34 years old female admitted to the hospital for treatment of drug overdose opiates. Long history of multiple drug abuse including cocaine methamphetamine IV drugs etc. patient is currently lethargic and unable to respond to verbal communication. No records to support any psychiatric history or mental health' s treatment. There is no evidence that this ingestion was a suicide attempt interview with the patient history of multiple drug use. Recommendation: Patient could not be evaluated and interviewed due to her condition off lethargy. Please reconsult when her condition improved. Thank you for consultation. Results - Vital Signs Vital Signs: Temp Pulse Resp BP Pulse Ox 98.2 F 99 16 105/71 100 06/18/18 11:12 06/18/18 11:12 06/18/18 11:12 06/18/18 11:12 06/18/18 11:12 - Drug Levels and Toxicology Drug Levels and Toxicology: Drug Levels and Toxicity 06/17/18 17:15 Urine Opiates Screen Positive H Ur Barbiturates Screen Negative Ur Phencyclidine Scrn Negative Ur Amphetamines Screen Positive H U Benzodiazepines Scrn Positive H Urine Cocaine Screen Positive H U Marijuana (THC) Screen Negative - Labs Labs: Laboratory Results - last 24 hr 06/17/18 06/17/18 06/17/18 15:59 16:13 17:15 WBC RBC Hgb Hct MCV MCH MCHC RDW Plt Count MPV Immature Gran % Seg Neutrophils % Lymphocytes % Monocytes % Eosinophils % Basophils % Neutrophils # Lymphocytes # Monocytes # Eosinophils # Basophils # Sodium Potassium Chloride Carbon Dioxide BUN Creatinine Est GFR ( Amer) Est GFR (Non-Af Amer) BUN/Creatinine Ratio Glucose POC Glucose 92 Calculated Osmolality Calcium Phosphorus Magnesium Total Bilirubin AST ALT Alkaline Phosphatase Troponin I < 0.03 Serum Total Protein Albumin Globulin Albumin/Globulin Ratio Triglycerides Cholesterol LDL Cholesterol, Calc VLDL Cholesterol, Calc HDL Cholesterol Cholesterol/HDL Ratio Urine Color Yellow Urine Clarity Cloudy A Urine pH 7.0 Ur Specific [place] 1.015 Urine Protein 30 H Urine Glucose (UA) Normal Urine Ketones Negative Urine Blood Large H Urine Nitrite Positive A Urine Bilirubin Negative Urine Urobilinogen 2.0 H Ur Leukocyte Esterase Negative Urine Microscopic RBC 15-30 H Urine Microscopic WBC 0-3 Amorphous Sediment Few Urine Bacteria Few Ur Culture Indicated? YES A Urine Opiates Screen Ur Barbiturates Screen Ur Phencyclidine Scrn Ur Amphetamines Screen U Benzodiazepines Scrn Urine Cocaine Screen U Marijuana (THC) Screen Ur Drug Screen Interp 06/17/18 06/17/18 06/17/18 17:15 19:56 22:18 WBC RBC Hgb Hct MCV MCH MCHC RDW Plt Count MPV Immature Gran % Seg Neutrophils % Lymphocytes % Monocytes % Eosinophils % Basophils % Neutrophils # Lymphocytes # Monocytes # Eosinophils # Basophils # Sodium Potassium Chloride Carbon Dioxide BUN Creatinine Est GFR ( Amer) Est GFR (Non-Af Amer) BUN/Creatinine Ratio Glucose POC Glucose 103 H Calculated Osmolality Calcium Phosphorus Magnesium Total Bilirubin AST ALT Alkaline Phosphatase Troponin I < 0.03 Serum Total Protein Albumin Globulin Albumin/Globulin Ratio Triglycerides Cholesterol LDL Cholesterol, Calc VLDL Cholesterol, Calc HDL Cholesterol Cholesterol/HDL Ratio Urine Color Urine Clarity Urine pH Ur Specific [place] Urine Protein Urine Glucose (UA) Urine Ketones Urine Blood Urine Nitrite Urine Bilirubin Urine Urobilinogen Ur Leukocyte Esterase Urine Microscopic RBC Urine Microscopic WBC Amorphous Sediment Urine Bacteria Ur Culture Indicated? Urine Opiates Screen Positive H Ur Barbiturates Screen Negative Ur Phencyclidine Scrn Negative Ur Amphetamines Screen Positive H U Benzodiazepines Scrn Positive H Urine Cocaine Screen Positive H U Marijuana (THC) Screen Negative Ur Drug Screen Interp See Below 06/18/18 06/18/18 04:00 04:00 WBC 8.9 RBC 4.29 Hgb 12.0 Hct 36.7 MCV 85.5 MCH 28.0 MCHC 32.7 RDW 13.8 Plt Count 291 MPV 11.0 Immature Gran % 0.2 Seg Neutrophils % 71.7 Lymphocytes % 21.6 Monocytes % 3.6 Eosinophils % 2.3 Basophils % 0.6 Neutrophils # 6.4 Lymphocytes # 1.9 Monocytes # 0.3 Eosinophils # 0.2 Basophils # 0.1 Sodium 135 L Potassium 3.5 Chloride 105 Carbon Dioxide 23 BUN 9 Creatinine 0.55 L Est GFR ( Amer) > 60 Est GFR (Non-Af Amer) > 60 BUN/Creatinine Ratio 16 Glucose 84 POC Glucose Calculated Osmolality 278 L Calcium 8.7 Phosphorus 3.2 Magnesium 1.9 Total Bilirubin 0.7 AST 14 ALT 8 Alkaline Phosphatase 80 Troponin I Serum Total Protein 6.8 Albumin 3.5 Globulin 3.3 Albumin/Globulin Ratio 1.1 Triglycerides 101 Cholesterol 118 LDL Cholesterol, Calc 60 VLDL Cholesterol, Calc 20 HDL Cholesterol 38 L Cholesterol/HDL Ratio 3.1 Urine Color Urine Clarity Urine pH Ur Specific [place] Urine Protein Urine Glucose (UA) Urine Ketones Urine Blood Urine Nitrite Urine Bilirubin Urine Urobilinogen Ur Leukocyte Esterase Urine Microscopic RBC Urine Microscopic WBC Amorphous Sediment Urine Bacteria Ur Culture Indicated? Urine Opiates Screen Ur Barbiturates Screen Ur Phencyclidine Scrn Ur Amphetamines Screen U Benzodiazepines Scrn Urine Cocaine Screen U Marijuana (THC) Screen Ur Drug Screen Interp - Impressions ITS Impressions Chest CTA 06/18/18 11:04 IMPRESSION: No evidence of pulmonary embolism or acute pulmonary abnormality. D/ / 06/18/2018 12:52:05 [facility] Provider: Howie Lopez MD Consult Discharge Plan - Plan Referrals: NONE,PCP [Primary Care Provider] - Psychiatry Exam - Constitutional Vitals: Temp Pulse Resp BP Pulse Ox 98.2 F 99 16 105/71 100 06/18/18 11:12 06/18/18 11:12 06/18/18 11:12 06/18/18 11:12 06/18/18 11:12
[2018-06-18] MEDS: Acetaminophen 325 MG TABLET PO PRN (17:39)
--- NOTE | 2018-06-18 18:19 | Orthopedic Consult Note ---
Date of Encounter: 06/18/18 Time of Encounter: 17:00 Assessment and Plan (1) Abscess of right middle finger Current Visit: Yes Status: Acute Discussed case with Dr. Camilo and reviewed pictures of the finger with him. Discussed concern for possible flexor tenosynovitis vs abscess. He recommended unroofing the abscess to volar side of distal finger to allow for drainage. I discussed the procedure as well as r/b/a with the patient and she expressed understanding. All questions answered and consent was obtained. The right long finger was prepped with betadine then the abscess was unroofed using a 18gauge needle. Significant amount purulent drainage was expressed from the roughly 3cm opening made to volar finger. Patient would not tolerate opening this further or any further palpation of area to express further purulent material. Aerobic and anerobic wound cultures were collected and given to nurse. sterile gauze dressings applied. Begin local wound care cleansing with soap/water daily and keep covered. Elevate RUE inside stockinette from IV pole ROM as tolerated. Needs to remove ring from right ring finger, If patient unable to remove then should be cut off. Continue IV abx per hospitalist fay. Pain control per hospitalist group. (2) Flexor tenosynovitis of finger Current Visit: Yes Status: Acute History of Present Illness Chief complaint: right long finger infection HPI: Ms. Pollard is a 33 year old female who was brought to the ER by EMS due to being found laying on the curb asleep and admitted for altered mental status from overdose. She admits to recent drug use including heroin, cocaine, xanax along with h/o meth and marijuana use. She has h/o endocarditis and multiple recent infections including face cellulitis 2 weeks ago. States she had MRSA infection to arm about 2 years ago but she does not remember which arm. States she was treated for hepA 2 weeks ago as well. She was found to have a right long finger infection with increased swelling and redness that she first noted 2 days ago and states has worsened since that time. HAs had significant pain to finger that does not radiate from the finger. Denies numbness to finger. Denies any open wounds or drainage from finger. Denies any known injury to the finger, denies known insect bites, denies injecting drugs to finger. Admits to having fevers. She has been having chest pains although none currently. She is left hand dominant. Past Med Surg Social Fam HX - Past Medical History Medical history: hepatitis Additional medical history: hepatitis C. endocarditis Psychiatric history: other, anxiety, bipolar, depression, PTSD - Past Surgical History Surgical History: other Additional surgical history: D&C. R shoulder - Social History Smoking Status: Current every day smoker Packs per day: 1 PPD Smokeless Tobacco Status: No Alcohol use: none Drug use: cocaine, opiates, marijuana, methamphetamine, IV Drug Use, prescription drug abuse, other - Family History Father Race: Family Member Ethnicity: Non- Living Status: Age at : 47 Cause of : Unknown Hx Family Cardiac Disorders: Yes (Bypass surgery) Hx Family Respiratory Disorders: Yes Hx Family GI Disorders: Yes Mother Race: Family Member Ethnicity: Non- Living Status: Still Living Hx Family Psychosocial Disorders: Yes (Drug addiction to meth (Ice)) Brother Race: Family Member Ethnicity: Non- Living Status: Still Living Hx Family Medical Disorders: No Medications and Allergies No Known Home Drugs 04/21/18 [History] 3 Allergy/AdvReac Type Severity Reaction Status Date / Time No Known Allergies Allergy Verified 06/17/18 12:29 All Systems Reviewed: The remainder of the systems were reviewed and are negative - Constitutional Constitutional: as per HPI - Cardiovascular Cardiovascular: as per HPI - Respiratory Respiratory: as per HPI - Musculoskeletal Musculoskeletal: as per HPI Physical Exam - Constitutional Vitals: Temp Pulse Resp BP Pulse Ox 98 F 89 16 111/78 100 06/18/18 15:59 06/18/18 15:59 06/18/18 15:59 06/18/18 15:59 06/18/18 15:59 - Wrist & Hand right Location of pain: long finger (swelling to right long finger worse distally to DIPJ comparted to proximal phalanx. finger held in flexed postion. abscess fluid collection noted under sking on volar site centered of DIPJ extending to middle and distal phalanx. no open wounds or drainage. significant tenderness with palpation along the tendon sheath and with passive extension of finger worse distally. brisk cap refill. grossly NV intact. ) Results - Labs Result Diagrams: 06/18/18 04:00 06/18/18 04:00 Labs: Abnormal lab results ESR 59 mm/hr (0-15) H 06/17/18 10:26 Sodium 135 mEq/L (136-145) L 06/18/18 04:00 Creatinine 0.55 mg/dL (0.60-1.20) L 06/18/18 04:00 POC Glucose 103 mg/dL (70-99) H 06/17/18 19:56 Calculated Osmolality 278 (280-300) L 06/18/18 04:00 Lactic Acid 0.4 mmol/L (0.5-2.2) L 06/17/18 10:26 C-Reactive Protein 36 mg/L (Less than 10) H 06/17/18 10:26 HDL Cholesterol 38 mg/dL (40-59) L 06/18/18 04:00 Urine Clarity Cloudy (Clear) A 06/17/18 17:15 Urine Protein 30 mg/dL (Neg-Trace) H 06/17/18 17:15 Urine Blood Large (Negative) H 06/17/18 17:15 Urine Nitrite Positive (Negative) A 06/17/18 17:15 Urine Urobilinogen 2.0 mg/dL (Normal) H 06/17/18 17:15 Urine Microscopic RBC 15-30 per hpf (0-3) H 06/17/18 17:15 Ur Culture Indicated? YES (NO) A 06/17/18 17:15 Salicylates < 2.5 mg/dL (15.0-30.0) L 06/17/18 10:26 Urine Opiates Screen Positive ng/mL (Rufqnj=022) H 06/17/18 17:15 Acetaminophen < 10 mcg/mL (10-20) L 06/17/18 10:26 Ur Amphetamines Screen Positive ng/mL (Jrnbdk=1817) H 06/17/18 17:15 U Benzodiazepines Scrn Positive ng/mL (Oyaptx=457) H 06/17/18 17:15 Urine Cocaine Screen Positive ng/mL (Cutoff= 300) H 06/17/18 17:15 H & H 06/18/18 Range/Units 04:00 Hgb 12.0 (11.5-15.4) g/dL Hct 36.7 (35.3-44.9) % All other labs normal. - Diagnostic results Wrist/Hand CT: report reviewed, image reviewed Consult Discharge Plan - Plan Referrals: NONE,PCP [Primary Care Provider] - - Attending Attestation Case and plan of care discussed with supervising physician who was available for all aspects of care.
[2018-06-18] MEDS ORDERED: *HR* LORazepam 2 MG/ML VIAL IVP ONE (20:53)
[2018-06-19] MEDS: Ketorolac 15 MG/ML VIAL IVP PRN ×4 (00:24→23:43)
[2018-06-19] MEDS: Piperacillin/Tazobactam 3.375 GM in 0.9 % Sodium Chloride Mini Bag 100 ML IVPB SCH ×3 (00:27→19:02)
[2018-06-19 02:31] LABS: Basophils % 0.5 %; Eosinophils # 0.2 K/mcL (0.0-0.6); Eosinophils % 1.8 %; Hematocrit 35.7 % (35.3-44.9); Hemoglobin 12.2 g/dL (11.5-15.4); Immature Granulocytes % 0.3 % (0-4); Lymphocytes # 2.4 K/mcL (0.6-4.6); Lymphocytes % 27.4 %; Mean Corpuscular HGB Conc 34.2 g/dL (31.6-35.5); Mean Corpuscular Hemoglobin 29.1 pg (28.0-33.3); Mean Corpuscular Volume 85.2 fL (83.0-100.0); Mean Platelet Volume 10.1 fL (9.4-12.4); Monocytes # 0.4 K/mcL (0.0-1.3); Monocytes % 4.4 %; Neutrophils # 5.8 K/mcL (1.6-8.9); Platelet Count 291 K/mcL (140-400); Red Blood Count 4.19 M/mcL (3.82-4.97); Red Cell Distribution Width 13.3 % (11.5-14.5); Segmented Neutrophils % 65.6 %
[2018-06-19 02:51] LABS: Alanine Aminotransferase 7 Units/L (7-52); Albumin 3.3 g/dL (3.5-5.7); Albumin/Globulin Ratio 1.1 (1.1-2.2); Alkaline Phosphatase 87 Units/L (34-104); Aspartate Amino Transferase 11 Units/L (13-39); BUN/Creatinine Ratio 19 (6-26); Bilirubin,Total 0.4 mg/dL (0.3-1.0); Blood Urea Nitrogen 10 mg/dL (6-20); Calcium 8.4 mg/dL (8.6-10.3); Carbon Dioxide 24 mEq/L (23-29); Chloride 108 mEq/L (98-107); Glucose 110 mg/dL (70-105); Osmolality,Calculated 288 (280-300); Sodium 139 mEq/L (136-145); Total Protein 6.3 g/dL (6.4-8.9); eGFR For Non-African Americans > 60 (> 60)
[2018-06-19 09:49] LABS: Acinetobacter baumannii by PCR Not Detected (Not Detect); Candida albicans by PCR Not Detected (Not Detect); Candida glabrata by PCR Not Detected (Not Detect); Candida krusei by PCR Not Detected (Not Detect); Candida parapsilosis by PCR Not Detected (Not Detect); Candida tropicalis by PCR Not Detected (Not Detect); Enterobacter cloacae Cmplx PCR Not Detected (Not Detect); Enterobacteriaceae by PCR Not Detected (Not Detect); Enterococcus by PCR Not Detected (Not Detect); Escherichia coli by PCR Not Detected (Not Detect); Klebsiella oxytoca by PCR Not Detected (Not Detect); Klebsiella pneumoniae by PCR Not Detected (Not Detect); Proteus by PCR Not Detected (Not Detect); Pseudomonas aeruginosa by PCR Not Detected (Not Detect); Serratia marcescens by PCR Not Detected (Not Detect); Staphylococcus aureus by PCR Not Detected (Not Detect); Staphylococcus by PCR Not Detected (Not Detect); Streptococcus agalactiae(B)PCR Not Detected (Not Detect); Streptococcus by PCR Not Detected (Not Detect); Streptococcus pneumoniae PCR Not Detected (Not Detect); Streptococcus pyogenes (A) PCR Not Detected (Not Detect); blaKPC Carbapenem-Resist Gene Not Detected (Not Detect); mecA Methicillin-Resist Gene Not Detected (Not Detect); vanA/B Vancomycin-Resist Genes Not Detected (Not Detect)
[2018-06-19] MEDS: *HR* LORazepam 1 MG TABLET PO SCH (10:59)
[2018-06-19] MEDS: Acetaminophen 325 MG TABLET PO PRN ×3 (11:05→23:40)
[2018-06-19] MEDS: 0.9 % Sodium Chloride 1,000 ML IVC SCH ×5 (11:14→22:32)
[2018-06-19] MEDS: Nicotine 21 MG PATCH.TD24 TD SCH (11:16)
--- NOTE | 2018-06-19 11:30 | Internal Med Progress Note ---
Hospitalist Progress Note - Encounter Date of Encounter: 06/19/18 Time of Encounter: 11:28 - Subjective Interval History: Patient seen and evaluated at bedside, denies shortness of breath, fever or chills. States that she has had several OD episode on the past, denies suicide attempt. She says that. Reports right middle finger pain, swelling of the dorsum of the right hand. - Exam Vitals: Temp Pulse Resp BP Pulse Ox 98.9 F 88 18 107/88 99 06/19/18 07:00 06/19/18 07:00 06/19/18 07:00 06/19/18 07:00 06/19/18 07:00 Exam: General: Alert and oriented 2. Mild distress due to pain in right middle finger HEENT: Poor dentition. Cardiovascular:RRR, Normal S1 & S2, no rubs, murmurs or gallops. No JVD. Lungs: Clear breath sounds auscultation bilaterally, no wheezes or crackles. Abdomen: Soft, non-tender, no rigidity. NABS, in all 4 quadrants. No organomegaly. Extremities: Right middle finger erythema, pus collection. Tenderness to touch and warm. Neurological: Normal cognition and motor skills. Rest of the physical exam is non contributory - Assessment and Plan (1) Gram-negative bacteremia Current Visit: Yes Status: Acute Assessment and Plan: Blodd culture growing Gram negative Rods. Plan: continue anti-pseudomonal coverage with pipperacillin/tazobactam Continue Vancomycin 1mg/IV BID Vanco through as per Pharmacy protocol F/U blood and wound culture for antibiotics adjustment. 2D echo: no vegetation seen Will consider ID consult Increase normal saline to 100mls/hr Advance diet as tolerated. (2) Sepsis Current Visit: Yes Status: Acute Assessment and Plan: Plan of care as per Problem #1. (3) Abscess of right middle finger Current Visit: Yes Status: Acute Assessment and Plan: Plan: pain control with ketoraolac 15mg/IV Q6HR Will follow ortho recommendation patient might need repeat I&D on the right middle finger abscess. Continue current antibiotics (4) Overdose, drug Current Visit: Yes Status: Resolved Assessment and Plan: As per patient she has OD in the past multiple times accidentally. Denies suicide attempt. Denies suicidal or homicidal ideation. Plan: Psychiatry has been re-consulted, will f/u the recommendations. (5) Hepatitis C Current Visit: Yes Status: Chronic Assessment and Plan: Possible secondary to IV drug abuse. Plan Outpatient follow-up with infectious disease or outsole splicer for possible treatment whenever the patient is drugs free. Patient is not a candidate for treatment as the patient is still using IV drugs (6) DVT prophylaxis Current Visit: Yes Status: Acute Assessment and Plan: Started on heparin 5000 units subcutaneous twice a day for DVT prophylaxis. (7) Hypokalemia Current Visit: Yes Status: Acute Assessment and Plan: Electrolyte replaced. - Time Spent with Patient Total time spent is greater than 50% in coordination of care (as documented) at patient's floor/unit and/or counseling patient: Greater than 35 minutes Plan of Care Discussed with: patient (and the nurse.) Internal Medicine: Result - Labs CBC & Chem 7: 06/19/18 02:19 06/19/18 02:19 Labs: Short CBC 06/19/18 Range/Units 02:19 WBC 8.8 (4.3-11.1) K/mcL Hgb 12.2 (11.5-15.4) g/dL Hct 35.7 (35.3-44.9) % Plt Count 291 (140-400) K/mcL Neutrophils # 5.8 (1.6-8.9) K/mcL BMP 06/19/18 02:19 Sodium 139 Potassium 3.0 L Chloride 108 H Carbon Dioxide 24 BUN 10 Creatinine 0.53 L Glucose 110 H Calcium 8.4 L Liver Function 06/19/18 Range/Units 02:19 Total Bilirubin 0.4 (0.3-1.0) mg/dL AST 11 L (13-39) Units/L ALT 7 (7-52) Units/L Alkaline Phosphatase 87 (34-104) Units/L Albumin 3.3 L (3.5-5.7) g/dL - Impressions Impressions Chest CTA 06/18/18 11:04 IMPRESSION: No evidence of pulmonary embolism or acute pulmonary abnormality. D/ / 06/18/2018 12:52:05 Howie Lopez MD / [facility] Interpreting Provider: Howie Lopez MD Consult Discharge Plan - Plan Referrals: NONE,PCP [Primary Care Provider] - (2) Sepsis Qualifiers: Sepsis type: sepsis due to unspecified organism Qualified Code(s): A41.9 - Sepsis, unspecified organism (4) Overdose, drug Qualifiers: Encounter type: initial encounter Injury intent: undetermined intent Qualified Code(s): T50.904A - Poisoning by unspecified drugs, medicaments and biological substances, undetermined, initial encounter (5) Hepatitis C Qualifiers: Viral hepatitis chronicity: chronic Hepatic coma status: without hepatic coma Qualified Code(s): B18.2 - Chronic viral hepatitis C
[2018-06-19] MEDS ORDERED: Lidocaine 1% 20 ML MDV INFILT ONE (15:11)
--- NOTE | 2018-06-19 16:15 | Orthopedic Operative Note ---
Date of procedure: 06/19/18 Pre-op diagnosis: Right long finger volar pulp space abscess over the flexor tendon sheath Post-op diagnosis: same Procedure: Right long finger incision and drainage of pulp space abscess over the flexed tendon sheath Procedure: Indications: The patient is 14 woman who presents with a right long finger abscess the CT scan showing fluid above the flexor tendon sheath. The patient does not have fusiform swelling, she is not tender along the flexor tendon sheath proximal to the infected area, she does hold the finger in a flexed position, but minimal pain with extension of the digit. The abscess was unroofed yesterday with a significant localized pus still present. We agreed to do a more formal incision and drainage giving a digital block. Informed consent was obtained. The procedure was performed at the patient's bedside. The right hand was prepped with Hibiclens. Using a 25-gauge needle, the patient was given a digital block of the base of right long finger using 10 mL of 1% lidocaine. The patient had an abscess distally of the volar aspect of the long finger extending from the middle of the P2 segment to the middle of the pulp space.. A 1 cm oblique incision was made starting on the middle of the pulp and extending proximally towards the radial side of the DIP flexion crease. A small Adsons was used to spread, breaking through the septae. Also running the forceps proximally over the flexed tendon sheath. There was a fair amount of purulent fluid. Pus was expressed going from proximal to distal direction. After breaking up the septae, the wound was irrigated with normal saline. Sterile dressings were applied. Patient tolerated procedure well. Anesthesia: local Surgeon: To Camilo Was there an shampoo assistant present: No Estimated blood loss (cc): 1 Condition: stable Disposition: no change
--- NOTE | 2018-06-19 16:54 | Orthopedics Progress Note ---
Date of Encounter: 06/19/18 Time of Encounter: 13:15 - Assessment and Plan (1) Abscess of right middle finger Current Visit: Yes Status: Acute Continued purulent drainage expressed with gentle palpation of the abscess area. Discussed with Dr. Camilo who will perform formal I&D bedside. WBC 8.8 blood cx positive for G- rods. would cultures still pending from yesterday. 2D echo shows no vegetations. Continue to keep elevated. ROM as tolerated. Continue IV abx per primary team. Currently on zosyn and vancomycin. Will reevaluate tomorrow Subjective Principal diagnosis: right long finger abscess Interval history: Patient sleepy on exam, would answer some questions but quickly fall asleep. She states she continues to have bad pain but could not tell me much more detail than that. Objective Vital signs: Vital Signs Temp Pulse Resp BP Pulse Ox 06/19/18 15:35 95 112/78 100 06/19/18 11:00 98.6 F 87 18 110/63 99 06/19/18 07:00 98.9 F 88 18 107/88 99 06/19/18 03:00 97.8 F 109 14 107/68 99 06/18/18 23:00 97.6 F 106 17 113/77 100 06/18/18 22:44 100 06/18/18 19:00 97.6 F 101 16 100/61 98 Intake and Output 06/19/18 06/19/18 06/19/18 07:59 15:59 23:59 Intake Total 340 / 340 2720 / 2720 Output Total 200 / 200 200 / 200 Balance 140 / 140 2720 / 2720 -200 / -200 Intake: IV Fluids 100 / 100 2600 / 2600 0.9 % Sodium Chloride 1,000 ML 2250 / 2250 @ 75 mls/hr IVC .[id number] [facility] Rx #:[id number] Zosyn 3.375 GM In 0.9 % Sodium 100 / 100 100 / 100 Chloride (Mini-Bag +) 100 ML @ 25 mls/hr IVPB Q8HR [facility] Rx#: [id number] Vancocin 1,250 MG In 0.9 % 250 / 250 Sodium Chloride 250 ML @ 166.67 mls/hr IVPB ONCE ONE Rx#: [id number] Oral 240 / 240 120 / 120 Output: Urine 200 / 200 200 / 200 Other: Meal Breakfast Percent of Meal Consumed 100% Weight 51 kg Patient Weight 06/19/18 23:59 Weight 51 kg Incision: draining (There continues to be a abscess formation to volar side of right long finger with continued active purulent drainage from the incision that was made yesterday. Finger still held in flexed position but decreased pain with extension of the finger. continued tenderness to palpation of the distal finger but minimal tenderness proximal to the abscess improved from yesterday. minimal pain with full extension of the long finger improved from yesterday. brisk cap refill. decreased sensation to distal finger ) - Labs CBC & BMP: 06/19/18 02:19 06/19/18 02:19 Labs: Abnormal lab results ESR 59 mm/hr (0-15) H 06/17/18 10:26 Potassium 3.0 mEq/L (3.5-5.1) L 06/19/18 02:19 Chloride 108 mEq/L (98-107) H 06/19/18 02:19 Creatinine 0.53 mg/dL (0.60-1.20) L 06/19/18 02:19 Glucose 110 mg/dL (70-105) H 06/19/18 02:19 POC Glucose 69 mg/dL (70-99) L 06/18/18 11:15 Lactic Acid 0.4 mmol/L (0.5-2.2) L 06/17/18 10:26 Calcium 8.4 mg/dL (8.6-10.3) L 06/19/18 02:19 AST 11 Units/L (13-39) L 06/19/18 02:19 C-Reactive Protein 36 mg/L (Less than 10) H 06/17/18 10:26 Serum Total Protein 6.3 g/dL (6.4-8.9) L 06/19/18 02:19 Albumin 3.3 g/dL (3.5-5.7) L 06/19/18 02:19 HDL Cholesterol 38 mg/dL (40-59) L 06/18/18 04:00 Urine Clarity Cloudy (Clear) A 06/17/18 17:15 Urine Protein 30 mg/dL (Neg-Trace) H 06/17/18 17:15 Urine Blood Large (Negative) H 06/17/18 17:15 Urine Nitrite Positive (Negative) A 06/17/18 17:15 Urine Urobilinogen 2.0 mg/dL (Normal) H 06/17/18 17:15 Urine Microscopic RBC 15-30 per hpf (0-3) H 06/17/18 17:15 Ur Culture Indicated? YES (NO) A 06/17/18 17:15 Vancomycin Trough 4 mcg/mL (5-10) L 06/19/18 02:19 Salicylates < 2.5 mg/dL (15.0-30.0) L 06/17/18 10:26 Urine Opiates Screen Positive ng/mL (Tgkfhi=264) H 06/17/18 17:15 Acetaminophen < 10 mcg/mL (10-20) L 06/17/18 10:26 Ur Amphetamines Screen Positive ng/mL (Sqgicy=0645) H 06/17/18 17:15 U Benzodiazepines Scrn Positive ng/mL (Hnvubn=131) H 06/17/18 17:15 Urine Cocaine Screen Positive ng/mL (Cutoff= 300) H 06/17/18 17:15 Consult Discharge Plan - Plan Referrals: NONE,PCP [Primary Care Provider] -
--- NOTE | 2018-06-19 17:35 | Electrocardiograph Report ---
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
--- NOTE | 2018-06-19 17:50 | Electrocardiograph Report ---
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
[2018-06-19] MEDS: *HR* Heparin 5,000 UNIT/ML VIAL SQ SCH (19:13)
[2018-06-19] MEDS ORDERED: *HR* LORazepam 2 MG/ML VIAL IVP ONE (21:06)
[2018-06-20] MEDS: Piperacillin/Tazobactam 3.375 GM in 0.9 % Sodium Chloride Mini Bag 100 ML IVPB SCH ×3 (02:07→17:07)
[2018-06-20] MEDS: *HR* Heparin 5,000 UNIT/ML VIAL SQ SCH ×2 (06:18→17:19)
[2018-06-20] MEDS: Acetaminophen 325 MG TABLET PO PRN ×4 (06:18→23:00)
[2018-06-20] MEDS: Ketorolac 15 MG/ML VIAL IVP PRN ×4 (06:19→23:00)
[2018-06-20] MEDS: *HR* LORazepam 1 MG TABLET PO SCH (10:28)
[2018-06-20] MEDS: Nicotine 21 MG PATCH.TD24 TD SCH (10:34)
--- NOTE | 2018-06-20 13:06 | Internal Med Progress Note ---
Hospitalist Progress Note - Encounter Date of Encounter: 06/20/18 Time of Encounter: 13:04 - Subjective Interval History: seen and evaluated at beside, patient reports that the edema in the right hand has significantly improved after the drainage yesterday. Denies fever and chills. reports that she is able to make almost a complete first now. denies fever and chills. - Exam Vitals: Temp Pulse Resp BP Pulse Ox 97.9 F 93 15 118/77 97 06/20/18 07:24 06/20/18 11:27 06/20/18 03:14 06/20/18 11:27 06/20/18 11:27 Exam: General: Alert and oriented 2. No acute distress Cardiovascular:RRR, Normal S1 & S2, no rubs, murmurs or gallops. No JVD. Lungs: Clear breath sounds auscultation bilaterally, no wheezes or crackles. Abdomen: Soft, non-tender, no rigidity. NABS, in all 4 quadrants. No organomegaly. Extremities: Edema and erythema in the right hand has significantly decreased. Mild Tenderness to touch, no warm. Neurological: Normal cognition and motor skills. Rest of the physical exam is non contributory - Assessment and Plan (1) Gram-negative bacteremia Current Visit: Yes Status: Acute Assessment and Plan: Gram negative rods Plan Follow final blood cultures reports Repeat blood cultures 2-D echo: No vegetations. Continue Piperacillin/tazobactam (2) Abscess of right middle finger Current Visit: Yes Status: Acute Assessment and Plan: Wound culture growing MRSA . s/p I&D x2. Plan Continue vancomycin 1g/IV twice a day Will continue to follow orthopedic recommendations On acetaminophen and ketorolac for pain control. (3) Overdose, drug Current Visit: Yes Status: Resolved Assessment and Plan: No without symptoms. Plan Continue lorazepam 1 mg by mouth every 8 hours when necessary Pending psych evaluation. (4) DVT prophylaxis Current Visit: Yes Status: Acute Assessment and Plan: On heparin 5000 units subcutaneous twice a day for DVT prophylaxis. - Summary of Assessment and Plan Summary of Assessment and Plan: Patient is remaining the hospital until blood cultures are reported. - Time Spent with Patient Total time spent is greater than 50% in coordination of care (as documented) at patient's floor/unit and/or counseling patient: Greater than 35 minutes Plan of Care Discussed with: patient (And the nurse.) Internal Medicine: Result - Labs CBC & Chem 7: 06/19/18 02:19 06/19/18 02:19 - Impressions Impressions Chest CTA 06/18/18 11:04 IMPRESSION: No evidence of pulmonary embolism or acute pulmonary abnormality. D/ / 06/18/2018 12:52:05 Howie Lopez MD / thais Interpreting Provider: Howie Lopez MD Consult Discharge Plan - Plan Referrals: NONE,PCP [Primary Care Provider] - (3) Overdose, drug Qualifiers: Encounter type: initial encounter Injury intent: undetermined intent Qualified Code(s): T50.904A - Poisoning by unspecified drugs, medicaments and biological substances, undetermined, initial encounter
[2018-06-20 14:30] LABS: BUN/Creatinine Ratio 12 (6-26); Blood Urea Nitrogen 7 mg/dL (6-20); Calcium 8.5 mg/dL (8.6-10.3); Carbon Dioxide 20 mEq/L (23-29); Chloride 113 mEq/L (98-107); Glucose 114 mg/dL (70-105); Osmolality,Calculated 287 (280-300); Potassium 3.6 mEq/L (3.5-5.1); Sodium 139 mEq/L (136-145); eGFR For Non-African Americans > 60 (> 60)
--- NOTE | 2018-06-20 18:14 | Orthopedics Progress Note ---
Date of Encounter: 06/20/18 Time of Encounter: 12:55 - Assessment and Plan (1) Abscess of right middle finger Current Visit: Yes Status: Acute Purlent drainage still present but much decreased compared to yesterday WBC 8.8 blood cx positive for G- rods. Wound cx presumptive MRSA - on contact precautions now 2D echo shows no vegetations. Continue to keep elevated. ROM as tolerated. Patient shown how to work on [employer] of [employer] Continue IV abx per primary team. Currently on zosyn and vancomycin. Begin local wound care washing soap/water 3xday which she will continue upon discharge home. Follow up with Iona Pinto PA-C in [facility] office on 06/27/18 for wound check. Subjective Principal diagnosis: right long finger abscess Interval history: Patient sleepy on exam but did answer questions fully. States the pain is much better and she can move fingers more. Objective Vital signs: Vital Signs Pulse BP Pulse Ox 06/20/18 14:59 116/75 06/20/18 14:54 92 96 06/20/18 11:27 93 118/77 97 Intake and Output 06/20/18 06/20/18 06/20/18 07:59 15:59 23:59 Intake Total 460 / 580 Output Total 850 / 850 Balance -390 / -270 Intake: IV Fluids 100 / 100 Zosyn 3.375 GM In 0.9 % Sodium 100 / 100 Chloride (Mini-Bag +) 100 ML @ 25 mls/hr IVPB Q8HR [facility] Rx#: [id number] Oral 360 / 480 Output: Urine 850 / 850 Other: Meal Lunch Percent of Meal Consumed 100% Incision: draining (continues to have small amount purulent drainage still expressed from the incision made yesterday. Improved swelling and erythema to long finger. improved ROM of all digits. brisk cap refill. sensation intact.) - Labs CBC & BMP: 06/19/18 02:19 06/20/18 13:48 Labs: Abnormal lab results ESR 59 mm/hr (0-15) H 06/17/18 10:26 Chloride 113 mEq/L (98-107) H 06/20/18 13:48 Carbon Dioxide 20 mEq/L (23-29) L 06/20/18 13:48 Creatinine 0.57 mg/dL (0.60-1.20) L 06/20/18 13:48 Glucose 114 mg/dL (70-105) H 06/20/18 13:48 POC Glucose 69 mg/dL (70-99) L 06/18/18 11:15 Lactic Acid 0.4 mmol/L (0.5-2.2) L 06/17/18 10:26 Calcium 8.5 mg/dL (8.6-10.3) L 06/20/18 13:48 AST 11 Units/L (13-39) L 06/19/18 02:19 C-Reactive Protein 36 mg/L (Less than 10) H 06/17/18 10:26 Serum Total Protein 6.3 g/dL (6.4-8.9) L 06/19/18 02:19 Albumin 3.3 g/dL (3.5-5.7) L 06/19/18 02:19 HDL Cholesterol 38 mg/dL (40-59) L 06/18/18 04:00 Urine Clarity Cloudy (Clear) A 06/17/18 17:15 Urine Protein 30 mg/dL (Neg-Trace) H 06/17/18 17:15 Urine Blood Large (Negative) H 06/17/18 17:15 Urine Nitrite Positive (Negative) A 06/17/18 17:15 Urine Urobilinogen 2.0 mg/dL (Normal) H 06/17/18 17:15 Urine Microscopic RBC 15-30 per hpf (0-3) H 06/17/18 17:15 Ur Culture Indicated? YES (NO) A 06/17/18 17:15 Vancomycin Trough 4 mcg/mL (5-10) L 06/19/18 02:19 Salicylates < 2.5 mg/dL (15.0-30.0) L 06/17/18 10:26 Urine Opiates Screen Positive ng/mL (Gzwuig=911) H 06/17/18 17:15 Acetaminophen < 10 mcg/mL (10-20) L 06/17/18 10:26 Ur Amphetamines Screen Positive ng/mL (Xsreuv=8782) H 06/17/18 17:15 U Benzodiazepines Scrn Positive ng/mL (Mjayid=597) H 06/17/18 17:15 Urine Cocaine Screen Positive ng/mL (Cutoff= 300) H 06/17/18 17:15 Consult Discharge Plan - Plan Referrals: NONE,PCP [Primary Care Provider] -
[2018-06-20] MEDS: *HR* LORazepam 1 MG TABLET PO PRN (20:00)
[2018-06-20] MEDS ORDERED: Melatonin 3 MG TABLET PO ONE (23:16)
[2018-06-21] MEDS: Piperacillin/Tazobactam 3.375 GM in 0.9 % Sodium Chloride Mini Bag 100 ML IVPB SCH ×3 (00:27→15:30)
[2018-06-21] MEDS: *HR* LORazepam 1 MG TABLET PO PRN ×3 (04:31→20:36)
[2018-06-21 05:14] LABS: Basophils # 0.1 K/mcL (0.0-0.2); Basophils % 0.8 %; Eosinophils # 0.2 K/mcL (0.0-0.6); Eosinophils % 2.8 %; Hematocrit 33.1 % (35.3-44.9); Hemoglobin 11.2 g/dL (11.5-15.4); Immature Granulocytes % 0.6 % (0-4); Lymphocytes # 3.4 K/mcL (0.6-4.6); Lymphocytes % 43.7 %; Mean Corpuscular HGB Conc 33.8 g/dL (31.6-35.5); Mean Corpuscular Hemoglobin 28.9 pg (28.0-33.3); Mean Corpuscular Volume 85.3 fL (83.0-100.0); Mean Platelet Volume 10.9 fL (9.4-12.4); Monocytes # 0.3 K/mcL (0.0-1.3); Monocytes % 4.3 %; Neutrophils # 3.8 K/mcL (1.6-8.9); Platelet Count 295 K/mcL (140-400); Red Blood Count 3.88 M/mcL (3.82-4.97); Red Cell Distribution Width 13.5 % (11.5-14.5); Segmented Neutrophils % 47.8 %
[2018-06-21 05:35] LABS: Alanine Aminotransferase 7 Units/L (7-52); Albumin 3.1 g/dL (3.5-5.7); Albumin/Globulin Ratio 1.1 (1.1-2.2); Alkaline Phosphatase 77 Units/L (34-104); Aspartate Amino Transferase 8 Units/L (13-39); BUN/Creatinine Ratio 18 (6-26); Bilirubin,Total 0.2 mg/dL (0.3-1.0); Blood Urea Nitrogen 11 mg/dL (6-20); Calcium 8.7 mg/dL (8.6-10.3); Carbon Dioxide 21 mEq/L (23-29); Chloride 111 mEq/L (98-107); Globulin 2.8 g/dL (2.4-3.5); Glucose 88 mg/dL (70-105); Osmolality,Calculated 291 (280-300); Potassium 3.2 mEq/L (3.5-5.1); Sodium 141 mEq/L (136-145); Total Protein 5.9 g/dL (6.4-8.9); eGFR For Non-African Americans > 60 (> 60)
[2018-06-21] MEDS: *HR* Heparin 5,000 UNIT/ML VIAL SQ SCH ×2 (05:48→16:15)
[2018-06-21] MEDS: Ketorolac 15 MG/ML VIAL IVP PRN ×3 (07:34→21:35)
[2018-06-21] MEDS: Acetaminophen 325 MG TABLET PO PRN ×3 (07:34→21:35)
[2018-06-21] MEDS: Nicotine 21 MG PATCH.TD24 TD SCH (07:35)
[2018-06-21 09:09] LABS: Magnesium 1.6 mg/dL (1.6-2.6)
[2018-06-21] MEDS ORDERED: Doxycycline 100 MG CAPSULE PO SCH (10:45)
--- NOTE | 2018-06-21 10:48 | Internal Med Progress Note ---
Hospitalist Progress Note - Encounter Date of Encounter: 06/21/18 Time of Encounter: 10:46 - Subjective Interval History: Evaluated at bedside, patient expressed that she wants to home. Denies pain in her right hand. Reports that she is able to make a complete fist. Denies fever , chills. No intention and resting tremors. - Exam Vitals: Temp Pulse Resp BP Pulse Ox 97.8 F 66 22 139/93 98 06/21/18 07:15 06/21/18 07:15 06/21/18 07:15 06/21/18 07:15 06/21/18 07:15 Exam: General: Alert and oriented 2. No acute distress Cardiovascular: RRR, Normal S1 & S2, no rubs, murmurs or gallops. No JVD. Lungs: Clear breath sounds auscultation bilaterally, no wheezes or crackles. Abdomen: Soft, non-tender, no rigidity. NABS, in all 4 quadrants. No organomegaly. Extremities: Edema and erythema in the right hand resolved. NoTenderness to touch, no warm. Neurological: Normal cognition and motor skills. Rest of the physical exam is non contributory - Assessment and Plan (1) Gram-positive bacteremia Current Visit: Yes Status: Acute Assessment and Plan: Gram positive kandice in on bottle of B/U from 06/17/18. Plan f/u final f/u report repeated b/u no growth up to today continue piperacillin/tazobactam will consult ID to discuss appropriate antibiotic coverage and length. 2D- echo cardiogram showed no vegetation. (2) Abscess of right middle finger Current Visit: Yes Status: Acute Assessment and Plan: S/P I&D by ortho. Wound culture grew MRSA. Plan outpatient follow up with ortho Discontinue vancomycin start Doxycycline 100 mg by mouth twice a day. (3) Overdose, drug Current Visit: Yes Status: Resolved Assessment and Plan: Accidental drug overdose as per the patient. Denies suicidal or homicidal ideation. Pending psychiatrist for reevaluation. (4) DVT prophylaxis Current Visit: Yes Status: Acute Assessment and Plan: Continue heparin 5000 units subcutaneous twice a day. (5) Sepsis Current Visit: Yes Status: Resolved Assessment and Plan: Patient does not have sepsis criteria. Afebrile, non-tachycardic, WBC within normal, normotensive, not tachypneic, etc. - Summary of Assessment and Plan Summary of Assessment and Plan: Patient is to remain in the hospital until gram-positive kandice growing in blood is identified. - Time Spent with Patient Total time spent is greater than 50% in coordination of care (as documented) at patient's floor/unit and/or counseling patient: Greater than 35 minutes Plan of Care Discussed with: patient Internal Medicine: Result - Labs CBC & Chem 7: 06/21/18 04:20 06/21/18 04:20 Labs: Short CBC 06/21/18 Range/Units 04:20 WBC 7.9 (4.3-11.1) K/mcL Hgb 11.2 L (11.5-15.4) g/dL Hct 33.1 L (35.3-44.9) % Plt Count 295 (140-400) K/mcL Neutrophils # 3.8 (1.6-8.9) K/mcL BMP 06/20/18 06/21/18 13:48 04:20 Sodium 139 141 Potassium 3.6 3.2 L Chloride 113 H 111 H Carbon Dioxide 20 L 21 L BUN 7 11 Creatinine 0.57 L 0.60 Glucose 114 H 88 Calcium 8.5 L 8.7 Liver Function 06/21/18 Range/Units 04:20 Total Bilirubin 0.2 L (0.3-1.0) mg/dL AST 8 L (13-39) Units/L ALT 7 (7-52) Units/L Alkaline Phosphatase 77 (34-104) Units/L Albumin 3.1 L (3.5-5.7) g/dL Consult Discharge Plan - Plan Referrals: NONE,PCP [Primary Care Provider] - (3) Overdose, drug Qualifiers: Encounter type: initial encounter Injury intent: undetermined intent Qualified Code(s): T50.904A - Poisoning by unspecified drugs, medicaments and biological substances, undetermined, initial encounter (5) Sepsis Qualifiers: Sepsis type: methicillin resistant Staphylococcus aureus Qualified Code(s): A41.02 - Sepsis due to Methicillin resistant Staphylococcus aureus
--- NOTE | 2018-06-21 11:57 | Infectious Disease Consult ---
Date of Encounter: 06/21/18 Time of Encounter: 11:54 Assessment and Plan (1) Gram-positive bacteremia Status: Acute Assessment and plan: Causative organism: Unclear. Contaminant vs. true infection Blood cultures drawn 06/17/18 are positive 1/2 sets for GPR. Repeat blood cultures drawn 06/18/18 are NGTD x 2 sets. The patient does have a history of endocarditis, but currently does not have any endocarditis stigmata or sepsis criteria. TTE was negative for vegetations. Await repeat blood cultures to finalize. Continue Vancomycin IV for now. Pharmacy to dose. Goal trough ~15. Duration of treatment depends on the clinical picture. Monitor renal function and for drug toxicity and dose-adjust antibiotics. (2) Abscess of right middle finger Status: Acute Assessment and plan: Location: right hand middle finger. Causative organism: MRSA. Etiology unclear. Ortho consulted. Status post bedside I & D x 2 by the ortho team. Culture results positive for MRSA. Wound care and activity restrictions per the ortho team. Continue Vancomycin IV. Pharmacy to dose. Goal trough ~15. Duration of treatment depends on the clinical picture. Monitor renal function and for drug toxicity and dose-adjust antibiotics. (3) Flexor tenosynovitis of finger Status: Acute Assessment and plan: Location: Right hand. Likely secondary to right middle finger abscess. Causative organism MRSA. Continue Vanc as above for now. Duration of treatment depends on the clinical picture. (4) Asymptomatic bacteriuria Status: Acute Assessment and plan: Causative organism: K. pneumoniae. Asymptomatic. No indication to treat. Discontinue Zosyn. (5) Overdose, drug Status: Resolved Assessment and plan: Intent unclear. Sitter at bedside. Qualifiers: Encounter type: initial encounter Injury intent: undetermined intent Qualified Code(s): T50.904A - Poisoning by unspecified drugs, medicaments and biological substances, undetermined, initial encounter (6) Altered mental status Status: Resolved Assessment and plan: Likely secondary to drug overdose. Resolved. Qualifiers: Altered mental status type: somnolence Qualified Code(s): R40.0 - Somnolence (7) Opioid dependence Status: Chronic Qualifiers: Substance use status: in remission Qualified Code(s): F11.21 - Opioid dependence, in remission (8) Endocarditis Status: Resolved Assessment and plan: History of endocarditis and MRSA bacteremia 04/2017. Per the patient, she completed 6 weeks of IV antibiotics. She initially signed out AMA here and went to [facility]. Will request records. Qualifiers: Endocarditis type: unspecified Chronicity: unspecified Qualified Code(s) : I38 - Endocarditis, valve unspecified (9) Hepatitis C Status: Chronic Assessment and plan: Known Hep C positive. Check Hep B serologies. Check HIV. Qualifiers: Viral hepatitis chronicity: chronic Hepatic coma status: without hepatic coma Qualified Code(s): B18.2 - Chronic viral hepatitis C Infectious Disease HPI - Data of Consult Patient: new to practice Consult date: 06/21/18 Requesting Physician: Luis Carlos Man MD Primary Care Provider: PCP NONE - Consult Narrative Reason for consult: Bacteremia History of present illness: Ms. Pollard is a 33 year old female with a past medical history of endocarditis, hep C, have a calm of PTSD, bipolar, anxiety and depression, and IV drug use. The patient was admission to hospital June 17 for flexor tenosynovitis, overdose, altered mental status. We are consulted June 21 for further recommendations for gram-positive kandice bacteremia. Briefly, the patient's 33-year-old female with past medical history as stated above. Patient presented to the emergency department via EMS with complaints of altered mental status. She was found unconscious on the sidewalk. She did report using Xanax and heroin prior to arrival. She was also noted to have some erythema and swelling to the third digit of the right hand. Upon arrival, the patient was afebrile hemodynamically stable. She did have a mild tachycardia. Her white blood cell count was normal. Laboratory studies revealed an ESR 59 with a CRP of 36. Other laboratory testing was within normal limits. She will urinalysis that was positive for nitrites and large amounts of blood and the culture came back positive for Klebsiella pneumoniae. Urine drug screen is positive for amphetamines, benzos, and cocaine. Should chest x-ray that was negative. She was CT of the hand that showed findings consistent with abscess versus phlegmon over the flexor and extensor tendon sheath concerning for tenosynovitis. There is no evidence of osteo-myelitis. The patient was started on IV Vanco and Zosyn and admitted to the hospital for further evaluation. Since admission, the patient has remained afebrile hemodynamically stable. Her white blood cell count has remained normal. She was evaluated by orthopedics who performed a bedside I&D. Wound cultures positive for MRSA. She was then taken to the operating room on June 19 and had a formal I&D of abscess over the flexor tendon sheath by Dr. Camilo. It does not appear that any additional cultures were obtained. She had a CTA of the chest that was negative. She had a limited view transthoracic echocardiogram that was negative for vegetations. Psychiatry was consult, but signed off because the patient's altered mental status. The patient was on vancomycin until today and was recently switched to doxycycline by mouth. She is currently still on Zosyn. We have been asked to evaluate and make further recommendations. During my exam today, the patient endorses the history as stated above. She tells me that she came to the ER because she overdosed. She reports that her right middle finger was red and swollen and tender for about three days prior to presentation. Etiology unclear, denies trauma or injecting drugs into the site. Denies fevers, chills, or rigors. Denies headache, neck pain, or dizziness. Denies chest pain, shortness of breath, or cough. Denies nausea, vomiting, or diarrhea. Denies abdominal pain, urinary complaints, or appetite changes. Denies oral thrush or other skin lesions. She does have a history of endocarditis and was treated at [facility] last year. She states she received 6 weeks of IV Vancomycin, but she's not sure the causative organism. The patient lives at home with family. She does not work outside the home. She smokes a pack of cigarettes per day. She reports daily use of IV heroine. She denies ETOH use. She is Hep C positive and was Hep A positive two months ago. CC: Luis Carlos Man MD Past Med Surg Social Fam HX - Past Medical History Attestation: Yes The following information was validated with the patient. Source: patient, old records reviewed, nursing notes reviewed Medical history: hepatitis (Hep C, Hep A) Additional medical history: hepatitis C. endocarditis Psychiatric history: other, anxiety, bipolar, depression, PTSD - Past Surgical History Surgical History: other Additional surgical history: D&C. R shoulder - Social History Smoking Status: Current every day smoker Packs per day: 1 PPD Smokeless Tobacco Status: No Alcohol use: none Drug use: cocaine, opiates, marijuana, methamphetamine, IV Drug Use, prescription drug abuse, other Occupational status: unemployed Current living situation: Home, With Family Activity Level: Independent ambulation Recent Out of Country Travel Within the Last 8 Weeks: No Exposure or Possible Exposure to Illness During Travel: No - Family History Father Race: Family Member Ethnicity: Non- Living Status: Age at : 47 Cause of : Unknown Hx Family Cardiac Disorders: Yes (Bypass surgery) Hx Family Respiratory Disorders: Yes Hx Family GI Disorders: Yes Mother Race: Family Member Ethnicity: Non- Living Status: Still Living Hx Family Psychosocial Disorders: Yes (Drug addiction to meth (Ice)) Brother Race: Family Member Ethnicity: Non- Living Status: Still Living Hx Family Medical Disorders: No Infectious Disease-CN:Meds No Known Home Drugs 04/21/18 [History] 3 Allergy/AdvReac Type Severity Reaction Status Date / Time No Known Allergies Allergy Verified 06/17/18 12:29 All systems: reviewed and no additional remarkable complaints except as stated Exam - Constitutional Vitals: Temp Pulse Resp BP Pulse Ox 97.8 F 66 22 139/93 98 06/21/18 07:15 06/21/18 07:15 06/21/18 07:15 06/21/18 07:15 06/21/18 07:15 General appearance: average body habitus, cooperative, no acute distress - Head Head exam: Present: atraumatic, normal inspection, normocephalic - Eye Eye exam: Present: EOMI, normal appearance, PERRL Pupils: Present: normal accommodation Additional comments: No subconjunctival hemorrhage noted. - ENT ENT exam: Present: mucous membranes moist - Neck Neck exam: Present: normal inspection - Respiratory Respiratory exam: Present: CTAB. Absent: rales, respiratory distress, rhonchi, wheezes - Cardiovascular Cardiovascular exam: Present: RRR, +S1, +S2 - GI/Abdominal GI/Abdominal exam: Present: normal bowel sounds, soft. Absent: distended, tenderness - Extremities Exam Extremities exam: Present: tenderness (Right hand middle finger). Absent: pedal edema Additional comments: Right hand middle finger dressing C/D/I. - Neurological Exam Neurological exam: Present: alert, oriented X3, no focal deficits - Psychiatric Psychiatric exam: Present: normal affect, normal mood - Skin Skin exam: Present: dry, intact, normal color, warm Additional comments: No endocarditis stigmata noted. Infectious Disease CN: Results - Labs CBC & Chem 7: 06/21/18 04:20 06/21/18 04:20 Cultures: Cultures 06/20/18 13:48 Blood Culture - Preliminary Peripheral Venipuncture Culture is incubating and being continuously monitored for growth. Final report to follow. 06/20/18 13:48 Blood Culture - Preliminary Peripheral Venipuncture Culture is incubating and being continuously monitored for growth. Final report to follow. Consult Discharge Plan - Plan Referrals: NONE,PCP [Primary Care Provider] - - Attending Attestation I examined this patient and my medical decision-making was reviewed with the Resident Physician. I agree with the documented findings, disposition and treatment plan as described except to the extent set forth below. Patient is a 33-year-old woman with past medical history mentioned below including IV drug use last used on June 17 of this year, endocarditis last year which was treated with vancomycin but she does not know which bacteria was and hepatitis C that was never treated came in complaining of altered mental status and was found unconscious on the sidewalk. Patient was noted to have abscess versus phlegmon over the flexor and extensor tendon sheath concerning for tenosynovitis. Patient was taken to surgery on 06/19/[address] Munoz where she underwent right long finger incision and drainage of polyps space abscess over the flexor tendon sheath. Intra-Op cultures grew MRSA. Patient has been on vancomycin and Zosyn. Patient also grew gram-positive kandice 1 out of 2 sets of blood which is likely contaminant. Currently on physical exam I really did not appreciate any endocarditis stigmata. No conjunctival hemorrhages. No murmur on the heart. At this point we will continue vancomycin goal vancomycin trough around 15 DC Zosyn Repeat blood cultures Monitor labs and for drug toxicity Duration of treatment depends on clinical picture but will discuss with Dr. Munoz if the patient can be switched to orals or continued on IV antibiotics. Based on the clinical picture we might more days of IV and then followed by orals.
[2018-06-21 17:10] LABS: HIV-1&2 Antibody & p24 Ag Nonreactive (Nonreactive); Hepatitis B Surface Antigen Nonreactive (Nonreactive)
--- NOTE | 2018-06-21 18:47 | Orthopedics Progress Note ---
Date of Encounter: 06/21/18 Time of Encounter: 12:35 - Assessment and Plan (1) Abscess of right middle finger Current Visit: Yes Status: Acute small amount purlent drainage still present but improving WBC 7.9 blood cx positive for G- rods. Wound cx +MRSA - on contact precautions now 2D echo shows no vegetations. Continue to keep elevated. ROM as tolerated. Patient shown how to work on PROM of Supertec. Continue abx per primary team. Switched to PO doxycycline. Continue local wound care washing soap/water 3xday which she will continue upon discharge home. Follow up with Iona Pinto PA-C in [facility] office on 06/27/18 for wound check. Patient is still being treated for bacteremia. Orthopedics will sign off at this time but please call for any questions. Subjective Principal diagnosis: right long finger abscess Interval history: Patient more alert on exam today. States fingers feels much better and getting more motion back. No events overnight. Denies any concerns Objective Vital signs: Vital Signs Temp Pulse Resp BP Pulse Ox 06/21/18 15:35 98.7 F 86 19 106/72 99 06/21/18 12:00 98.1 F 79 20 117/75 98 06/21/18 07:15 97.8 F 66 22 139/93 98 06/20/18 23:31 98.1 F 81 14 120/78 95 06/20/18 20:07 96 06/20/18 19:26 98.5 F 87 14 118/78 96 Intake and Output 06/21/18 06/21/18 06/21/18 07:59 15:59 23:59 Intake Total 1600 / 1600 465 / 465 240 / 240 Output Total 150 / 150 Balance 1600 / 1600 315 / 315 240 / 240 Intake: IV Fluids 1600 / 1600 105 / 105 Zosyn 3.375 GM In 0.9 % Sodium 100 / 100 100 / 100 Chloride (Mini-Bag +) 100 ML @ 25 mls/hr IVPB Q8HR KRISTIAN Rx#: [id number] Potassium Chloride 10 mEq/100mL 5 / 5 10 meq In 100 ml @ 100 mls/hr IVPB Q1H PRN Rx#:[id number] Vancocin 1,000 MG In 0.9 % 500 / 500 Sodium Chloride 250 ML @ 167 mls/hr IVPB Q12H KRISTIAN Rx#: [id number] Oral 360 / 360 240 / 240 Output: Urine 150 / 150 Other: Meal Lunch Dinner Percent of Meal Consumed 55% 100% # Voids 1 1 1 Weight 54.3 kg Patient Weight 06/21/18 23:59 Weight 54.3 kg Incision: draining (Small amount purulent drainage expressed from open wound to volar finger. swelling improved, erythema minimal, improved ROM. brisk cap refill, sensation intact) - Labs CBC & BMP: 06/21/18 04:20 06/21/18 04:20 Labs: Abnormal lab results Hgb 11.2 g/dL (11.5-15.4) L 06/21/18 04:20 Hct 33.1 % (35.3-44.9) L 06/21/18 04:20 ESR 59 mm/hr (0-15) H 06/17/18 10:26 Potassium 3.2 mEq/L (3.5-5.1) L 06/21/18 04:20 Chloride 111 mEq/L (98-107) H 06/21/18 04:20 Carbon Dioxide 21 mEq/L (23-29) L 06/21/18 04:20 POC Glucose 69 mg/dL (70-99) L 06/18/18 11:15 Lactic Acid 0.4 mmol/L (0.5-2.2) L 06/17/18 10:26 Total Bilirubin 0.2 mg/dL (0.3-1.0) L 06/21/18 04:20 AST 8 Units/L (13-39) L 06/21/18 04:20 C-Reactive Protein 36 mg/L (Less than 10) H 06/17/18 10:26 Serum Total Protein 5.9 g/dL (6.4-8.9) L 06/21/18 04:20 Albumin 3.1 g/dL (3.5-5.7) L 06/21/18 04:20 HDL Cholesterol 38 mg/dL (40-59) L 06/18/18 04:00 Urine Clarity Cloudy (Clear) A 06/17/18 17:15 Urine Protein 30 mg/dL (Neg-Trace) H 06/17/18 17:15 Urine Blood Large (Negative) H 06/17/18 17:15 Urine Nitrite Positive (Negative) A 06/17/18 17:15 Urine Urobilinogen 2.0 mg/dL (Normal) H 06/17/18 17:15 Urine Microscopic RBC 15-30 per hpf (0-3) H 06/17/18 17:15 Ur Culture Indicated? YES (NO) A 06/17/18 17:15 Salicylates < 2.5 mg/dL (15.0-30.0) L 06/17/18 10:26 Urine Opiates Screen Positive ng/mL (Ueyaqt=585) H 06/17/18 17:15 Acetaminophen < 10 mcg/mL (10-20) L 06/17/18 10:26 Ur Amphetamines Screen Positive ng/mL (Rdtsgs=5906) H 06/17/18 17:15 U Benzodiazepines Scrn Positive ng/mL (Iyrtbu=474) H 06/17/18 17:15 Urine Cocaine Screen Positive ng/mL (Cutoff= 300) H 06/17/18 17:15 Consult Discharge Plan - Plan Referrals: NONE,PCP [Primary Care Provider] -
[2018-06-22 02:45] LABS: Hepatitis B Surface Antibody 32.75 mIU/mL
[2018-06-22] MEDS: Ketorolac 15 MG/ML VIAL IVP PRN ×4 (03:28→22:44)
[2018-06-22] MEDS: Acetaminophen 325 MG TABLET PO PRN (03:28)
[2018-06-22] MEDS: *HR* LORazepam 1 MG TABLET PO PRN (05:04)
[2018-06-22 05:22] LABS: BUN/Creatinine Ratio 23 (6-26); Blood Urea Nitrogen 13 mg/dL (6-20); Calcium 9.1 mg/dL (8.6-10.3); Carbon Dioxide 20 mEq/L (23-29); Chloride 109 mEq/L (98-107); Glucose 91 mg/dL (70-105); Osmolality,Calculated 286 (280-300); Potassium 3.3 mEq/L (3.5-5.1); Sodium 138 mEq/L (136-145); eGFR For Non-African Americans > 60 (> 60)
[2018-06-22] MEDS: *HR* Heparin 5,000 UNIT/ML VIAL SQ SCH ×2 (06:28→16:31)
[2018-06-22] MEDS: Nicotine 21 MG PATCH.TD24 TD SCH (08:59)
[2018-06-22] MEDS ORDERED: Potassium Chloride Elixir 20 MEQ/15 ML UDC PO ONE (11:04)
--- NOTE | 2018-06-22 11:16 | Internal Med Progress Note ---
Hospitalist Progress Note - Encounter Date of Encounter: 06/22/18 Time of Encounter: 11:14 - Subjective Interval History: Seen at bedside, patient reports doing well. Denies diarrhea, abdominal pain, nausea or vomiting. - Exam Vitals: Temp Pulse Resp BP Pulse Ox 98.2 F 78 16 117/92 98 06/22/18 04:40 06/22/18 04:40 06/22/18 04:40 06/22/18 04:40 06/22/18 04:40 Exam: General: Alert and oriented 2. No acute distress Cardiovascular: RRR, Normal S1 & S2, no rubs, murmurs or gallops. No JVD. Lungs: Clear breath sounds auscultation bilaterally, no wheezes or crackles. Abdomen: Soft, non-tender, no rigidity. NABS, in all 4 quadrants. No organomegaly. Extremities: No Edema or erythema in the right hand. No Tenderness to touch, no warm. Neurological: Normal cognition. CN II-XII intact. Rest of the physical exam is non contributory - Assessment and Plan (1) Gram-positive bacteremia Current Visit: Yes Status: Acute Assessment and Plan: Non-septic. Plan Pending final blood culture report Continue IV antibiotics as per ID recommendation. No vegetation on the echo. Repeat blood cultures negative so far, pending final report. (2) Abscess of right middle finger Current Visit: Yes Status: Acute Assessment and Plan: Wound culture grew MRSA. Able to make a complete fist, no erythema. Plan Outpatient follow-up with orthopedic on 06/27/18 Continue vancomycin IV as per IDs recommendation. In ketorolac 15 mg IV every 6 hours when necessary and Tylenol 650 mg by mouth every 6 HR for pain control. (3) Overdose, drug Current Visit: Yes Status: Resolved Assessment and Plan: Patient with a multiple history of accidental/recreational drug overdose. Educated to follow-up as outpatient with psychiatrist. On lorazepam 1 mg by mouth every 8 hours when necessary. (4) DVT prophylaxis Current Visit: Yes Status: Acute Assessment and Plan: Continue heparin 5000 units subcutaneous twice a day. (5) Hypokalemia Current Visit: Yes Status: Acute Assessment and Plan: Electrolyte replaced. Follow up BMP in the morning. - Summary of Assessment and Plan Summary of Assessment and Plan: Patient to remain in the hospital pending blood cultures report. - Time Spent with Patient Total time spent is greater than 50% in coordination of care (as documented) at patient's floor/unit and/or counseling patient: 25 - 35 minutes Plan of Care Discussed with: patient (the nurse.) Internal Medicine: Result - Labs CBC & Chem 7: 06/21/18 04:20 06/22/18 03:27 Labs: BMP 06/22/18 03:27 Sodium 138 Potassium 3.3 L Chloride 109 H Carbon Dioxide 20 L BUN 13 Creatinine 0.56 L Glucose 91 Calcium 9.1 Consult Discharge Plan - Plan Referrals: NONE,PCP [Primary Care Provider] - (3) Overdose, drug Qualifiers: Encounter type: initial encounter Injury intent: undetermined intent Qualified Code(s): T50.904A - Poisoning by unspecified drugs, medicaments and biological substances, undetermined, initial encounter
--- NOTE | 2018-06-22 11:34 | Infectious Disease Progress No ---
Date of Encounter: 06/22/18 Time of Encounter: 11:05 - Assessment and Plan (1) Gram-positive bacteremia Current Visit: Yes Status: Acute Causative organism: Unclear. Contaminant vs. true infection Blood cultures drawn 06/17/18 are positive 1/2 sets for GPR, on identification and sensitivities are pending. The specimen was sent to reference lab and we are waiting the final results. Repeat blood cultures drawn 06/20/18 are NGTD x 2 sets. The patient does have a history of endocarditis, but currently does not have any endocarditis stigmata or sepsis criteria. TTE was negative for vegetations. Await repeat blood cultures to finalize. Continue Vancomycin IV for now. Pharmacy to dose. Goal trough ~15. Duration of treatment depends on the clinical picture. Monitor renal function and for drug toxicity and dose-adjust antibiotics. (2) Abscess of right middle finger Current Visit: Yes Status: Acute Location: right hand middle finger. Causative organism: MRSA. Etiology unclear. Ortho consulted. Status post bedside I & D x 2 by the ortho team. Culture results positive for MRSA. Wound care and activity restrictions per the ortho team. Continue Vancomycin IV. Pharmacy to dose. Goal trough ~15. Duration of treatment depends on the clinical picture. If repeat blood cultures remain negative, can likely switch to oral antibiotics to complete course of treatment. Likely a total of 14 days post-debridement. We will discuss with orthopedics. Monitor renal function and for drug toxicity and dose-adjust antibiotics. (3) Flexor tenosynovitis of finger Current Visit: Yes Status: Acute Location: Right hand. Likely secondary to right middle finger abscess. Causative organism MRSA. Continue Vanc as above for now. Duration of treatment depends on the clinical picture, but likely a total of 14 days of treatment post-Incision and drainage. Can likely switch to PO antibiotics when ready for discharge. (4) Asymptomatic bacteriuria Current Visit: Yes Status: Acute Causative organism: K. pneumoniae. Asymptomatic. No indication to treat. (5) Overdose, drug Current Visit: Yes Status: Resolved Qualifiers: Encounter type: initial encounter Injury intent: undetermined intent Qualified Code(s): T50.904A - Poisoning by unspecified drugs, medicaments and biological substances, undetermined, initial encounter (6) Altered mental status Current Visit: Yes Status: Resolved Likely secondary to drug overdose. Resolved. 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 Per the patient, she completed 6 weeks of IV antibiotics. She initially signed out AMA here and went to [facility]. Qualifiers: Endocarditis type: unspecified Chronicity: unspecified Qualified Code(s) : I38 - Endocarditis, valve unspecified (9) Hepatitis C Current Visit: No Status: Chronic Known Hep C positive. Check Hep B serologies.--> immune. Check HIV.--> nonreactive. Qualifiers: Viral hepatitis chronicity: chronic Hepatic coma status: without hepatic coma Qualified Code(s): B18.2 - Chronic viral hepatitis C - Subjective Interval history: Seen and examined. No acute events noted overnight. Patient states overall she feels well. Reports intermittent hot flashes, but states she thinks this is likely related to withdrawal symptoms. Denies any fevers or chills. Denies chest pain, shortness of breath, or cough. Denies nausea, vomiting, diarrhea, constipation. Denies abdominal pain, urinary complaints, or appetite changes. Denies any oral thrush or any skin lesions. Reports minimal pain at the I&D site on her right hand Infect Dis PN-Objective Data - Labs CBC & Chem 7: 06/21/18 04:20 06/22/18 03:27 Labs: Laboratory Results - last 24 hr 06/21/18 06/22/18 16:06 03:27 Sodium 138 Potassium 3.3 L Chloride 109 H Carbon Dioxide 20 L BUN 13 Creatinine 0.56 L Est GFR ( Amer) > 60 Est GFR (Non-Af Amer) > 60 BUN/Creatinine Ratio 23 Glucose 91 Calculated Osmolality 286 Calcium 9.1 Hep Bs Antigen Nonreactive Hep Bs Antibody 32.75 HIV Ag/Ab Combo Qual Nonreactive Cultures: Cultures 06/20/18 13:48 Blood Culture - Preliminary Peripheral Venipuncture Culture is incubating and being continuously monitored for growth. Final report to follow. 06/20/18 13:48 Blood Culture - Preliminary Peripheral Venipuncture Culture is incubating and being continuously monitored for growth. Final report to follow. Serology 06/21/18 Range/Units 16:06 Hep Bs Antigen Nonreactive (Nonreactive) Hep Bs Antibody 32.75 mIU/mL HIV Ag/Ab Combo Qual Nonreactive (Nonreactive) Exam - Constitutional Vitals: Temp Pulse Resp BP Pulse Ox 98.2 F 78 16 117/92 98 06/22/18 04:40 06/22/18 04:40 06/22/18 04:40 06/22/18 04:40 06/22/18 04:40 General appearance: average body habitus, cooperative, no acute distress - Head Head exam: Present: atraumatic, normal inspection, normocephalic - Eye Eye exam: Present: EOMI, normal appearance, PERRL Pupils: Present: normal accommodation Additional comments: No conjunctival hemorrhage noted. - ENT ENT exam: Present: mucous membranes moist - Neck Neck exam: Present: normal inspection - Respiratory Respiratory exam: Present: CTAB. Absent: rales, respiratory distress, rhonchi, wheezes - Cardiovascular Cardiovascular exam: Present: RRR, +S1, +S2 - GI/Abdominal GI/Abdominal exam: Present: normal bowel sounds, soft. Absent: distended, tenderness - Extremities Exam Extremities exam: Present: tenderness (Right hand middle finger). Absent: pedal edema Additional comments: Right hand middle finger dressing is clean, dry, and intact. - Neurological Exam Neurological exam: Present: alert, oriented X3, no focal deficits - Psychiatric Psychiatric exam: Present: normal affect, normal mood - Skin Skin exam: Present: dry, intact, normal color, warm Consult Discharge Plan - Plan Referrals: NONE,PCP [Primary Care Provider] -
[2018-06-22] MEDS ORDERED: *HR* LORazepam 2 MG/ML VIAL IVP PRN (12:49)
[2018-06-22] MEDS: *HR* LORazepam 2 MG/ML VIAL IVP PRN (21:25)
[2018-06-23] MEDS: *HR* LORazepam 2 MG/ML VIAL IVP PRN ×4 (04:02→22:40)
[2018-06-23] MEDS: *HR* Heparin 5,000 UNIT/ML VIAL SQ SCH ×2 (05:06→18:08)
[2018-06-23] MEDS: Nicotine 21 MG PATCH.TD24 TD SCH (09:31)
[2018-06-23] MEDS: traMADol 50 MG TABLET PO PRN ×2 (09:35→15:49)
--- NOTE | 2018-06-23 11:19 | Internal Med Progress Note ---
Hospitalist Progress Note - Encounter Date of Encounter: 06/23/18 Time of Encounter: 11:17 - Subjective Interval History: Patient seen and evaluated at bedside, every emotional because she wanted to be discharged. Denies shortness of breath, nausea vomiting or diarrhea. In the right hand middle finger. - Exam Vitals: Temp Pulse Resp BP Pulse Ox 98.0 F 100 15 112/74 97 06/23/18 06:36 06/23/18 06:36 06/23/18 06:36 06/23/18 06:36 06/23/18 06:36 Exam: General: Alert and oriented 2. No acute distress Cardiovascular: RRR, Normal S1 & S2, no rubs, murmurs or gallops. No JVD. Lungs: Clear breath sounds auscultation bilaterally, no wheezes or crackles. Abdomen: Soft, non-tender, no rigidity. NABS, in all 4 quadrants. No organomegaly. Extremities: No Edema or erythema in the right hand. No Tenderness to touch, no warm. Able to make a complete fist with the right hand. Neurological: Normal cognition. CN II-XII intact. Rest of the physical exam is non contributory - Assessment and Plan (1) Gram-positive bacteremia Current Visit: Yes Status: Acute Assessment and Plan: Plan Patient on vancomycin as per ID recommendation. Pending final blood cultures specificity and sensitivity. For discharge. Repeat blood cultures no growth, pending final report. 2-D echo negative for vegetation. Nonseptic. (2) Abscess of right middle finger Current Visit: Yes Status: Acute Assessment and Plan: Blood culture positive for MRSA. Status post I&d by orthopedic Plan Continue vancomycin, as per pharmacy protocol. Vanco trough Patient will need antibiotic for 14 days Outpatient orthopedic follow-up Continue tramadol 50 mg by mouth every 6 hours when necessary for pain (3) Hypokalemia Current Visit: Yes Status: Acute Assessment and Plan: Electrolytes replaced. We will repeat BMP. (4) Polysubstance abuse Current Visit: No Status: Acute Assessment and Plan: No withdrawal symptoms. Plan Continue lorazepam 1 mg by mouth every 8 hours when necessary On lorazepam 2 mg IV every 6 hours when necessary as rescue. (5) History of endocarditis Current Visit: Yes Status: Acute Assessment and Plan: She had a history of MRSA endocarditis. Treated with 6 weeks of antibiotic. TTE done in these admission show no vegetation. Patient nonseptic. DVT Prophylaxis: On heparin 5000 units subcutaneous twice a day for DVT prophylaxis. - Summary of Assessment and Plan Summary of Assessment and Plan: Patient to remain in the hospital pending blood culture specificity and sensitivity. - Time Spent with Patient Total time spent is greater than 50% in coordination of care (as documented) at patient's floor/unit and/or counseling patient: 25 - 35 minutes Plan of Care Discussed with: patient (the family and nurse.) Internal Medicine: Result - Labs CBC & Chem 7: 06/21/18 04:20 06/22/18 03:27 Consult Discharge Plan - Plan Referrals: NONE,PCP [Primary Care Provider] -
[2018-06-24] MEDS: traMADol 50 MG TABLET PO PRN (00:24)
[2018-06-24 05:42] LABS: BUN/Creatinine Ratio 35 (6-26); Blood Urea Nitrogen 17 mg/dL (6-20); Calcium 9.2 mg/dL (8.6-10.3); Carbon Dioxide 22 mEq/L (23-29); Chloride 102 mEq/L (98-107); Glucose 59 mg/dL (70-105); Osmolality,Calculated 279 (280-300); Potassium 4.2 mEq/L (3.5-5.1); Sodium 135 mEq/L (136-145); eGFR For Non-African Americans > 60 (> 60)
[2018-06-24 06:17] VITALS: BP 118/81
[2018-06-24] MEDS: *HR* Heparin 5,000 UNIT/ML VIAL SQ SCH (06:44)
[2018-06-24] MEDS: *HR* LORazepam 1 MG TABLET PO PRN (09:17)
[2018-06-24] MEDS: Nicotine 21 MG PATCH.TD24 TD SCH (09:30)
--- NOTE | 2018-06-24 10:21 | Discharge Summary ---
- NOTES TO OUTPATIENT PROVIDER Notes to Outpatient Provider: Follow up with Iona Pinto PA-C in [facility] office on 06/27/18 for wound check. Orders not resulted at time of discharge: Pending orders 06/20/18 13:48 Culture,Blood [BC] Routine Date of Encounter: 06/24/18 Time of Encounter: 10:17 - Discharge Diagnosis (1) Gram-positive bacteremia Priority: Primary Status: Resolved Assessment and Plan: Blood culture grew bacillus species not cereous or antraxis. (2) Abscess of right middle finger Priority: Secondary Status: Resolved (3) Hypokalemia Priority: Secondary Status: Resolved (4) Polysubstance abuse Priority: Secondary Status: Chronic (5) History of endocarditis Priority: Secondary Status: Chronic Hospital course: Ms. Pollard is a 33 year old female w/PMH of hepatitis C, edocarditis r/t IV drug abuse, and extensive drug abuse hx including cocaine, meth, heroin, prescription drug abuse (Xanax), and marijuana presents from the ED w/CC of AMS d/t OD. After 24-hour patient was back to her baseline. Ortho was consulted for possible flexor tenosynovitis of the medial finger. Patient had an abscess of the right middle finger and underwent incision and drainage by orthopedic. Wound culture grew MRSA. Blood cultures grew bacillus species, sensitive to penicillin. Repeated blood cultures, show no growth. Patient is clinically is stable to be discharged home. Patient being discharged on 2 oral antibiotics to complete 14 days of antibiotics coverage. Recommended to follow-up with on 06/27/2018. - Time Spent with Patient Total time spent providing and/or coordinating discharge services: Less than 30 minutes - Discharge Medications Prescriptions: cephALEXin [Keflex] 500 mg PO BID 8 Days #16 capsule Doxycycline 100 mg PO BID 7 Days #14 capsule Home Medications: Doxycycline 100 mg PO BID 7 Days #14 capsule 06/24/18 [Rx] cephALEXin [Keflex] 500 mg PO BID 8 Days #16 capsule 06/24/18 [Rx] Allergies/Adverse Reactions: 3 Allergy/AdvReac Type Severity Reaction Status Date / Time No Known Allergies Allergy Verified 06/17/18 12:29 Date of admission: 06/20/18 09:20 Primary care physician: PCP NONE Consults: 06/21/18 10:44 Consult to Infectious Diseases [CONS] Routine Consulting Provider: Infectious Disease Bridgett Reason for Consult: Gram positive kandice bacteremia. Hx of IVDU Call Completed: No 06/21/18 11:33 Consult to Psychiatry [CONS] Routine Consulting Provider: Psychiatry Bridgett Reason consult: Other Other reason and/or additional details: Re-evaluate for SI/Overdose Patient is now A&O x 3 - Constitutional Vitals: Temp Pulse Resp BP Pulse Ox 97.9 F 81 15 118/81 98 06/24/18 06:16 06/24/18 06:16 06/24/18 06:16 06/24/18 06:16 06/24/18 06:16 General appearance: Present: A&O X 1, disheveled Exam: General: Alert and oriented 2. No acute distress Cardiovascular: RRR, Normal S1 & S2, no rubs, murmurs or gallops. No JVD. Lungs: Clear breath sounds auscultation bilaterally, no wheezes or crackles. Abdomen: Soft, non-tender, no rigidity. NABS, in all 4 quadrants. No organomegaly. Extremities: No Edema or erythema in the right hand. No Tenderness to touch, no warm. Neurological: Normal cognition. CN II-XII intact. Rest of the physical exam is non contributory - Patient Status Disposition: Home, Self-Care Condition: Good Functional capacity at discharge: independent ambulation Overall status at discharge: patient is back to baseline - Discharge Instructions Follow Up With: NONE,PCP [Primary Care Provider] - - Diet and Activity Activity: resume usual activities as tolerated Diet: advance to your usual diet
[2018-06-24] MEDS: *HR* LORazepam 2 MG/ML VIAL IVP PRN (11:26)
[2018-06-24] MEDS ORDERED: Aminoglycoside Consult 1 EACH MC ONE (14:23)
== END 2018-06-24 14:24 | disposition home or self-care (01) | DRG 906 ==
LOC: 2NENU 09:57 → EMEROOARM 09:57 → SUATTDRO 14:30 → 2NENU 15:20
PROVIDERS: ADMIT Student in an Organized Health Care Education/Training Program; ATTEND Internal Medicine

== ENCOUNTER 2019-03-25 23:03 | Inpatient (IN) ==
[2019-03-25] MEDS ORDERED: 0.9 % Sodium Chloride 1,000 ML IVC ONE ×2 (23:21)
--- NOTE | 2019-03-25 23:27 | Emergency Department Note ---
Disposition Clinical Impression: Suicidal ideation, Systemic inflammatory response syndrome, History of endocarditis, Hypomagnesemia, Hypokalemia Disposition: Admitted As Inpatient Condition: Fair Referrals: NONE,PCP [Primary Care Provider] - Forms: ED Satisfaction Letter Time of Disposition: 01:15 General Adult HPI - General Chief complaint: ED Psychiatric Symptoms Stated complaint: SI, Wants Rehab Time Seen by Provider: 03/25/19 23:10 Source: patient, EMS Limitations: no limitations Nursing Notes Reviewed: Yes Vital Signs Reviewed: Yes - History of Present Illness HPI Narrative: Patient presents to the emergency department with chief complaint of suicidal ideation, as well as drug abuse. She states that she has a history of heroin addiction and she shoots up all the time and she is sick of living like this and states she wants to kill herself or get help. She states that if she cannot get help for her drug addiction that she is just going to kill herself. She does not have a specific plan but thought about probably just overdosing and ending it all. The patient states that she has been admitted for psychiatric illness in the past, she is not taking any prescription medications his only self- medicating, primarily with heroin although she has used "ice as well". She states that her urine has looked dark after she uses ice. She states she has had some subjective fevers cough sputum production little bit of shortness of breath just generalized malaise. She states that in some ways this does remind her of when she had endocarditis 3 years ago. She denies headache or neck pain she does complain of some generalized low back pain but no specific midline back pain no numbness no weakness no bowel or bladder incontinence. She denies significant abdominal pain. She denies urinary symptoms apart from some dark appearing urine. She denies any rashes although reports that she has multiple small areas of red bumps where she picks at her skin but states that she has had abscesses in the past and none of them feel enlarged or inflamed or uncomfortable like when she has had prior abscesses. She denies any other acute concerns. She denies chest pain. She denies abdominal pain. She denies black or bloody stool. She denies recent travel. She is a smoker. She denies any alcohol today. She admits that she used heroin earlier today. Pain Scale: 6 - Related Data Previous Rx's Medication Instructions Recorded Doxycycline 100 mg PO BID 7 Days #14 capsule 06/24/18 cephALEXin [Keflex] 500 mg PO BID 8 Days #16 capsule 06/24/18 Allergies Allergy/AdvReac Type Severity Reaction Status Date / Time No Known Allergies Allergy Verified 06/17/18 12:29 All systems ED: reviewed and negative except as stated. Review of Systems: As Per HPI Past Medical History - Past Medical History Medical history: Reports: hepatitis Surgical history: Reports: other Psychiatric history: Reports: other, anxiety, bipolar, depression, PTSD [employer] history: Reports: non-contributory - Social History Smoking Status: Current every day smoker Smokeless Tobacco Status: No Alcohol use: Reports: none Drug use: Reports: cocaine, opiates, marijuana, methamphetamine, IV Drug Use, prescription drug abuse, other Physical Exam - General Limitations: no limitations General appearance: in no apparent distress, other (Patient does appear slightly cachectic in appearance but is nontoxic in appearance, she does have vital signs concerning for potential systemic inflammatory response syndrome, slightly increased respiratory rate of 22, with a temperature elevation of 100.9 and tachycardia 137, however she is awake and talking nontoxic in appearance, full nontender range of motion of her neck without meningeal sign) - Head Head exam: atraumatic, normocephalic - Eye Eye exam: Present: normal appearance, PERRL, EOMI, other (No obvious borden spots somewhat limited exam in this regard however.) - ENT ENT exam: normal exam, normal oropharynx - Neck Neck exam: Present: normal inspection, full ROM, trachea midline. Absent: meningismus, lymphadenopathy - Chest Chest inspection: Present: normal inspection, symmetric chest wall rise - Respiratory Respiratory exam: Present: other (Few coarse breath sounds in the right base which seem to clear with cough otherwise clear to auscultation bilaterally without any other focal adventitious sounds). Absent: respiratory distress - Cardiovascular Cardiovascular exam: Present: normal rhythm, tachycardia, systolic murmur (2/6 systolic murmur, no obvious rubs or gallops no obvious diastolic murmurs). Absent: regular rate - Abdominal Exam Abdominal exam: Present: soft, Non-Tender, other (No obvious organomegaly) - Extremities Exam Extremities exam: Present: normal inspection, full ROM, normal capillary refill, other (There are no Janeway lesions, no petechiae distally or splinter hemorrhages. Normal distal pulses in all 4 extremities, full nontender range of motion of all major joints without any evidence of any septic joint.) - Expanded Lower Extremity Exam Hip/Pelvis exam: Present: normal inspection, full ROM. Absent: tenderness, swelling Foot/toe exam: Present: normal inspection, full ROM. Absent: tenderness, swelling Neurovascular/Tendon exam: Present: normal capillary refill. Absent: pulse deficit, motor deficit, sensory deficit, tendon deficit Gait: observed and normal - Back Exam Back exam: Present: normal inspection, full ROM, other (There is no midline tenderness of the cervical thoracic or lumbar spine. Patient has no focal neurologic findings normal strength sensation and reflexes in the bilateral lower extremities without evidence of cauda equina syndrome, she has full nontender range of motion of the back, without evidence to suggest epidural abscess). Absent: tenderness, CVA tenderness (R), CVA tenderness (L) - Neurological Exam Neurological exam: Present: alert, oriented X3, CN II-XII intact, normal gait, r eflexes normal. Absent: motor sensory deficit - Psychiatric Psychiatric exam: Present: depressed, suicidal ideation - Skin Skin exam: Present: warm, intact, other (There is no generalized rash or petechiae, there are multiple small areas of scabbed lesions on the skin, consistent with her history of skin picking, and potential skin popping, however none of these appear reddened or erythematous, or with evidence of sup erinfection, there is no evidence of petechiae.) Course Vital Signs Temperature 100.9 F H 03/25/19 23:07 Pulse Rate 137 03/25/19 23:07 Respiratory Rate 22 03/25/19 23:07 Blood Pressure 120/81 03/25/19 23:07 O2 Sat by Pulse Oximetry 95 03/25/19 23:07 Temperature 100.9 F H 03/25/19 23:07 Pulse Rate 120 03/26/19 00:01 Respiratory Rate 17 03/26/19 00:01 Blood Pressure 112/81 03/26/19 00:01 O2 Sat by Pulse Oximetry 97 03/26/19 00:01 Oxygen Delivery Oxygen Delivery Room Air Medical Decision Making - [facility] Narrative Medical decision making narrative: Patient has a long-standing history of IV drug use, presents with multiple complaints primarily here because she wants to kill herself, because she is tired of drug use, but also feels like she would benefit from rehabilitation but was found to have a fever and tachycardia and tachypnea with a history of prior endocarditis, with current ongoing drug use and IV drug use. She has no clinical findings suggestive of epidural abscess, she does have some low back pain, this is not in the midline and not associated with numbness weakness bowel or bladder incontinence or any focal neurologic findings or symptoms, I do not suspect epidural abscess at this time. Both a psychiatric workup and sepsis workup was initiated, she was given 2 L bolus of IV fluids. 4 sets of blood cultures were ordered, a rapid HIV was also ordered. Chest x-ray ordered urinalysis were total CPK ordered salicylate Tylenol ethanol levels urine drug screen and test ordered. Patient initially given a 2 L bolus of fluids, remain with a heart rate in the low 100s, was given a third liter bolus of fluids, was also given Tylenol for fever, after Tylenol level was negative IV antibiotics initiated. Supplementation of electrolytes also initiated. Chest x-ray as interpreted by radiology showed no acute findings. EKG as interpreted by myself was a sinus rhythm sinus tachycardia, non-specific diffuse T-wave flattening, sinus tachycardia, QTC corrected of 555. No other significant acute abnormality. Laboratory studies revealed a mild leukocytosis of 11,200 and normal platelet count. Renal panel within acceptable limits apart from slightly low potassium of 3.1 slightly low magnesium of 1.4 slightly low phosphorus of 2.4. Cardiac enzymes were negative. LFTs within acceptable limits. Coags within acceptable limits. Lactic acid was within acceptable limits. Salicylate Tylenol ethanol levels all negative. Cardiac enzymes were negative. TSH was within normal limits. was negative. Secondary to her history of endocarditis, 4 sets of blood cultures were sent, she was given IV cefepime and IV vancomycin. Urine drug screen and urinalysis were pending at the time of this dictation. Total CPK was also within normal limits. The patient was admitted to the hospital for further evaluation and management. - Medical Records Medical records reviewed: Yes I reviewed the patient's medical records. - Lab Data Lab results reviewed: Yes I reviewed the patient's lab results. Result diagrams: 03/25/19 23:53 03/25/19 23:53 Lab Results 03/25/19 03/25/19 03/25/19 Range/Units 23:53 23:53 23:53 WBC 11.2 H (4.3-11.1) K/mcL RBC 4.38 (3.82-4.97) M/mcL Hgb 12.8 (11.5-15.4) g/dL Hct 38.0 (35.3-44.9) % MCV 86.8 (83.0-100.0) fL MCH 29.2 (28.0-33.3) pg MCHC 33.7 (31.6-35.5) g/dL RDW 12.6 (11.5-14.5) % Plt Count 221 (140-400) K/mcL MPV 9.8 (9.4-12.4) fL Immature Gran % 0.5 (0-4) % Seg Neutrophils % 93.1 % Lymphocytes % 5.1 % Monocytes % 0.7 % Eosinophils % 0.3 % Basophils % 0.3 % Neutrophils # 10.5 H (1.6-8.9) K/mcL Lymphocytes # 0.6 (0.6-4.6) K/mcL Monocytes # 0.1 (0.0-1.3) K/mcL Eosinophils # 0.0 (0.0-0.6) K/mcL Basophils # 0.0 (0.0-0.2) K/mcL PT (9.4-12.1) Seconds INR APTT (26.0-36.0) Seconds Sodium 137 (136-145) mEq/L Potassium 3.1 L (3.5-5.1) mEq/L Chloride 105 (98-107) mEq/L Carbon Dioxide 25 (23-29) mEq/L BUN 15 (6-20) mg/dL Creatinine 0.60 (0.60-1.20) mg/dL Est GFR ( Amer) > 60 (> 60) Est GFR (Non-Af Amer) > 60 (> 60) BUN/Creatinine Ratio 25 (6-26) Glucose 107 H (70-105) mg/dL Calculated Osmolality 285 (280-300) Lactic Acid (0.5-2.2) mmol/L Calcium 9.1 (8.6-10.3) mg/dL Phosphorus 2.4 L (2.7-4.5) mg/dL Magnesium 1.4 L (1.6-2.6) mg/dL Total Bilirubin 0.4 (0.3-1.0) mg/dL Direct Bilirubin 0.1 (0.0-0.2) mg/dL Indirect Bilirubin 0.3 (0.0-1.2) mg/dL AST 19 (13-39) Units/L ALT 15 (7-52) Units/L Alkaline Phosphatase 87 (34-104) Units/L Creatine Kinase 104 (30-223) Units/L Troponin I < 0.03 (< 0.04) ng/mL Serum Total Protein 7.1 (6.4-8.9) g/dL Albumin 4.0 (3.5-5.7) g/dL Globulin 3.1 (2.4-3.5) g/dL Albumin/Globulin Ratio 1.3 (1.1-2.2) TSH 0.395 (0.340-5.600) mcIU/mL Serum , Qual Negative (Negative) Salicylates < 2.5 L (15.0-30.0) mg/dL Acetaminophen < 10 L (10-20) mcg/mL Ethyl Alcohol < 10 (Less than 10) mg/dL 03/25/19 03/25/19 Range/Units 23:53 23:55 WBC (4.3-11.1) K/mcL RBC (3.82-4.97) M/mcL Hgb (11.5-15.4) g/dL Hct (35.3-44.9) % MCV (83.0-100.0) fL MCH (28.0-33.3) pg MCHC (31.6-35.5) g/dL RDW (11.5-14.5) % Plt Count (140-400) K/mcL MPV (9.4-12.4) fL Immature Gran % (0-4) % Seg Neutrophils % % Lymphocytes % % Monocytes % % Eosinophils % % Basophils % % Neutrophils # (1.6-8.9) K/mcL Lymphocytes # (0.6-4.6) K/mcL Monocytes # (0.0-1.3) K/mcL Eosinophils # (0.0-0.6) K/mcL Basophils # (0.0-0.2) K/mcL PT 11.8 (9.4-12.1) Seconds INR 1.0 APTT 23.4 L (26.0-36.0) Seconds Sodium (136-145) mEq/L Potassium (3.5-5.1) mEq/L Chloride (98-107) mEq/L Carbon Dioxide (23-29) mEq/L BUN (6-20) mg/dL Creatinine (0.60-1.20) mg/dL Est GFR ( Amer) (> 60) Est GFR (Non-Af Amer) (> 60) BUN/Creatinine Ratio (6-26) Glucose (70-105) mg/dL Calculated Osmolality (280-300) Lactic Acid 0.7 (0.5-2.2) mmol/L Calcium (8.6-10.3) mg/dL Phosphorus (2.7-4.5) mg/dL Magnesium (1.6-2.6) mg/dL Total Bilirubin (0.3-1.0) mg/dL Direct Bilirubin (0.0-0.2) mg/dL Indirect Bilirubin (0.0-1.2) mg/dL AST (13-39) Units/L ALT (7-52) Units/L Alkaline Phosphatase (34-104) Units/L Creatine Kinase (30-223) Units/L Troponin I (< 0.04) ng/mL Serum Total Protein (6.4-8.9) g/dL Albumin (3.5-5.7) g/dL Globulin (2.4-3.5) g/dL Albumin/Globulin Ratio (1.1-2.2) TSH (0.340-5.600) mcIU/mL Serum , Qual (Negative) Salicylates (15.0-30.0) mg/dL Acetaminophen (10-20) mcg/mL Ethyl Alcohol (Less than 10) mg/dL - Radiology Data Radiology results reviewed: Yes I reviewed the patient's radiology results. Critical Care Time Critical Care Time: Yes Total Critical Care Time: 35 Attestation: Total critical care time as provided by myself excluding any procedures performed was 35 minutes in evaluation and management of systemic inflammatory response syndrome, suicidal ideation, history of endocarditis.
[2019-03-26 00:21] LABS: Basophils % 0.3 %; Eosinophils % 0.3 %; Hemoglobin 12.8 g/dL (11.5-15.4); Immature Granulocytes % 0.5 % (0-4); Lymphocytes # 0.6 K/mcL (0.6-4.6); Lymphocytes % 5.1 %; Mean Corpuscular HGB Conc 33.7 g/dL (31.6-35.5); Mean Corpuscular Hemoglobin 29.2 pg (28.0-33.3); Mean Corpuscular Volume 86.8 fL (83.0-100.0); Mean Platelet Volume 9.8 fL (9.4-12.4); Monocytes # 0.1 K/mcL (0.0-1.3); Monocytes % 0.7 %; Neutrophils # 10.5 K/mcL (1.6-8.9); Platelet Count 221 K/mcL (140-400); Red Blood Count 4.38 M/mcL (3.82-4.97); Red Cell Distribution Width 12.6 % (11.5-14.5); Segmented Neutrophils % 93.1 %; White Blood Count 11.2 K/mcL (4.3-11.1)
[2019-03-26 00:33] LABS: Prothrombin Time 11.8 Seconds (9.4-12.1)
[2019-03-26 00:36] LABS: Activated Partial Thrombo Time 23.4 Seconds (26.0-36.0)
[2019-03-26 00:36] LABS: Acetaminophen < 10 mcg/mL (10-20); Alanine Aminotransferase 15 Units/L (7-52); Albumin/Globulin Ratio 1.3 (1.1-2.2); Alkaline Phosphatase 87 Units/L (34-104); Aspartate Amino Transferase 19 Units/L (13-39); BUN/Creatinine Ratio 25 (6-26); Bilirubin,Direct 0.1 mg/dL (0.0-0.2); Bilirubin,Indirect 0.3 mg/dL (0.0-1.2); Bilirubin,Total 0.4 mg/dL (0.3-1.0); Blood Urea Nitrogen 15 mg/dL (6-20); Calcium 9.1 mg/dL (8.6-10.3); Carbon Dioxide 25 mEq/L (23-29); Chloride 105 mEq/L (98-107); Creatine Kinase 104 Units/L (30-223); Ethanol < 10 mg/dL (Less than 10); Globulin 3.1 g/dL (2.4-3.5); Glucose 107 mg/dL (70-105); Magnesium 1.4 mg/dL (1.6-2.6); Osmolality,Calculated 285 (280-300); Phosphorous 2.4 mg/dL (2.7-4.5); Potassium 3.1 mEq/L (3.5-5.1); Salicylate < 2.5 mg/dL (15.0-30.0); Sodium 137 mEq/L (136-145); Total Protein 7.1 g/dL (6.4-8.9); Troponin I < 0.03 ng/mL (< 0.04); eGFR For African Americans > 60 (> 60); eGFR For Non-African Americans > 60 (> 60)
[2019-03-26 00:50] LABS: Thyroid Stimulating Hormone 0.395 mcIU/mL (0.340-5.600)
[2019-03-26] MEDS ORDERED: Cefepime HCl 2,000 MG in 0.9 % Sodium Chloride Mini Bag 100 ML IVPB STA (01:06)
[2019-03-26] MEDS ORDERED: 0.9 % Sodium Chloride 1,000 ML IVC ONE ×2 (01:12→08:12)
[2019-03-26] MEDS ORDERED: Ondansetron 4 MG/2 ML VIAL IVP PRN (02:27)
[2019-03-26] MEDS ORDERED: Naloxone 0.4 MG/ML INJ IVP PRN (02:27)
--- NOTE | 2019-03-26 02:35 | Internal Med History&Physical ---
Date of Encounter: 03/26/19 Time of Encounter: 02:34 Internal Medicine - H&P: HPI Chief complaint: Suicidal ideation History of present illness: Ms. Pollard is a 33 year old female with a past medical history of hepatitis C, endocarditis, IV drug abuse who presents with chief complaint of suicidal ideation, as well as drug abuse. On my assessment patient was somnolent and history was difficult to obtain. Per report patient admits to ongoing IV drug use and stated that if she cannot get help for her drug addiction that she is just going to kill herself. Patient denied any specific plan but did endorsed the idea of overdosing and ending it all. She admits that she used heroin earlier today but states that she is tired of drug use and feels like she would benefit from rehabilitation. She endorsed subjective fevers, productive cough, some shortness of breath and generalized malaise which she states reminded her of when she had endocarditis 3 years ago. No reports of headache or neck pain. She denies any rash. No reports of abdominal pain, nausea, vomiting or diarrhea. No reports of dysuria frequency or urgency. On initial assessment patient found to have a fever 100.9 with a stable blood pressure and heart rate of 137. Saturating 95% on room air. Laboratory workup notable for a neutrophilic leukocytosis of 11.2. She had mild hypokalemia of 3 .1 which was repleted orally. Sepsis workup initiated in the ED. She was given 2 L bolus of IV fluids. 4 sets of blood cultures were ordered, a rapid HIV was also ordered. Chest x-ray showed no acute findings. UA still pending. Patient initially given a 3 L fluid boluses in the ED. Heart rate has since come down to the 90s. Patient was started on vancomycin and cefepime. Past Med Surg Social Fam HX - Past Medical History Medical history: hepatitis Additional medical history: hepatitis C. endocarditis Psychiatric history: other, anxiety, bipolar, depression, PTSD - Past Surgical History Surgical History: other Additional surgical history: D&C. R shoulder - Social History Smoking Status: Current every day smoker Smokeless Tobacco Status: No Alcohol use: none Drug use: cocaine, opiates, marijuana, methamphetamine, IV Drug Use, prescription drug abuse, other - Family History Father Family Member Ethnicity: Non- Living Status: Hx Family Cardiac Disorders: Yes (Bypass surgery) Hx Family Respiratory Disorders: Yes Hx Family GI Disorders: Yes Mother Family Member Ethnicity: Non- Living Status: Still Living Brother Family Member Ethnicity: Non- Living Status: Still Living Internal Medicine - H&P: Meds Doxycycline 100 mg PO BID 7 Days #14 capsule 06/24/18 [Rx] cephALEXin [Keflex] 500 mg PO BID 8 Days #16 capsule 06/24/18 [Rx] Allergy/AdvReac Type Severity Reaction Status Date / Time No Known Allergies Allergy Verified 06/17/18 12:29 All Systems PM: A 10-system review of systems was performed and is negative for pertinent findings except as documented above in the HPI. - Constitutional Constitutional: no chills, no fever(s), no night sweats - EENT Eyes: no change in vision, no discharge, no pain, no photophobia Ears: no ear discharge, no ear pain, no tinnitus Nose, mouth and throat: no dysphagia, no nasal discharge, no neck pain, no sore throat - Cardiovascular Cardiovascular ROS IM: no chest pain, no diaphoresis, no dyspnea, no lightheadedness, no palpitations, no syncope - Respiratory Respiratory: no cough, no dyspnea, no wheezing, no excessive phlegm production - Gastrointestinal Gastrointestinal: no abdominal pain, no diarrhea, no hematemesis, no hematochezia, no melena, no nausea, no vomiting - Genitourinary Genitourinary: no change in urinary stream, no dysuria, no flank pain, no hematuria - Musculoskeletal Musculoskeletal ROS IM: no numbness, no tingling - Integumentary Integumentary IM: no rash, no unusual bruising - Neurological Neurological ROS: no confusion, no convulsions, no focal weakness, no numbness, no tingling, no tremor(s) - Hematologic/Lymphatic Hematologic/Lymphatic: no easy bruising - Constitutional Vitals: Temp Pulse Resp BP Pulse Ox 98.5 F 97 17 96/71 95 03/26/19 01:54 03/26/19 01:54 03/26/19 01:54 03/26/19 01:54 03/26/19 01:54 Exam: General: Alert and oriented 3 Skin: All nonerythematous scabs on the lower extremities HEENT:EOM, pupils equal, round and reactive. Cardiovascular:Normal S1 & S2, no rubs, murmurs or gallops. No JVD. Pulse regular. Lungs:Normal breath sounds, no wheezes or crackles. Abdomen:Soft, non-tender, no rigidity. Extremities:No deformity, no edema or tenderness, no joint swelling or clubbing. Neurological:Normal cognition and motor skills. Pulses:Carotid and radial pulses normal +2. Rest of the physical exam is non contributory Internal Med - H&P Results - Labs CBC & Chem 7: 03/25/19 23:53 03/25/19 23:53 Labs: Short CBC 03/25/19 Range/Units 23:53 WBC 11.2 H (4.3-11.1) K/mcL Hgb 12.8 (11.5-15.4) g/dL Hct 38.0 (35.3-44.9) % Plt Count 221 (140-400) K/mcL Neutrophils # 10.5 H (1.6-8.9) K/mcL BMP 03/25/19 23:53 Sodium 137 Potassium 3.1 L Chloride 105 Carbon Dioxide 25 BUN 15 Creatinine 0.60 Glucose 107 H Calcium 9.1 Cardiac Enzymes 03/25/19 Range/Units 23:53 Troponin I < 0.03 (< 0.04) ng/mL Liver Function 03/25/19 Range/Units 23:53 Total Bilirubin 0.4 (0.3-1.0) mg/dL Direct Bilirubin 0.1 (0.0-0.2) mg/dL AST 19 (13-39) Units/L ALT 15 (7-52) Units/L Alkaline Phosphatase 87 (34-104) Units/L Albumin 4.0 (3.5-5.7) g/dL - Impressions ITS Impressions Chest X-Ray 03/25/19 23:24 IMPRESSION: No acute process. D/ / Skip Walden MD / Skip Walden MD Interpreting Provider: Skip Walden MD - Assessment and Plan (1) Suicidal ideation Current Visit: Yes Status: Acute Assessment and plan: Patient endorsing suicidal ideation stating she wants to kill herself or get help. No specific plan but did not mention he denied overdosing in the knee at all. -One-to-one sitter -Consult to psychiatry (2) Systemic inflammatory response syndrome Current Visit: Yes Status: Acute Assessment and plan: On initial assessment patient found to have a fever of 100.9, leukocytosis of 11.2 and tachycardia of 137. Lactic acid within normal limits Patient admits to using heroin earlier today. She has previous history of endocarditis. There are multiple small areas of scabbed lesions on the skin, consistent with her history of skin picking, and potential skin popping, however none of these appear reddened or erythematous. Chest x-ray shows no acute process. Still awaiting UA. No murmur appreciated on examination. No neck stiffness. Patient received for 3 L of fluid bolus in the ED. Blood cultures obtained. Awaiting UA. Antibiotics including vancomycin and cefepime were initiated. -Continue IV fluids -Continue antibiotics -Follow-up blood cultures (3) Hypokalemia Current Visit: Yes Status: Acute Assessment and plan: Potassium of 3.1. Patient received 40 mEq by mouth -Continue to replete as needed (4) Hypomagnesemia Current Visit: Yes Status: Acute Assessment and plan: Magnesium of 1.4. Patient received 1 g mag sulfate in the ED (5) DVT prophylaxis Current Visit: No Status: Acute Assessment and plan: Subcutaneous heparin - Time Spent With Patient Total time spent is greater than 50% in coordination of care (as documented) at patient's floor/unit and/or counseling patient:
[2019-03-26 04:14] LABS: Basophils % 0.2 %; Eosinophils # 0.1 K/mcL (0.0-0.6); Eosinophils % 0.4 %; Hematocrit 33.6 % (35.3-44.9); Immature Granulocytes % 0.5 % (0-4); Lymphocytes # 1.1 K/mcL (0.6-4.6); Lymphocytes % 8.5 %; Mean Corpuscular Hemoglobin 29.1 pg (28.0-33.3); Mean Corpuscular Volume 88.2 fL (83.0-100.0); Mean Platelet Volume 10.1 fL (9.4-12.4); Monocytes # 0.3 K/mcL (0.0-1.3); Monocytes % 2.4 %; Neutrophils # 11.5 K/mcL (1.6-8.9); Platelet Count 190 K/mcL (140-400); Red Blood Count 3.81 M/mcL (3.82-4.97); Red Cell Distribution Width 12.8 % (11.5-14.5); White Blood Count 13.1 K/mcL (4.3-11.1)
[2019-03-26 04:17] LABS: Hemoglobin 11.1 g/dL (11.5-15.4)
[2019-03-26 04:26] LABS: Alanine Aminotransferase 12 Units/L (7-52); Albumin/Globulin Ratio 1.3 (1.1-2.2); Alkaline Phosphatase 61 Units/L (34-104); Aspartate Amino Transferase 16 Units/L (13-39); BUN/Creatinine Ratio 30 (6-26); Bilirubin,Total 0.4 mg/dL (0.3-1.0); Blood Urea Nitrogen 14 mg/dL (6-20); Calcium 7.6 mg/dL (8.6-10.3); Carbon Dioxide 23 mEq/L (23-29); Chloride 111 mEq/L (98-107); Globulin 2.4 g/dL (2.4-3.5); Glucose 126 mg/dL (70-105); Magnesium 1.7 mg/dL (1.6-2.6); Osmolality,Calculated 288 (280-300); Phosphorous 2.6 mg/dL (2.7-4.5); Potassium 3.3 mEq/L (3.5-5.1); Sodium 138 mEq/L (136-145); Total Protein 5.4 g/dL (6.4-8.9); eGFR For African Americans > 60 (> 60); eGFR For Non-African Americans > 60 (> 60)
[2019-03-26] MEDS: 0.9 % Sodium Chloride 1,000 ML IVC SCH ×3 (04:39→22:42)
[2019-03-26 04:41] LABS: Platelet Estimate Normal (Normal)
[2019-03-26] MEDS: *HR* Heparin 5,000 UNIT/ML VIAL SQ SCH ×3 (06:09→21:06)
[2019-03-26] MEDS ORDERED: 0.9 % Sodium Chloride 1,000 ML ONE (08:16)
[2019-03-26 10:05] LABS: Bilirubin,Urine Negative (Negative); Blood,Urine Negative (Negative); Clarity,Urine Clear (Clear); Color,Urine Yellow (Yellow); Glucose,Urine (UA) Normal (Normal); Ketones,Urine Negative (Negative); Leukocyte Esterase,Urine Negative (Negative); Nitrite,Urine Positive (Negative); Protein,Urine Trace mg/dL (Neg-Trace); Specific Gravity,Urine > 1.030 (1.010-1.025); Urobilinogen,Urine Normal (Normal)
[2019-03-26 10:07] LABS: Bacteria,Urine None Seen per hpf (None-Few); Hyaline Casts,Urine None Seen per lpf (None-Few); RBC,Urine 0-3 per hpf (0-3); Squamous Epithelial Cell,Urine Many per lpf (None-Few); WBC,Urine 0-3 per hpf (0-3)
[2019-03-26 10:09] LABS: ABG Base Excess -5 mEq/L (-2 to 3); ABG HCO3 21 mEq/L (21-27); ABG Oxygen Saturation 95 % (95-98); ABG PCO2 41 mmHg (35-45); ABG PH 7.33 pH Units (7.32-7.45); ABG PO2 80 mmHg (85-104); ABG TCO2 22 mEq/L (20-26)
[2019-03-26] MEDS ORDERED: 0.9 % Sodium Chloride 500 ML IVC ONE (10:12)
[2019-03-26 10:14] LABS: Amphetamine Screen,Urine Positive ng/mL (Cutoff=1000); Barbiturate Screen,Urine Negative ng/mL (Cutoff=200); Benzodiazepines Screen,Urine Positive ng/mL (Cutoff=200); Cannabinoid Screen,Urine Negative ng/mL (Cutoff = 50); Cocaine Screen,Urine Positive ng/mL (Cutoff= 300); Opiate Screen,Urine Negative ng/mL (Cutoff=300); Phencyclidine Screen,Urine Negative ng/mL (Cutoff=25)
--- NOTE | 2019-03-26 10:21 | Consult Note ---
Date of Encounter: 03/26/19 Time of Encounter: 09:30 Assessment & Recommendation (1) Depression Current visit: Yes Status: Acute Assessment & Recommendation: Patient currently denies suicidal ideations. She is future oriented toward getting treatment. At this point I would be comfortable discontinuing the sitter. She is interested in treatment for her heroin addiction. If it is compatible with her medical condition and medications I would recommend starting Subutex 8 mg twice a day. I would recommend referral to a 90 day treatment program such as [facility] if she is willing. When I discussed this with her she was somewhat hesitant about it. Qualifiers: Depression Type: major depressive disorder Major depression recurrence: recurrent Active/Remission status: currently active Major depression episode severity: moderate Qualified Code(s): F33.1 - Major depressive disorder, recurrent, moderate History of Present Illness Patient: new to practice Requesting Physician: Cam Guevraa MD Reason for consult: SI History of present illness: Ms. Pollard is a 33 year old female with a past medical history of hepatitis C, endocarditis, IV drug abuse who presents with chief complaint of suicidal ideation, as well as drug abuse. On my assessment patient was somnolent and history was difficult to obtain. Per report patient admits to ongoing IV drug use and stated that if she cannot get help for her drug addiction that she is just going to kill herself. Patient denied any specific plan but did endorsed the idea of overdosing and ending it all. She admits that she used heroin earlier today but states that she is tired of drug use and feels like she would benefit from rehabilitation. She endorsed subjective fevers, productive cough, some shortness of breath and generalized malaise which she states reminded her of when she had endocarditis 3 years ago. Psychiatry was consulted for suicidal ideations as well as her drug use. This morning she was somewhat sedated. She did not talk to me but drifted in and out of sleep. She reported sad mood, decreased interest, feelings of guilt and worthlessness. She said she is not currently having suicidal ideations but she feels like if she relapses again she might have a return of suicidal ideations. She reports that she uses a half to 1 g injected heroin daily. She has used Suboxone from the street before and found it to be helpful to help with withdrawal symptoms. She reports feeling nauseous with goosebumps and sweats and chills. CC: Cam Guevara MD Past Med Surg Social Fam HX - Past Medical History Medical history: hepatitis - Past Psychiatric History Psychiatric history: Reports: depression, previous psychiatric hospitalization. Denies: prior suicide attempt Past psychiatric history details: She reports prior hospitalizations including on 1A several years ago. She is not currently linked with outpatient services. She denies prior suicide attempts. Family psychiatric history: No Family History of Suicide: None - Past Surgical History Surgical History: other - Social History Smoking Status: Current every day smoker Smokeless Tobacco Status: No Alcohol use: none Drug use: cocaine, opiates, marijuana, methamphetamine, IV Drug Use, prescription drug abuse, other - Family History Father Family Member Ethnicity: Non- Living Status: Hx Family Cardiac Disorders: Yes (Bypass surgery) Hx Family Respiratory Disorders: Yes Hx Family GI Disorders: Yes Mother Family Member Ethnicity: Non- Living Status: Still Living Brother Family Member Ethnicity: Non- Living Status: Still Living Medications & Allergies Doxycycline 100 mg PO BID 7 Days #14 capsule 06/24/18 [Rx] cephALEXin [Keflex] 500 mg PO BID 8 Days #16 capsule 06/24/18 [Rx] Allergy/AdvReac Type Severity Reaction Status Date / Time No Known Allergies Allergy Verified 06/17/18 12:29 Review of Systems Constitutional: Reports: fever Eyes: Denies: eye pain Ears, Nose, Throat: Denies: ear pain Cardiovascular: Denies: chest pain Respiratory: Reports: dyspnea Gastrointestinal: Reports: abdominal pain, nausea Genitourinary female: Denies: urgency Musculoskeletal: Reports: joint pain, myalgia Integumentary: Reports: lesions Neurological: Reports: headache, weakness Psychiatric: Reports: depression, hopelessness. Denies: suicidal ideation, homicidal ideation, auditory hallucinations, visual hallucinations Endocrine: Reports: fatigue Hematologic/Lymphatic: Denies: easy bleeding Allergic/Immunologic: Denies: facial swelling Psychiatry Exam - Constitutional Vitals: Temp Pulse Resp BP Pulse Ox 98.0 F 69 15 81/64 99 03/26/19 08:02 03/26/19 08:02 03/26/19 08:02 03/26/19 09:32 03/26/19 08:02 General appearance: age & developmentally appropriate, disheveled - Musculoskeletal Gait: other (In bed) Station: slouched Strength & Tone: mild weakness - Psychiatric Patient Orientation: Yes Person, Yes Time, Yes Place, Yes Circumstance Level of alertness: Sedated Behavior: withdrawn Psychomotor activity: Slowed Eye Contact: Minimal Contact Mood Description: Depressed Patient description of mood: Depressed Affect description: dysphoric Speech Volume: Soft/Quiet Speech pattern: slowed Language & Vocabulary: limited Thought Process: Logical Thought Content: No Suicidal ideation, No Homicidal ideation Perceptual Disturbances: No Auditory hallucinations, No Visual hallucinations Attention Span Ability: Unable to Focus, Unable to Sustain Attention Memory Description: Grossly Intact Patient Reliability: Questionable Historian Fund of knowledge: Yes average Intelligence Estimate: Average Judgment: Limited Insight: Minimal Results - Drug Levels and Toxicology Drug Levels and Toxicology: Drug Levels and Toxicity 03/25/19 03/26/19 23:53 09:45 Urine Opiates Screen Negative Acetaminophen < 10 L Ur Barbiturates Screen Negative Ur Phencyclidine Scrn Negative Ur Amphetamines Screen Positive H U Benzodiazepines Scrn Positive H Urine Cocaine Screen Positive H U Marijuana (THC) Screen Negative Ethyl Alcohol < 10 - Labs Labs: Laboratory Last Values WBC 13.1 K/mcL (4.3-11.1) H 03/26/19 03:55 RBC 3.81 M/mcL (3.82-4.97) L 03/26/19 03:55 Hgb 11.1 g/dL (11.5-15.4) L D 03/26/19 03:55 Hct 33.6 % (35.3-44.9) L 03/26/19 03:55 MCV 88.2 fL (83.0-100.0) 03/26/19 03:55 MCH 29.1 pg (28.0-33.3) 03/26/19 03:55 MCHC 33.0 g/dL (31.6-35.5) 03/26/19 03:55 RDW 12.8 % (11.5-14.5) 03/26/19 03:55 Plt Count 190 K/mcL (140-400) 03/26/19 03:55 MPV 10.1 fL (9.4-12.4) 03/26/19 03:55 Immature Gran % 0.5 % (0-4) 03/26/19 03:55 Seg Neutrophils % 88.0 % 03/26/19 03:55 8.5 % 03/26/19 03:55 2.4 % 03/26/19 03:55 0.4 % 03/26/19 03:55 0.2 % 03/26/19 03:55 11.5 K/mcL (1.6-8.9) H 03/26/19 03:55 1.1 K/mcL (0.6-4.6) 03/26/19 03:55 0.3 K/mcL (0.0-1.3) 03/26/19 03:55 0.1 K/mcL (0.0-0.6) 03/26/19 03:55 0.0 K/mcL (0.0-0.2) 03/26/19 03:55 Normal (Normal) 03/26/19 03:55 PT 11.8 Seconds (9.4-12.1) 03/25/19 23:55 INR 1.0 03/25/19 23:55 APTT 23.4 Seconds (26.0-36.0) L 03/25/19 23:55 ABG pH 7.33 pH Units (7.32-7.45) 03/26/19 10:05 ABG pCO2 41 mmHg (35-45) 03/26/19 10:05 ABG pO2 80 mmHg (85-104) L 03/26/19 10:05 ABG HCO3 21 mEq/L (21-27) 03/26/19 10:05 ABG Total CO2 22 mEq/L (20-26) 03/26/19 10:05 ABG O2 Saturation 95 % (95-98) 03/26/19 10:05 ABG Base Excess -5 mEq/L (-2 to 3) L 03/26/19 10:05 O2 Delivery Device Room Air 03/26/19 10:05 Inspired O2 21.0 (1-15=lpm [id number]=%) 03/26/19 10:05 Sodium 138 mEq/L (136-145) 03/26/19 03:55 Potassium 3.3 mEq/L (3.5-5.1) L 03/26/19 03:55 Chloride 111 mEq/L (98-107) H 03/26/19 03:55 Carbon Dioxide 23 mEq/L (23-29) 03/26/19 03:55 BUN 14 mg/dL (6-20) 03/26/19 03:55 0.47 mg/dL (0.60-1.20) L 03/26/19 03:55 Est GFR ( Amer) > 60 (> 60) 03/26/19 03:55 Est GFR (Non-Af Amer) > 60 (> 60) 03/26/19 03:55 30 (6-26) H 03/26/19 03:55 Glucose 126 mg/dL (70-105) H 03/26/19 03:55 288 (280-300) 03/26/19 03:55 Lactic Acid 1.3 mmol/L (0.5-2.2) 03/26/19 09:46 Calcium 7.6 mg/dL (8.6-10.3) L 03/26/19 03:55 Phosphorus 2.6 mg/dL (2.7-4.5) L 03/26/19 03:55 Magnesium 1.7 mg/dL (1.6-2.6) 03/26/19 03:55 0.4 mg/dL (0.3-1.0) 03/26/19 03:55 0.1 mg/dL (0.0-0.2) 03/25/19 23:53 0.3 mg/dL (0.0-1.2) 03/25/19 23:53 AST 16 Units/L (13-39) 03/26/19 03:55 ALT 12 Units/L (7-52) 03/26/19 03:55 61 Units/L (34-104) 03/26/19 03:55 104 Units/L (30-223) 03/25/19 23:53 < 0.03 ng/mL (< 0.04) 03/25/19 23:53 5.4 g/dL (6.4-8.9) L 03/26/19 03:55 3.0 g/dL (3.5-5.7) L 03/26/19 03:55 2.4 g/dL (2.4-3.5) 03/26/19 03:55 1.3 (1.1-2.2) 03/26/19 03:55 TSH 0.395 mcIU/mL (0.340-5.600) 03/25/19 23:53 Serum , Qual Negative (Negative) 03/25/19 23:53 Yellow (Yellow) 03/26/19 09:45 Clear (Clear) 03/26/19 09:45 6.0 pH Units (5.0-8.0) 03/26/19 09:45 Ur Specific [place] > 1.030 (1.010-1.025) H 03/26/19 09:45 Trace mg/dL (Neg-Trace) 03/26/19 09:45 Normal mg/dL (Normal) 03/26/19 09:45 Negative mg/dL (Negative) 03/26/19 09:45 Negative (Negative) 03/26/19 09:45 Positive (Negative) A 03/26/19 09:45 Negative (Negative) 03/26/19 09:45 Normal mg/dL (Normal) 03/26/19 09:45 Ur Leukocyte Esterase Negative (Negative) 03/26/19 09:45 0-3 per hpf (0-3) 03/26/19 09:45 0-3 per hpf (0-3) 03/26/19 09:45 Ur Squamous Epith Cells Many per lpf (None-Few) H 03/26/19 09:45 None Seen per hpf (None-Few) 03/26/19 09:45 Hyaline Casts None Seen per lpf (None-Few) 03/26/19 09:45 Ur Culture Indicated? YES (NO) A 03/26/19 09:45 Salicylates < 2.5 mg/dL (15.0-30.0) L 03/25/19 23:53 Negative ng/mL (Tbtvuo=016) 03/26/19 09:45 Acetaminophen < 10 mcg/mL (10-20) L 03/25/19 23:53 Ur Barbiturates Screen Negative ng/mL (Bltnei=364) 03/26/19 09:45 Ur Phencyclidine Scrn Negative ng/mL (Cutoff=25) 03/26/19 09:45 Ur Amphetamines Screen Positive ng/mL (Zeyovy=8602) H 03/26/19 09:45 U Benzodiazepines Scrn Positive ng/mL (Fcmovz=660) H 03/26/19 09:45 Positive ng/mL (Cutoff= 300) H 03/26/19 09:45 U Marijuana (THC) Screen Negative ng/mL (Cutoff = 50) 03/26/19 09:45 Ur Drug Screen Interp See Below 03/26/19 09:45 Ethyl Alcohol < 10 mg/dL (Less than 10) 03/25/19 23:53 - Impressions Impressions Chest X-Ray 03/25/19 23:24 IMPRESSION: No acute process. D/ / Skip Walden MD / Skip Walden MD Interpreting Provider: Skip Walden MD Consult Discharge Plan - Plan Referrals: NONE,PCP [Primary Care Provider] -
[2019-03-26] MEDS: Acetaminophen 325 MG TABLET PO PRN (12:27)
[2019-03-26] MEDS: Ketorolac 15 MG/ML VIAL IVP PRN ×2 (13:29→19:40)
[2019-03-26] MEDS: Cefepime HCl 2,000 MG in 0.9 % Sodium Chloride Mini Bag 100 ML IVPB SCH (13:29)
--- NOTE | 2019-03-26 14:27 | Internal Med Progress Note ---
Hospitalist Progress Note - Encounter Date of Encounter: 03/26/19 Time of Encounter: 14:24 - Subjective Interval History: Ms. Pollard is a 33 year old female with a past medical history of hepatitis C, endocarditis due to IV drug abuse, extensive poly drug abuse history including cocaine, meth, heroin, THC and benzo's, now she presented to ER with suicidal ideation as well as drug intoxication. Patient stated she had her last heroine dose yesterday morning. Patient stated she has been feeling so depressed lately had suicidal thoughts yesterday but denied any suicidal thoughts today. She did have low grade temp @ 100.9.She denied any chest pain. She endorsed subjective fevers, productive cough, some shortness of breath and generalized malaise. This morning she was still very hypotensive which improved with fluid boluses. - Exam Vitals: Temp Pulse Resp BP Pulse Ox 97.9 F 96 15 96/65 96 03/26/19 12:17 03/26/19 12:17 03/26/19 12:17 03/26/19 12:17 03/26/19 12:17 Exam: Gen: Alert, awake, Oriented to time,place and person, weak and lethargic Chest: Diminished breath sounds B/L, No wheezing, No crackles, No rales Heart: S1S2+ RRR No murmurs Abd: Soft, NT, BS +, No organomegaly Ext: No edema, pulses are palpable, No calf tenderness Neuro : No acute focal neuro deficits noticed Skin: No rash. Psych: Depressed, no suicidal thoughts, no homicidal thoughts - Assessment and Plan (1) Sepsis Current Visit: No Status: Acute Assessment and Plan: Pt met sepsis criteria with elevated WBC, sinus tachcyardia and fever T max 100.9 will fu on blood cx cont broad spec abd Zosyn and Vanc Possibly due to UTI UA - positive for nitrite CXR did not show any acute infiltrates (2) Hypotension Current Visit: No Status: Acute Assessment and Plan: Multi factorial due to sepsis , intoxication and dehdyration improving with IV hydration cont aggressive IV hydration no need of vaso pressors now Patient does need to stay in the hospital more than 2 midnights due to her complex medical problems. So we will change her to full admission today. I did review my colleague Dr. Cochran's H & P including HPI, PMH, PSH, FH, SH, and ROS no changes noticed (3) History of endocarditis Current Visit: Yes Status: Chronic Assessment and Plan: with her current IV drug abuse, high risk for endocarditis again will f/u on blood cx 2 D Echo - P (4) DVT prophylaxis Current Visit: No Status: Acute Assessment and Plan: Subcutaneous heparin (5) Hypokalemia Current Visit: Yes Status: Acute Assessment and Plan: Still low @ 3.3 mostly due to dehydration cont replacing (6) Suicidal ideation Current Visit: Yes Status: Acute Assessment and Plan: Denied any suicidal ideation cont 1 to 1 sitter Psych is on board appreciate recommendations (7) Hypomagnesemia Current Visit: Yes Status: Acute Assessment and Plan: Improved (8) IV drug abuse Current Visit: No Status: Chronic Assessment and Plan: UDS positive for Meth, Benzos and cocaine avoid BB on CIWA on Ativan PRN for withdraw symptoms Psych on board IV hydration (9) Polysubstance abuse Current Visit: No Status: Chronic - Time Spent with Patient Total time spent is greater than 50% in coordination of care (as documented) at patient's floor/unit and/or counseling patient: Internal Medicine: Result - Labs CBC & Chem 7: 03/26/19 03:55 03/26/19 03:55 Labs: Short CBC 03/25/19 03/26/19 Range/Units 23:53 03:55 WBC 11.2 H 13.1 H (4.3-11.1) K/mcL Hgb 12.8 11.1 L D (11.5-15.4) g/dL Hct 38.0 33.6 L (35.3-44.9) % Plt Count 221 190 (140-400) K/mcL Neutrophils # 10.5 H 11.5 H (1.6-8.9) K/mcL BMP 03/25/19 03/26/19 23:53 03:55 Sodium 137 138 Potassium 3.1 L 3.3 L Chloride 105 111 H Carbon Dioxide 25 23 BUN 15 14 Creatinine 0.60 0.47 L Glucose 107 H 126 H Calcium 9.1 7.6 L Cardiac Enzymes 03/25/19 Range/Units 23:53 Troponin I < 0.03 (< 0.04) ng/mL Liver Function 03/25/19 03/26/19 Range/Units 23:53 03:55 Total Bilirubin 0.4 0.4 (0.3-1.0) mg/dL Direct Bilirubin 0.1 (0.0-0.2) mg/dL AST 19 16 (13-39) Units/L ALT 15 12 (7-52) Units/L Alkaline Phosphatase 87 61 (34-104) Units/L Albumin 4.0 3.0 L (3.5-5.7) g/dL Urine 03/26/19 Range/Units 09:45 Urine Color Yellow (Yellow) Urine Clarity Clear (Clear) Urine pH 6.0 (5.0-8.0) pH Units Ur Specific [place] > 1.030 H (1.010-1.025) Urine Protein Trace (Neg-Trace) mg/dL Urine Glucose (UA) Normal (Normal) mg/dL - ABG Interpretation ABG results: ABG ABG pH 7.33 pH Units (7.32-7.45) 03/26/19 10:05 ABG pCO2 41 mmHg (35-45) 03/26/19 10:05 ABG pO2 80 mmHg (85-104) L 03/26/19 10:05 ABG O2 Saturation 95 % (95-98) 03/26/19 10:05 PT/INR, D-dimer PT 11.8 Seconds (9.4-12.1) 03/25/19 23:55 - Impressions Impressions Chest X-Ray 03/25/19 23:24 IMPRESSION: No acute process. D/ / Skip Walden MD / Skip Walden MD Interpreting Provider: Skip Walden MD Consult Discharge Plan - Plan Referrals: NONE,PCP [Primary Care Provider] - (1) Sepsis Qualifiers: Sepsis type: sepsis due to unspecified organism Qualified Code(s): A41.9 - Sepsis, unspecified organism (2) Hypotension Qualifiers: Hypotension type: other hypotension type Qualified Code(s): I95.89 - Other hypotension
--- NOTE | 2019-03-26 14:39 | Electrocardiograph Report ---
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
[2019-03-26] MEDS: *HR* LORazepam 0.5 MG TABLET PO PRN ×2 (16:15→22:41)
[2019-03-27] MEDS: Cefepime HCl 2,000 MG in 0.9 % Sodium Chloride Mini Bag 100 ML IVPB SCH ×2 (00:15→15:14)
[2019-03-27] MEDS: 0.9 % Sodium Chloride 1,000 ML IVC SCH ×4 (00:27→18:11)
[2019-03-27] MEDS: Ketorolac 15 MG/ML VIAL IVP PRN ×4 (01:05→22:40)
[2019-03-27] MEDS: *HR* LORazepam 0.5 MG TABLET PO PRN ×3 (02:28→20:01)
[2019-03-27 02:50] LABS: Basophils % 0.8 %; Eosinophils # 0.2 K/mcL (0.0-0.6); Eosinophils % 3.3 %; Hematocrit 36.3 % (35.3-44.9); Hemoglobin 11.6 g/dL (11.5-15.4); Immature Granulocytes % 0.4 % (0-4); Lymphocytes # 2.5 K/mcL (0.6-4.6); Lymphocytes % 48.8 %; Mean Corpuscular Hemoglobin 29.1 pg (28.0-33.3); Mean Platelet Volume 10.4 fL (9.4-12.4); Monocytes # 0.3 K/mcL (0.0-1.3); Neutrophils # 2.1 K/mcL (1.6-8.9); Platelet Count 207 K/mcL (140-400); Red Blood Count 3.99 M/mcL (3.82-4.97); Red Cell Distribution Width 13.2 % (11.5-14.5); Segmented Neutrophils % 40.7 %
[2019-03-27 02:52] LABS: White Blood Count 5.2 K/mcL (4.3-11.1)
[2019-03-27 03:08] LABS: Alanine Aminotransferase 96 Units/L (7-52); Albumin 2.8 g/dL (3.5-5.7); Albumin/Globulin Ratio 1.2 (1.1-2.2); Alkaline Phosphatase 82 Units/L (34-104); Aspartate Amino Transferase 96 Units/L (13-39); BUN/Creatinine Ratio 26 (6-26); Bilirubin,Total 0.2 mg/dL (0.3-1.0); Blood Urea Nitrogen 12 mg/dL (6-20); Calcium 8.1 mg/dL (8.6-10.3); Carbon Dioxide 20 mEq/L (23-29); Chloride 112 mEq/L (98-107); Globulin 2.4 g/dL (2.4-3.5); Glucose 124 mg/dL (70-105); Magnesium 1.8 mg/dL (1.6-2.6); Osmolality,Calculated 287 (280-300); Potassium 3.8 mEq/L (3.5-5.1); Sodium 138 mEq/L (136-145); Total Protein 5.2 g/dL (6.4-8.9); eGFR For African Americans > 60 (> 60); eGFR For Non-African Americans > 60 (> 60)
[2019-03-27] MEDS: *HR* Heparin 5,000 UNIT/ML VIAL SQ SCH ×3 (05:09→20:34)
[2019-03-27] MEDS ORDERED: Aminoglycoside Consult 1 EACH MC ONE (11:57)
--- NOTE | 2019-03-27 13:18 | Internal Med Progress Note ---
Hospitalist Progress Note - Encounter Date of Encounter: 03/27/19 Time of Encounter: 08:30 - Subjective Interval History: Ms. Pollard is a 33 year old female with a past medical history of hepatitis C, endocarditis due to IV drug abuse, extensive poly drug abuse history including cocaine, meth, heroin, THC and benzo's, now she presented to ER with suicidal ideation as well as drug intoxication. Patient stated she had her last heroine dose the day prior to admission. Initially she happened to have fever and hypotensive. pt was admitted in the hospital started her on aggressive IV hydration and broad spec antibiotic zosyn and vancomycin. Today patient is more alert, awake, oriented x 3. Denied any suicidal ideations. Wanted to go drug rehab facility. - Exam Vitals: Temp Pulse Resp BP Pulse Ox 98.3 F 85 17 113/78 95 03/27/19 11:29 03/27/19 11:29 03/27/19 11:29 03/27/19 11:29 03/27/19 11:29 Exam: Gen: Alert, awake, Oriented to time,place and person, weak and lethargic Chest: Diminished breath sounds B/L, No wheezing, No crackles, No rales Heart: S1S2+ RRR No murmurs Abd: Soft, NT, BS +, No organomegaly Ext: No edema, pulses are palpable, No calf tenderness Neuro : No acute focal neuro deficits noticed Skin: No rash. Psych: Depressed, no suicidal thoughts, no homicidal thoughts - Assessment and Plan (1) Sepsis Current Visit: No Status: Acute Assessment and Plan: Pt met sepsis criteria with elevated WBC, sinus tachcyardia and fever T max 100.9 blood cx still no growth cont broad spec abd Zosyn and Vanc UA - positive for nitrite Urine cx - P CXR did not show any acute infiltrates Deescalate abx once blood cx negative x 48 hrs (2) UTI (urinary tract infection) Current Visit: No Status: Acute Assessment and Plan: Urine cx- P cont Zosyn (3) Hypotension Current Visit: No Status: Acute Assessment and Plan: Multi factorial due to sepsis , intoxication and dehdyration Resolved with IV hydration no need of vaso pressors now d/c IVF (4) History of endocarditis Current Visit: Yes Status: Chronic Assessment and Plan: with her current IV drug abuse, high risk for endocarditis again Blood cx no growth so far 2 D Echo - LVEF 60-65%, No vegetations noticed (5) DVT prophylaxis Current Visit: No Status: Acute Assessment and Plan: Subcutaneous heparin (6) Hypokalemia Current Visit: Yes Status: Acute Assessment and Plan: resolved (7) Suicidal ideation Current Visit: Yes Status: Acute Assessment and Plan: Denied any suicidal ideation Psych removed pink slip cleared from sitter by psych appreciate recommendations Psych recommend to arrage for drug rehab CM working on it Possible d/c in AM (8) IV drug abuse Current Visit: No Status: Chronic Assessment and Plan: UDS positive for Meth, Benzos and cocaine avoid BB on CIWA on Ativan PRN for withdraw symptoms Psych on board (9) Polysubstance abuse Current Visit: No Status: Chronic - Time Spent with Patient Total time spent is greater than 50% in coordination of care (as documented) at patient's floor/unit and/or counseling patient: Internal Medicine: Result - Labs CBC & Chem 7: 03/27/19 02:07 03/27/19 02:07 Labs: Short CBC 03/27/19 Range/Units 02:07 WBC 5.2 D (4.3-11.1) K/mcL Hgb 11.6 (11.5-15.4) g/dL Hct 36.3 (35.3-44.9) % Plt Count 207 (140-400) K/mcL Neutrophils # 2.1 (1.6-8.9) K/mcL BMP 03/27/19 02:07 Sodium 138 Potassium 3.8 Chloride 112 H Carbon Dioxide 20 L BUN 12 Creatinine 0.47 L Glucose 124 H Calcium 8.1 L Liver Function 03/27/19 Range/Units 02:07 Total Bilirubin 0.2 L (0.3-1.0) mg/dL AST 96 H (13-39) Units/L ALT 96 H (7-52) Units/L Alkaline Phosphatase 82 (34-104) Units/L Albumin 2.8 L (3.5-5.7) g/dL - ABG Interpretation ABG results: ABG ABG pH 7.33 pH Units (7.32-7.45) 03/26/19 10:05 ABG pCO2 41 mmHg (35-45) 03/26/19 10:05 ABG pO2 80 mmHg (85-104) L 03/26/19 10:05 ABG O2 Saturation 95 % (95-98) 03/26/19 10:05 PT/INR, D-dimer PT 11.8 Seconds (9.4-12.1) 03/25/19 23:55 - Impressions Impressions Echocardiogram 03/26/19 03:06 Impressions: LVEF 60-65%. Normal LV chamber size, wall thickness and function. Normal left ventricular diastolic function. Normal right ventricular structure and function. Mild tricuspid regurgitation. No pulmonary hypertension. No vegetations visualized. Left Ventricular Wall Motion: Rest Echo Findings All wall segments showed normal motion. Findings: Study Quality * Technically adequate exam. ECG Findings * Normal sinus rhythm. Left Ventricle * LVEF 60-65%. * Normal LV chamber size, wall thickness and function. * Normal left ventricular diastolic function. Right Ventricle * Normal right ventricular structure and function. Left Atrium * Normal left atrial size. Right Atrium * Normal right atrial size. Interatrial Septum * No evidence of PFO by color Doppler. Aortic Valve * Trileaflet aortic valve with normal function. * No aortic stenosis. * No aortic regurgitation. Mitral Valve * Normal mitral valve structure and function. * No mitral regurgitation. * No mitral stenosis. Tricuspid Valve * Normal tricuspid valve structure. * Mild tricuspid regurgitation. * No pulmonary hypertension. Pulmonic Valve * Normal pulmonic valve structure and function. * Trace pulmonic regurgitation. Aorta * Normally sized aortic root. Pericardium * The pericardium appears normal. IVC * Normal IVC dimensions and inspiratory collapse. Pulmonary Artery * Normal visualized portions of the main pulmonary artery. Consult Discharge Plan - Plan Referrals: Nimesh Garcia MD [Partnered Physician] - (Appointment has been requested.) __ (1) Sepsis Qualifiers: Sepsis type: sepsis due to unspecified organism Qualified Code(s): A41.9 - Sepsis, unspecified organism (2) UTI (urinary tract infection) Qualifiers: Urinary tract infection type: site unspecified Hematuria presence: without hematuria Qualified Code(s): N39.0 - Urinary tract infection, site not specified (3) Hypotension Qualifiers: Hypotension type: other hypotension type Qualified Code(s): I95.89 - Other hypotension
[2019-03-27] MEDS: Acetaminophen 325 MG TABLET PO PRN (18:19)
[2019-03-28] MEDS: Cefepime HCl 2,000 MG in 0.9 % Sodium Chloride Mini Bag 100 ML IVPB SCH (01:28)
[2019-03-28] MEDS: 0.9 % Sodium Chloride 1,000 ML IVC SCH ×2 (01:28→11:08)
[2019-03-28] MEDS: *HR* Heparin 5,000 UNIT/ML VIAL SQ SCH (05:35)
[2019-03-28] MEDS: *HR* LORazepam 0.5 MG TABLET PO PRN (05:36)
[2019-03-28 07:07] VITALS: BP 124/82
[2019-03-28] MEDS: Ketorolac 15 MG/ML VIAL IVP PRN (08:32)
[2019-03-28 08:34] LABS: Hematocrit 37.8 % (35.3-44.9); Hemoglobin 12.4 g/dL (11.5-15.4); Mean Corpuscular HGB Conc 32.8 g/dL (31.6-35.5); Mean Corpuscular Hemoglobin 28.4 pg (28.0-33.3); Mean Corpuscular Volume 86.7 fL (83.0-100.0); Mean Platelet Volume 10.6 fL (9.4-12.4); Platelet Count 231 K/mcL (140-400); Red Blood Count 4.36 M/mcL (3.82-4.97); Red Cell Distribution Width 12.9 % (11.5-14.5); White Blood Count 7.3 K/mcL (4.3-11.1)
[2019-03-28 08:53] LABS: BUN/Creatinine Ratio 19 (6-26); Blood Urea Nitrogen 10 mg/dL (6-20); Calcium 9.2 mg/dL (8.6-10.3); Carbon Dioxide 26 mEq/L (23-29); Chloride 107 mEq/L (98-107); Glucose 103 mg/dL (70-105); Osmolality,Calculated 289 (280-300); Potassium 4.1 mEq/L (3.5-5.1); Sodium 140 mEq/L (136-145); eGFR For African Americans > 60 (> 60); eGFR For Non-African Americans > 60 (> 60)
--- NOTE | 2019-03-28 10:27 | Discharge Summary ---
- NOTES TO OUTPATIENT PROVIDER Notes to Outpatient Provider: - follow-up with mental health. -Discharged to drug rehabilitation Orders not resulted at time of discharge: Pending orders 03/25/19 23:22 Culture,Blood [BC] Stat 03/25/19 23:53 HIV-1 RNA Qualitative (Detect) Stat 03/25/19 23:55 Culture,Blood [BC] Stat Date of Encounter: 03/28/19 Time of Encounter: 10:22 - Discharge Diagnosis (1) Hypotension Priority: Secondary Status: Acute Qualifiers: Hypotension type: other hypotension type Qualified Code(s): I95.89 - Other hypotension (2) Sepsis Priority: Primary Status: Acute Qualifiers: Sepsis type: sepsis due to unspecified organism Qualified Code(s): A41.9 - Sepsis, unspecified organism (3) IV drug abuse Priority: Secondary Status: Chronic (4) Polysubstance abuse Priority: Secondary Status: Chronic (5) UTI (urinary tract infection) Priority: Secondary Status: Acute Qualifiers: Urinary tract infection type: site unspecified Hematuria presence: without hematuria Qualified Code(s): N39.0 - Urinary tract infection, site not specified (6) Hypokalemia Priority: Secondary Status: Acute (7) History of endocarditis Priority: Secondary Status: Chronic (8) Suicidal ideation Priority: Primary Status: Acute Hospital course: Ms. 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 Presented to [facility] ED with suicidal ideation as well as drug intoxication. She did have a fever and hypotensive on presentation. She was given aggressive IV fluids and broad-spectrum antibiotics Zosyn and vancomycin. Blood cultures as well as urine cultures were obtained and all have been negative to date. Her neck echo shows no vegetation She denies any urinary symptoms has been afebrile with no white count. She was seen by psychiatry and has been cleared from suicide observation. She agrees to drug rehabilitation and is to be placed-at [facility] currently she is hemodynamically stable at this time and ready for discharge. - Time Spent with Patient Total time spent providing and/or coordinating discharge services: - Discharge Medications Prescriptions: No Action No Known Home Drugs 1 each .ROUTE AD each Home Medications: No Known Home Drugs 03/26/19 [History] Allergies/Adverse Reactions: Allergy/AdvReac Type Severity Reaction Status Date / Time No Known Allergies Allergy Verified 06/17/18 12:29 Date of admission: 03/26/19 18:56 Primary care physician: PCP NONE Consults: 03/26/19 02:33 Consult to Psychiatry [CONS] Routine Consulting Provider: Psychiatry Bridgett Reason consult: Other Other reason and/or additional details: SI 03/26/19 04:00 Consult to Sports Therapist [CONS] Routine Reason for SW Consult: Substance abuse 03/26/19 14:23 Consult to Nutrition [CONS] Routine Comment: Consulting Provider: NUTRITION Reason for Dietary Consult: Diet Education Discharging clinician: Keyla Koehler Anticipated date of discharge: 03/28/19 - Constitutional Vitals: Temp Pulse Resp BP Pulse Ox 98.2 F 69 16 124/82 97 03/28/19 07:04 03/28/19 07:04 03/28/19 07:04 03/28/19 07:04 03/28/19 07:04 Exam: Gen: Alert, awake, Oriented to time,place and person, weak and lethargic Chest: Diminished breath sounds B/L, No wheezing, No crackles, No rales Heart: S1S2+ RRR No murmurs Abd: Soft, NT, BS +, No organomegaly Ext: No edema, pulses are palpable, No calf tenderness Neuro : No acute focal neuro deficits noticed Skin: No rash. Psych: Depressed, no suicidal thoughts, no homicidal thoughts - Patient Status Disposition: Transfer Other Condition: Fair Functional capacity at discharge: independent ambulation Overall status at discharge: patient is back to baseline - Discharge Instructions Follow Up With: Nimesh Garcia MD [Partnered Physician] - (Appointment has been requested.) - Diet and Activity Activity: increase activity as tolerated Diet: advance to your usual diet
[2019-03-30 00:04] LABS: Acinetobacter baumannii by PCR Not Detected (Not Detect); Enterobacteriaceae by PCR Not Detected (Not Detect); Enterococcus by PCR Not Detected (Not Detect); Staphylococcus aureus by PCR Not Detected (Not Detect); Staphylococcus by PCR Not Detected (Not Detect); Streptococcus agalactiae(B)PCR Not Detected (Not Detect); Streptococcus by PCR Not Detected (Not Detect); Streptococcus pyogenes (A) PCR Not Detected (Not Detect); blaKPC Carbapenem-Resist Gene Not Detected (Not Detect); mecA Methicillin-Resist Gene Not Detected (Not Detect); vanA/B Vancomycin-Resist Genes Not Detected (Not Detect)
[2019-03-30 00:05] LABS: Candida albicans by PCR Not Detected (Not Detect); Candida glabrata by PCR Not Detected (Not Detect); Candida krusei by PCR Not Detected (Not Detect); Candida parapsilosis by PCR Not Detected (Not Detect); Candida tropicalis by PCR Not Detected (Not Detect); Enterobacter cloacae Cmplx PCR Not Detected (Not Detect); Escherichia coli by PCR Not Detected (Not Detect); Klebsiella oxytoca by PCR Not Detected (Not Detect); Klebsiella pneumoniae by PCR Not Detected (Not Detect); Proteus by PCR Not Detected (Not Detect); Pseudomonas aeruginosa by PCR Not Detected (Not Detect); Serratia marcescens by PCR Not Detected (Not Detect); Streptococcus pneumoniae PCR Not Detected (Not Detect)
--- NOTE | 2019-03-30 00:49 | Event Note ---
Date of Encounter: 03/30/19 Time of Encounter: 00:46 Notified by nurse who was notified by micro of patient's blood culture resulting positive for gram-positive cocci. Positive result was 1 out of 2 blood cultures drawn on 03/25/19, likely contaminant. No need for new coverage.
== END 2019-03-28 11:58 | disposition other institution (70) | DRG 871 ==
LOC: 3BNU 23:03 → EMEROOARM 23:03 → SUATTDRO 03-26 01:30 → 3BNU 03-26 02:55
PROVIDERS: ADMIT Internal Medicine; ATTEND Family Medicine

== ENCOUNTER 2019-04-04 15:39 | Inpatient (IN) ==
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
[2019-04-04 17:16] LABS: Basophils # 0.1 K/mcL (0.0-0.2); Basophils % 0.6 %; Eosinophils # 0.2 K/mcL (0.0-0.6); Eosinophils % 1.9 %; Hematocrit 39.2 % (35.3-44.9); Hemoglobin 13.2 g/dL (11.5-15.4); Immature Granulocytes % 0.2 % (0-4); Lymphocytes # 3.1 K/mcL (0.6-4.6); Lymphocytes % 34.3 %; Mean Corpuscular HGB Conc 33.7 g/dL (31.6-35.5); Mean Corpuscular Hemoglobin 29.6 pg (28.0-33.3); Mean Corpuscular Volume 87.9 fL (83.0-100.0); Mean Platelet Volume 10.1 fL (9.4-12.4); Monocytes # 0.5 K/mcL (0.0-1.3); Monocytes % 5.7 %; Neutrophils # 5.2 K/mcL (1.6-8.9); Platelet Count 267 K/mcL (140-400); Red Blood Count 4.46 M/mcL (3.82-4.97); Red Cell Distribution Width 13.1 % (11.5-14.5); Segmented Neutrophils % 57.3 %
[2019-04-04 17:38] LABS: Acetaminophen < 10 mcg/mL (10-20); Alanine Aminotransferase 13 Units/L (7-52); Albumin/Globulin Ratio 1.4 (1.1-2.2); Alkaline Phosphatase 83 Units/L (34-104); Aspartate Amino Transferase 15 Units/L (13-39); BUN/Creatinine Ratio 23 (6-26); Bilirubin,Direct 0.2 mg/dL (0.0-0.2); Bilirubin,Indirect 0.6 mg/dL (0.0-1.2); Bilirubin,Total 0.8 mg/dL (0.3-1.0); Blood Urea Nitrogen 18 mg/dL (6-20); Calcium 8.8 mg/dL (8.6-10.3); Carbon Dioxide 26 mEq/L (23-29); Chloride 104 mEq/L (98-107); Ethanol < 10 mg/dL (Less than 10); Globulin 2.9 g/dL (2.4-3.5); Glucose 94 mg/dL (70-105); Osmolality,Calculated 288 (280-300); Potassium 3.3 mEq/L (3.5-5.1); Salicylate < 2.5 mg/dL (15.0-30.0); Sodium 138 mEq/L (136-145); Total Protein 6.9 g/dL (6.4-8.9); eGFR For African Americans > 60 (> 60); eGFR For Non-African Americans > 60 (> 60)
[2019-04-04] MEDS ORDERED: 0.9 % Sodium Chloride 1,000 ML IVC ONE ×2 (17:50→18:49)
[2019-04-04] MEDS ORDERED: 0.9 % Sodium Chloride 1,000 ML ONE (18:48)
[2019-04-04 19:46] LABS: Bilirubin,Urine Small (Negative); Blood,Urine Small (Negative); Clarity,Urine Clear (Clear); Glucose,Urine (UA) Normal (Normal); Ketones,Urine Negative (Negative); Leukocyte Esterase,Urine Trace (Negative); Nitrite,Urine Positive (Negative); PH,Urine 5.5 pH Units (5.0-8.0); Protein,Urine 30 mg/dL (Neg-Trace); Specific Gravity,Urine > 1.030 (1.010-1.025); Urobilinogen,Urine Normal (Normal)
[2019-04-04 19:48] LABS: Bacteria,Urine Few per hpf (None-Few); Hyaline Casts,Urine None Seen per lpf (None-Few); RBC,Urine 0-3 per hpf (0-3); Squamous Epithelial Cell,Urine Many per lpf (None-Few); WBC,Urine 0-3 per hpf (0-3)
[2019-04-04 19:52] LABS: Color,Urine Amber (Yellow)
[2019-04-04] MEDS ORDERED: Naloxone 0.4 MG/ML INJ IVP ONE ×2 (19:57→20:55)
[2019-04-04 20:02] LABS: Amphetamine Screen,Urine Positive ng/mL (Cutoff=1000); Barbiturate Screen,Urine Negative ng/mL (Cutoff=200); Benzodiazepines Screen,Urine Positive ng/mL (Cutoff=200); Cannabinoid Screen,Urine Negative ng/mL (Cutoff = 50); Cocaine Screen,Urine Positive ng/mL (Cutoff= 300); Opiate Screen,Urine Positive ng/mL (Cutoff=300); Phencyclidine Screen,Urine Negative ng/mL (Cutoff=25)
[2019-04-04] MEDS ORDERED: cefTRIAXone 1,000 MG in Water for inj. (sterile) 10 ML IVP ONE (20:02)
[2019-04-04] MEDS ORDERED: Naloxone 0.4 MG/ML INJ IVP PRN (21:24)
--- NOTE | 2019-04-04 21:24 | Emergency Department Note ---
Disposition Clinical Impression: Polysubstance abuse, UTI (urinary tract infection), Altered mental status, Hypotension Disposition: Admitted As Inpatient Condition: Serious Referrals: NONE,PCP [Primary Care Provider] - Time of Disposition: 21:24 Altered Mental Status HPI - General Chief Complaint: ED Altered Mental Status Stated Complaint: Drug abuse, combative Time Seen by Provider: 04/04/19 15:46 Source: EMS Limitations: no limitations Nursing Notes Reviewed: Yes Vital Signs Reviewed: Yes - Related Data Previous Rx's Medication Instructions Recorded Naloxone [Narcan] 4 mg NS AD #2 sprays 04/03/19 Allergies Allergy/AdvReac Type Severity Reaction Status Date / Time No Known Allergies Allergy Verified 06/17/18 12:29 Constitutional: Denies: fever Cardiovascular: Denies: chest pain Respiratory: Denies: dyspnea Gastrointestinal: Denies: abdominal pain, nausea, vomiting Past Medical History - Past Medical History Medical history: Reports: hepatitis Surgical history: Reports: other Psychiatric history: Reports: depression, previous psychiatric hospitalization FRONT OFFICE COORDINATOR history: Reports: non-contributory - Social History Smoking Status: Current every day smoker Smokeless Tobacco Status: No Alcohol use: Reports: none Drug use: Reports: cocaine, opiates, marijuana, methamphetamine, IV Drug Use, prescription drug abuse, other Physical Exam - General Limitations: no limitations General appearance: alert, appears intoxicated Course Vital Signs Temperature 98.2 F 04/04/19 15:46 Pulse Rate 112 04/04/19 15:46 Respiratory Rate 24 04/04/19 15:46 Blood Pressure 111/62 04/04/19 15:46 O2 Sat by Pulse Oximetry 96 04/04/19 15:46 Temperature 98.2 F 04/04/19 15:46 Pulse Rate 67 04/04/19 20:51 Respiratory Rate 20 04/04/19 20:51 Blood Pressure 93/67 04/04/19 20:51 O2 Sat by Pulse Oximetry 100 04/04/19 20:51 Oxygen Delivery Oxygen Delivery Room Air Altered Mental Status - Lab Data Result diagrams: 04/04/19 16:42 04/04/19 16:42 Lab Results 04/04/19 04/04/19 04/04/19 Range/Units 16:42 16:42 16:42 WBC 9.0 (4.3-11.1) K/mcL RBC 4.46 (3.82-4.97) M/mcL Hgb 13.2 (11.5-15.4) g/dL Hct 39.2 (35.3-44.9) % MCV 87.9 (83.0-100.0) fL MCH 29.6 (28.0-33.3) pg MCHC 33.7 (31.6-35.5) g/dL RDW 13.1 (11.5-14.5) % Plt Count 267 (140-400) K/mcL MPV 10.1 (9.4-12.4) fL Immature Gran % 0.2 (0-4) % Seg Neutrophils % 57.3 % Lymphocytes % 34.3 % Monocytes % 5.7 % Eosinophils % 1.9 % Basophils % 0.6 % Neutrophils # 5.2 (1.6-8.9) K/mcL Lymphocytes # 3.1 (0.6-4.6) K/mcL Monocytes # 0.5 (0.0-1.3) K/mcL Eosinophils # 0.2 (0.0-0.6) K/mcL Basophils # 0.1 (0.0-0.2) K/mcL Sodium 138 (136-145) mEq/L Potassium 3.3 L (3.5-5.1) mEq/L Chloride 104 (98-107) mEq/L Carbon Dioxide 26 (23-29) mEq/L BUN 18 (6-20) mg/dL Creatinine 0.79 (0.60-1.20) mg/dL Est GFR ( Amer) > 60 (> 60) Est GFR (Non-Af Amer) > 60 (> 60) BUN/Creatinine Ratio 23 (6-26) Glucose 94 (70-105) mg/dL Calculated Osmolality 288 (280-300) Lactic Acid (0.5-2.2) mmol/L Calcium 8.8 (8.6-10.3) mg/dL Total Bilirubin 0.8 (0.3-1.0) mg/dL Direct Bilirubin 0.2 (0.0-0.2) mg/dL Indirect Bilirubin 0.6 (0.0-1.2) mg/dL AST 15 (13-39) Units/L ALT 13 (7-52) Units/L Alkaline Phosphatase 83 (34-104) Units/L Serum Total Protein 6.9 (6.4-8.9) g/dL Albumin 4.0 (3.5-5.7) g/dL Globulin 2.9 (2.4-3.5) g/dL Albumin/Globulin Ratio 1.4 (1.1-2.2) Serum , Qual Negative (Negative) Urine Color (Yellow) Urine Clarity (Clear) Urine pH (5.0-8.0) pH Units Ur Specific [place] (1.010-1.025) Urine Protein (Neg-Trace) mg/dL Urine Glucose (UA) (Normal) mg/dL Urine Ketones (Negative) mg/dL Urine Blood (Negative) Urine Nitrite (Negative) Urine Bilirubin (Negative) Urine Urobilinogen (Normal) mg/dL Ur Leukocyte Esterase (Negative) Urine Microscopic RBC (0-3) per hpf Urine Microscopic WBC (0-3) per hpf Ur Squamous Epith Cells (None-Few) per lpf Urine Bacteria (None-Few) per hpf Hyaline Casts (None-Few) per lpf Salicylates < 2.5 L (15.0-30.0) mg/dL Urine Opiates Screen (Mkffic=002) ng/mL Ur Buprenorphine Scrn (Cutoff=5) ng/mL Acetaminophen < 10 L (10-20) mcg/mL Ur Barbiturates Screen (Rtvtan=634) ng/mL Ur Phencyclidine Scrn (Cutoff=25) ng/mL Ur Amphetamines Screen (Sodtuz=4623) ng/mL U Benzodiazepines Scrn (Sxlndf=627) ng/mL Urine Cocaine Screen (Cutoff= 300) ng/mL U Marijuana (THC) Screen (Cutoff = 50) ng/mL Ur Drug Screen Interp Ethyl Alcohol < 10 (Less than 10) mg/dL 04/04/19 04/04/19 04/04/19 Range/Units 18:11 19:30 19:30 WBC (4.3-11.1) K/mcL RBC (3.82-4.97) M/mcL Hgb (11.5-15.4) g/dL Hct (35.3-44.9) % MCV (83.0-100.0) fL MCH (28.0-33.3) pg MCHC (31.6-35.5) g/dL RDW (11.5-14.5) % Plt Count (140-400) K/mcL MPV (9.4-12.4) fL Immature Gran % (0-4) % Seg Neutrophils % % Lymphocytes % % Monocytes % % Eosinophils % % Basophils % % Neutrophils # (1.6-8.9) K/mcL Lymphocytes # (0.6-4.6) K/mcL Monocytes # (0.0-1.3) K/mcL Eosinophils # (0.0-0.6) K/mcL Basophils # (0.0-0.2) K/mcL Sodium (136-145) mEq/L Potassium (3.5-5.1) mEq/L Chloride (98-107) mEq/L Carbon Dioxide (23-29) mEq/L BUN (6-20) mg/dL Creatinine (0.60-1.20) mg/dL Est GFR ( Amer) (> 60) Est GFR (Non-Af Amer) (> 60) BUN/Creatinine Ratio (6-26) Glucose (70-105) mg/dL Calculated Osmolality (280-300) Lactic Acid 0.7 (0.5-2.2) mmol/L Calcium (8.6-10.3) mg/dL Total Bilirubin (0.3-1.0) mg/dL Direct Bilirubin (0.0-0.2) mg/dL Indirect Bilirubin (0.0-1.2) mg/dL AST (13-39) Units/L ALT (7-52) Units/L Alkaline Phosphatase (34-104) Units/L Serum Total Protein (6.4-8.9) g/dL Albumin (3.5-5.7) g/dL Globulin (2.4-3.5) g/dL Albumin/Globulin Ratio (1.1-2.2) Serum , Qual (Negative) Urine Color Emili A (Yellow) Urine Clarity Clear (Clear) Urine pH 5.5 (5.0-8.0) pH Units Ur Specific [place] > 1.030 H (1.010-1.025) Urine Protein 30 H (Neg-Trace) mg/dL Urine Glucose (UA) Normal (Normal) mg/dL Urine Ketones Negative (Negative) mg/dL Urine Blood Small H (Negative) Urine Nitrite Positive A (Negative) Urine Bilirubin Small H (Negative) Urine Urobilinogen Normal (Normal) mg/dL Ur Leukocyte Esterase Trace H (Negative) Urine Microscopic RBC 0-3 (0-3) per hpf Urine Microscopic WBC 0-3 (0-3) per hpf Ur Squamous Epith Cells Many H (None-Few) per lpf Urine Bacteria Few (None-Few) per hpf Hyaline Casts None Seen (None-Few) per lpf Salicylates (15.0-30.0) mg/dL Urine Opiates Screen Positive H (Eoiqps=247) ng/mL Ur Buprenorphine Scrn Negative (Cutoff=5) ng/mL Acetaminophen (10-20) mcg/mL Ur Barbiturates Screen Negative (Zgqmbz=060) ng/mL Ur Phencyclidine Scrn Negative (Cutoff=25) ng/mL Ur Amphetamines Screen Positive H (Ihqxjv=3913) ng/mL U Benzodiazepines Scrn Positive H (Fzstvh=034) ng/mL Urine Cocaine Screen Positive H (Cutoff= 300) ng/mL U Marijuana (THC) Screen Negative (Cutoff = 50) ng/mL Ur Drug Screen Interp See Below Ethyl Alcohol (Less than 10) mg/dL TPA Checklist - LKW: 3-4.5 hrs Add. Warnings/Precautions Patient/family understanding: The patient/family members have been counseled and understood the risk, benefit, and alternatives of treatment. Attestation Statement - Attestation Attestation: I have seen this patient with the resident physician, I have personally evaluated this patient. I had reviewed the chart and document dictation by the resident physician and aM in agreement with the information documented by the resident physician. Please see documentation by the resident physician for complete chart including past medical history, family medical history, review of systems, current history and physical and laboratory and imaging studies. I was present for all procedures, provided direct supervision for all procedures, was present for the entirety of all procedures and provided direct guidance during the procedures. Please see documentation by the resident physician for any procedures performed. I have reviewed all interpretations of EKGs, and reviewed all EKGs performed on patient's as well. I have also reviewed reports of imaging as provided by radiology. Patient was brought in by medics/police, she was apparently running down the street screaming that he was chasing her with a knife and agree with their. She was seen here yesterday for substance abuse, she presents more lethargic today, but is awake, she will answer a couple of questions. Upon presentation she was initially tachycardic with a heart rate around 100 but as she then fell asleep her heart rate began to decrease down to 60-70. She originally was attacking her airway, maintaining blood pressures maintaining oxygen saturation maintained heart rates, she was being observed, blood work had been sent all of which was within acceptable limits and EKG was obtained which was a normal sinus rhythm with no evidence of acute ischemia and dysrhythmia or hyperkalemia no abdominal interval as interpreted by myself. During her observation, her blood pressure began to decrease, although her map was greater 65 systolics continued to drop, at which time a IV was placed, she remained lethargic as if still on the substances with no mental status change from when she arrived, IV was established and she was started on IV fluids, we were able to catheter for a urine, her urine drug screen demonstrated polysubsta nce of methamphetamine cocaine opiates and benzodiazepines. Throughout her stay her pupils were always normal without pinpoint pupils, and with a normal respiratory rate, after 2 L of fluid she still had lower blood pressures although again her mean arterial pressure was within acceptable limits, I decided to try Narcan to see if this would help, she was given Narcan, it did not change her mental status very much she remained still lethargic, but her blood pressure did improve, she was given a third liter of IV fluids. Urinalysis was suggestive of UTI, however all laboratory studies apart from this were normal, with a normal lactic acid normal CBC, no evidence of end organ damage, normal LFTs, no other findings to suggest sepsis. She was given IV Rocephin for this. She was observed in the emergency department for 5-1/2 hours to see if she would wake up and be able to metabolize to freedom, however she remained persistently lethargic, a head CT was also obtained secondary to this, during her workup which revealed no acute abnormality. Patient was admitted to the hospital for further evaluation and management of polysubstance abuse, altered mental status, UTI, hypotension. Total critical care time as provided by myself excluding any procedures performed was 30 minutes. Please note I also reviewed her recent admission to the hospital from within the last few weeks, which revealed a workup for endocarditis with negative blood cultures and a normal echocardiogram without vegetations.
--- NOTE | 2019-04-04 21:35 | Internal Med History&Physical ---
Date of Encounter: 04/04/19 Time of Encounter: 21:27 Internal Medicine - H&P: HPI Chief complaint: AMS History of present illness: Ms. Pollard is a 33 year old female with a past medical history of hepatitis C, endocarditis, extensive polydrug abuse history including cocaine and meth heroin THC and benzos who presents to the ED with AMS. Patient was recently discharged after admission for suicidal ideation as well as drug intoxication. She was given broad-spectrum antibiotics Zosyn and vancomycin and subsequently discontinued after negative blood cultures and no vegetative findings on Echo. Patient was seen by psychiatry and agreed to drug rehabilitation and placement at [facility]. On my assessment patient was sleeping and difficult to arouse. Per ED records, patient was found running around in the middle of the street in [facility]. Patient was subsequently found by police and brought into the hospital. While in the ED, patient reported that somebody was chasing her with a knife. On initial assessment patient was afebrile, hemodynamically stable with a heart rate of 112. Saturating 95% on room air. Laboratory workup was unremarkable. UA suggestive of UTI with positive nitrites and leukocyte esterase. Urine toxicology positive for opiates, amphetamines, benzodiazepines, and cocaine. EKG shows sinus bradycardia with a heart rate of 51. No ST or T-wave abnormalities. CT of the head showed no acute intracranial abnormality. She w as given 2 L bolus of IV fluids and started on antibiotics with ceftriaxone. Past Med Surg Social Fam HX - Past Medical History Medical history: hepatitis Additional medical history: hepatitis C. endocarditis x 2 Psychiatric history: depression, previous psychiatric hospitalization - Past Surgical History Surgical History: other Additional surgical history: D&C. R shoulder - Social History Smoking Status: Current every day smoker Smokeless Tobacco Status: No Alcohol use: none Drug use: cocaine, opiates, marijuana, methamphetamine, IV Drug Use, prescription drug abuse, other - Family History Father Family Member Ethnicity: Non- Living Status: Hx Family Cardiac Disorders: Yes (Bypass surgery) Hx Family Respiratory Disorders: Yes Hx Family GI Disorders: Yes Mother Family Member Ethnicity: Non- Living Status: Still Living Brother Family Member Ethnicity: Non- Living Status: Still Living Internal Medicine - H&P: Meds No Known Home Drugs 04/05/19 [History] Allergy/AdvReac Type Severity Reaction Status Date / Time No Known Allergies Allergy Verified 04/05/19 08:51 All Systems PM: A 10-system review of systems was performed and is negative for pertinent findings except as documented above in the HPI. - Constitutional Constitutional: no chills, no fever(s), no night sweats - EENT Eyes: no change in vision, no discharge, no pain, no photophobia Ears: no ear discharge, no ear pain, no tinnitus Nose, mouth and throat: no dysphagia, no nasal discharge, no neck pain, no sore throat - Cardiovascular Cardiovascular ROS IM: no chest pain, no diaphoresis, no dyspnea, no lightheadedness, no palpitations, no syncope - Respiratory Respiratory: no cough, no dyspnea, no wheezing, no excessive phlegm production - Gastrointestinal Gastrointestinal: no abdominal pain, no diarrhea, no hematemesis, no hematochezia, no melena, no nausea, no vomiting - Genitourinary Genitourinary: no change in urinary stream, no dysuria, no flank pain, no hematuria - Musculoskeletal Musculoskeletal ROS IM: no numbness, no tingling - Integumentary Integumentary IM: no rash, no unusual bruising - Neurological Neurological ROS: no confusion, no convulsions, no focal weakness, no numbness, no tingling, no tremor(s) - Hematologic/Lymphatic Hematologic/Lymphatic: no easy bruising - Constitutional Vitals: Temp Pulse Resp BP Pulse Ox 98.2 F 67 20 93/67 100 04/04/19 15:46 04/04/19 20:51 04/04/19 20:51 04/04/19 20:51 04/04/19 20:51 Exam: General: Alert and oriented Skin:Normal color, no rash, no lesions. HEENT:EOM, pupils equal, round and reactive. Cardiovascular:Normal S1 & S2, no rubs, murmurs or gallops. No JVD. Pulse regular. Lungs:Normal breath sounds, no wheezes or crackles. Abdomen:Soft, non-tender, no rigidity. Extremities:No deformity, no edema or tenderness, no joint swelling or clubbing. Neurological: Could not assess due to lack of cooperation Pulses:Carotid and radial pulses normal +2. Rest of the physical exam is non contributory Internal Med - H&P Results - Labs CBC & Chem 7: 04/05/19 12:35 04/05/19 12:35 Labs: Short CBC 04/04/19 Range/Units 16:42 WBC 9.0 (4.3-11.1) K/mcL Hgb 13.2 (11.5-15.4) g/dL Hct 39.2 (35.3-44.9) % Plt Count 267 (140-400) K/mcL Neutrophils # 5.2 (1.6-8.9) K/mcL BMP 04/04/19 16:42 Sodium 138 Potassium 3.3 L Chloride 104 Carbon Dioxide 26 BUN 18 Creatinine 0.79 Glucose 94 Calcium 8.8 Liver Function 04/04/19 Range/Units 16:42 Total Bilirubin 0.8 (0.3-1.0) mg/dL Direct Bilirubin 0.2 (0.0-0.2) mg/dL AST 15 (13-39) Units/L ALT 13 (7-52) Units/L Alkaline Phosphatase 83 (34-104) Units/L Albumin 4.0 (3.5-5.7) g/dL Urine 04/04/19 Range/Units 19:30 Urine Color Emili A (Yellow) Urine Clarity Clear (Clear) Urine pH 5.5 (5.0-8.0) pH Units Ur Specific [place] > 1.030 H (1.010-1.025) Urine Protein 30 H (Neg-Trace) mg/dL Urine Glucose (UA) Normal (Normal) mg/dL - Impressions ITS Impressions Head CT 04/04/19 17:49 IMPRESSION: No acute intracranial abnormality. D/ / hCago Saxena MD / Chago Saxena MD Interpreting Provider: Chago Saxena MD - Assessment and Plan (1) Encephalopathy acute Current Visit: No Status: Acute Assessment and plan: Altered mental status likely secondary to polysubstance abuse. -Continue supportive care -Aspiration precautions -One-to-one sitter -rn medical inpatient services consult (2) Hypotension Current Visit: Yes Status: Acute Assessment and plan: Blood pressure dipped to as low as 78/60 while in the ED. Since then has responded to IV fluids. Suspect likely secondary to drug toxicity. -Continue to monitor. -Continue with IV fluids Qualifiers: Hypotension type: hypotension due to drug Qualified Code(s): I95.2 - Hypotension due to drugs (3) UTI (urinary tract infection) Current Visit: Yes Status: Acute Assessment and plan: UA suggestive of UTI. -Urine culture were not obtained. -Follow-up blood cultures -Continue ceftriaxone Qualifiers: Urinary tract infection type: acute cystitis Qualified Code(s): N30.00 - Acute cystitis without hematuria (4) Polysubstance abuse Current Visit: Yes Status: Chronic Assessment and plan: History of polysubstance abuse. Urine toxicology positive for amphetamines, benzodiazepines, cocaine and opiates. -rn medical inpatient services consult (5) DVT prophylaxis Current Visit: No Status: Acute Assessment and plan: Subcutaneous heparin - Time Spent With Patient Total time spent is greater than 50% in coordination of care (as documented) at patient's floor/unit and/or counseling patient:
[2019-04-04] MEDS: 0.9 % Sodium Chloride 1,000 ML IVC SCH (21:57)
[2019-04-05] MEDS: *HR* Heparin 5,000 UNIT/ML VIAL SQ SCH ×4 (01:20→23:01)
[2019-04-05] MEDS: 0.9 % Sodium Chloride 1,000 ML IVC SCH ×3 (04:12→17:12)
[2019-04-05 06:25] LABS: Hematocrit 38.8 % (35.3-44.9); Hemoglobin 12.3 g/dL (11.5-15.4); Mean Corpuscular HGB Conc 31.7 g/dL (31.6-35.5); Mean Corpuscular Hemoglobin 28.8 pg (28.0-33.3); Mean Corpuscular Volume 90.9 fL (83.0-100.0); Mean Platelet Volume 10.1 fL (9.4-12.4); Platelet Count 237 K/mcL (140-400); Red Blood Count 4.27 M/mcL (3.82-4.97); Red Cell Distribution Width 13.4 % (11.5-14.5)
[2019-04-05 08:43] LABS: BUN/Creatinine Ratio 23 (6-26); Blood Urea Nitrogen 14 mg/dL (6-20); Calcium 8.3 mg/dL (8.6-10.3); Carbon Dioxide 24 mEq/L (23-29); Chloride 110 mEq/L (98-107); Glucose 65 mg/dL (70-105); Magnesium 1.8 mg/dL (1.6-2.6); Osmolality,Calculated 287 (280-300); Potassium 3.8 mEq/L (3.5-5.1); Sodium 139 mEq/L (136-145); eGFR For African Americans > 60 (> 60); eGFR For Non-African Americans > 60 (> 60)
[2019-04-05] MEDS ORDERED: Morphine Sulfate 2 MG/ML SYRINGE IVP ONE (11:09)
[2019-04-05 12:50] LABS: Basophils % 0.5 %; Eosinophils # 0.1 K/mcL (0.0-0.6); Hematocrit 39.1 % (35.3-44.9); Hemoglobin 12.8 g/dL (11.5-15.4); Immature Granulocytes % 0.2 % (0-4); Lymphocytes # 1.9 K/mcL (0.6-4.6); Lymphocytes % 30.8 %; Mean Corpuscular HGB Conc 32.7 g/dL (31.6-35.5); Mean Corpuscular Hemoglobin 29.6 pg (28.0-33.3); Mean Corpuscular Volume 90.3 fL (83.0-100.0); Mean Platelet Volume 10.2 fL (9.4-12.4); Monocytes # 0.3 K/mcL (0.0-1.3); Monocytes % 4.3 %; Neutrophils # 3.8 K/mcL (1.6-8.9); Platelet Count 239 K/mcL (140-400); Red Blood Count 4.33 M/mcL (3.82-4.97); Red Cell Distribution Width 13.2 % (11.5-14.5); Segmented Neutrophils % 63.2 %; White Blood Count 6.1 K/mcL (4.3-11.1)
[2019-04-05 13:06] LABS: BUN/Creatinine Ratio 20 (6-26); Blood Urea Nitrogen 12 mg/dL (6-20); Calcium 8.4 mg/dL (8.6-10.3); Carbon Dioxide 23 mEq/L (23-29); Chloride 110 mEq/L (98-107); Glucose 91 mg/dL (70-105); Magnesium 1.8 mg/dL (1.6-2.6); Osmolality,Calculated 285 (280-300); Potassium 3.5 mEq/L (3.5-5.1); Sodium 138 mEq/L (136-145); eGFR For African Americans > 60 (> 60); eGFR For Non-African Americans > 60 (> 60)
--- NOTE | 2019-04-05 15:24 | Electrocardiograph Report ---
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
--- NOTE | 2019-04-05 15:33 | Electrocardiograph Report ---
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
[2019-04-05] MEDS: *HR* LORazepam 2 MG/ML VIAL IVP PRN (19:23)
[2019-04-05] MEDS ORDERED: cefTRIAXone 1,000 MG in Water for inj. (sterile) 10 ML IVP SCH (20:00)
--- NOTE | 2019-04-05 20:17 | Internal Med Progress Note ---
Hospitalist Progress Note - Encounter Date of Encounter: 04/05/19 Time of Encounter: 11:00 - Subjective Interval History: Ms Pollard One-To-One Supervision She Stated That She Is Going through withdrawal. Per nursing staff patient has been bradycardic - Exam Vitals: Temp Pulse Resp BP Pulse Ox 98.2 F 75 15 101/73 96 04/05/19 16:45 04/05/19 18:33 04/05/19 18:33 04/05/19 18:33 04/05/19 18:33 Exam: GENERAL: NAD, A&O x3, appeared somnolent SKIN: [place] warm and dry with multiple skin lesions and tattoos EYES: EOMI, PERRLA, no sclera icterus HENT: Head atraumatic, no facial asymmetry, frontal and maxillary sinus non- tender, normal hearing, oropharynx and mucosa moist and without any exudates NECK: No cervical lymphadenopathy, trachea midline, thyroid is palpable does not appear enlarged LUNGS: vesicular breath sounds, clear to auscultation, no wheeze, rhonchi, rales or crackles. Non labored respirations HEART: Normal rate and rhythm, no murmurs or rubs ABDOMEN: soft, non-tender, non-distended, bowel sounds x 4 normoactive EXTRMITIES: No LE asymmetry, No LE edema, pedal pulses 1+ and radial pulses 2 + and equal bilaterally NEURO: Speech and comprehension appears intact. . PSYCH: Cooperative, slightly anxious, mood depressed and affect is labile - Assessment and Plan (1) Encephalopathy acute Current Visit: No Status: Acute Assessment and Plan: Likely toxic encephalopathy from the substance use resolved Altered mental status likely secondary to polysubstance abuse. -Continue supportive care -Aspiration precautions -One-to-one sitter -financial services intern consult (2) UTI (urinary tract infection) Current Visit: Yes Status: Acute Assessment and Plan: She has asymptomatic continue empiric treatment for now. Recommend follow UA suggestive of UTI. -Urine culture were not obtained. -Follow-up blood cultures -Continue ceftriaxone (3) Polysubstance abuse Current Visit: Yes Status: Chronic Assessment and Plan: Patient is complaining of withdrawal and requesting opiate analgesic. On exam she does not appear to be having any symptoms of withdraw she is nondiaphoretic no piloerection. Given her positive toxicology for cocaine and amphetamines would expect her to be tachycardic with elevated blood pressure. Repeat EKG was unrevealing revealed sinus bradycardia with no ST segment or T-wave abnormalit ies narrow complex QRS. Morphine 1 mg every 4 hours as needed, Ativan 0.5 mg IV every 8 hours as needed loperamide has been ordered with parameters History of polysubstance abuse. Urine toxicology positive for amphetamines, benzodiazepines, cocaine and opiates. -financial services intern consult (4) Hypotension Current Visit: Yes Status: Acute Assessment and Plan: Resolved Blood pressure dipped to as low as 78/60 while in the ED. Since then has responded to IV fluids. Suspect likely secondary to drug toxicity. -Continue to monitor. -Continue with IV fluids (5) DVT prophylaxis Current Visit: No Status: Acute Assessment and Plan: Subcutaneous heparin - Time Spent with Patient Total time spent is greater than 50% in coordination of care (as documented) at patient's floor/unit and/or counseling patient: Internal Medicine: Result - Labs CBC & Chem 7: 04/05/19 12:35 04/05/19 12:35 Labs: Short CBC 04/05/19 04/05/19 Range/Units 06:05 12:35 WBC 6.0 6.1 (4.3-11.1) K/mcL Hgb 12.3 12.8 (11.5-15.4) g/dL Hct 38.8 39.1 (35.3-44.9) % Plt Count 237 239 (140-400) K/mcL Neutrophils # 3.8 (1.6-8.9) K/mcL BMP 04/05/19 04/05/19 06:05 12:35 Sodium 139 138 Potassium 3.8 3.5 Chloride 110 H 110 H Carbon Dioxide 24 23 BUN 14 12 Creatinine 0.62 0.60 Glucose 65 L 91 Calcium 8.3 L 8.4 L Consult Discharge Plan - Plan Referrals: NONE,PCP [Primary Care Provider] - (2) UTI (urinary tract infection) Qualifiers: Urinary tract infection type: acute cystitis Qualified Code(s): N30.00 - Acute cystitis without hematuria (4) Hypotension Qualifiers: Hypotension type: hypotension due to drug Qualified Code(s): I95.2 - Hypotension due to drugs
[2019-04-05] MEDS: Morphine Sulfate 2 MG/ML SYRINGE IVP PRN (20:18)
[2019-04-06] MEDS: 0.9 % Sodium Chloride 1,000 ML IVC SCH ×3 (00:21→14:12)
[2019-04-06] MEDS: *HR* LORazepam 2 MG/ML VIAL IVP PRN ×2 (03:28→18:13)
[2019-04-06] MEDS: *HR* Heparin 5,000 UNIT/ML VIAL SQ SCH ×2 (06:21→14:12)
[2019-04-06] MEDS: Morphine Sulfate 2 MG/ML SYRINGE IVP PRN ×2 (07:53→14:12)
--- NOTE | 2019-04-06 09:35 | Internal Med Progress Note ---
Hospitalist Progress Note - Encounter Date of Encounter: 04/06/19 Time of Encounter: 09:33 - Subjective Interval History: Ms Pollard has no issues overnight although she told her nurse she was withdrawing earlier this morning, however denies any withdrawal symptoms. She stated that she has tried a Suboxone clinic in the past but continued to relapse citing family related stressors. She denies any history of sexual or physical abuse. - Exam Vitals: Temp Pulse Resp BP Pulse Ox 98.2 F 68 14 97/64 98 04/06/19 06:30 04/06/19 07:37 04/06/19 07:37 04/06/19 07:37 04/06/19 06:30 Exam: GENERAL: NAD, A&O x3, appeared somnolent SKIN: [place] warm and dry with multiple skin lesions and tattoos EYES: EOMI, PERRLA, no sclera icterus HENT: Head atraumatic, no facial asymmetry, frontal and maxillary sinus non- tender, normal hearing, oropharynx and mucosa moist and without any exudates NECK: No cervical lymphadenopathy, trachea midline, thyroid is palpable does not appear enlarged LUNGS: vesicular breath sounds, clear to auscultation, no wheeze, rhonchi, rales or crackles. Non labored respirations HEART: Normal rate and rhythm, slightly tachycardic. no murmurs or rubs ABDOMEN: soft, non-tender, non-distended, bowel sounds x 4 normoactive EXTRMITIES: No LE asymmetry, No LE edema, pedal pulses 1+ and radial pulses 2 + and equal bilaterally NEURO: Speech and comprehension appears intact. . PSYCH: Cooperative, mood and affect is appropriate - Assessment and Plan (1) Encephalopathy acute Current Visit: No Status: Acute Assessment and Plan: Likely toxic encephalopathy from the substance use resolved Altered mental status likely secondary to polysubstance abuse. -Continue supportive care -Aspiration precautions -One-to-one sitter -representative phlebotomy services consult (2) UTI (urinary tract infection) Current Visit: Yes Status: Acute Assessment and Plan: Blood cultures pending, she is afebrile noted leukocytosis and no dysuria or discontinue antibiotics. She has asymptomatic continue empiric treatment for now. Recommend follow UA suggestive of UTI. -Urine culture were not obtained. -Follow-up blood cultures -Continue ceftriaxone (3) Polysubstance abuse Current Visit: Yes Status: Chronic Assessment and Plan: She admits to have tried Suboxone clinic in the past. Case management provided the patient with information for outpatient treatment facilities Patient is complaining of withdrawal and requesting opiate analgesic. On exam she does not appear to be having any symptoms of withdraw she is nondiaphoretic no piloerection. Given her positive toxicology for cocaine and amphetamines would expect her to be tachycardic with elevated blood pressure. Repeat EKG was unrevealing revealed sinus bradycardia with no ST segment or T-wave abnormalities narrow complex QRS. Morphine 1 mg every 4 hours as needed, Ativan 0.5 mg IV every 8 hours as needed loperamide has been ordered with parameters History of polysubstance abuse. Urine toxicology positive for amphetamines, benzodiazepines, cocaine and opiates. -representative phlebotomy services consult (4) Hypotension Current Visit: Yes Status: Acute Assessment and Plan: Resolved Blood pressure dipped to as low as 78/60 while in the ED. Since then has responded to IV fluids. Suspect likely secondary to drug toxicity. -Continue to monitor. -Continue with IV fluids (5) DVT prophylaxis Current Visit: No Status: Acute Assessment and Plan: Subcutaneous heparin - Time Spent with Patient Total time spent is greater than 50% in coordination of care (as documented) at patient's floor/unit and/or counseling patient: Internal Medicine: Result - Labs CBC & Chem 7: 04/05/19 12:35 04/05/19 12:35 Labs: Short CBC 04/05/19 Range/Units 12:35 WBC 6.1 (4.3-11.1) K/mcL Hgb 12.8 (11.5-15.4) g/dL Hct 39.1 (35.3-44.9) % Plt Count 239 (140-400) K/mcL Neutrophils # 3.8 (1.6-8.9) K/mcL BMP 04/05/19 12:35 Sodium 138 Potassium 3.5 Chloride 110 H Carbon Dioxide 23 BUN 12 Creatinine 0.60 Glucose 91 Calcium 8.4 L Consult Discharge Plan - Plan Referrals: NONE,PCP [Primary Care Provider] - (2) UTI (urinary tract infection) Qualifiers: Urinary tract infection type: acute cystitis Qualified Code(s): N30.00 - Acute cystitis without hematuria (4) Hypotension Qualifiers: Hypotension type: hypotension due to drug Qualified Code(s): I95.2 - Hypotension due to drugs
[2019-04-06 11:10] LABS: Basophils % 0.4 %; Eosinophils # 0.1 K/mcL (0.0-0.6); Eosinophils % 1.5 %; Hemoglobin 12.7 g/dL (11.5-15.4); Lymphocytes # 1.7 K/mcL (0.6-4.6); Lymphocytes % 37.4 %; Mean Corpuscular HGB Conc 32.6 g/dL (31.6-35.5); Mean Corpuscular Hemoglobin 28.7 pg (28.0-33.3); Mean Corpuscular Volume 88.2 fL (83.0-100.0); Mean Platelet Volume 10.9 fL (9.4-12.4); Monocytes # 0.2 K/mcL (0.0-1.3); Monocytes % 4.1 %; Neutrophils # 2.6 K/mcL (1.6-8.9); Platelet Count 261 K/mcL (140-400); Red Blood Count 4.42 M/mcL (3.82-4.97); Red Cell Distribution Width 13.3 % (11.5-14.5); Segmented Neutrophils % 56.6 %; White Blood Count 4.6 K/mcL (4.3-11.1)
[2019-04-06 11:29] LABS: BUN/Creatinine Ratio 7 (6-26); Blood Urea Nitrogen 6 mg/dL (6-20); Calcium 8.8 mg/dL (8.6-10.3); Carbon Dioxide 27 mEq/L (23-29); Chloride 109 mEq/L (98-107); Glucose 71 mg/dL (70-105); Magnesium 1.7 mg/dL (1.6-2.6); Osmolality,Calculated 286 (280-300); Sodium 140 mEq/L (136-145); eGFR For African Americans > 60 (> 60); eGFR For Non-African Americans > 60 (> 60)
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
[2019-04-06 16:10] VITALS: BP 106/68
--- NOTE | 2019-04-06 21:29 | Discharge Summary ---
<Kwame Sampson - Last Filed: 04/06/19 21:27> - NOTES TO OUTPATIENT PROVIDER Notes to Outpatient Provider: Patient admitted for acute psychosis likely secondary to drug overdose. Patient did leave AGAINST MEDICAL ADVICE after discussion of risks. She acknowledged these risks and was advised to come back to the emergency department with any return of symptoms. Orders not resulted at time of discharge: Pending orders 04/04/19 18:40 Culture,Blood [BC] Stat Date of Encounter: 04/06/19 Time of Encounter: 21:29 - Discharge Diagnosis (1) Overdose, drug Priority: Primary Status: Resolved Qualifiers: Encounter type: initial encounter Injury intent: undetermined intent Qualified Code(s): T50.904A - Poisoning by unspecified drugs, medicaments and biological substances, undetermined, initial encounter (2) Sepsis Priority: Secondary Status: Resolved Qualifiers: Sepsis type: methicillin resistant Staphylococcus aureus Qualified Code(s): A41.02 - Sepsis due to Methicillin resistant Staphylococcus aureus Hospital course: Ms. Pollard is a 33 year old female with a past medical history of polysubstance abuse who presents emergency department with altered mental status. Her urine drug screen was positive for amphetamines, benzodiazepines, cocaine, opiates. She is known to this facility including multiple episodes of endocarditis polysubstance abuse. Patient did meet SIRS criteria and presentation. Patient's mental status did improve during course of stay with supportive therapy and probiotics. She was given benzodiazepines and morphine for symptoms of withdrawal. Despite this, patient did insist on leaving AGAINST MEDICAL ADVICE. Risks were explained to her including worsening of symptoms, worsening infection, all tracings mental status, coma, . Despite this, patient acknowledges the risks however was still insistent upon leaving. She was evaluated by psychiatry who recommended supportive care and determined that her psychosis was likely secondary to her multiple drug use. There is no pink slip placed. Patient will leave and was instructed to follow up with her primary care doctor as well as to return to emergency department with any worsening of symptoms Discharge discussed with: patient, nurse - Time Spent with Patient Total time spent providing and/or coordinating discharge services: - Discharge Medications Prescriptions: No Action No Known Home Drugs 1 each .ROUTE AD each Home Medications: No Known Home Drugs 04/05/19 [History] Allergies/Adverse Reactions: Allergy/AdvReac Type Severity Reaction Status Date / Time No Known Allergies Allergy Verified 04/05/19 08:51 Date of admission: 04/06/19 10:59 Primary care physician: PCP NONE Consults: 04/05/19 00:27 Consult to Bleach Plant Operator [CONS] Routine Reason for SW Consult: Recurrence of Polysubstance abuse 04/05/19 14:09 Consult to Psychiatry [CONS] Routine Consulting Provider: Psychiatry Bridgett Reason consult: Agitation Psychosis Discharging clinician: Kwame Sampson Anticipated date of discharge: 04/06/19 - Constitutional Vitals: Temp Pulse Resp BP Pulse Ox 97.6 F 94 19 106/68 98 04/06/19 16:05 04/06/19 16:05 04/06/19 16:05 04/06/19 16:05 04/06/19 11:24 General appearance: Present: A&O X 3, no acute distress, answers questions appropriately Exam: Patient is alert and oriented 3, answering questions appropriately. She is in no acute distress and is nontoxic appearing. - Patient Status Disposition: Left Against Medical Advice Condition: Serious Functional capacity at discharge: independent ambulation Overall status at discharge: patient is not back to baseline - Discharge Instructions Follow Up With: NONE,PCP [Primary Care Provider] - Forms: ED Satisfaction Letter - Diet and Activity Activity: return to work once cleared by your PCP/specialist Diet: advance to your usual diet <Geraldine Delarosa - Last Filed: 04/11/19 17:22> Date of Encounter: 03/07/19 - Discharge Diagnosis (1) Hypotension Status: Acute Qualifiers: Hypotension type: hypotension due to drug Qualified Code(s): I95.2 - Hypotension due to drugs (2) DVT prophylaxis Status: Acute (3) Polysubstance abuse Status: Chronic (4) UTI (urinary tract infection) Status: Acute Qualifiers: Urinary tract infection type: acute cystitis Qualified Code(s): N30.00 - Acute cystitis without hematuria (5) Encephalopathy acute Status: Acute Hospital course: Ms. Pollard is a 33 year old female - Time Spent with Patient Total time spent providing and/or coordinating discharge services: Date of admission: 04/06/19 10:59 Primary care physician: PCP NONE Consults: 04/05/19 00:27 Consult to Bleach Plant Operator [CONS] Routine Reason for SW Consult: Recurrence of Polysubstance abuse 04/05/19 14:09 Consult to Psychiatry [CONS] Routine Consulting Provider: Psychiatry Bridgett Reason consult: Agitation Psychosis - Constitutional Vitals: Temp Pulse Resp BP Pulse Ox 97.6 F 94 19 106/68 98 04/06/19 16:05 04/06/19 16:05 04/06/19 16:04/06/19 16:04/06/19 11:24 - Attending Attestation I performed a history and physical examination of the patient and discussed his management with the resident. I reviewed the residents note and agree with the documented findings and plan of care.
== END 2019-04-06 20:00 | disposition left against medical advice (07) | DRG 917 ==
LOC: 2NENU 15:39 → EMEROOARM 15:39 → SUATTDRO 21:29 → 2NENU 22:12
PROVIDERS: ADMIT Internal Medicine Nephrology; ATTEND Pharmacist

== ENCOUNTER 2019-05-03 18:15 | Inpatient (IN) ==
[2019-05-03] MEDS ORDERED: Isovue-370 500 ML BOTTLE IVP ONE (18:53)
--- NOTE | 2019-05-03 18:59 | Emergency Department Note ---
Disposition Clinical Impression: Abscess of skin or subcutaneous tissue Qualifiers: Site of cutaneous abscess: neck Qualified Code(s): L02.11 - Cutaneous abscess of neck Disposition: Admitted As Inpatient Condition: Fair Time of Disposition: 22:24 Skin/Abscess/FB HPI Chief complaint: ED Skin/Abscess/Foreign Body Stated complaint: Knot on R side neck, MRSA Source: patient Limitations: no limitations Vital Signs Reviewed: Yes HPI Narrative: Larissa is a 33-year-old female past medical history of having MRSA with endocarditis 3 years ago, IV drug use, DVT, and hepatitis C who presented with right-sided neck swelling, erythema and pain. She states that 4 days ago and had pain in the lateral side of her neck. Currently her pain as a 7/10 in her neck. It hurts to turn her neck to the right or left, worst to the right. She admits to shooting heroin into her neck pains. She had subjective fevers last name. Admits to sore throat before this started but no dysphagia. Denies dizziness, vision changes, worsening shortness of breath, nausea, vomiting, chest pain. She states that she did use heroin couple of hours ago. Home Medications Medication Instructions Recorded Confirmed No Known Home Drugs 04/05/19 05/03/19 Allergies Allergy/AdvReac Type Severity Reaction Status Date / Time No Known Allergies Allergy Verified 05/03/19 18:20 Review of Systems: As Per HPI Past Medical History - Past Medical History Medical history: Reports: hepatitis Surgical history: Reports: other Psychiatric history: Reports: bipolar [employer] history: Reports: non-contributory - Social History Smoking Status: Current every day smoker Smokeless Tobacco Status: No Alcohol use: Reports: none Drug use: Reports: cocaine, opiates, marijuana, methamphetamine, IV Drug Use, prescription drug abuse, other Physical Exam Constitutional: Alert, in no acute distress HEENT: Normocephalic, atraumatic, neck with erythema, swelling, and tenderness at the supraclavicular region, pain with rotation of neck, throat without exudates, Heart: Normal, regular rate and rhythm, no murmurs Lungs: Clear to auscultation, no wheezes, rales, or rhonchi Abdomen: Soft, nondistended, nontender, bowel sounds present and normal, no guarding or rigidity. Extremities: lower extremities with multiple scabs with erythematous rings, negative homen's sign, calfs same size, No edema, No clubbing, radial pulse +2/4, capillary refill <2sec. Skin: Skin warm and dry, no lesions, no rashes, no jaundice Neurologic: Cranial nerves II through XII grossly intact, strength 5/5 in all extremities Psych: Cooperative with exam, good eye contact, cognitive function intact, speech clear, thought process logical, and goal directed - General Limitations: no limitations General appearance: alert, in no apparent distress Course Course Narrative: We will obtain CT with contrast at neck and chest to assess for blood clots, cellulitis, abscess or mass. We will also obtain CBC, CMP, lactic acid, blood cultures, and test. - Reevaluation(s) Reevaluation #1: test was negative. CT head and neck with contrast showed Phlegmonous changes within the right supraclavicular soft tissues with small rim enhancing fluid collection suggesting abscess measuring up to 1.6 cm. Patients vitals were stable. WBC wnl. Will give IV Vancomycin first dose. Discussed with hospitalist Elabor and he accepted admission for abscess in the supraclavicular region with need for IV antibiotics. Patient was given Toradol for pain. Patient was admitted to the floor. Time: 22:08 Vital Signs Temperature 98.8 F 05/03/19 18:18 Pulse Rate 117 05/03/19 18:18 Respiratory Rate 16 05/03/19 18:18 Blood Pressure 131/69 05/03/19 18:18 O2 Sat by Pulse Oximetry 96 05/03/19 18:18 Temperature 98.8 F 05/03/19 18:18 Pulse Rate 90 05/03/19 21:50 Respiratory Rate 18 05/03/19 21:50 Blood Pressure 108/71 05/03/19 21:50 O2 Sat by Pulse Oximetry 99 05/03/19 21:50 Oxygen Delivery Oxygen Delivery Room Air Skin/Abscess/Foreign Body - Lab Data Result diagrams: 05/03/19 19:13 05/03/19 19:13 Lab Results 05/03/19 05/03/19 05/03/19 Range/Units 19:13 19:13 19:13 WBC 9.7 (4.3-11.1) K/mcL RBC 4.44 (3.82-4.97) M/mcL Hgb 12.8 (11.5-15.4) g/dL Hct 39.5 (35.3-44.9) % MCV 89.0 (83.0-100.0) fL MCH 28.8 (28.0-33.3) pg MCHC 32.4 (31.6-35.5) g/dL RDW 13.1 (11.5-14.5) % Plt Count 318 (140-400) K/mcL MPV 9.9 (9.4-12.4) fL Immature Gran % 0.3 (0-4) % Seg Neutrophils % 71.2 % Lymphocytes % 21.6 % Monocytes % 5.2 % Eosinophils % 1.3 % Basophils % 0.4 % Neutrophils # 6.9 (1.6-8.9) K/mcL Lymphocytes # 2.1 (0.6-4.6) K/mcL Monocytes # 0.5 (0.0-1.3) K/mcL Eosinophils # 0.1 (0.0-0.6) K/mcL Basophils # 0.0 (0.0-0.2) K/mcL Sodium 133 L (136-145) mEq/L Potassium 3.6 (3.5-5.1) mEq/L Chloride 98 (98-107) mEq/L Carbon Dioxide 29 (23-29) mEq/L BUN 13 (6-20) mg/dL Creatinine 0.55 L (0.60-1.20) mg/dL Est GFR ( Amer) > 60 (> 60) Est GFR (Non-Af Amer) > 60 (> 60) BUN/Creatinine Ratio 24 (6-26) Glucose 90 (70-105) mg/dL Calculated Osmolality 276 L (280-300) Lactic Acid (0.5-2.2) mmol/L Calcium 9.1 (8.6-10.3) mg/dL Total Bilirubin 0.3 (0.3-1.0) mg/dL AST 13 (13-39) Units/L ALT 8 (7-52) Units/L Alkaline Phosphatase 88 (34-104) Units/L Serum Total Protein 7.1 (6.4-8.9) g/dL Albumin 3.8 (3.5-5.7) g/dL Globulin 3.3 (2.4-3.5) g/dL Albumin/Globulin Ratio 1.2 (1.1-2.2) Serum , Qual Negative (Negative) 05/03/19 Range/Units 19:30 WBC (4.3-11.1) K/mcL RBC (3.82-4.97) M/mcL Hgb (11.5-15.4) g/dL Hct (35.3-44.9) % MCV (83.0-100.0) fL MCH (28.0-33.3) pg MCHC (31.6-35.5) g/dL RDW (11.5-14.5) % Plt Count (140-400) K/mcL MPV (9.4-12.4) fL Immature Gran % (0-4) % Seg Neutrophils % % Lymphocytes % % Monocytes % % Eosinophils % % Basophils % % Neutrophils # (1.6-8.9) K/mcL Lymphocytes # (0.6-4.6) K/mcL Monocytes # (0.0-1.3) K/mcL Eosinophils # (0.0-0.6) K/mcL Basophils # (0.0-0.2) K/mcL Sodium (136-145) mEq/L Potassium (3.5-5.1) mEq/L Chloride (98-107) mEq/L Carbon Dioxide (23-29) mEq/L BUN (6-20) mg/dL Creatinine (0.60-1.20) mg/dL Est GFR ( Amer) (> 60) Est GFR (Non-Af Amer) (> 60) BUN/Creatinine Ratio (6-26) Glucose (70-105) mg/dL Calculated Osmolality (280-300) Lactic Acid 1.4 (0.5-2.2) mmol/L Calcium (8.6-10.3) mg/dL Total Bilirubin (0.3-1.0) mg/dL AST (13-39) Units/L ALT (7-52) Units/L Alkaline Phosphatase (34-104) Units/L Serum Total Protein (6.4-8.9) g/dL Albumin (3.5-5.7) g/dL Globulin (2.4-3.5) g/dL Albumin/Globulin Ratio (1.1-2.2) Serum , Qual (Negative)
[2019-05-03 19:35] LABS: Basophils % 0.4 %; Eosinophils # 0.1 K/mcL (0.0-0.6); Eosinophils % 1.3 %; Hematocrit 39.5 % (35.3-44.9); Hemoglobin 12.8 g/dL (11.5-15.4); Immature Granulocytes % 0.3 % (0-4); Lymphocytes # 2.1 K/mcL (0.6-4.6); Lymphocytes % 21.6 %; Mean Corpuscular HGB Conc 32.4 g/dL (31.6-35.5); Mean Corpuscular Hemoglobin 28.8 pg (28.0-33.3); Mean Platelet Volume 9.9 fL (9.4-12.4); Monocytes # 0.5 K/mcL (0.0-1.3); Monocytes % 5.2 %; Neutrophils # 6.9 K/mcL (1.6-8.9); Platelet Count 318 K/mcL (140-400); Red Blood Count 4.44 M/mcL (3.82-4.97); Red Cell Distribution Width 13.1 % (11.5-14.5); Segmented Neutrophils % 71.2 %; White Blood Count 9.7 K/mcL (4.3-11.1)
[2019-05-03 19:48] LABS: Alanine Aminotransferase 8 Units/L (7-52); Albumin 3.8 g/dL (3.5-5.7); Albumin/Globulin Ratio 1.2 (1.1-2.2); Alkaline Phosphatase 88 Units/L (34-104); Aspartate Amino Transferase 13 Units/L (13-39); BUN/Creatinine Ratio 24 (6-26); Bilirubin,Total 0.3 mg/dL (0.3-1.0); Blood Urea Nitrogen 13 mg/dL (6-20); Calcium 9.1 mg/dL (8.6-10.3); Carbon Dioxide 29 mEq/L (23-29); Chloride 98 mEq/L (98-107); Globulin 3.3 g/dL (2.4-3.5); Glucose 90 mg/dL (70-105); Osmolality,Calculated 276 (280-300); Potassium 3.6 mEq/L (3.5-5.1); Sodium 133 mEq/L (136-145); Total Protein 7.1 g/dL (6.4-8.9); eGFR For African Americans > 60 (> 60); eGFR For Non-African Americans > 60 (> 60)
[2019-05-03] MEDS ORDERED: Ketorolac 15 MG/ML VIAL IVP ONE (20:25)
[2019-05-03] MEDS ORDERED: Ketorolac 30 MG/ML VIAL IVP ONE (20:43)
[2019-05-03] MEDS ORDERED: Naloxone 0.4 MG/ML INJ IVP PRN (21:48)
[2019-05-03] MEDS ORDERED: Acetaminophen 325 MG TABLET PO PRN (21:48)
[2019-05-03] MEDS ORDERED: Ketorolac 30 MG/ML VIAL IVP PRN (21:48)
--- NOTE | 2019-05-03 21:51 | Emergency Department Note ---
Disposition Clinical Impression: Abscess of skin or subcutaneous tissue Qualifiers: Site of cutaneous abscess: neck Qualified Code(s): L02.11 - Cutaneous abscess of neck Disposition: Admitted As Inpatient Condition: Fair Time of Disposition: 22:24 General Adult HPI - General Chief complaint: ED Skin/Abscess/Foreign Body Stated complaint: Knot on R side neck, MRSA Time Seen by Provider: 05/03/19 19:34 Source: patient Limitations: no limitations - History of Present Illness Pain Scale: 9 - Related Data Home Medications Medication Instructions Recorded Confirmed No Known Home Drugs 04/05/19 05/03/19 Allergies Allergy/AdvReac Type Severity Reaction Status Date / Time No Known Allergies Allergy Verified 05/03/19 18:20 Past Medical History - Past Medical History Medical history: Reports: hepatitis Surgical history: Reports: other Psychiatric 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 - Social History Smoking Status: Current every day smoker Smokeless Tobacco Status: No Alcohol use: Reports: none Drug use: Reports: cocaine, opiates, marijuana, methamphetamine, IV Drug Use, prescription drug abuse, other Physical Exam - General Limitations: no limitations General appearance: alert, in no apparent distress Course Vital Signs Temperature 98.8 F 05/03/19 18:18 Pulse Rate 117 05/03/19 18:18 Respiratory Rate 16 05/03/19 18:18 Blood Pressure 131/69 05/03/19 18:18 O2 Sat by Pulse Oximetry 96 05/03/19 18:18 Temperature 98.6 F 05/04/19 21:48 Pulse Rate 100 05/04/19 21:48 Respiratory Rate 16 05/04/19 21:48 Blood Pressure 112/73 05/04/19 21:48 O2 Sat by Pulse Oximetry 97 05/04/19 21:22 Oxygen Delivery Oxygen Delivery Room Air Medical Decision Making - Lab Data Result diagrams: 05/04/19 09:56 05/04/19 09:56 Lab Results 05/03/19 05/03/19 05/03/19 Range/Units 19:13 19:13 19:13 WBC 9.7 (4.3-11.1) K/mcL RBC 4.44 (3.82-4.97) M/mcL Hgb 12.8 (11.5-15.4) g/dL Hct 39.5 (35.3-44.9) % MCV 89.0 (83.0-100.0) fL MCH 28.8 (28.0-33.3) pg MCHC 32.4 (31.6-35.5) g/dL RDW 13.1 (11.5-14.5) % Plt Count 318 (140-400) K/mcL MPV 9.9 (9.4-12.4) fL Immature Gran % 0.3 (0-4) % Seg Neutrophils % 71.2 % Lymphocytes % 21.6 % Monocytes % 5.2 % Eosinophils % 1.3 % Basophils % 0.4 % Neutrophils # 6.9 (1.6-8.9) K/mcL Lymphocytes # 2.1 (0.6-4.6) K/mcL Monocytes # 0.5 (0.0-1.3) K/mcL Eosinophils # 0.1 (0.0-0.6) K/mcL Basophils # 0.0 (0.0-0.2) K/mcL Sodium 133 L (136-145) mEq/L Potassium 3.6 (3.5-5.1) mEq/L Chloride 98 (98-107) mEq/L Carbon Dioxide 29 (23-29) mEq/L BUN 13 (6-20) mg/dL Creatinine 0.55 L (0.60-1.20) mg/dL Est GFR ( Amer) > 60 (> 60) Est GFR (Non-Af Amer) > 60 (> 60) BUN/Creatinine Ratio 24 (6-26) Glucose 90 (70-105) mg/dL Calculated Osmolality 276 L (280-300) Lactic Acid (0.5-2.2) mmol/L Calcium 9.1 (8.6-10.3) mg/dL Total Bilirubin 0.3 (0.3-1.0) mg/dL AST 13 (13-39) Units/L ALT 8 (7-52) Units/L Alkaline Phosphatase 88 (34-104) Units/L Serum Total Protein 7.1 (6.4-8.9) g/dL Albumin 3.8 (3.5-5.7) g/dL Globulin 3.3 (2.4-3.5) g/dL Albumin/Globulin Ratio 1.2 (1.1-2.2) Serum , Qual Negative (Negative) 05/03/19 Range/Units 19:30 WBC (4.3-11.1) K/mcL RBC (3.82-4.97) M/mcL Hgb (11.5-15.4) g/dL Hct (35.3-44.9) % MCV (83.0-100.0) fL MCH (28.0-33.3) pg MCHC (31.6-35.5) g/dL RDW (11.5-14.5) % Plt Count (140-400) K/mcL MPV (9.4-12.4) fL Immature Gran % (0-4) % Seg Neutrophils % % Lymphocytes % % Monocytes % % Eosinophils % % Basophils % % Neutrophils # (1.6-8.9) K/mcL Lymphocytes # (0.6-4.6) K/mcL Monocytes # (0.0-1.3) K/mcL Eosinophils # (0.0-0.6) K/mcL Basophils # (0.0-0.2) K/mcL Sodium (136-145) mEq/L Potassium (3.5-5.1) mEq/L Chloride (98-107) mEq/L Carbon Dioxide (23-29) mEq/L BUN (6-20) mg/dL Creatinine (0.60-1.20) mg/dL Est GFR ( Amer) (> 60) Est GFR (Non-Af Amer) (> 60) BUN/Creatinine Ratio (6-26) Glucose (70-105) mg/dL Calculated Osmolality (280-300) Lactic Acid 1.4 (0.5-2.2) mmol/L Calcium (8.6-10.3) mg/dL Total Bilirubin (0.3-1.0) mg/dL AST (13-39) Units/L ALT (7-52) Units/L Alkaline Phosphatase (34-104) Units/L Serum Total Protein (6.4-8.9) g/dL Albumin (3.5-5.7) g/dL Globulin (2.4-3.5) g/dL Albumin/Globulin Ratio (1.1-2.2) Serum , Qual (Negative) Attestation Statement - Attestation Attestation: I examined this patient and my medical decision-making was reviewed with the Resident Physician. I agree with the documented findings, disposition and treatment plan as described except to the extent set forth below. Patient 34-year-old female presents to emergency department with chief complaint of swelling in the super clavicular area on her right neck/chest. The patient reports she is an IV drug user and she is supraclavicular usually on her left side but the patient reports she may have shot on the right side. The patient reports she has prior history of endocarditis before in the past and also has history of multiple cutaneous abscesses. Patient states that she noticed the area started swelling and started being extremely tender in the area right above her clavicle. The patient denies fever states that she feels like she is getting Plan patient has erythema and swelling of the right super clavicular area there is no fluctuance noted on exam Medical decision management patient has laboratory studies that show a nonelevated white blood cell count patient's CT scan shows a large phlegmon area at the area of the induration. The patient started on IV vancomycin in the emergency Department blood cultures were obtained and the case was discussed with the hospitalist the patient will be admitted to the hospital
[2019-05-03 22:33] LABS: Amphetamine Screen,Urine Positive ng/mL (Cutoff=1000); Barbiturate Screen,Urine Negative ng/mL (Cutoff=200); Benzodiazepines Screen,Urine Negative ng/mL (Cutoff=200); Cannabinoid Screen,Urine Negative ng/mL (Cutoff = 50); Cocaine Screen,Urine Negative ng/mL (Cutoff= 300); Opiate Screen,Urine Negative ng/mL (Cutoff=300); Phencyclidine Screen,Urine Negative ng/mL (Cutoff=25)
--- NOTE | 2019-05-03 23:07 | Internal Med History&Physical ---
Date of Encounter: 05/03/19 Time of Encounter: 23:07 Internal Medicine - H&P: HPI Chief complaint: pain Admitted From: Home Plans for Post Hospital Care: Home History of present illness: Larissa Pollard is a 34-year-old woman with ongoing substance use disorder has led to her having endocarditis, viral hepatitis, skin and soft tissue infections, bacteremias and mood disorder. She comes to the emergency room today complaining of painful swelling around her right lower neck which she says started 4 days ago after attempting to inject heroin into a vein on the lateral side of her neck. She says the pain is exquisite and has caused functional impairment in regards to moving her head [id number]. She also developed chills but is unclear if she ever became febrile. She denies associated chest pain and productive cough. No headache or change in mental status is reported. In the ER she was found to be hemodynamically stable. ET scan done confirmed the presence of phlegmonous changes within the right supraclavicular soft tissue with small rim enhancing fluid collection suggesting an abscess. She is admitted for further care. Vitals: Reviewed General: Unkempt woman who appears older than stated age sitting up in bed in notable discomfort. Skin: Warm, flushed with multiple scabs all over her body. HEENT: Moist mucous membranes. No conjunctivae pallor. Neck: Soft tissue swelling on the right supraclavicular fossa that is indurated, firm to touch and exquisitely tender and notably erythematous. Chest: Normal thoracic expansion. Normal breath sounds. Clear to auscultation. Heart: Normal S1 & S2; rhythmic. No rubs or murmurs. Abdomen: Non-distended, soft and non-tender to palpation. No peritoneal reaction. Extremities: No clubbing, cyanosis or edema. No calf tenderness. Normal distal pulses. Neurological: Awake, alert and oriented to person, place and time. No focal deficits. Psych: Affect appropriate. Assessment/Plan 1. Skin/soft tissue infection: As evidenced by an abscess formation at the site of illicit intravenous drug use. High likelihood that this is an MRSA infection and therefore we will put her on high-dose vancomycin after obtaining blood cultures. It is currently not fluctuant and very indurated and therefore may not be amenable to incision and drainage at this time. We will need to monitor closely to determine if there is extension/progression of the inflammatory process to surrounding tissues as this would be dangerous given the localization. For now, antibiotics, fluids and analgesics as needed. She may benefit from surgical evaluation of medical management alone is not adequate. 2. Substance use disorder: 5 minutes were spent counseling and educating the patient on this habit. human services case manager and resources were made available. 3. Tobacco use: Smoking cessation advised. 4. DVT prophylaxis: Antiembolic stockings ordered. Past Med Surg Social Fam HX - Past Medical History Medical history: hepatitis Additional medical history: hepatitis C/A. endocarditis x 2 Psychiatric history: bipolar - Past Surgical History Surgical History: other Additional surgical history: D&C. R shoulder - Social History Smoking Status: Current every day smoker Smokeless Tobacco Status: No Alcohol use: none Drug use: cocaine, opiates, marijuana, methamphetamine, IV Drug Use, prescription drug abuse, other - Family History Father Family Member Ethnicity: Non- Living Status: Hx Family Cardiac Disorders: Yes (Bypass surgery) Hx Family Respiratory Disorders: Yes Hx Family GI Disorders: Yes Mother Family Member Ethnicity: Non- Living Status: Still Living Brother Family Member Ethnicity: Non- Living Status: Still Living Internal Medicine - H&P: Meds No Known Home Drugs 04/05/19 [History] Allergy/AdvReac Type Severity Reaction Status Date / Time No Known Allergies Allergy Verified 05/03/19 18:20 All Systems PM: A 10-system review of systems was performed and is negative for pertinent findings except as documented above in the HPI. - Constitutional Vitals: Temp Pulse Resp BP Pulse Ox 98.1 F 95 15 149/80 97 05/03/19 22:31 05/03/19 22:31 05/03/19 22:31 05/03/19 22:31 05/03/19 22:31 Exam: . Internal Med - H&P Results - Labs CBC & Chem 7: 05/03/19 19:13 05/03/19 19:13 Labs: Short CBC 05/03/19 Range/Units 19:13 WBC 9.7 (4.3-11.1) K/mcL Hgb 12.8 (11.5-15.4) g/dL Hct 39.5 (35.3-44.9) % Plt Count 318 (140-400) K/mcL Neutrophils # 6.9 (1.6-8.9) K/mcL BMP 05/03/19 19:13 Sodium 133 L Potassium 3.6 Chloride 98 Carbon Dioxide 29 BUN 13 Creatinine 0.55 L Glucose 90 Calcium 9.1 Liver Function 05/03/19 Range/Units 19:13 Total Bilirubin 0.3 (0.3-1.0) mg/dL AST 13 (13-39) Units/L ALT 8 (7-52) Units/L Alkaline Phosphatase 88 (34-104) Units/L Albumin 3.8 (3.5-5.7) g/dL - Impressions ITS Impressions Chest CT 05/03/19 18:53 IMPRESSION: No acute intrathoracic abnormality. Phlegmonous changes within the right supraclavicular soft tissues with small rim enhancing fluid collection suggesting abscess measuring up to 1.6 cm. D/ / Yuliana Gonzalez Cha, MD / Yuliana Gonzalez Cha, MD Interpreting Provider: Yuliana Gonzalez Cha, MD Soft Tissue Neck CT 05/03/19 18:53 IMPRESSION: No acute intrathoracic abnormality. Phlegmonous changes within the right supraclavicular soft tissues with small rim enhancing fluid collection suggesting abscess measuring up to 1.6 cm. D/ / Yuliana Gonzalez Cha, MD / Yuliana Gonzalez Cha, MD Interpreting Provider: Yuliana Gonzalez Cha, MD - Time Spent With Patient Total time spent is greater than 50% in coordination of care (as documented) at patient's floor/unit and/or counseling patient:
[2019-05-03] MEDS: traMADol 50 MG TABLET PO PRN (23:43)
[2019-05-03] MEDS: Ringers Solution, Lactated 1,000 ML IVC SCH (23:44)
[2019-05-04] MEDS: *HR* OxyCODONE Immed Rel 5 MG TABLET PO PRN ×4 (01:13→21:47)
[2019-05-04] MEDS ORDERED: Saline Nasal Spray 44 ML BOTTLE NS PRN ×2 (03:40→21:15)
[2019-05-04] MEDS ORDERED: *HR* LORazepam 2 MG/ML VIAL IVP ONE (03:40)
[2019-05-04] MEDS: Ringers Solution, Lactated 1,000 ML IVC SCH (05:33)
[2019-05-04 10:16] LABS: Basophils % 0.6 %; Eosinophils # 0.1 K/mcL (0.0-0.6); Eosinophils % 2.1 %; Hematocrit 34.6 % (35.3-44.9); Immature Granulocytes % 0.3 % (0-4); Mean Corpuscular HGB Conc 32.4 g/dL (31.6-35.5); Mean Corpuscular Hemoglobin 28.5 pg (28.0-33.3); Mean Platelet Volume 10.1 fL (9.4-12.4); Monocytes # 0.4 K/mcL (0.0-1.3); Neutrophils # 3.6 K/mcL (1.6-8.9); Platelet Count 253 K/mcL (140-400); Red Blood Count 3.93 M/mcL (3.82-4.97); Red Cell Distribution Width 13.1 % (11.5-14.5); White Blood Count 6.2 K/mcL (4.3-11.1)
[2019-05-04 10:18] LABS: Hemoglobin 11.2 g/dL (11.5-15.4)
[2019-05-04 10:19] LABS: Prothrombin Time 11.6 Seconds (9.4-12.1)
[2019-05-04 10:21] LABS: Activated Partial Thrombo Time 35.8 Seconds (26.0-36.0)
[2019-05-04 10:27] LABS: BUN/Creatinine Ratio 24 (6-26); Blood Urea Nitrogen 12 mg/dL (6-20); Calcium 8.5 mg/dL (8.6-10.3); Carbon Dioxide 29 mEq/L (23-29); Chloride 104 mEq/L (98-107); Glucose 118 mg/dL (70-105); Osmolality,Calculated 283 (280-300); Potassium 3.8 mEq/L (3.5-5.1); Sodium 136 mEq/L (136-145); eGFR For African Americans > 60 (> 60); eGFR For Non-African Americans > 60 (> 60)
[2019-05-04] MEDS: traMADol 50 MG TABLET PO PRN (12:59)
--- NOTE | 2019-05-04 13:05 | AcuteCare Surgery Consult Note ---
Date of Encounter: 05/04/19 Time of Encounter: 12:56 Assessment and Plan (1) Abscess of skin or subcutaneous tissue Current Visit: Yes Status: Acute 34F with an abscess related to IV drug abuse; NPO IVF IV abx will plan for drainage of the abscess in the OR Qualifiers: Site of cutaneous abscess: neck Qualified Code(s): L02.11 - Cutaneous abscess of neck History of Present Illness Consult date: 05/04/19 Reason for consult: other (neck abscess) History of present illness: 34F with ongoing IV substance abuse with subsequent endocarditis, viral hepatitis, skin and soft tissue infections. SHe is currenlty admitted with what appears to be a small abscess of R supraclavicular abcsess. She has had painful swelling around that part of her neck for about 4 days ago after IV drug use. The pain is worsened with movement; No other associated symptoms; A CT scan was obtained which demonstrated a small abscess in the right side of the neck; She is admitted for further care. Past Med Surg Social Fam HX - Past Medical History Medical history: hepatitis Additional medical history: hepatitis C/A. endocarditis x 2 Psychiatric history: bipolar - Past Surgical History Surgical History: other Additional surgical history: D&C. R shoulder - Social History Smoking Status: Current every day smoker Smokeless Tobacco Status: No Alcohol use: none Drug use: cocaine, opiates, marijuana, methamphetamine, IV Drug Use, prescription drug abuse, other - Family History Father Family Member Ethnicity: Non- Living Status: Hx Family Cardiac Disorders: Yes (Bypass surgery) Hx Family Respiratory Disorders: Yes Hx Family GI Disorders: Yes Mother Family Member Ethnicity: Non- Living Status: Still Living Brother Family Member Ethnicity: Non- Living Status: Still Living Medications and Allergies No Known Home Drugs 04/05/19 [History] Allergy/AdvReac Type Severity Reaction Status Date / Time No Known Allergies Allergy Verified 05/03/19 18:20 Review of Systems All systems PM: 12 point ROS negative besides HPI findings General Surgery Exam Initial Vital Signs Temp Pulse Resp BP Pulse Ox 98.8 F 117 16 131/69 96 05/03/19 18:18 05/03/19 18:18 05/03/19 18:18 05/03/19 18:18 05/03/19 18:18 - General physical appearance no distress - Eyes PERRL, normal ocular movement - ENT normocephalic - Neck no masses, other (tender along R neck; no active drainage; ) - Respiratory normal expansion, normal respiratory effort - Cardiovascular Cardiovascular exam: Present: RRR - Abdomen Abdomen general surgery: Present: soft, non tender - Integumentary Integumentary general surgery: Present: warm and dry, no abnormal pigmentation - Neurologic Present: CN 2-12 grossly intact - Musculoskeletal Present: normal posture - Psychiatric Psychiatric general surgery: Present: A&Ox3 Exam Initial Vital Signs Temp Pulse Resp BP Pulse Ox 98.8 F 117 16 131/69 96 05/03/19 18:18 05/03/19 18:18 05/03/19 18:18 05/03/19 18:18 05/03/19 18:18 Results - Labs 05/04/19 09:56 05/04/19 09:56 Abnormal lab results Hgb 11.2 g/dL (11.5-15.4) L D 05/04/19 09:56 Hct 34.6 % (35.3-44.9) L 05/04/19 09:56 Sodium 133 mEq/L (136-145) L 05/03/19 19:13 Creatinine 0.51 mg/dL (0.60-1.20) L 05/04/19 09:56 Glucose 118 mg/dL (70-105) H 05/04/19 09:56 Calculated Osmolality 276 (280-300) L 05/03/19 19:13 Calcium 8.5 mg/dL (8.6-10.3) L 05/04/19 09:56 Ur Amphetamines Screen Positive ng/mL ([id number]) H 05/03/19 22:09 Diabetes panel 05/03/19 05/04/19 Range/Units 19:13 09:56 Sodium 133 L 136 (136-145) mEq/L Potassium 3.6 3.8 (3.5-5.1) mEq/L Chloride 98 104 (98-107) mEq/L Carbon Dioxide 29 29 (23-29) mEq/L BUN 13 12 (6-20) mg/dL Creatinine 0.55 L 0.51 L (0.60-1.20) mg/dL Glucose 90 118 H (70-105) mg/dL Calcium 9.1 8.5 L (8.6-10.3) mg/dL AST 13 (13-39) Units/L ALT 8 (7-52) Units/L Alkaline Phosphatase 88 (34-104) Units/L Albumin 3.8 (3.5-5.7) g/dL Calcium panel 05/03/19 05/04/19 Range/Units 19:13 09:56 Calcium 9.1 8.5 L (8.6-10.3) mg/dL Albumin 3.8 (3.5-5.7) g/dL Pituitary panel 05/03/19 05/04/19 Range/Units 19:13 09:56 Sodium 133 L 136 (136-145) mEq/L Potassium 3.6 3.8 (3.5-5.1) mEq/L Chloride 98 104 (98-107) mEq/L Carbon Dioxide 29 29 (23-29) mEq/L BUN 13 12 (6-20) mg/dL Creatinine 0.55 L 0.51 L (0.60-1.20) mg/dL Glucose 90 118 H (70-105) mg/dL Calcium 9.1 8.5 L (8.6-10.3) mg/dL Adrenal panel 05/03/19 05/04/19 Range/Units 19:13 09:56 Sodium 133 L 136 (136-145) mEq/L Potassium 3.6 3.8 (3.5-5.1) mEq/L Chloride 98 104 (98-107) mEq/L Carbon Dioxide 29 29 (23-29) mEq/L BUN 13 12 (6-20) mg/dL Creatinine 0.55 L 0.51 L (0.60-1.20) mg/dL Glucose 90 118 H (70-105) mg/dL Calcium 9.1 8.5 L (8.6-10.3) mg/dL Total Bilirubin 0.3 (0.3-1.0) mg/dL AST 13 (13-39) Units/L ALT 8 (7-52) Units/L Alkaline Phosphatase 88 (34-104) Units/L Albumin 3.8 (3.5-5.7) g/dL All other labs normal. Consult Discharge Plan - Plan Referrals: NONE,PCP [Primary Care Provider] -
--- NOTE | 2019-05-04 15:17 | Internal Med Progress Note ---
Hospitalist Progress Note - Encounter Date of Encounter: 05/04/19 Time of Encounter: 09:35 - Subjective Interval History: Patient lying down in bed. Has pain in right neck. No fever reported overnight. - Exam Vitals: Temp Pulse Resp BP Pulse Ox 98.0 F 76 15 93/55 96 05/04/19 11:32 05/04/19 11:32 05/04/19 11:32 05/04/19 11:32 05/04/19 11:32 Exam: General: Patient is somnolent, disheveled mild distress but easily awakes., oriented x 3 ENT: Mucous membranes moist Neck:Erythema and tenderness with swelling over the right neck in the anterior triangle. Fluctuance noted. Respiratory: Good respiratory effort. Normal breath sounds. No wheezing or crackles. Cardiovascular: Regular rate and rhythm. s1 and s2 normal No clicks, rubs, gallops, or murmurs. No pedal edema Abdomen: Abdomen is soft, nontender. Bowel sounds are present Musculoskeletal: Spontaneously moving all extremities Skin: warm, dry, intact. Neuro: Alert oriented x 3 normal cranial nerves, no focal deficits - Assessment and Plan (1) Abscess of skin or subcutaneous tissue Current Visit: Yes Status: Acute (2) History of endocarditis Current Visit: Yes Status: Chronic (3) IV drug abuse Current Visit: Yes Status: Chronic DVT Prophylaxis: Will place patient on subcutaneous heparin - Summary of Assessment and Plan Summary of Assessment and Plan: Cellulitis and abscess involving right neck: From intravenous injection of illicit substances. Continue IV antibiotics. Will add Unasyn for better coverage of strep. Follow blood cultures. Consulted surgery for incision and drainage of abscess. 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 Monitor for signs of withdrawal. DVT prophylaxis: subcutaneous heparin - Time Spent with Patient Total time spent is greater than 50% in coordination of care (as documented) at patient's floor/unit and/or counseling patient: Internal Medicine: Result - Labs CBC & Chem 7: 05/04/19 09:56 05/04/19 09:56 Labs: Short CBC 05/03/19 05/04/19 Range/Units 19:13 09:56 WBC 9.7 6.2 (4.3-11.1) K/mcL Hgb 12.8 11.2 L D (11.5-15.4) g/dL Hct 39.5 34.6 L (35.3-44.9) % Plt Count 318 253 (140-400) K/mcL Neutrophils # 6.9 3.6 (1.6-8.9) K/mcL BMP 05/03/19 05/04/19 19:13 09:56 Sodium 133 L 136 Potassium 3.6 3.8 Chloride 98 104 Carbon Dioxide 29 29 BUN 13 12 Creatinine 0.55 L 0.51 L Glucose 90 118 H Calcium 9.1 8.5 L Liver Function 05/03/19 Range/Units 19:13 Total Bilirubin 0.3 (0.3-1.0) mg/dL AST 13 (13-39) Units/L ALT 8 (7-52) Units/L Alkaline Phosphatase 88 (34-104) Units/L Albumin 3.8 (3.5-5.7) g/dL - ABG Interpretation ABG results: PT/INR, D-dimer PT 11.6 Seconds (9.4-12.1) 05/04/19 09:56 - Impressions Impressions Chest CT 05/03/19 18:53 IMPRESSION: No acute intrathoracic abnormality. Phlegmonous changes within the right supraclavicular soft tissues with small rim enhancing fluid collection suggesting abscess measuring up to 1.6 cm. D/ / Yuliana Gonzalez Cha, MD / Yuliana Gonzalez Cha, MD Interpreting Provider: Yuliana Gonzalez Cha, MD Soft Tissue Neck CT 05/03/19 18:53 IMPRESSION: No acute intrathoracic abnormality. Phlegmonous changes within the right supraclavicular soft tissues with small rim enhancing fluid collection suggesting abscess measuring up to 1.6 cm. D/ / Yuliana Gonzalez Cha, MD / Yuliana Gonzalez Cha, MD Interpreting Provider: Yuliana Gonzalez Cha, MD Consult Discharge Plan - Plan Referrals: NONE,PCP [Primary Care Provider] - (1) Abscess of skin or subcutaneous tissue Qualifiers: Site of cutaneous abscess: neck Qualified Code(s): L02.11 - Cutaneous abscess of neck
[2019-05-04] MEDS ORDERED: Ampicillin/Sulbactam 1,500 MG in 0.9 % Sodium Chloride Mini Bag 100 ML IVPB SCH (15:19)
[2019-05-04] MEDS ORDERED: *HR* Heparin 5,000 UNIT/ML VIAL SQ SCH (18:00)
[2019-05-04] MEDS ORDERED: CefOXitin 1,000 MG VIAL ONE (18:24)
--- NOTE | 2019-05-04 18:33 | Anesthesia Evaluation PreOp ---
Date of Encounter: 05/04/19 Time of Encounter: 18:40 - Past History Planned Operation: I&D neck abcess [attmempted neck injection] Cardiac History: Other (Hx endocarditis x 2 [2016] s/p 8 week Vancomycin course) Pulmonary History: Smoker (1ppd x 15years) LAWN SPECIALIST History: Other (BiPolar disorder) Other Medical History: Hepatic (+Hep A & C dx 2015 Not seen by Sterilization Technician) Anesthesia History: No Prior Anesthetic Complications, Past Anesthesia (D&C, R- shoulder, T&A) : No Test: Negative Alcohol Use: none Drug use: cocaine, opiates, marijuana, methamphetamine (Last use "4 days ago"), IV Drug Use (Heroin - last "Yesterday ast Noon"), prescription drug abuse, other Medications and Allergies No Known Home Drugs 04/05/19 [History] Allergy/AdvReac Type Severity Reaction Status Date / Time No Known Allergies Allergy Verified 05/03/19 18:20 - Meds/Allergy Pre-op Review Medications Reviewed: Yes Allergies Reviewed: Yes Beta Blockers on Current Med List: No Anesthesia Results - Labs 05/04/19 09:56 05/04/19 09:[address] 05/03/19 18:53 IMPRESSION: No acute intrathoracic abnormality. Phlegmonous changes within the right supraclavicular soft tissues with small rim enhancing fluid collection suggesting abscess measuring up to 1.6 cm. D/ / Yuliana Gonzalez Cha, MD / Yuliana Gonzalez Cha, MD Interpreting Provider: Yuliana Gonzalez Cha, MD Soft Tissue Neck CT 05/03/19 18:53 IMPRESSION: No acute intrathoracic abnormality. Phlegmonous changes within the right supraclavicular soft tissues with small rim enhancing fluid collection suggesting abscess measuring up to 1.6 cm. D/ / Yuliana Gonzalez Cha, MD / Yuliana Gonzalez Cha, MD Interpreting Provider: Yuliana Gonzalez Cha, MD Laboratory Tests 04/13/17 05/03/19 05/03/19 11:25 19:13 22:09 INR Est GFR (Non-Af Amer) Calcium Serum , Qual Negative Ur Amphetamines Screen Positive H Hepatitis C Ab Screen Reactive H 05/04/19 05/04/19 09:56 09:56 INR 1.0 Est GFR (Non-Af Amer) > 60 Calcium 8.5 L Serum , Qual Ur Amphetamines Screen Hepatitis C Ab Screen - Imaging EKG: report reviewed (47bpm - SINUS BRADYCARDIA WITH SHORT IL INTERVAL Electronically Signed On 04-05-2019 15:22:27 EDT by Oly Ren) Anesthesia Exam Vital Signs Temp Pulse Resp BP Pulse Ox 05/04/19 11:32 98.0 F 76 15 93/55 96 05/04/19 07:00 97.8 F 80 16 102/64 97 05/04/19 03:30 98.1 F 101 16 133/80 99 05/03/19 22:31 98.1 F 95 15 149/80 97 05/03/19 21:50 90 18 108/71 99 05/03/19 20:56 86 18 121/77 99 Intake and Output 05/04/19 05/04/19 05/04/19 07:59 15:59 23:59 Intake Total 1450 / 2800 1250 / 2800 100 / 2800 Output Total 350 / 350 0 / 350 Balance 1100 / 2450 1250 / 2450 100 / 2450 Intake: IV Fluids 1250 / 2600 1250 / 2600 100 / 2600 Lactated Ringers 1,000 ML @ 200 1000 / 2000 1000 / 2000 mls/hr IVC .Q5H [facility] Rx#: [id number] Unasyn 1,500 MG In 0.9 % Sodium 100 / 100 Chloride (Mini-Bag +) 100 ML @ 200 mls/hr IVPB Q6H [facility] Rx#: [id number] Vancocin 750 MG In 0.9 % Sodium 250 / 500 250 / 500 Chloride 250 ML @ 250 mls/hr IVPB Q12H [facility] Rx#:[id number] Oral 200 / 200 Output: Urine 350 / 350 0 / 350 Other: Blood Glucose* 88 Height: 5'4" Weight: 123# BMI = 21 - HEENT Pupil (Motor): Pupils equal, EOMI Mallampati: II Teeth: Missing, Poor dentition Oral Opening: Greater than 3 - LAWN SPECIALIST LOC: Oriented LAWN SPECIALIST Motor: Normal RUE, Normal LUE, Normal RLE, Normal LLE, Normal Face [facility] SPECIALIST Sensory: Normal: RUE, LUE, RLE, LLE, Face - Cardiac Rhythm: Regular Murmur: None - Pulmonary Breath Sounds: bilateral Clear Respiratory Effort: Symmetrical Anesthesia Assess/Plan ASA Score: 3 Level of consciousness: Cooperative, Oriented, Tranquil Anesthetic Plan: General Monitoring Plan: Standard Monitors Recovery Plan: PACU Anes Supervising Prov Stmt: PT seen/evaluated, R&B Discussed, questions answered and consent obtained. Letha Rbob MD
[2019-05-04] MEDS ORDERED: Lidocaine -MPF 2% 2 ML VIAL ONE (18:46)
[2019-05-04] MEDS ORDERED: *HR* FentaNYL (PF) 100 MCG/2 ML VIAL ONE (18:46)
[2019-05-04] MEDS ORDERED: *HR* Propofol 200 MG/20 ML VIAL IVP ONE (18:46)
[2019-05-04] MEDS ORDERED: *HR* Midazolam HCl 2 MG/2 ML VIAL ONE (18:46)
[2019-05-04] MEDS ORDERED: Dexamethasone 4 MG/ML VIAL ONE (19:34)
[2019-05-04] MEDS ORDERED: Ondansetron 4 MG/2 ML VIAL ONE (19:34)
[2019-05-04] MEDS ORDERED: *HR* Promethazine 25 MG/ML VIAL IVP PRN ×2 (19:44→21:15)
[2019-05-04] MEDS ORDERED: *HR* HYDROmorphone (PF) 1 MG/ML SYRINGE IVP PRN (19:44)
--- NOTE | 2019-05-04 20:16 | Anesthesia Evaluation Post Op ---
Date of Encounter: 05/04/19 Time of Encounter: 20:16 - Vital Signs Vital Signs: Vital Signs/O2 Sat, Most Current Temp Pulse Resp BP Pulse Ox 99.4 F 77 12 101/70 98 05/04/19 19:52 05/04/19 20:12 05/04/19 20:12 05/04/19 20:12 05/04/19 20:12 - Lungs Lungs: Clear Ascult./Percussion - Airway Airway: Non-obstructed - Cardiovascular Regular Rate - Mental Status Mental Status: Asleep with brisk response to light stimulation - Pain Pain Scale: 0 Pain Scale used: Numeric (1 - 10) - Nausea Vomiting Nausea Vomiting: Not Present - Hydration Hydration: NPO, Has not voided - Discharge PostOp Status: Transfer Patient to floor
[2019-05-04] MEDS ORDERED: Lactobacillus 1 EACH CAP.SPRINK PO SCH (21:00)
[2019-05-04] MEDS ORDERED: Acetaminophen 325 MG TABLET PO PRN (21:15)
[2019-05-04] MEDS ORDERED: Naloxone 0.4 MG/ML INJ IVP PRN (21:15)
[2019-05-04] MEDS: Ampicillin/Sulbactam 1,500 MG in 0.9 % Sodium Chloride Mini Bag 100 ML IVPB SCH (21:46)
[2019-05-04] MEDS: Ketorolac 30 MG/ML VIAL IVP PRN (23:02)
[2019-05-05] MEDS: Ampicillin/Sulbactam 1,500 MG in 0.9 % Sodium Chloride Mini Bag 100 ML IVPB SCH ×4 (02:08→22:28)
[2019-05-05] MEDS: traMADol 50 MG TABLET PO PRN ×2 (03:44→15:39)
[2019-05-05] MEDS: *HR* Heparin 5,000 UNIT/ML VIAL SQ SCH ×2 (05:08→18:51)
[2019-05-05] MEDS: *HR* OxyCODONE Immed Rel 5 MG TABLET PO PRN ×2 (05:09→12:33)
--- NOTE | 2019-05-05 08:08 | Operative Note ---
Date of procedure: 05/04/19 Pre-op diagnosis: neck abscess Post-op diagnosis: same Procedure: incision and drainage of neck abscess Implants: none Complications: none Anesthesia: MAC Was there an pest controller assistant present: No Secondary School Teacher Other: Sravani Almendarez Estimated blood loss (cc): 2 Specimen: aerobic and anaerobic cultures Condition: stable Disposition: PACU Procedure in Detail: patient was brought into the operating room suite. placed in the supine position. mechanical dvt prophylaxis was placed. The patient underwent smooth induction of anesthesia. Preoperative antibiotics were given on the floor. She was prepped and draped in the usual fashion. A timeout was held identifying correct patient, pathology, procedure, and physician. I created a transverse incision along the lines of langerhan about 4cm in size across the most tense and fluctuant portion of the abscess. I dissected down through the skin, soft tissue (subcutaneous), and muscle layer until i reached the abscess cavity. I took culture swabs at that time. I then evacuated the abscess and about 5cc of purulent material were evacuated. the abscess cavity was about 2cm in width and about 1cm in depth. I dissected down below the muscle to reach the abscess cavity. I then irrigated the wound with vancomycin impregnated saline. I then packed he wound with iodoform guaze and stapled the skin around it. I then concluded the procedure. The patient tolerated the procedure and was escorted back to her room without issue.
[2019-05-05 09:00] LABS: Basophils % 0.1 %; Hematocrit 32.6 % (35.3-44.9); Hemoglobin 10.7 g/dL (11.5-15.4); Immature Granulocytes % 0.4 % (0-4); Lymphocytes % 12.9 %; Mean Corpuscular HGB Conc 32.8 g/dL (31.6-35.5); Mean Corpuscular Hemoglobin 28.5 pg (28.0-33.3); Mean Corpuscular Volume 86.9 fL (83.0-100.0); Monocytes # 0.3 K/mcL (0.0-1.3); Monocytes % 3.7 %; Neutrophils # 6.7 K/mcL (1.6-8.9); Platelet Count 319 K/mcL (140-400); Red Blood Count 3.75 M/mcL (3.82-4.97); Red Cell Distribution Width 12.7 % (11.5-14.5); Segmented Neutrophils % 82.9 %
[2019-05-05] MEDS: Ketorolac 30 MG/ML VIAL IVP PRN ×2 (09:07→18:13)
[2019-05-05 09:22] LABS: BUN/Creatinine Ratio 23 (6-26); Blood Urea Nitrogen 11 mg/dL (6-20); Calcium 8.8 mg/dL (8.6-10.3); Carbon Dioxide 24 mEq/L (23-29); Chloride 102 mEq/L (98-107); Glucose 167 mg/dL (70-105); Osmolality,Calculated 283 (280-300); Potassium 3.9 mEq/L (3.5-5.1); Sodium 135 mEq/L (136-145); eGFR For African Americans > 60 (> 60); eGFR For Non-African Americans > 60 (> 60)
[2019-05-05] MEDS: Lactobacillus 1 EACH CAP.SPRINK PO SCH ×2 (09:27→22:27)
--- NOTE | 2019-05-05 09:55 | AcuteCareSurgery Progress Note ---
Date of Encounter: 05/05/19 Time of Encounter: 09:53 - Assessment and Plan (1) Abscess of skin or subcutaneous tissue Current Visit: Yes Status: Acute 34F POD #1 s/p incision and drainage of a neck abscess 2/2 IV drug abuse; IV abx - vanc, ampicillin; tailor according to cultures when they return daily dressing changes with iodoform; okay to clean in the shower; pack daily another 24hrs of IV abx will cont to follow Qualifiers: Site of cutaneous abscess: neck Qualified Code(s): L02.11 - Cutaneous abscess of neck Subjective Patient reports: no new complaints, feels better, still having pain, pain is less, afebrile Objective Vital Signs - Last 8 Hours Temp Pulse Resp BP Pulse Ox 05/05/19 04:20 98.3 F 100 16 109/68 96 Intake and Output 05/04/19 05/05/19 05/05/19 23:59 07:59 15:59 Intake Total 580 / 3280 100 / 100 Output Total 2 / 352 Balance 578 / 2928 100 / 100 Intake: IV Fluids 100 / 2600 100 / 100 Unasyn 1,500 MG In 0.9 % Sodium 100 / 100 100 / 100 Chloride (Mini-Bag +) 100 ML @ 200 mls/hr IVPB Q6H [facility] Rx#: [id number] Oral 480 / 680 0 / 0 Output: Estimated Blood Loss 2 / 2 Other: Percent of Meal Consumed 100% # Voids 2 Weight 55.7 kg Patient Weight 05/05/19 23:59 Weight 55.7 kg - General physical appearance no distress - ENT Other (incision - clean, dry, induration, decreased erythema) - Respiratory normal expansion, normal respiratory effort - Cardiovascular Cardiovascular exam: Present: RRR - Abdomen Abdomen: Present: soft - Incision Incision: Present: erythema (with induration), open - Neurologic CN 2-12 grossly intact - Psychiatric oriented to time, oriented to person, oriented to place - Labs 05/05/19 08:49 05/05/19 08:49 Diabetes panel 05/04/19 05/05/19 Range/Units 09:56 08:49 Sodium 136 135 L (136-145) mEq/L Potassium 3.8 3.9 (3.5-5.1) mEq/L Chloride 104 102 (98-107) mEq/L Carbon Dioxide 29 24 (23-29) mEq/L BUN 12 11 (6-20) mg/dL Creatinine 0.51 L 0.48 L (0.60-1.20) mg/dL Glucose 118 H 167 H (70-105) mg/dL Calcium 8.5 L 8.8 (8.6-10.3) mg/dL Calcium panel 05/04/19 05/05/19 Range/Units 09:56 08:49 Calcium 8.5 L 8.8 (8.6-10.3) mg/dL Pituitary panel 05/04/19 05/05/19 Range/Units 09:56 08:49 Sodium 136 135 L (136-145) mEq/L Potassium 3.8 3.9 (3.5-5.1) mEq/L Chloride 104 102 (98-107) mEq/L Carbon Dioxide 29 24 (23-29) mEq/L BUN 12 11 (6-20) mg/dL Creatinine 0.51 L 0.48 L (0.60-1.20) mg/dL Glucose 118 H 167 H (70-105) mg/dL Calcium 8.5 L 8.8 (8.6-10.3) mg/dL Adrenal panel 05/04/19 05/05/19 Range/Units 09:56 08:49 Sodium 136 135 L (136-145) mEq/L Potassium 3.8 3.9 (3.5-5.1) mEq/L Chloride 104 102 (98-107) mEq/L Carbon Dioxide 29 24 (23-29) mEq/L BUN 12 11 (6-20) mg/dL Creatinine 0.51 L 0.48 L (0.60-1.20) mg/dL Glucose 118 H 167 H (70-105) mg/dL Calcium 8.5 L 8.8 (8.6-10.3) mg/dL Consult Discharge Plan - Plan Referrals: NONE,PCP [Primary Care Provider] -
--- NOTE | 2019-05-05 16:53 | Internal Med Progress Note ---
Hospitalist Progress Note - Encounter Date of Encounter: 05/05/19 Time of Encounter: 10:00 - Subjective Interval History: I reviewed independently all laboratory workup, pertinent images including x- rays and CT scans. I also reviewed independently and EKGs and my findings are in the body of my assessment and plan. I ordered the laboratory workup and images myself. I discussed finding with patient's, their families, RN's and consultants involved in the care of the patient. - Exam Vitals: Temp Pulse Resp BP Pulse Ox 97.4 F L 82 18 98/60 96 05/05/19 12:46 05/05/19 12:46 05/05/19 12:46 05/05/19 12:46 05/05/19 12:46 Exam: General: Patient is somnolent, disheveled mild distress but easily awakes., oriented x 3 ENT: Mucous membranes moist Neck:Erythema and tenderness with swelling over the right neck in the anterior triangle. Fluctuance noted. Respiratory: Good respiratory effort. Normal breath sounds. No wheezing or cr ackles. Cardiovascular: Regular rate and rhythm. s1 and s2 normal No clicks, rubs, gallops, or murmurs. No pedal edema Abdomen: Abdomen is soft, nontender. Bowel sounds are present Musculoskeletal: Spontaneously moving all extremities Skin: warm, dry, intact. Neuro: Alert oriented x 3 normal cranial nerves, no focal deficits - Assessment and Plan (1) IV drug abuse Current Visit: Yes Status: Chronic (2) History of endocarditis Current Visit: Yes Status: Chronic (3) Abscess of skin or subcutaneous tissue Current Visit: Yes Status: Acute - Summary of Assessment and Plan Summary of Assessment and Plan: Cellulitis and abscess involving right neck s/p I&D: POD-1 From intravenous injection of illicit substances. Continue IV antibiotics (Unasyn and vancomycin renally dosed). Follow blood and wound cultures. General surgery is on board. Leukocytosis: Resolved. 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 Monitor for signs of withdrawal. Patient is interested for inpatient rehabilitation DVT prophylaxis: subcutaneous heparin - Time Spent with Patient Total time spent is greater than 50% in coordination of care (as documented) at patient's floor/unit and/or counseling patient: Plan of Care Discussed with: patient Internal Medicine: Result - Labs CBC & Chem 7: 05/05/19 08:49 05/05/19 08:49 Labs: Short CBC 05/05/19 Range/Units 08:49 WBC 8.0 (4.3-11.1) K/mcL Hgb 10.7 L (11.5-15.4) g/dL Hct 32.6 L (35.3-44.9) % Plt Count 319 (140-400) K/mcL Neutrophils # 6.7 (1.6-8.9) K/mcL BMP 05/05/19 08:49 Sodium 135 L Potassium 3.9 Chloride 102 Carbon Dioxide 24 BUN 11 Creatinine 0.48 L Glucose 167 H Calcium 8.8 - ABG Interpretation ABG results: PT/INR, D-dimer PT 11.6 Seconds (9.4-12.1) 05/04/19 09:56 Consult Discharge Plan - Plan Referrals: NONE,PCP [Primary Care Provider] - (3) Abscess of skin or subcutaneous tissue Qualifiers: Site of cutaneous abscess: neck Qualified Code(s): L02.11 - Cutaneous abscess of neck
[2019-05-06] MEDS: Ampicillin/Sulbactam 1,500 MG in 0.9 % Sodium Chloride Mini Bag 100 ML IVPB SCH ×2 (04:05→08:54)
[2019-05-06] MEDS: *HR* Heparin 5,000 UNIT/ML VIAL SQ SCH (04:48)
[2019-05-06] MEDS: *HR* OxyCODONE Immed Rel 5 MG TABLET PO PRN (08:53)
[2019-05-06] MEDS: Lactobacillus 1 EACH CAP.SPRINK PO SCH (08:54)
--- NOTE | 2019-05-06 09:56 | AcuteCareSurgery Progress Note ---
<Anyi Mayer L - Last Filed: 05/06/19 09:53> Date of Encounter: 05/06/19 Time of Encounter: 09:54 - Assessment and Plan (1) Abscess of skin or subcutaneous tissue Current Visit: Yes Status: Acute s/p I&D. Continue ATBX per primary team. Wound care (d/c instructions and rx ocmplete) Follow-up with Dr. Haley in wound care in 7-10 days (director of community life to call [phone] to make appt). Surgery will sign off at this time. Qualifiers: Site of cutaneous abscess: neck Qualified Code(s): L02.11 - Cutaneous abscess of neck (2) IV drug abuse Current Visit: Yes Status: Chronic Subjective Patient reports: no new complaints, afebrile Objective Vital Signs - Last 8 Hours Temp Pulse Resp BP Pulse Ox 05/06/19 07:27 98.2 F 74 17 115/75 95 05/06/19 04:59 97.5 F L 81 15 112/69 96 Intake and Output 05/05/19 05/06/19 05/06/19 23:59 07:59 15:59 Intake Total 100 / 400 350 / 350 Balance 100 / 400 350 / 350 Intake: IV Fluids 100 / 400 350 / 350 Unasyn 1,500 MG In 0.9 % Sodium 100 / 400 100 / 100 Chloride (Mini-Bag +) 100 ML @ 200 mls/hr IVPB Q6H [facility] Rx#: [id number] Vancocin 1,000 MG In 0.9 % 250 / 250 Sodium Chloride 250 ML @ 166. 667 mls/hr IVPB Q12H [facility] Rx#: [id number] Other: # Voids 1 1 - General physical appearance no distress - Incision Incision: Present: clean and dry, indurated (improving), open - Musculoskeletal normal posture - Psychiatric oriented to time, oriented to person, oriented to place - Labs 05/05/19 08:49 05/05/19 08:49 Consult Discharge Plan - Plan Instructions: Abscess (GEN) Additional Instructions: Daily wound care: remove dressing and packing. Shower with antibacterial soap. Repack with 1/4 inch iodoform gauze. Cover with a dry dressing. Tape to secure. Follow-up in wound care as directed. Referrals: Arturo Barrientos DO [Resident] - 05/10/19 10:00 am (Follow up as scheduled. ) Gideon Haley MD [Non-Partnered Physician] - (In Wound Care 7) Prescriptions: Amoxicillin/Clavulanate [Augmentin] 875 mg PO BIDWM #24 tablet Sulfamethoxazole/Trimeth DS [Bactrim DS] 1 each PO BID #24 tablet <Gómez Elliott - Last Filed: 05/06/19 13:51> Date of Encounter: 05/06/19 Objective Vital Signs - Last 8 Hours Temp Pulse Resp BP Pulse Ox 05/06/19 12:02 97.6 F 77 17 115/79 96 05/06/19 07:27 98.2 F 74 17 115/75 95 Intake and Output 05/05/19 05/06/19 05/06/19 23:59 07:59 15:59 Intake Total 100 / 400 350 / 690 340 / 690 Balance 100 / 400 350 / 690 340 / 690 Intake: IV Fluids 100 / 400 350 / 450 100 / 450 Unasyn 1,500 MG In 0.9 % Sodium 100 / 400 100 / 200 100 / 200 Chloride (Mini-Bag +) 100 ML @ 200 mls/hr IVPB Q6H [facility] Rx#: [id number] Vancocin 1,000 MG In 0.9 % 250 / 250 Sodium Chloride 250 ML @ 166. 667 mls/hr IVPB Q12H [facility] Rx#: [id number] Oral 240 / 240 Other: Meal Breakfast Percent of Meal Consumed 100% # Voids 1 1 1 - Labs 05/05/19 08:49 05/05/19 08:49 - Attending Attestation I have personally performed a face to face evaluation on this patient. I have re viewed and agree with the care plan. History and Exam by me shows: The patient is seen and evaluated on morning rounds with the acute care surgery team The neck wound is packed with iodoform. She should continue packing with iodoform daily basis. Follow-up in wound clinic. Gómez Elliott MD FACS
--- NOTE | 2019-05-06 11:37 | Discharge Summary ---
- NOTES TO OUTPATIENT PROVIDER Notes to Outpatient Provider: Patient was admitted for neck abscess treated with incision and drainage and IV antibiotics. Gen. surgery cleared her for discharge and wound instructions were given to the patient. She would be discharged on Augmentin and Bactrim as her cultures from the wound still pending please follow on that. Orders not resulted at time of discharge: Pending orders 05/03/19 19:06 Culture,Blood [BC] Stat 05/04/19 19:00 Culture,Anaerobic [RM] Routine Culture,Tissue (Biopsy) [RM] Routine Date of Encounter: 05/06/19 Time of Encounter: 10:00 - Discharge Diagnosis (1) IV drug abuse Priority: Secondary Status: Chronic (2) History of endocarditis Priority: Secondary Status: Chronic (3) Abscess of skin or subcutaneous tissue Priority: Primary Status: Acute Qualifiers: Site of cutaneous abscess: neck Qualified Code(s): L02.11 - Cutaneous abscess of neck Hospital course: Ms. Pollard is a 34 year old female with history of IV drug abuse who came into the hospital due to neck pain and swelling. CT scan of the neck revealed phlegmonous changes within the right supraclavicular soft tissue with a small rim enhacing collection suggesting abscess. General surgery was consulted and patient had incision and drainage done. She was placed on IV vancomycin and Zosyn. Patient remained afebrile, hemodynamically stable and her leukocytosis resolved. Genera surgery cleared the patient for discharge to follow up with wound care and with them in 1 week. She will be discharged home on Augmentin and Bactrim pending wound cultures. Regarding her IV drug abuse, patient did not reveal any sign of symptoms of withdrawal. apron worker was consulted and patient was interested in rehabilitation which will be arranged at discharge. Patient had a rehabilitation center in mind and she will call them once she gets discharged from the hospital. She will be discharged today in stable condition. She does not have a primary care doctor and I asked nursing staff to GET an appointment with the resident clinic. Discharge discussed with: patient - Time Spent with Patient Total time spent providing and/or coordinating discharge services: 35 minutes - Discharge Medications Prescriptions: New Amoxicillin/Clavulanate [Augmentin] 875 mg PO BIDWM #24 tablet Sulfamethoxazole/Trimeth DS [Bactrim DS] 1 each PO BID #24 tablet Home Medications: Amoxicillin/Clavulanate [Augmentin] 875 mg PO BIDWM #24 tablet 05/06/19 [Rx] Sulfamethoxazole/Trimeth DS [Bactrim DS] 1 each PO BID #24 tablet 05/06/19 [Rx] Allergies/Adverse Reactions: Allergy/AdvReac Type Severity Reaction Status Date / Time No Known Allergies Allergy Verified 05/03/19 18:20 Date of admission: 05/05/19 13:23 Primary care physician: PCP NONE Consults: 05/04/19 10:23 Consult to Surgery [CONS] Routine Consulting Provider: Acute Care Surgery Reason for Consult: right neck abscess Time Notified: 10:23 Call Completed: Yes - Constitutional Vitals: Temp Pulse Resp BP Pulse Ox 98.2 F 74 17 115/75 95 05/06/19 07:27 05/06/19 07:27 05/06/19 07:27 05/06/19 07:27 05/06/19 07:27 Exam: General: Patient is somnolent, disheveled mild distress but easily awakes., oriented x 3 ENT: Mucous membranes moist Neck: Right-sided wound dressing Respiratory: Good respiratory effort. Normal breath sounds. No wheezing or crackles. Cardiovascular: Regular rate and rhythm. s1 and s2 normal No clicks, rubs, gallops, or murmurs. No pedal edema Abdomen: Abdomen is soft, nontender. Bowel sounds are present Musculoskeletal: Spontaneously moving all extremities Skin: warm, dry, intact. Neuro: Alert oriented x 3 normal cranial nerves, no focal deficits - Patient Status Disposition: Home, Self-Care Condition: Fair Functional capacity at discharge: independent ambulation Overall status at discharge: patient is back to baseline - Discharge Instructions Instructions: Abscess (GEN) Follow Up With: Arturo Barrientos DO [Resident] - 05/10/19 10:00 am (Follow up as scheduled. ) Gideon Haley MD [Non-Partnered Physician] - (In Wound Care 7) Additional Instructions: Daily wound care: remove dressing and packing. Shower with antibacterial soap. Repack with 1/4 inch iodoform gauze. Cover with a dry dressing. Tape to secure. Follow-up in wound care as directed. - Diet and Activity Activity: resume usual activities as tolerated
[2019-05-06] MEDS: traMADol 50 MG TABLET PO PRN (12:38)
[2019-05-06 14:43] VITALS: BP 120/78
[2019-05-06] MEDS ORDERED: Sulfamethoxazole/Trimeth DS 1 EACH TABLET PO SCH (17:00)
== END 2019-05-06 16:40 | disposition home or self-care (01) | DRG 581 ==
LOC: 3ANU 18:15 → EMEROOARM 18:15 → SUATTDRO 21:17 → 3ANU 22:12
PROVIDERS: ADMIT Internal Medicine; ATTEND Internal Medicine